=== PATIENT | female | born 1965 | race Caucasian/White ===

== ENCOUNTER → 2016-07-19 | Outpatient (CLI) | payer BC ==
[2016-07-19 10:42] LABS: Albumin 4.1 g/dL (3.4-5.0); BUN/Creatinine Ratio 13.4; Bilirubin, Total 0.5 mg/dL (0.2-1.0); Calcium 9.5 mg/dL (8.5-10.1); Total Protein 8.2 g/dL (6.4-8.2)
== END | disposition home or self-care (01) ==
LOC: LAB 09:27
PROVIDERS: ATTEND Physician Assistant
DX: E03.9 Hypothyroidism, unspecified (principal); R94.5 Abnormal results of liver function studies; E78.5 Hyperlipidemia, unspecified
CPT/HCPCS: 36415; 80053; 80061; 83036; 84439; 84443; 84481

== ENCOUNTER → 2017-05-10 | Outpatient (CLI) | payer BC ==
[2017-05-10 10:18] LABS: Basophils # (auto) 0 uL; Basophils % (auto) 0.8 % (0.0-2.0); Eosinophils # (auto) 0.1 uL; Eosinophils % (auto) 2.9 % (0.0-7.0); Hematocrit 46.5 % (36.0-46.0); Lymphocytes # (auto) 1.8 uL; Lymphocytes % (auto) 40.1 % (10.0-50.0); Mean Corpuscular Hemoglobin 31.7 pg (28.0-32.0); Mean Corpuscular Hgb Conc. 34.5 g/dL (32.0-36.0); Mean Corpuscular Volume 91.9 fL (80.0-100.0); Mean Platelet Volume 9.5 fL (6.9-10.8); Monocytes # (auto) 0.3 uL; Monocytes % (auto) 7.1 % (0.0-12.0); Neutrophils # (auto) 2.2 uL; Neutrophils % (auto) 49.1 % (37.0-80.0); Nucleated Red Blood Cells % 0.2 %; Platelet Count (auto) 170 10^3/uL (140-450); Red Cell Distribution Width 12.7 % (11.8-14.3); White Blood Cell 4.5 10^3/uL (4.4-10.8)
[2017-05-10 10:56] LABS: Albumin 4.3 g/dL (3.4-5.0); BUN/Creatinine Ratio 17.5; Bilirubin, Total 0.6 mg/dL (0.2-1.0); Calcium 9.7 mg/dL (8.5-10.1); Potassium 3.8 mmol/L (3.5-5.1); Total Protein 8.5 g/dL (6.4-8.2)
== END | disposition home or self-care (01) ==
LOC: LAB 09:25
PROVIDERS: ATTEND Physician Assistant
DX: Z00.01 Encounter for general adult medical examination with abnormal findings (principal); E78.5 Hyperlipidemia, unspecified; E03.9 Hypothyroidism, unspecified; E55.9 Vitamin D deficiency, unspecified; K52.9 Noninfective gastroenteritis and colitis, unspecified
CPT/HCPCS: 36415; 80053; 80061; 82306; 82607; 83036; 84439; 84443; 84481; 85025

== ENCOUNTER → 2018-01-17 | Outpatient (CLI) | payer BC ==
[2018-01-17 10:33] LABS: Urine Bacteria NONE SEEN /hpf (None Seen); Urine Blood TRACE /uL (Negative); Urine Mucus FEW (None Seen); Urine Specific Gravity 1.018 (1.001-1.035); Urine WBC 1 /hpf (0 - 5)
[2018-01-17 11:08] LABS: Albumin 3.9 g/dL (3.4-5.0); BUN/Creatinine Ratio 14.3; Calcium 9.4 mg/dL (8.5-10.1); Potassium 3.8 mmol/L (3.5-5.1)
[2018-01-17 11:11] LABS: Bilirubin, Total 0.8 mg/dL (0.2-1.0); Total Protein 8.2 g/dL (6.4-8.2)
[2018-01-17 11:18] LABS: Folate (Folic Acid) 23.35 ng/mL (5.38-24)
[2018-01-17 13:56] LABS: CRP High Sensitivity 0.41 mg/dL (< 0.3)
== END | disposition home or self-care (01) ==
LOC: LAB 10:11
PROVIDERS: ATTEND Nurse Practitioner
DX: E78.5 Hyperlipidemia, unspecified (principal); E03.5 Myxedema coma
CPT/HCPCS: 36415; 80053; 80061; 81001; 82306; 82607; 82746; 83036; 84443; 85652; 86141; 86431

== ENCOUNTER → 2018-05-09 | Outpatient (CLI) | payer BC | END | disposition home or self-care (01) | LOC: LAB 13:02 | PROVIDERS: ATTEND Physician Assistant | DX: N39.0 Urinary tract infection, site not specified (principal) | CPT/HCPCS: 87086; 87088; 87186 ==

== ENCOUNTER → 2018-06-11 | Outpatient (CLI) | payer BC ==
[2018-06-11 09:20] LABS: Urine WBC None Seen /hpf (0 - 5)
[2018-06-11 09:22] LABS: Basophils # (auto) 0.1 uL; Basophils % (auto) 1.1 % (0.0-2.0); Eosinophils # (auto) 0.1 uL; Eosinophils % (auto) 2.1 % (0.0-7.0); Hematocrit 48.4 % (36.0-46.0); Hemoglobin 16.6 g/dL (12.2-16.2); Lymphocytes # (auto) 1.7 uL; Lymphocytes % (auto) 38.7 % (10.0-50.0); Mean Corpuscular Hemoglobin 31.6 pg (28.0-32.0); Mean Corpuscular Hgb Conc. 34.3 g/dL (32.0-36.0); Mean Corpuscular Volume 92.2 fL (80.0-100.0); Monocytes # (auto) 0.4 uL; Monocytes % (auto) 8.2 % (0.0-12.0); Neutrophils # (auto) 2.2 uL; Neutrophils % (auto) 49.9 % (37.0-80.0); Platelet Count (auto) 172 10^3/uL (140-450); Red Blood Cells 5.24 10^6/uL (4.0-5.20); Red Cell Distribution Width 13.8 % (11.8-14.3); White Blood Cell 4.5 10^3/uL (4.4-10.8)
[2018-06-11 09:27] LABS: Urine Bacteria FEW /hpf (None Seen); Urine Blood Negative /uL (Negative); Urine Specific Gravity 1.003 (1.001-1.035)
[2018-06-11 09:42] LABS: Albumin 4.4 g/dL (3.4-5.0); Anion Gap 6 (5-15); Blood Urea Nitrogen 12 mg/dL (7-18); Calcium 9.9 mg/dL (8.5-10.1); Carbon Dioxide 27 mmol/L (21-32); Chloride 103 mmol/L (98-107); Glucose 97 mg/dL (74-106); Sodium 136 mmol/L (136-145)
[2018-06-11 09:47] LABS: Alanine Aminotransferase 72 U/L (13-56); Alkaline Phosphatase 152 U/L (45-117); Aspartate Aminotransferase 58 U/L (15-37); Bilirubin, Total 0.8 mg/dL (0.2-1.0); Cholesterol 204 mg/dL (< 200); GFR African American > 60 mL/min; GFR Non-African American > 60 mL/min; HDL Cholesterol 74 mg/dL (40-59); LDL Cholesterol 123 mg/dL (< 100); Total Protein 8.5 g/dL (6.4-8.2); Triglycerides 87 mg/dL (< 150)
== END | disposition home or self-care (01) ==
LOC: LAB 09:01
PROVIDERS: ATTEND Nurse Practitioner
DX: E78.5 Hyperlipidemia, unspecified (principal)
CPT/HCPCS: 36415; 80053; 80061; 81001; 82306; 83036; 84443; 85025

== ENCOUNTER 2018-10-02 08:05 | Inpatient (IN) | payer BC ==
[2018-09-30 15:00] LABS: Urine WBC None Seen /hpf (0 - 5)
[2018-09-30 15:41] LABS: Calcium 9.7 mg/dL (8.5-10.1)
[2018-09-30 15:44] LABS: Bilirubin, Total 0.3 mg/dL (0.2-1.0); Total Protein 7.8 g/dL (6.4-8.2)
[2018-09-30 15:57] LABS: Urine Bacteria NONE SEEN /hpf (None Seen); Urine Blood Negative /uL (Negative); Urine Specific Gravity 1.016 (1.001-1.035)
[2018-09-30 15:59] LABS: Basophils # (auto) 0 uL; Basophils % (auto) 0.8 % (0.0-2.0); Eosinophils # (auto) 0.1 uL; Eosinophils % (auto) 2.4 % (0.0-7.0); Hematocrit 40.6 % (36.0-46.0); Hemoglobin 14.3 g/dL (12.2-16.2); Lymphocytes # (auto) 1.5 uL; Lymphocytes % (auto) 35.3 % (10.0-50.0); Mean Corpuscular Hemoglobin 32.1 pg (28.0-32.0); Mean Corpuscular Hgb Conc. 35.1 g/dL (32.0-36.0); Mean Corpuscular Volume 91.4 fL (80.0-100.0); Monocytes # (auto) 0.3 uL; Monocytes % (auto) 7.5 % (0.0-12.0); Neutrophils # (auto) 2.3 uL; Nucleated Red Blood Cells % 0.2 %; Platelet Count (auto) 97 10^3/uL (140-450); Red Blood Cells 4.44 10^6/uL (4.0-5.20); White Blood Cell 4.2 10^3/uL (4.4-10.8)
[2018-09-30 16:22] LABS: INR 1.03 (0.9-1.15); Partial Thromboplastin Time 27.5 sec (23.78-33.04)
[~2018-10-02] VITALS: Ht 170.2 cm; Wt 70.9 kg
[~2018-10-02 08:05] MED LIST: LEVO112T35 PO
[2018-10-02] MEDS ORDERED: ceFAZolin 1GM/50ML 50 ML IV ONE (11:34)
[2018-10-02] MEDS ORDERED: LIDOCAINE 1% (LOCAL ANESTH.) PF 5ml SDV ONE (11:35)
[2018-10-02] MEDS ORDERED: SUCCINYLCHOLINE CHLORIDE 20 MG/ML 10ML VIAL IV ONE (11:35)
[2018-10-02] MEDS ORDERED: METOCLOPRAMIDE HCL 5MG/ml INJ 2ml VIAL ONE (11:37)
[2018-10-02] MEDS ORDERED: MIDAZOLAM HCL 1MG/1ML-2 ML VIAL ONE (11:37)
[2018-10-02] MEDS ORDERED: ROCURONIUM 10MG/ML 10ML VIAL IV ONE (11:38)
[2018-10-02] MEDS ORDERED: PROPOFOL 10 MG/ML 20 ML IV ONE (11:38)
[2018-10-02] MEDS ORDERED: fentaNYL CITRATE 100 MCG/2 ML VL ONE (11:46)
[2018-10-02] MEDS ORDERED: ONDANSETRON HCL 4 MG/2 ML VIAL IV ONE (12:00)
[2018-10-02] MEDS ORDERED: NALOXONE HCL 0.4 MG/ML VIAL IV PRN (12:00)
[2018-10-02] MEDS ORDERED: HYDROmorphone HCL 2 MG/ML VL IV PRN ×2 (12:00→13:00)
[2018-10-02] MEDS ORDERED: KETOROLAC TROMETH 30 MG/ML 1ML VIAL ONE (12:08)
[2018-10-02] MEDS ORDERED: GLYCOPYRROLATE 0.2 MG/ML 1ML VIAL ONE (12:13)
[2018-10-02] MEDS ORDERED: NEOSTIGMINE 1 MG/ML INJ (10mg/10ML VIAL) ONE (12:13)
[2018-10-02] MEDS: HYDROmorphone HCL 2 MG/ML VL IV PRN ×2 (12:50→13:57)
[2018-10-02] MEDS ORDERED: ONDANSETRON HCL 4 MG/2 ML VIAL IV PRN (13:00)
--- NOTE | 2018-10-02 14:48 | NUR ---
Med/Surg admit from [facility] [place] admitted to Med/Surg unit after SBAR received. Patient oriented to [place] primary RN, unit, room, bed, and unit policies regarding patient care and visiting hours discussed with patient and family. Patient on room air, no signs of SOB/distress notes. ABD dressing clean, dry and intact. KATHERINE drain intact, patent and draining serosanguineous fluid. Safety precautions in place including bed set to lowest position/locked, bedside rail up x2, call light within reach. Instructed patient to call for assistance. Patient verbalized understanding. Will continue to monitor Q 1hr and PRN.
[2018-10-02] MEDS: HYDROcodone-ACET 5/325MG TAB PO PRN (16:46)
[2018-10-02 17:00] VITALS: BP 106/69
[2018-10-02] MEDS: D5W/SOD CHL 0.45%/KCL 20MEQ 1,000 ML IV SCH ×2 (17:03→23:27)
[2018-10-02] MEDS: ceFAZolin 1GM/50ML 50 ML IV SCH ×2 (17:59→22:16)
--- NOTE | 2018-10-02 18:30 | NUR ---
PATIENT WAS AMBULATING AROUND NURSES STATION WITH FAMILY.
--- NOTE | 2018-10-02 19:27 | NUR ---
ENDORSED CARE TO IOANA GARCIA.
--- NOTE | 2018-10-02 19:42 | NUR ---
OPENING NOTE REPORT RECEIVED FROM DAY SHIFT RN PATIENT IS AMBULATING AROUND NURSES STATION WITH DAUGHTER STANDBY PT DENIES ANY DISTRESS AT THIS TIME WILL CONTINUE TO MONITOR
--- NOTE | 2018-10-02 20:18 | NUR ---
paged regarding: KATHERINE site actively bleeding sanguineous drainage
--- NOTE | 2018-10-02 20:20 | NUR ---
spoke with new order to change dressing to site, apply pressure bandage and apply binder
--- NOTE | 2018-10-02 20:30 | NUR ---
DRESSING CHANGE TO SITE PER APPLIED STERILE 4 X 4 GAUZE TO SITE WITH PRESSURE FOAM TAPE AND NEW ABDOMINAL BINDER.PATIENT TOLERATED WELL. DRAIN EMPTIED: 100ML OUT
[2018-10-02 22:00] VITALS: BP 129/66
[2018-10-03 05:00] VITALS: BP_SYST 106; BP_SYST 156; BP_DIAS 55; BP_DIAS 84
[2018-10-03] MEDS: ceFAZolin 1GM/50ML 50 ML IV SCH ×3 (06:09→22:17)
[2018-10-03] MEDS: LEVOTHYROXINE SODIUM 112 MCG TAB PO SCH (06:09)
--- NOTE | 2018-10-03 07:01 | NUR ---
TOTAL OUTPUT FROM KATHERINE: 340ML
--- NOTE | 2018-10-03 07:29 | NUR ---
CLOSING NOTE REPORT ENDORSED TO DAY SHIFT RN MORGAN DRESSING TO KATHERINE DRAIN SITE CHANGED 4 TIMES DURING SHIFT. DRESSING CURRENTLY WITH MINIMAL DRAINAGE. KATHERINE DRAIN DRAINING SANGUINEOUS FLUID. NO S/S OF DISTRESS. ABD BINDER IN PLACE, SCD'S ON BILATERALLY. CALL LIGHT WITHIN REACH
[2018-10-03] MEDS: HYDROcodone-ACET 5/325MG TAB PO PRN ×2 (07:58→18:01)
[2018-10-03 08:30] VITALS: BP 127/70
[2018-10-03] MEDS ORDERED: PANTOPRAZOLE 40 MG TAB PO SCH (10:00)
[2018-10-03] MEDS: HYDROmorphone HCL 2 MG/ML VL IV PRN ×3 (10:36→20:59)
[2018-10-03 13:00] VITALS: BP 117/66
[2018-10-03] MEDS: D5W/SOD CHL 0.45%/KCL 20MEQ 1,000 ML IV SCH ×2 (13:50→19:49)
--- NOTE | 2018-10-03 14:43 | NUR ---
PT COMPLAINING OF NAUSEA AND VOMITING, WILL GIVE NAUSEA MEDICATION ORDERED.
[2018-10-03 15:22] LABS: Basophils # (auto) 0.1 uL; Basophils % (auto) 0.7 % (0.0-2.0); Eosinophils # (auto) 0 uL; Eosinophils % (auto) 0.5 % (0.0-7.0); Hematocrit 46.1 % (36.0-46.0); Hemoglobin 15.6 g/dL (12.2-16.2); Lymphocytes # (auto) 2.9 uL; Lymphocytes % (auto) 26.7 % (10.0-50.0); Mean Corpuscular Hgb Conc. 33.7 g/dL (32.0-36.0); Monocytes # (auto) 0.9 uL; Monocytes % (auto) 7.8 % (0.0-12.0); Neutrophils % (auto) 64.3 % (37.0-80.0); Nucleated Red Blood Cells % 0.1 %; Platelet Count (auto) 178 10^3/uL (140-450); Red Blood Cells 5.02 10^6/uL (4.0-5.20); Red Cell Distribution Width 13.1 % (11.8-14.3); White Blood Cell 10.9 10^3/uL (4.4-10.8)
[2018-10-03 17:18] VITALS: BP 112/67
--- NOTE | 2018-10-03 18:30 | NUR ---
KATHERINE DRAIN OUTPUT 380MLS
--- NOTE | 2018-10-03 19:30 | NUR ---
OPENING NOTE REPORT RECEIVED FROM DAY SHIFT RN PATIENT IS A/OX4 RESTING IN BED, FAMILY AT BEDSIDE. SCD'S ON BILATERALLY. INCENTIVE SPIROMETER AT BEDSIDE AND PATIENT ABLE TO DEMONSTRATE USE. ABD BINDER IN PLACE. INCISIONS X 3 TO ABDOMEN, C/D/I AT THIS TIME. KATHERINE TO BULB SUCTION DRAINING SANGUINEOUS FLUID. PHYSICAL ASSESSMENT DONE- SEE INTERVENTIONS. POC DISCUSSED, ALL QUESTIONS ANSWERED. WILL MONITOR Q1H PRN THROUGHOUT SHIFT. CALL LIGHT WITHIN REACH.
[2018-10-03 22:00] VITALS: BP 144/81
[2018-10-04 04:50] VITALS: BP 107/62
[2018-10-04] MEDS: D5W/SOD CHL 0.45%/KCL 20MEQ 1,000 ML IV SCH (05:52)
[2018-10-04] MEDS: ceFAZolin 1GM/50ML 50 ML IV SCH ×2 (06:12→14:00)
[2018-10-04] MEDS: LEVOTHYROXINE SODIUM 112 MCG TAB PO SCH (06:13)
[2018-10-04 06:41] LABS: Basophils # (auto) 0.1 uL; Eosinophils # (auto) 0.1 uL; Eosinophils % (auto) 1.3 % (0.0-7.0); Hemoglobin 14.6 g/dL (12.2-16.2); Lymphocytes # (auto) 1.5 uL; Lymphocytes % (auto) 21.9 % (10.0-50.0); Mean Corpuscular Hemoglobin 31.1 pg (28.0-32.0); Mean Corpuscular Volume 91.6 fL (80.0-100.0); Monocytes # (auto) 0.5 uL; Monocytes % (auto) 7.6 % (0.0-12.0); Neutrophils # (auto) 4.8 uL; Neutrophils % (auto) 68.2 % (37.0-80.0); Nucleated Red Blood Cells % 0.1 %; Platelet Count (auto) 122 10^3/uL (140-450); Red Blood Cells 4.69 10^6/uL (4.0-5.20); Red Cell Distribution Width 12.8 % (11.8-14.3)
--- NOTE | 2018-10-04 06:48 | NUR ---
TOTAL OUTPUT FROM KATHERINE DRAIN: 200ML
--- NOTE | 2018-10-04 06:58 | NUR ---
CLOSING NOTE PATIENT UP TO RESTROOM WITHOUT DISTRESS AT THIS TIME
[2018-10-04 07:00] LABS: Albumin 3.4 g/dL (3.4-5.0); Calcium 9.2 mg/dL (8.5-10.1); Potassium 3.8 mmol/L (3.5-5.1)
[2018-10-04 07:03] LABS: BUN/Creatinine Ratio 9.8; Bilirubin, Total 0.6 mg/dL (0.2-1.0); Total Protein 6.7 g/dL (6.4-8.2)
--- NOTE | 2018-10-04 07:18 | NUR ---
patient back in bed scd's on bilaterally dressings c/d/i danielle draining to bulb suction
[2018-10-04 08:09] VITALS: BP 122/68
[2018-10-04] MEDS: HYDROcodone-ACET 5/325MG TAB PO PRN (08:41)
[2018-10-04] MEDS ORDERED: FAMOTIDINE (10MG/ML) 2ML VL IV SCH (10:00)
[2018-10-04 13:00] VITALS: BP 125/69
--- NOTE | 2018-10-04 13:20 | NUR ---
DR. MEADOWS MADE AWARE PT'S IV IS LEAKING AND PT IS REQUESTING IF SHE CAN GET PILL FOR HER ANTIBIOTIC, PT IS REFUSING TO INSERT A NEW IV, PER DR. MEADOWS HE WILL TAKE CARE OF IT.
--- NOTE | 2018-10-04 13:52 | NUR ---
PT SEEN BY DR. MEADOWS HE SAID TO GIVE PT SANDWICH AND IF PT TOLERATES IT IN 1 HOUR WITH NO NAUSEA AND VOMITING, PT CAN GO HOME.
--- NOTE | 2018-10-04 14:00 | NUR ---
ANCEF IV NOT GIVEN PT REFUSED IV INSERTION, DR. MEADOWS GAVE PRESCRIPTION FOR ORAL ANTIBIOTIC.
--- NOTE | 2018-10-04 14:45 | NUR ---
PT TOLERATED HALF OF THE SANDWICH, NO NAUSEA AND VOMITING NOTED.
[2018-10-04 16:21] VITALS: BP 106/57
--- NOTE | 2018-10-04 17:10 | NUR ---
Discharge instructions given as ordered. Encourage to follow up with DR. KATZ ON OCTOBER 09 AT 9:45AM, FOLLOW UP WITH DR. POLK ON OCTOBER 08 AT 10:45AM, TEL# AND ADDRESS PROVIDED TO THE PT. PT EDUCATED ON HOW TO DRAIN THE KATHERINE DRAIN, DRESSING CHANGED. All questions and concerns addressed. Patient verbalized understanding. Medication reconciliation form completed and copy given to patient. IV removed with catheter intact, pressure dressing applied. Patient taken to vehicle via wheelchair with all personal belongings, accompanied by staff and family member. No distress noted at time of departure.
== END 2018-10-04 17:10 | disposition home or self-care (01) | DRG 419 ==
LOC: SUR 08:05 → WEST WING 15:08
PROVIDERS: ADMIT Surgery; ATTEND Internal Medicine
PROC: 0FT44ZZ Resection of Gallbladder, Percutaneous Endoscopic Approach (ICD-10-PCS; principal; 2018-10-02 11:34)
DX: K80.10 Calculus of gallbladder with chronic cholecystitis without obstruction (principal); E66.9 Obesity, unspecified; E03.9 Hypothyroidism, unspecified; Z90.710 Acquired absence of both cervix and uterus; Z68.24 Body mass index [BMI] 24.0-24.9, adult
CPT/HCPCS: 36415; 80053; 81001; 82247; 84443; 85025; 85610; 85730; 86850; 86900; 86901; A6257; G0378; J0330; J0690; J1885; J2250; J2405; J2704; J3490

== ENCOUNTER → 2018-10-25 | Outpatient (CLI) | payer BC ==
[2018-10-25 11:21] LABS: Basophils # (auto) 0.1 uL; Basophils % (auto) 1.9 % (0.0-2.0); Eosinophils # (auto) 0.1 uL; Eosinophils % (auto) 2.8 % (0.0-7.0); Hematocrit 43.9 % (36.0-46.0); Hemoglobin 15.1 g/dL (12.2-16.2); Lymphocytes # (auto) 1.3 uL; Lymphocytes % (auto) 32.6 % (10.0-50.0); Mean Corpuscular Hemoglobin 31.5 pg (28.0-32.0); Mean Corpuscular Hgb Conc. 34.4 g/dL (32.0-36.0); Mean Corpuscular Volume 91.5 fL (80.0-100.0); Monocytes # (auto) 0.3 uL; Monocytes % (auto) 7.6 % (0.0-12.0); Neutrophils # (auto) 2.2 uL; Neutrophils % (auto) 55.1 % (37.0-80.0); Nucleated Red Blood Cells % 0.2 %; Platelet Count (auto) 113 10^3/uL (140-450); Red Cell Distribution Width 12.7 % (11.8-14.3); White Blood Cell 3.9 10^3/uL (4.4-10.8)
[2018-10-25 11:44] LABS: Calcium 9.7 mg/dL (8.5-10.1); Potassium 4.1 mmol/L (3.5-5.1)
[2018-10-25 11:49] LABS: BUN/Creatinine Ratio 18.2; Bilirubin, Total 0.7 mg/dL (0.2-1.0)
== END | disposition home or self-care (01) ==
LOC: LAB 10:31
PROVIDERS: ATTEND Nurse Practitioner
DX: E78.5 Hyperlipidemia, unspecified (principal)
CPT/HCPCS: 36415; 80053; 85025

== ENCOUNTER → 2018-11-29 | Outpatient (CLI) | payer BC ==
[2018-11-29 09:36] LABS: Basophils # (auto) 0 uL; Eosinophils # (auto) 0.1 uL; Hematocrit 43.5 % (36.0-46.0); Hemoglobin 14.7 g/dL (12.2-16.2); Lymphocytes # (auto) 1.3 uL; Lymphocytes % (auto) 39.2 % (10.0-50.0); Mean Corpuscular Hemoglobin 30.8 pg (28.0-32.0); Mean Corpuscular Hgb Conc. 33.9 g/dL (32.0-36.0); Mean Corpuscular Volume 90.8 fL (80.0-100.0); Monocytes # (auto) 0.3 uL; Monocytes % (auto) 9.3 % (0.0-12.0); Neutrophils # (auto) 1.5 uL; Neutrophils % (auto) 46.5 % (37.0-80.0); Nucleated Red Blood Cells % 0.1 %; Platelet Count (auto) 112 10^3/uL (140-450); Red Blood Cells 4.79 10^6/uL (4.0-5.20); Red Cell Distribution Width 13.2 % (11.8-14.3); White Blood Cell 3.3 10^3/uL (4.4-10.8)
[2018-11-29 09:56] LABS: Cholesterol 200 mg/dL (< 200); Triglycerides 99 mg/dL (< 150)
[2018-11-29 09:58] LABS: HDL Cholesterol 78 mg/dL (40-59); LDL Cholesterol 120 mg/dL (< 100)
== END | disposition home or self-care (01) ==
LOC: LAB 08:50
PROVIDERS: ATTEND Nurse Practitioner
DX: E78.5 Hyperlipidemia, unspecified (principal)
CPT/HCPCS: 36415; 80061; 84443; 85025

== ENCOUNTER → 2019-01-03 | Outpatient (CLI) | payer BC ==
[2019-01-03 12:26] LABS: Urine Bacteria NONE SEEN /hpf (None Seen); Urine Blood TRACE /uL (Negative); Urine Mucus FEW (None Seen); Urine Specific Gravity 1.023 (1.001-1.035); Urine WBC <1 /hpf (0 - 5)
== END | disposition home or self-care (01) ==
LOC: LAB 11:58
PROVIDERS: ATTEND Urology
DX: N30.01 Acute cystitis with hematuria (principal)
CPT/HCPCS: 81001; 87086

== ENCOUNTER → 2019-03-25 | Outpatient (CLI) | payer BC | END | disposition home or self-care (01) | LOC: LAB 09:25 | PROVIDERS: ATTEND Nurse Practitioner | DX: E03.9 Hypothyroidism, unspecified (principal) | CPT/HCPCS: 36415; 84443 ==

== ENCOUNTER → 2019-05-12 | Day surgery (SDC) | payer BC ==
[2019-05-08 14:41] LABS: Urine Bacteria NONE SEEN /hpf (None Seen); Urine Blood Negative /uL (Negative); Urine WBC <1 /hpf (0 - 5)
[2019-05-08 14:42] LABS: Basophils # (auto) 0.1 uL; Basophils % (auto) 1.2 % (0.0-2.0); Eosinophils # (auto) 0.1 uL; Eosinophils % (auto) 2.2 % (0.0-7.0); Hemoglobin 14.4 g/dL (12.2-16.2); Lymphocytes # (auto) 1.8 uL; Lymphocytes % (auto) 40.2 % (10.0-50.0); Mean Corpuscular Hemoglobin 31.1 pg (28.0-32.0); Mean Corpuscular Hgb Conc. 34.2 g/dL (32.0-36.0); Mean Corpuscular Volume 90.9 fL (80.0-100.0); Monocytes # (auto) 0.3 uL; Monocytes % (auto) 7.6 % (0.0-12.0); Neutrophils # (auto) 2.1 uL; Neutrophils % (auto) 48.8 % (37.0-80.0); Nucleated Red Blood Cells % 0.1 %; Platelet Count (auto) 127 10^3/uL (140-450); Red Blood Cells 4.62 10^6/uL (4.0-5.20); Red Cell Distribution Width 13.2 % (11.8-14.3); White Blood Cell 4.4 10^3/uL (4.4-10.8)
[2019-05-08 14:59] LABS: INR 1.12 (0.9-1.15); Partial Thromboplastin Time 26.3 sec (23.64-32.05)
[2019-05-08 15:06] LABS: Albumin 3.9 g/dL (3.4-5.0); Calcium 9.4 mg/dL (8.5-10.1); Potassium 3.8 mmol/L (3.5-5.1)
[2019-05-08 15:09] LABS: BUN/Creatinine Ratio 23.3; Bilirubin, Total 0.4 mg/dL (0.2-1.0); Total Protein 7.7 g/dL (6.4-8.2)
[~2019-05-12] VITALS: Ht 170.2 cm; Wt 78.0 kg
[~2019-05-12] MED LIST changes: +CIPROFLOXACIN 400MG/200ML 200 ML IV ONE; +CONJ ESTROGENS 0.625MG/GM VAG CRM 30GM PV ONE; -LEVO112T35 PO; +LEVO150T10 PO; +LIDOCAINE W/ EPINEPHRINE 1% 20ML VIAL ONE; +MIDAZOLAM HCL 1MG/1ML-2 ML VIAL ONE; +ONDANSETRON HCL 4 MG/2 ML VIAL IV PRN; +PROPOFOL 10 MG/ML 20 ML IV ONE; +SUCCINYLCHOLINE CHLORIDE 20 MG/ML 10ML VIAL IV ONE; +ceFAZolin 1GM VL ONE; +ePHEDrine SULFATE 50 MG/ML AMP IV PRN; +fentaNYL CITRATE 100 MCG/2 ML VL IV ONE; +fentaNYL CITRATE 100 MCG/2 ML VL IV PRN; +fentaNYL CITRATE 100 MCG/2 ML VL ONE; +hydrALAZINE HCL 20 MG/ML VL IV PRN
[2019-05-12 13:45] VITALS: BP 112/69
== END | disposition home or self-care (01) ==
LOC: SUR 08:19
PROVIDERS: ATTEND Urology
DX: N39.3 Stress incontinence (female) (male) (principal); D64.9 Anemia, unspecified; F41.9 Anxiety disorder, unspecified; F32.9 Major depressive disorder, single episode, unspecified; Z90.710 Acquired absence of both cervix and uterus; Z90.49 Acquired absence of other specified parts of digestive tract; Z79.899 Other long term (current) drug therapy
CPT/HCPCS: 36415; 57288; 80053; 81001; 85025; 85610; 85730; 93005; C1763; J0330; J0690; J0744; J2250; J2704; J3010

== ENCOUNTER → 2019-10-15 | Outpatient (CLI) | payer BC ==
[~2019-10-15] MED LIST changes: -CIPROFLOXACIN 400MG/200ML 200 ML IV ONE; -CONJ ESTROGENS 0.625MG/GM VAG CRM 30GM PV ONE; -LIDOCAINE W/ EPINEPHRINE 1% 20ML VIAL ONE; -MIDAZOLAM HCL 1MG/1ML-2 ML VIAL ONE; -ONDANSETRON HCL 4 MG/2 ML VIAL IV PRN; -PROPOFOL 10 MG/ML 20 ML IV ONE; -SUCCINYLCHOLINE CHLORIDE 20 MG/ML 10ML VIAL IV ONE; -ceFAZolin 1GM VL ONE; -ePHEDrine SULFATE 50 MG/ML AMP IV PRN; -fentaNYL CITRATE 100 MCG/2 ML VL IV ONE; -fentaNYL CITRATE 100 MCG/2 ML VL IV PRN; -fentaNYL CITRATE 100 MCG/2 ML VL ONE; -hydrALAZINE HCL 20 MG/ML VL IV PRN
[2019-10-15 10:52] LABS: Basophils # (auto) 0 10 ^3/uL (0-0.2); Basophils % (auto) 0.9 % (0.0-2.0); Eosinophils # (auto) 0.1 10 ^3/uL (0-0.8); Eosinophils % (auto) 2.6 % (0.0-7.0); Hematocrit 44.1 % (36.0-46.0); Hemoglobin 15.1 g/dL (12.2-16.2); Lymphocytes # (auto) 1.3 10 ^3/uL (0.4-5.4); Lymphocytes % (auto) 34.7 % (10.0-50.0); Mean Corpuscular Hemoglobin 31.1 pg (28.0-32.0); Mean Corpuscular Hgb Conc. 34.3 g/dL (32.0-36.0); Mean Corpuscular Volume 90.6 fL (80.0-100.0); Monocytes # (auto) 0.3 10 ^3/uL (0-1.3); Monocytes % (auto) 7.7 % (0.0-12.0); Neutrophils % (auto) 54.1 % (37.0-80.0); Nucleated Red Blood Cells % 0.1 %; Platelet Count (auto) 154 10^3/uL (140-450); Red Blood Cells 4.87 10^6/uL (4.0-5.20); Red Cell Distribution Width 13.7 % (11.8-14.3); White Blood Cell 3.7 10^3/uL (4.4-10.8)
[2019-10-15 10:59] LABS: Urine Bacteria NONE SEEN /hpf (None Seen); Urine Blood TRACE /uL (Negative); Urine Mucus FEW (None Seen); Urine Specific Gravity 1.023 (1.001-1.035); Urine WBC 2 /hpf (0 - 5)
[2019-10-15 11:25] LABS: Calcium 10.2 mg/dL (8.5-10.1); Potassium 4.3 mmol/L (3.5-5.1)
[2019-10-15 11:30] LABS: BUN/Creatinine Ratio 17.2; Bilirubin, Total 0.8 mg/dL (0.2-1.0)
== END | disposition home or self-care (01) ==
LOC: LAB 10:25
PROVIDERS: ATTEND Nurse Practitioner
DX: Z00.00 Encounter for general adult medical examination without abnormal findings (principal); E78.5 Hyperlipidemia, unspecified
CPT/HCPCS: 36415; 80053; 80061; 81001; 84443; 85025

== ENCOUNTER → 2020-05-03 | Outpatient (CLI) | payer BC ==
[2020-05-03 10:11] LABS: Basophils # (auto) 0 10 ^3/uL (0-0.2); Basophils % (auto) 1.3 % (0.0-2.0); Eosinophils # (auto) 0.1 10 ^3/uL (0-0.8); Eosinophils % (auto) 3.1 % (0.0-7.0); Hemoglobin 14.6 g/dL (12.2-16.2); Lymphocytes # (auto) 1.2 10 ^3/uL (0.4-5.4); Lymphocytes % (auto) 39.4 % (10.0-50.0); Mean Corpuscular Hemoglobin 30.7 pg (28.0-32.0); Mean Corpuscular Hgb Conc. 33.2 g/dL (32.0-36.0); Mean Corpuscular Volume 92.5 fL (80.0-100.0); Monocytes # (auto) 0.3 10 ^3/uL (0-1.3); Neutrophils # (auto) 1.5 10 ^3/uL (1.6-8.6); Neutrophils % (auto) 48.2 % (37.0-80.0); Platelet Count (auto) 134 10^3/uL (140-450); Red Blood Cells 4.76 10^6/uL (4.0-5.20); Red Cell Distribution Width 13.3 % (11.8-14.3); White Blood Cell 3.2 10^3/uL (4.4-10.8)
[2020-05-03 10:26] LABS: Albumin 3.9 g/dL (3.4-5.0); Calcium 9.8 mg/dL (8.5-10.1)
[2020-05-03 10:32] LABS: BUN/Creatinine Ratio 10.5; Bilirubin, Total 0.7 mg/dL (0.2-1.0); Total Protein 7.6 g/dL (6.4-8.2)
== END | disposition home or self-care (01) ==
LOC: LAB 09:53
PROVIDERS: ATTEND Nurse Practitioner
DX: I10 Essential (primary) hypertension (principal); E03.9 Hypothyroidism, unspecified; E78.5 Hyperlipidemia, unspecified
CPT/HCPCS: 36415; 80053; 80061; 84443; 85025

== ENCOUNTER → 2020-12-02 | Outpatient (CLI) | payer BC | END | disposition home or self-care (01) | LOC: LAB 08:46 | PROVIDERS: ATTEND Nurse Practitioner | DX: E03.9 Hypothyroidism, unspecified (principal) | CPT/HCPCS: 36415; 84443 ==

== ENCOUNTER → 2021-11-03 | Outpatient (CLI) | payer BC ==
[2021-11-03 08:56] LABS: Basophils # (auto) 0.1 10 ^3/uL (0-0.2); Basophils % (auto) 2.2 % (0.0-2.0); Eosinophils # (auto) 0.1 10 ^3/uL (0-0.8); Eosinophils % (auto) 4.4 % (0.0-7.0); Hemoglobin 14.3 g/dL (12.2-16.2); Lymphocytes # (auto) 1.1 10 ^3/uL (0.4-5.4); Lymphocytes % (auto) 37.5 % (10.0-50.0); Mean Corpuscular Hemoglobin 32.6 pg (28.0-32.0); Mean Corpuscular Hgb Conc. 34.8 g/dL (32.0-36.0); Mean Corpuscular Volume 93.5 fL (80.0-100.0); Monocytes # (auto) 0.3 10 ^3/uL (0-1.3); Monocytes % (auto) 8.6 % (0.0-12.0); Neutrophils # (auto) 1.4 10 ^3/uL (1.6-8.6); Neutrophils % (auto) 47.3 % (37.0-80.0); Nucleated Red Blood Cells % 0.1 %; Red Blood Cells 4.39 10^6/uL (4.0-5.20); Red Cell Distribution Width 13.3 % (11.8-14.3)
[2021-11-03 09:06] LABS: Urine Bacteria NONE SEEN /hpf (None Seen); Urine Blood Negative /uL (Negative); Urine Mucus FEW (None Seen); Urine Specific Gravity 1.015 (1.001-1.035); Urine WBC 1 /hpf (0 - 5)
[2021-11-03 09:54] LABS: Albumin 3.5 g/dL (3.4-5.0); Calcium 9.2 mg/dL (8.5-10.1); Potassium 3.9 mmol/L (3.5-5.1)
[2021-11-03 09:59] LABS: BUN/Creatinine Ratio 14.5; Bilirubin, Total 1.2 mg/dL (0.2-1.0); Total Protein 7.3 g/dL (6.4-8.2)
== END | disposition home or self-care (01) ==
LOC: LAB 08:34
PROVIDERS: ATTEND Nurse Practitioner
DX: R53.83 Other fatigue (principal); E78.5 Hyperlipidemia, unspecified; I10 Essential (primary) hypertension
CPT/HCPCS: 36415; 80053; 80061; 81001; 82306; 84443; 85025

== ENCOUNTER → 2022-04-28 | Outpatient (CLI) | payer BC ==
[2022-04-28 09:14] LABS: Basophils # (auto) 0 10 ^3/uL (0-0.2); Basophils % (auto) 1.1 % (0.0-2.0); Eosinophils # (auto) 0.1 10 ^3/uL (0-0.8); Eosinophils % (auto) 2.6 % (0.0-7.0); Hematocrit 42.5 % (36.0-46.0); Hemoglobin 14.5 g/dL (12.2-16.2); Lymphocytes % (auto) 37.8 % (10.0-50.0); Mean Corpuscular Hemoglobin 31.9 pg (28.0-32.0); Mean Corpuscular Hgb Conc. 34.1 g/dL (32.0-36.0); Mean Corpuscular Volume 93.7 fL (80.0-100.0); Monocytes # (auto) 0.2 10 ^3/uL (0-1.3); Monocytes % (auto) 6.6 % (0.0-12.0); Neutrophils # (auto) 1.4 10 ^3/uL (1.6-8.6); Neutrophils % (auto) 51.9 % (37.0-80.0); Nucleated Red Blood Cells % 0.1 %; Red Blood Cells 4.54 10^6/uL (4.0-5.20); Red Cell Distribution Width 13.8 % (11.8-14.3); White Blood Cell 2.7 10^3/uL (4.4-10.8)
[2022-04-28 09:52] LABS: Calcium 9.3 mg/dL (8.5-10.1); Potassium 3.9 mmol/L (3.5-5.1)
[2022-04-28 09:59] LABS: Albumin 3.6 g/dL (3.4-5.0); BUN/Creatinine Ratio 11.7; Bilirubin, Total 1.4 mg/dL (0.2-1.0); Total Protein 7.3 g/dL (6.4-8.2)
[2022-04-28 10:02] LABS: Urine Blood Negative /uL (Negative); Urine Specific Gravity 1.019 (1.001-1.035)
[2022-04-28 15:01] LABS: Urine Bacteria FEW /hpf (None Seen); Urine Mucus FEW (None Seen); Urine WBC 5 /hpf (0 - 5)
== END | disposition home or self-care (01) ==
LOC: LAB 09:00
PROVIDERS: ATTEND Nurse Practitioner
DX: I10 Essential (primary) hypertension (principal); E03.9 Hypothyroidism, unspecified; E78.5 Hyperlipidemia, unspecified
CPT/HCPCS: 36415; 80053; 80061; 81001; 84443; 85025

== ENCOUNTER → 2022-07-06 | Outpatient (CLI) | payer BC ==
[2022-07-06 10:40] LABS: Basophils # (auto) 0 10 ^3/uL (0-0.2); Basophils % (auto) 1.1 % (0.0-2.0); Eosinophils # (auto) 0.1 10 ^3/uL (0-0.8); Eosinophils % (auto) 3.5 % (0.0-7.0); Hematocrit 42.2 % (36.0-46.0); Hemoglobin 14.6 g/dL (12.2-16.2); Lymphocytes # (auto) 1.3 10 ^3/uL (0.4-5.4); Lymphocytes % (auto) 41.1 % (10.0-50.0); Mean Corpuscular Hemoglobin 32.8 pg (28.0-32.0); Mean Corpuscular Hgb Conc. 34.5 g/dL (32.0-36.0); Mean Corpuscular Volume 95.1 fL (80.0-100.0); Monocytes # (auto) 0.3 10 ^3/uL (0-1.3); Monocytes % (auto) 8.2 % (0.0-12.0); Neutrophils # (auto) 1.4 10 ^3/uL (1.6-8.6); Neutrophils % (auto) 46.1 % (37.0-80.0); Nucleated Red Blood Cells % 0.1 %; Red Blood Cells 4.44 10^6/uL (4.0-5.20); White Blood Cell 3.1 10^3/uL (4.4-10.8)
[2022-07-06 10:56] LABS: Urine Bacteria FEW /hpf (None Seen); Urine Blood Negative /uL (Negative); Urine Mucus FEW (None Seen); Urine Specific Gravity 1.017 (1.001-1.035); Urine WBC 2 /hpf (0 - 5)
[2022-07-06 11:48] LABS: Potassium 3.9 mmol/L (3.5-5.1)
[2022-07-06 11:58] LABS: Albumin 3.6 g/dL (3.4-5.0); Bilirubin, Total 1.5 mg/dL (0.2-1.0); Calcium 9.2 mg/dL (8.5-10.1); Total Protein 7.1 g/dL (6.4-8.2)
== END | disposition home or self-care (01) ==
LOC: LAB 10:26
PROVIDERS: ATTEND Nurse Practitioner
DX: I10 Essential (primary) hypertension (principal); E78.5 Hyperlipidemia, unspecified; E03.9 Hypothyroidism, unspecified
CPT/HCPCS: 36415; 80053; 80061; 81001; 84443; 85025

== ENCOUNTER → 2022-10-10 | Outpatient (CLI) | payer BC ==
[2022-10-10 08:44] LABS: Albumin 3.5 g/dL (3.4-5.0)
[2022-10-10 08:51] LABS: BUN/Creatinine Ratio 9.7 (10.0-20.0); Bilirubin, Total 1.5 mg/dL (0.2-1.0)
== END | disposition home or self-care (01) ==
LOC: LAB 08:07
PROVIDERS: ATTEND Nurse Practitioner
DX: E03.9 Hypothyroidism, unspecified (principal); E78.5 Hyperlipidemia, unspecified
CPT/HCPCS: 36415; 80053; 80061; 84443

== ENCOUNTER → 2022-12-27 | Outpatient (CLI) | payer BC ==
[2022-12-27 10:26] LABS: Albumin 3.2 g/dL (3.4-5.0); BUN/Creatinine Ratio 11.9 (10.0-20.0); Bilirubin, Total 1.6 mg/dL (0.2-1.0); Calcium 9.1 mg/dL (8.5-10.1); Total Protein 7.2 g/dL (6.4-8.2)
== END | disposition home or self-care (01) ==
LOC: LAB 09:39
PROVIDERS: ATTEND Nurse Practitioner
DX: I10 Essential (primary) hypertension (principal); E03.9 Hypothyroidism, unspecified
CPT/HCPCS: 36415; 80053; 84443

== ENCOUNTER → 2023-03-28 | Outpatient (CLI) | payer BC ==
[2023-03-28 10:54] LABS: Alanine Aminotransferase 39 U/L (7-40); Albumin 3.7 g/dL (3.2-4.8); Alkaline Phosphatase 180 U/L (46-116); Anion Gap 6 (5-15); Aspartate Aminotransferase 65 U/L (13-40); BUN/Creatinine Ratio 11.5 (10.0-20.0); Blood Urea Nitrogen 7 mg/dL (9-23); Calcium 9.3 mg/dL (8.5-10.1); Carbon Dioxide 25 mmol/L (20-30); Chloride 107 mmol/L (98-107); Glucose 95 mg/dL (74-106); LDL Cholesterol 85 mg/dL (< 100); Potassium 4.2 mmol/L (3.5-5.1); Sodium 138 mmol/L (136-145); Triglycerides 85 mg/dL (< 150)
[2023-03-28 10:55] LABS: Bilirubin, Total 2.5 mg/dL (0.2-1.0); Cholesterol 187 mg/dL (< 200); HDL Cholesterol 73 mg/dL (40-59)
== END | disposition home or self-care (01) ==
LOC: LAB 09:38
PROVIDERS: ATTEND Nurse Practitioner
DX: E78.5 Hyperlipidemia, unspecified (principal)
CPT/HCPCS: 36415; 80053; 80061; 84443

== ENCOUNTER → 2023-06-26 | Outpatient (CLI) | payer BC ==
[2023-06-26 10:00] LABS: Urine Bacteria FEW /hpf (None Seen); Urine Blood Negative /uL (Negative); Urine Clarity Clear (Clear); Urine Color Yellow (Yellow); Urine Mucus FEW (None Seen); Urine Protein, UAD Negative (Negative); Urine Specific Gravity 1.015 (1.001-1.035); Urine Urobilinogen Normal (Negative); Urine WBC 10 /hpf (0 - 5); Urine pH 5.5 (5.0-8.0)
[2023-06-26 10:06] LABS: Basophils # (auto) 0 10 ^3/uL (0-0.2); Eosinophils # (auto) 0.1 10 ^3/uL (0-0.8); Lymphocytes # (auto) 0.9 10 ^3/uL (0.4-5.4); Monocytes # (auto) 0.2 10 ^3/uL (0-1.3); Red Cell Distribution Width 14.4 % (11.8-14.3)
[2023-06-26 10:09] LABS: Hematocrit 40.3 % (36.0-46.0); Hemoglobin 13.9 g/dL (12.2-16.2); Lymphocytes % (auto) 43.4 % (10.0-50.0); Mean Corpuscular Hemoglobin 33.1 pg (28.0-32.0); Mean Corpuscular Hgb Conc. 34.5 g/dL (32.0-36.0); Mean Corpuscular Volume 95.9 fL (80.0-100.0); Monocytes % (auto) 8.2 % (0.0-12.0); Neutrophils # (auto) 0.9 10 ^3/uL (1.6-8.6); Neutrophils % (auto) 43.4 % (37.0-80.0); Nucleated Red Blood Cells % 0.2 %; White Blood Cell 2.2 10^3/uL (4.4-10.8)
[2023-06-26 10:31] LABS: Alanine Aminotransferase 70 U/L (7-40); Alkaline Phosphatase 170 U/L (46-116); Anion Gap 6 (5-15); BUN/Creatinine Ratio 10.7 (10.0-20.0); Blood Urea Nitrogen 6 mg/dL (9-23); Calcium 9.8 mg/dL (8.5-10.1); Carbon Dioxide 24 mmol/L (20-30); Chloride 109 mmol/L (98-107); Glucose 92 mg/dL (74-106); LDL Cholesterol 84 mg/dL (< 100); Potassium 3.9 mmol/L (3.5-5.1); Sodium 139 mmol/L (136-145); Triglycerides 65 mg/dL (< 150)
[2023-06-26 10:32] LABS: Albumin 3.7 g/dL (3.2-4.8); Aspartate Aminotransferase 95 U/L (13-40); Bilirubin, Total 2.3 mg/dL (0.2-1.0); Cholesterol 183 mg/dL (< 200); HDL Cholesterol 72 mg/dL (40-59); Total Protein 6.9 g/dL (5.7-8.2)
[2023-06-26 13:39] LABS: Platelet Estimate Decreased
== END | disposition home or self-care (01) ==
LOC: LAB 09:23
PROVIDERS: ATTEND Nurse Practitioner
DX: I10 Essential (primary) hypertension (principal); E03.9 Hypothyroidism, unspecified; E78.5 Hyperlipidemia, unspecified
CPT/HCPCS: 36415; 80053; 80061; 81001; 83036; 84443; 85025

== ENCOUNTER 2024-06-21 17:21 | Emergency (ER) | payer BC ==
[~2024-06-21] VITALS: Ht 170.2 cm; Wt 88.6 kg
--- NOTE | 2024-06-21 17:37 | ECG ---
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
--- NOTE | 2024-06-21 17:44 | ED.PDOC ---
GI ASSESSMENT HPI Comments 58-year-old female presents with a chief complaint of abdominal distention x 10 days. Patient states that she recently went to [place] and came back and has since developed bloating to her abdomen. Patient reports that she has been having a lot of flatulence and feels full compared to her baseline. Patients skin is jaundiced in color and had 4+ pitting edema bilaterally to her bilateral legs. Patient denies any history of CHF or PVD. No other symptoms or modifying factors present at this time. Chief Complaint: Abdominal Pain Time Seen by MD: 17:34 Primary Care Provider: KIM Gordon Notes: Nurses Notes, Medications, Allergies Allergies: Coded Allergies: NO KNOWN ALLERGIES (Unverified , 05/08/19) Home Meds Reported Medications Levothyroxine Sodium (Levothyroxine Sodium) 150 Mcg Tab, 150 MCG PO QAM for 30 Days 05/08/19 Information Source: Patient Mode of Arrival: Ambulatory Timing: Days Duration: Since onset Prehospital treatment: None Quality: Other (BLOATING) Vomitus: None Stool: Normal Severity: Moderate Recent: Travel (WENT TO [place]) Recent Hx of: None Pain Location: Diffuse Associated sign and symptoms: Other (Burping and flatulence) Past Medical History PAST MEDICAL HISTORY: Thyroid Surgical History: Denies all surgeries LEISURE TRAVEL AGENT History: Denies all LEISURE TRAVEL AGENT Hx Family History Family History: Reviewed,noncontributory to illness Social History Smoker: Non-Smoker Alcohol: Denies ETOH Use Drugs: Denies Drug Use Lives In: Home Constitutional: denies: chills, diaphoresis, fatigue, fever, malaise, sweats, weakness, others EENTM: denies: blurred vision, double vision, ear bleeding, ear discharge, ear drainage, ear pain, ear ringing, eye pain, eye redness, hearing loss, mouth pain, mouth swelling, nasal discharge, nose bleeding, nose congestion, nose pain, photophobia, tearing, throat pain, throat swelling, voice changes, others Respiratory: denies: cough, hemoptysis, orthopnea, SOB at rest, shortness of breath, SOB with excertion, stridor, wheezing, others Cardiovascular: denies: chest pain, dizzy spells, diaphoresis, Dyspnea on exertion, edema, irregular heart beat, left arm pain, lightheadedness, palpitations, PND, syncope, others Gastrointestinal: reports: abdomen distended; denies: abdominal pain, blood str eaked bowels, constipated, diarrhea, dysphagia, difficulty swallowing, hematemesis, melena, nausea, poor appetite, poor fluid intake, rectal bleeding, rectal pain, vomiting, others Genitourinary: denies: abnormal vagina bleeding, burning, dyspareunia, dysuria, flank pain, frequency, hematuria, incontinence, pain, , vagina discharge, urgency, others Neurological: denies: dizziness, fainting, headache, left sided numbness, left sided weakness, numbness, paresthesia, pre-existing deficit, right sided numbness, right sided weakness, seizure, speech problems, tingling, tremors, weakness, others Musculoskeletal: denies: back pain, gout, joint pain, joint swelling, muscle pain, muscle stiffness, neck pain, others Integumetry: denies: bruises, change in color, change in hair/nails, dryness, laceration, lesions, lumps, rash, wounds, others Allergic/Immunocompromised: denies: Difficulty Healing, Frequent Infections, Hives, Itching, others Hematologic/Lymphatic: denies: anemia, blood clots, easy bleeding, easy bruising, swollen glands, others Endocrine: denies: excessive hunger, excessive sweating, excessive thirst, excessive urination, flushing, intolerance to cold, intolerance to heat, unexplained weight gain, unexplained weight loss, others Psychiatric: denies: anxiety, bipolar disorder, depression, hopeless, panic disorder, schizophrenia, sleepless, suicidal, others All Other Systems: Reviewed and Negative Physical Exam General Appearance: Mild Distress (Mild distress due to abdominal bloating.), Normal HEENT: Normal ENT Inspection, Pharynx Normal, TMs Normal Neck: Full Range of Motion, Non-Tender, Normal, Normal Inspection Respiratory: Chest Non-Tender, Lungs Clear, No Accessory Muscle Use, No Respiratory Distress, Normal Breath Sounds Cardiovascular: No Edema, No JVD, No Murmur, No Gallop, Normal Peripheral Pulses, Regular Rate/Rhythm Breast Exam: Deferred Gastrointestinal: No Pulsatile Mass, Normal Bowel Sounds, Other (Patient displays some mild abdominal bloating. No tenderness to palpation. No pulsatile masses.) Genitalia: Deferred Pelvic: Deferred Rectal: Deferred Extremities: No calf tenderness, Normal capillary refill, Normal inspection, Normal range of motion, Non-tender, No pedal edema Musculoskeletal : Apperance: Normal Neurologic: Alert, No Motor Deficits, Normal Affect, Normal Mood, No Sensory Deficits Cerebellar Function: Normal Reflexes: Normal Skin: Dry, Normal Color, Warm Lymphatic: No Adenopathy Was a procedure done? Was a procedure done?: No GI differential Dx Differential Diagnosis: Bowel Obstruction, Cholecystitis, Constipation, Gastritis/PUD, Gastroenteritis, Inflammatory BD, Pancreatitis, Other (Parasitic infection, helmet infection, UTI) X-Ray, Labs, Meds, VS Vital Signs Date Time Temp Pulse Resp B/P (MAP) Pulse Ox O2 Delivery O2 Flow Rate FiO2 06/21/24 19:36 Room Air* 0 21 06/21/24 19:36 97.8 91 16 142/82 (102) 97 97.8 06/21/24 17:32 102 06/21/24 17:31 98.3 104 18 148/54 (85) 97 Lab Test 06/21/24 17:58 06/21/24 17:29 Range/Units White Blood Count 3.2 L 4.4-10.8 10^3/uL Red Blood Count 4.29 4.0-5.20 10^6/uL Hemoglobin 14.1 12.2-16.2 g/dL Hematocrit 42.1 36.0-46.0 % Mean Corpuscular Volume 98.0 80.0-100.0 fL Mean Corpuscular Hemoglobin 33.0 H 28.0-32.0 pg Mean Corpuscular Hemoglobin Concent 33.6 32.0-36.0 g/dL Red Cell Distribution Width 15.2 H 11.8-14.3 % Platelet Count 108 L 140-450 10^3/uL Mean Platelet Volume 7.1 6.9-10.8 fL Neutrophils (%) (Auto) 51.9 37.0-80.0 % Lymphocytes (%) (Auto) 25.4 10.0-50.0 % Monocytes (%) (Auto) 8.2 0.0-12.0 % Eosinophils (%) (Auto) 13.3 H 0.0-7.0 % Basophils (%) (Auto) 1.2 0.0-2.0 % Neutrophils # (Auto) 1.7 1.6-8.6 10 ^3/uL Lymphocytes # (Auto) 0.8 0.4-5.4 10 ^3/uL Monocytes # (Auto) 0.3 0-1.3 10 ^3/uL Eosinophils # (Auto) 0.4 0-0.8 10 ^3/uL Basophils # (Auto) 0 0-0.2 10 ^3/uL Nucleated Red Blood Cells 0.1 % Sodium Level 137 136-145 mmol/L Potassium Level 3.6 3.5-5.1 mmol/L Chloride Level 106 98-107 mmol/L Carbon Dioxide Level 24 20-31 mmol/L Anion Gap 7 5-15 Blood Urea Nitrogen 6 L 9-23 mg/dL Creatinine 0.68 0.550-1.02 mg/dL Glomerular Filtration Rate Calc 101 >90 mL/min BUN/Creatinine Ratio 8.8 L 10.0-20.0 Serum Glucose 127 H 74-106 mg/dL Calcium Level 9.3 8.7-10.4 mg/dL Urine Color Yellow Yellow Urine Clarity Turbid H Clear Urine pH 5.5 5.0-9.0 Urine Specific Commerce 1.020 1.001-1.035 Urine Protein Trace H Negative Urine Ketones Negative Negative Urine Blood Negative Negative /uL Urine Nitrite Negative Negative Urine Bilirubin Negative Negative Urine Urobilinogen Normal Negative mg/dL Urine Leukocyte Esterase 2+ Negative /uL Urine RBC <1 0 - 4 /hpf Urine Microscopic WBC 29 H 0-5 /HPF Urine Squamous Epithelial Cells Few <5 /hpf Urine Bacteria None seen None Seen /hpf Urine Mucus Few None Seen Urine Yeast (Budding) Occasional None Seen /hpf Urine Glucose Normal Normal mg/dL Current Medications Medications (Trade) Dose Ordered Sig/Ana Route Start Time Stop Time Status Last Admin Dimethicone (Mylicon Tab) 80 mg ONCE ONCE PO 06/21/24 18:00 06/21/24 18:01 DC 06/21/24 19:36 X-Ray, Labs, Meds, VS Comment All studies performed the ED were evaluated by me personally. Imaging studies were remarkable for some gas trapping and moderate stool burden. Serum laboratories were unremarkable for any systemic process, but urinalysis confirmed a UTI. Stool and P and stool WBC evaluation were send out some woke return for a few days. Patient will be notified of those results. Patient will be sent home with the antibiotics to address her urinary tract infection. Time of 1ST Reevaluation: 19:51 Reevaluation 1ST: Improved Consultation: PCP Patient Education/Counseling: Diagnosis, Treatment, Prognosis Family Education/Counseling: Diagnosis, Treatment, Prognosis Departure 1 Departure Time of Disposition: 19:51 Impression: Primary Impression: Urinary tract infection Disposition: HOME / SELF CARE / HOMELESS Condition: Stable Additional Instructions: Advised patient utilize antibiotics as directed until completion as well as additional medication as needed. Advised patient that the stool cultures will not return for a few days. Patient will be notified from this facility if there are any questionable findings. Patient can contact this facility at the end of next week if she has not been informed of the results. e-Prescriptions Simethicone (Simethicone) 80 Mg Chw 1 TAB PO Q8HR, #20 TAB Prov: DIMAS QUIÑONEZ PAC 06/21/24 Nitrofurantoin Monohydrate Mac (Macrobid) 100 Mg Cap 100 MG PO BID for 7 Days, #14 CAP Prov: DIMAS QUIÑONEZ PAC 06/21/24 Discharged With: Self, Friend Critical Care Note Critical Care Time?: No Stability Stability form required: No Heart Score Heart Score: Heart Score Response (Comments) Value History N/A 0 EKG N/A 0 Age N/A 0 Risk Factors N/A 0 Troponin N/A 0 Total 0 I personally scribed for DIMAS QUIÑONEZ PAC ([email or web address]) on 06/21/24 at 17:44. Electronically submitted by Leonard Loomis ([email or web address]). DIMAS QUIÑONEZ PAC Jun 21, 2024 17:44
[2024-06-21 18:04] LABS: Urine Bacteria None Seen /hpf (None Seen)
[2024-06-21 18:12] LABS: Basophils # (auto) 0 10 ^3/uL (0-0.2); Basophils % (auto) 1.2 % (0.0-2.0); Eosinophils # (auto) 0.4 10 ^3/uL (0-0.8); Eosinophils % (auto) 13.3 % (0.0-7.0); Hematocrit 42.1 % (36.0-46.0); Hemoglobin 14.1 g/dL (12.2-16.2); Lymphocytes # (auto) 0.8 10 ^3/uL (0.4-5.4); Lymphocytes % (auto) 25.4 % (10.0-50.0); Mean Corpuscular Hgb Conc. 33.6 g/dL (32.0-36.0); Monocytes # (auto) 0.3 10 ^3/uL (0-1.3); Monocytes % (auto) 8.2 % (0.0-12.0); Neutrophils # (auto) 1.7 10 ^3/uL (1.6-8.6); Neutrophils % (auto) 51.9 % (37.0-80.0); Nucleated Red Blood Cells % 0.1 %; Platelet Count (auto) 108 10^3/uL (140-450); Red Blood Cells 4.29 10^6/uL (4.0-5.20); Red Cell Distribution Width 15.2 % (11.8-14.3); White Blood Cell 3.2 10^3/uL (4.4-10.8)
[2024-06-21 18:17] LABS: Chloride 106 mmol/L (98-107); Potassium 3.6 mmol/L (3.5-5.1); Sodium 137 mmol/L (136-145)
[2024-06-21 18:18] LABS: Anion Gap 7 (5-15); Calcium 9.3 mg/dL (8.7-10.4); Carbon Dioxide 24 mmol/L (20-31)
[2024-06-21 18:23] LABS: BUN/Creatinine Ratio 8.8 (10.0-20.0)
[2024-06-21 18:24] LABS: Urine Blood Negative /uL (Negative); Urine Budding Yeast OCCASIONAL /hpf (None Seen); Urine Clarity Turbid (Clear); Urine Color Yellow (Yellow); Urine Mucus FEW (None Seen); Urine Protein, UAD TRACE (Negative); Urine Squamous Epithelial Cell FEW /hpf (<5); Urine Urobilinogen Normal (Negative); Urine WBC 29 /HPF (0-5); Urine pH 5.5 (5.0-9.0)
[2024-06-21 18:27] LABS: Blood Urea Nitrogen 6 mg/dL (9-23); Glucose 127 mg/dL (74-106)
[2024-06-21 19:36] VITALS: BP 142/82; PULSE 91; RESP 16; TEMP 97.8; O2SAT 97
[2024-06-21] MEDS: SIMETHICONE 80 MG CHEWABLE TABLET PO ONE (19:36)
--- NOTE | 2024-06-21 19:37 | DVH ---
Procedure: XY KUB ABDOMEN SINGLE VIEW Study Date and Requested Time: 06/21/2024 05:58 PM History: Abdominal pain Technique: 2 views of the abdomen and pelvis available for evaluation. Comparison: None Findings/ Impression: Nonspecific bowel gas pattern. Paucity of small bowel gas. Fluid-filled bowel loops can not be exclu ded. Moderate amount of fecal material within the right hemiabdomen. Status post cholecystectomy. The lung bases are clear. No evidence of acute bony abnormalities.
[2024-06-21] MEDS ORDERED: NITR-87 PO (19:54)
[2024-06-21] MEDS ORDERED: SIME80CH49 PO (19:54)
[2024-06-21] MEDS: NITROFURANTOIN 100 mg CAP PO ONE (20:35)
== END 2024-06-21 20:38 | disposition home or self-care (01) ==
LOC: ER 17:21
DX: N39.0 Urinary tract infection, site not specified (principal); E03.9 Hypothyroidism, unspecified; Z90.49 Acquired absence of other specified parts of digestive tract; Z79.899 Other long term (current) drug therapy
CPT/HCPCS: 36415; 74018; 80048; 81001; 85025; 87045; 87177; 87427; 93005

== ENCOUNTER 2024-07-15 05:24 | Inpatient (IN) | payer BC ==
[~2024-07-15] VITALS: Ht 170.2 cm; Wt 86.5 kg
[~2024-07-15 05:24] MED LIST changes: +NITR-87 PO; +SIME80CH49 PO
[2024-07-15 06:23] LABS: Anion Gap 10 (5-15); Carbon Dioxide 24 mmol/L (20-31); Chloride 102 mmol/L (98-107); Sodium 136 mmol/L (136-145)
[2024-07-15 06:24] LABS: Calcium 9.3 mg/dL (8.7-10.4)
[2024-07-15 06:37] LABS: BUN/Creatinine Ratio 9.8 (10.0-20.0); Blood Urea Nitrogen < 5 mg/dL (9-23); Glucose 115 mg/dL (74-106); Potassium 3.2 mmol/L (3.5-5.1)
--- NOTE | 2024-07-15 06:47 | ECG ---
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
[2024-07-15 07:01] VITALS: PULSE 104; RESP 18; O2SAT 95
--- NOTE | 2024-07-15 07:03 | ED.PDOC ---
SOB-HPI HPI Comments 58 year old female presents to the ED with chief complaint of SOB. Patient reports that she has been experiencing SOB with associated leg swelling and chest pressure since yesterday. Patient relays that she currently takes a water pill that was prescribed by as she had a previous UTI and was found to be retaining water. 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 Patient denies any chest pain, dizziness, cough, fever, chills, headache, or N/V/D. Chief Complaint: Shortness of Breath Time Seen by MD: 06:59 Primary Care Provider: KIM Reviewed notes: Nurses Notes, Medications, Allergies Information Source: Patient Mode of Arrival: Ambulatory Severity: Moderate Timing: Days Duration: Since onset Context: At Rest PE Risk Factors: None History of: None Prehospital treatment: None Modifying Factors: Nothing Associated Signs and Symptoms: Chest Pain Quality: Pressure Radiation: No Radiation Location: Substernal Past Medical History PAST MEDICAL HISTORY: Thyroid, UTI'S Surgical History: Denies all surgeries ADVERTISING ASSISTANT History: Denies all ADVERTISING ASSISTANT Hx Family History Family History: Reviewed,noncontributory to illness Social History Smoker: Non-Smoker Alcohol: Denies ETOH Use Drugs: Denies Drug Use Lives In: Home Constitutional: denies: chills, diaphoresis, fatigue, fever, malaise, sweats, weakness, others EENTM: denies: blurred vision, double vision, ear bleeding, ear discharge, ear drainage, ear pain, ear ringing, eye pain, eye redness, hearing loss, mouth pain, mouth swelling, nasal discharge, nose bleeding, nose congestion, nose pain, photophobia, tearing, throat pain, throat swelling, voice changes, others Respiratory: reports: shortness of breath; denies: cough, hemoptysis, orthopnea, SOB at rest, SOB with excertion, stridor, wheezing, others Cardiovascular: reports: edema; denies: chest pain, dizzy spells, diaphoresis, Dyspnea on exertion, irregular heart beat, left arm pain, lightheadedness, palpitations, PND, syncope, others Gastrointestinal: denies: abdomen distended, abdominal pain, blood streaked bowels, constipated, diarrhea, dysphagia, difficulty swallowing, hematemesis, melena, nausea, poor appetite, poor fluid intake, rectal bleeding, rectal pain, vomiting, others Genitourinary: denies: abnormal vagina bleeding, burning, dyspareunia, dysuria, flank pain, frequency, hematuria, incontinence, pain, , vagina disc harge, urgency, others Neurological: denies: dizziness, fainting, headache, left sided numbness, left sided weakness, numbness, paresthesia, pre-existing deficit, right sided numbness, right sided weakness, seizure, speech problems, tingling, tremors, weakness, others Musculoskeletal: denies: back pain, gout, joint pain, joint swelling, muscle pain, muscle stiffness, neck pain, others Integumetry: denies: bruises, change in color, change in hair/nails, dryness, laceration, lesions, lumps, rash, wounds, others Allergic/Immunocompromised: denies: Difficulty Healing, Frequent Infections, Hives, Itching, others Hematologic/Lymphatic: denies: anemia, blood clots, easy bleeding, easy bruising, swollen glands, others Endocrine: denies: excessive hunger, excessive sweating, excessive thirst, excessive urination, flushing, intolerance to cold, intolerance to heat, unexplained weight gain, unexplained weight loss, others Psychiatric: denies: anxiety, bipolar disorder, depression, hopeless, panic disorder, schizophrenia, sleepless, suicidal, others All Other Systems: Reviewed and Negative Physical Exam General Appearance: Moderate Distress, Normal HEENT: Normal ENT Inspection, PERRL/EOMI Neck: Full Range of Motion, Non-Tender, Normal, Normal Inspection Respiratory: Chest Non-Tender, No Accessory Muscle Use, Respiratory Distress, Other (Coarse breath sounds) Cardiovascular: No Edema, No JVD, No Murmur, No Gallop, Normal Peripheral Pulses, Regular Rate/Rhythm Breast Exam: Deferred Gastrointestinal: No Organomegaly, Non Tender, No Pulsatile Mass, Normal Bowel Sounds, Soft Genitalia: Deferred Pelvic: Deferred Rectal: Deferred Extremities: No calf tenderness, Normal capillary refill, Normal range of motion, Non-tender, Pedal edema, Swelling (Bilateral lower extremity swelling right greater than the left) Musculoskeletal : Apperance: Normal Neurologic: Alert, superintendent circus II-XII nml as Tested, No Motor Deficits, Normal Affect, Normal Mood, No Sensory Deficits Cerebellar Function: NOT DONE Reflexes: NOT DONE Skin: Dry, Normal Color, Warm Peripheral Pulses: 3+ Radial (R), 3+ Radial (L) Lymphatic: No Adenopathy Was a procedure done? Was a procedure done?: No Differential Dx Differential Diagnosis: Anxiety, Asthma, Bronchitis, CHF, COPD X-Ray, Labs, Meds, VS Vital Signs Date Time Temp Pulse Resp B/P (MAP) Pulse Ox O2 Delivery O2 Flow Rate FiO2 07/15/24 07:14 95 Nasal Cannula* 4 36 07/15/24 07:01 104 18 95 Nasal Cannula* 4 36 07/15/24 07:01 104 18 142/96 (111) 95 07/15/24 05:34 101 07/15/24 05:29 98.1 115 22 129/69 (89) 89 Lab Test 07/15/24 06:45 07/15/24 05:42 Range/Units Troponin I High Sensitivity < 3 L < 3 L </=34 ng/L White Blood Count Pending Red Blood Count Pending Hemoglobin Pending Hematocrit Pending Mean Corpuscular Volume Pending Mean Corpuscular Hemoglobin Pending Mean Corpuscular Hemoglobin Concent Pending Red Cell Distribution Width Pending Platelet Count Pending Mean Platelet Volume Pending Neutrophils (%) (Auto) Pending Lymphocytes (%) (Auto) Pending Monocytes (%) (Auto) Pending Basophils (%) (Auto) Pending Neutrophils # (Auto) Pending Lymphocytes # (Auto) Pending Monocytes # (Auto) Pending Sodium Level 136 136-145 mmol/L Potassium Level 3.2 L 3.5-5.1 mmol/L Chloride Level 102 98-107 mmol/L Carbon Dioxide Level 24 20-31 mmol/L Anion Gap 10 5-15 Blood Urea Nitrogen < 5 L 9-23 mg/dL Creatinine 0.51 L 0.550-1.02 mg/dL Glomerular Filtration Rate Calc 108 >90 mL/min BUN/Creatinine Ratio 9.8 L 10.0-20.0 Serum Glucose 115 H 74-106 mg/dL Calcium Level 9.3 8.7-10.4 mg/dL B-Type Natriuretic Peptide 30.54 0-100 pg/mL Patient alert pain Complaining of shortness a breath. Her saturation was high 80s when she came to ER. Placed on oxygen. Potassium is low. Was given potassium. On examination she does have swelling of the bilateral lower extremity pain Was given Lasix pain BNP within normal limits pain Unknown the reason for her swelling. DVT study. Echocardiogram. Possible diastolic heart failure. Possible pneumonitis. Explained to the patient. Continue cardiac monitoring. Chest XR: FINDINGS: Lines and Tubes: None Lungs: Moderate right and small left pleural effusion. Bibasilar opacities. Pleura: No effusion. No pneumothorax. Cardiomediastinal contours: Cardiomegaly. Bones: No acute osseous abnormality. IMPRESSION: Cardiomegaly.Moderate right and small left pleural effusion. Bibasilar opacities. Images Reviewed?: Images reviewed and evaluated by me Time of 1ST Reevaluation: 07:59 Reevaluation 1ST: Unchanged Patient Education/Counseling: Diagnosis, Treatment Family Education/Counseling: No Family Present Additional Information I reviewed the following notes from patient's past medical encounters: 06/21/24 for UTI The following tests were ordered, and results were reviewed by me: Troponin, BMP, CBC, BNP, EKG, CXR I reviewed and agreed with the following test results read by other providers: CXR Additional Information was gathered from interviewing the following independent historians: None I discussed treatment and results with medical personnel. Departure 1 Departure Time of Disposition: 07:34 Impression: Primary Impression: Diastolic heart failure Qualified Codes: I50.33 - Acute on chronic diastolic (congestive) heart failure Additional Impression: Pneumonitis Disposition: 09 ADMITTED INPATIENT Admit to: Med Surg Condition: Guarded Critical Care Note Critical Care Time?: Yes (90 min-critical care time only) Critical care comment: Placed on oxygen Stability Stability form required: No Heart Score Heart Score: Heart Score Response (Comments) Value History Highly Suspicious 2 EKG Normal 0 Age 45-64 1 Risk Factors 1 or 2 risk factors 1 Troponin Normal limit 0 Total 4 I personally scribed for NATIVIDAD COTTO MD ([email or web address]) on 07/15/24 at 07:03. Electronically submitted by Vinay Albert ([email or web address]). I personally scribed for NATIVIDAD COTTO MD ([email or web address]) on 07/15/24 at 08:25. Electronically submitted by Vinay Albert ([email or web address]). NATIVIDAD COTTO MD Jul 15, 2024 07:03
--- NOTE | 2024-07-15 08:18 | DVH ---
EXAM: XY CHEST PORTABLE Indication: sob Technique: Single frontal view of the chest was obtained Comparison: None FINDINGS: Lines and Tubes: None Lungs: Moderate right and small left pleural effusion. Bibasilar opacities. Pleura: No effusion. No pneumothorax. Cardiomediastinal contours: Cardiomegaly. Bones: No acute osseous abnormality. IMPRESSION: Cardiomegaly.Moderate right and small left pleural effusion. Bibasilar opacities.
[2024-07-15] MEDS: POTASSIUM EFFERVESENT TAB 25 MEQ PO ONE (08:50)
[2024-07-15] MEDS: FUROSEMIDE 40 MG/4 ML VIAL IV ONE (08:50)
[2024-07-15 08:56] LABS: Eosinophils # (auto) 0.1 10 ^3/uL (0-0.8); Neutrophils # (auto) 2.8 10 ^3/uL (1.6-8.6); Nucleated Red Blood Cells % 0.4 %; Platelet Count (auto) 64 10^3/uL (140-450); White Blood Cell 3.8 10^3/uL (4.4-10.8)
[2024-07-15 09:09] LABS: Basophils # (auto) 0 10 ^3/uL (0-0.2); Basophils % (auto) 0.6 % (0.0-2.0); Eosinophils % (auto) 2.5 % (0.0-7.0); Hemoglobin 15.8 g/dL (12.2-16.2); Lymphocytes # (auto) 0.6 10 ^3/uL (0.4-5.4); Lymphocytes % (auto) 16.5 % (10.0-50.0); Mean Corpuscular Hemoglobin 32.5 pg (28.0-32.0); Mean Corpuscular Hgb Conc. 33.7 g/dL (32.0-36.0); Mean Corpuscular Volume 96.6 fL (80.0-100.0); Monocytes # (auto) 0.2 10 ^3/uL (0-1.3); Monocytes % (auto) 6.5 % (0.0-12.0); Neutrophils % (auto) 73.9 % (37.0-80.0); Red Blood Cells 4.86 10^6/uL (4.0-5.20); Red Cell Distribution Width 17.2 % (11.8-14.3)
[2024-07-15] MEDS ORDERED: NITROGLYCERIN 0.4 MG SL TAB SL PRN (10:30)
[2024-07-15] MEDS ORDERED: MORPHINE SULFATE INJ 2 MG/ml SYRG IV PRN (10:30)
[2024-07-15] MEDS ORDERED: ACETAMINOPHEN 325 MG TAB PO PRN (10:30)
[2024-07-15] MEDS ORDERED: ONDANSETRON HCL 4 MG/2 ML VIAL IV PRN (10:30)
[2024-07-15] MEDS ORDERED: DOCUSATE SOD 100 MG CAP PO PRN (10:30)
--- NOTE | 2024-07-15 10:47 | DVHHP2 ---
History of Present Illness Reason for Visit: Shortness of breath History of Present Illness Lulu Acuña is a 58-year-old female with past medical history of hypothyroidism, who came to the ER for complaints of shortness of breath. Patient states she noticed that her legs were swelling about 3 weeks ago. She went to her primary doctor about 2 weeks ago. The swelling was not getting better so she went to urgent care about 1 week ago. They prescribed her a water pill and told her she needs to follow up with her primary and cardiology. She came to the hospital today because she started experiencing shortness of breath yesterday, and it worsened this morning. Endocrine: Hypothyroidism Past Surgical History: Cholecystectomy, Hysterectomy Smoke: No ALCOHOL: none Drugs: None Lives: with Family Domestic Violence: Neg Review of Systems Constitutional: No: Fever, Chills, Sweats, Weakness, Malaise, Other Eyes: No: Pain, Vision change, Conjunctivae inflammation, Eyelid inflammation, Other, Redness ENT: No: Ear pain, Ear discharge, Nose pain, Nose discharge, Nose congestion, Mouth pain, Mouth swelling, Throat pain, Throat swelling, Other Respiratory: Shortness of breath, SOB with excertion, Wheezing; No: Cough, Dry, Hemoptysis, Pleuritic Pain, Sputum, Wheezing, Other Cardiovascular: Edema (bilateral LE); No: Chest Pain, Palpitations, Orthopnea, Paroxysmal Noc. Dyspnea, Lt Headedness, Other Gastrointestinal: No: Nausea, Vomiting, Abdominal Pain, Diarrhea, Constipation, Melena, Hematochezia, Other Genitourinary: No Dysuria, No Frequency, No Incontinence, No Hematuria, No Retention, No Other Musculoskeletal: No: other, neck pain, shoulder pain, arm pain, back pain, hand pain, leg pain, foot pain Skin: No: Rash, Lesions, Jaundice, Bruising, Other Neurological: No: Weakness, Numbness, Incoordination, Change in speech, Confusion, Seizures, Other Allergies: Coded Allergies: NO KNOWN ALLERGIES (Unverified , 05/08/19) Medications Current Medications Medications Dose Ordered Sig/Ana Route Start Time Stop Time Status Last Admin Dose Admin Sodium Chloride 10 ml Q8HR IV 07/15/24 14:00 UNV Acetaminophen/ Hydrocodone Bitart 1 tab Q4HP PRN PO 07/15/24 10:30 UNV Ondansetron HCl 4 mg Q4HP PRN IV 07/15/24 10:30 UNV Docusate Sodium 100 mg BIDPRN PRN PO 07/15/24 10:30 UNV Acetaminophen 650 mg Q6HP PRN PO 07/15/24 10:30 UNV Nitroglycerin 0.4 mg Q5MINP PRN SL 07/15/24 10:30 UNV Morphine Sulfate 2 mg Q30M PRN IV 07/15/24 10:30 UNV Exam Vital Signs Vital Signs Date Time Temp Pulse Resp B/P (MAP) Pulse Ox O2 Delivery O2 Flow Rate FiO2 07/15/24 08:50 134/76 07/15/24 08:47 100 17 95 Nasal Cannula 2.0 07/15/24 08:47 97.9 97.9 07/15/24 07:14 36 General Appearance: Alert, Oriented X3, Cooperative, moderate distress HEENT: Atraumatic, PERRLA Respiratory: Other (Decreased breath sounds bilateral lower lobes) Cardiovascular: Regular rate, Normal S1, Normal S2 Abdominal: Normal bowel sounds, Soft, No tenderness Extremities: No clubbing, No cyanosis, Other (bilateral lower extremities pitting edema) Skin: No rashes, No breakdown, No significant lesion Neuro: Normal gait, Normal speech, Strength at 5/5 X4 ext, Normal tone Psych/Mental Status: Mental status NL, Mood NL Labs/Xrays Labs Test 07/15/24 08:27 07/15/24 05:42 Range/Units White Blood Count 3.8 L 4.4-10.8 10^3/uL Red Blood Count 4.86 4.0-5.20 10^6/uL Hemoglobin 15.8 12.2-16.2 g/dL Hematocrit 47.0 H 36.0-46.0 % Mean Corpuscular Volume 96.6 80.0-100.0 fL Mean Corpuscular Hemoglobin 32.5 H 28.0-32.0 pg Mean Corpuscular Hemoglobin Concent 33.7 32.0-36.0 g/dL Red Cell Distribution Width 17.2 H 11.8-14.3 % Platelet Count 64 L 140-450 10^3/uL Mean Platelet Volume 8.8 6.9-10.8 fL Neutrophils (%) (Auto) 73.9 37.0-80.0 % Lymphocytes (%) (Auto) 16.5 10.0-50.0 % Monocytes (%) (Auto) 6.5 0.0-12.0 % Eosinophils (%) (Auto) 2.5 0.0-7.0 % Basophils (%) (Auto) 0.6 0.0-2.0 % Neutrophils # (Auto) 2.8 1.6-8.6 10 ^3/uL Lymphocytes # (Auto) 0.6 0.4-5.4 10 ^3/uL Monocytes # (Auto) 0.2 0-1.3 10 ^3/uL Eosinophils # (Auto) 0.1 0-0.8 10 ^3/uL Basophils # (Auto) 0 0-0.2 10 ^3/uL Nucleated Red Blood Cells 0.4 % Troponin I High Sensitivity < 3 L </=34 ng/L Sodium Level 136 136-145 mmol/L Potassium Level 3.2 L 3.5-5.1 mmol/L Chloride Level 102 98-107 mmol/L Carbon Dioxide Level 24 20-31 mmol/L Anion Gap 10 5-15 Blood Urea Nitrogen < 5 L 9-23 mg/dL Creatinine 0.51 L 0.550-1.02 mg/dL Glomerular Filtration Rate Calc 108 >90 mL/min BUN/Creatinine Ratio 9.8 L 10.0-20.0 Serum Glucose 115 H 74-106 mg/dL Calcium Level 9.3 8.7-10.4 mg/dL B-Type Natriuretic Peptide 30.54 0-100 pg/mL EXAM: XY CHEST PORTABLE FINDINGS: Lines and Tubes: None Lungs: Moderate right and small left pleural effusion. Bibasilar opacities. Pleura: No effusion. No pneumothorax. Cardiomediastinal contours: Cardiomegaly. Bones: No acute osseous abnormality. IMPRESSION: Cardiomegaly.Moderate right and small left pleural effusion. Bibasilar opacities. Assessment/Plan Assessment/Plan Assessment: Diastolic heart failure, Fluid overload, Pleural effusion, Hypothyroidism, Plan: Admit to Tele, Cardiology consult, ECHO, IV diuretics, Consider IR for thoracentesis if not improved by diuretics, Manage/Monitor electrolytes closely, Home medications reconciled, Plan discussed with: Patient, Other (friend) My Orders Orders - BREANA SEBASTIAN Procedure Category Date Status Time Admit ADMIT 07/15/24 Transmitted 10:26 Code Status CODE 07/15/24 Transmitted 10:26 Sodium Chloride Lock PHA 07/15/24 Transmitted (Saline Lock Ns) 14:00 Hydrocodone-Acet PHA 07/15/24 Transmitted 5/325mg Tab ([place] 10:30 Ondansetron Hcl PHA 07/15/24 Transmitted (Zofran) 10:30 Docusate Sodium PHA 07/15/24 Transmitted Capsule (Colace 10:30 Complete Blood Count LAB 07/16/24 Verified 04:00 Comprehensive LAB 07/16/24 Verified Metabolic Panel 04:00 Cardiac DIET 07/15/24 Transmitted Diet-2gna,Lofat,Lochol Lunch Echo 2d Mode Cardiac US 07/15/24 Logged DOP 10:26 Condition: Serious RAYSHAWN 07/15/24 In Process 10:26 Acetaminophen Tablet PHA 07/15/24 Transmitted (Tylenol Tablet) 10:30 Nitroglycerin PHA 07/15/24 Transmitted Sublingual (Ntrostat 10:30 Morphine Sulfate PHA 07/15/24 Transmitted Injection 10:30 Stat Ekg For Chest RAYSHAWN 07/15/24 In Process Pain 10:26 Notify Md Of Changes RAYSHAWN 07/15/24 In Process From Base 10:26 Liquefaction And Regasification Helper For RAYSHAWN 07/15/24 In Process 24 Hours 10:26 Emergency Dysrhythmia RAYSHAWN 07/15/24 In Process Protocol 10:26 Rhythm Strips Once RAYSHAWN 07/15/24 In Process Every Shift 10:26 Oxygen By Nasal RT 07/15/24 Transmitted Cannula 10:26 * Cardiology Consult CONS 07/15/24 Transmitted 10:26 Potassium LAB 07/15/24 Transmitted 13:00 Magnesium LAB 07/15/24 Transmitted 13:00 Date of Service: Jul 15, 2024 Billing Provider: BREANA SEBASTIAN Common Visit Codes: [id number] INP/OBS CARE (MOD) BREANA SEBASTIAN Jul 15, 2024 10:47
[2024-07-15 11:23] LABS: Large Platelets FEW; Platelet Estimate Decrea
[2024-07-15 11:37] LABS: Magnesium 1.9 mg/dL (1.6-2.6)
--- NOTE | 2024-07-15 12:35 | DVHINCON2 ---
RADHA BECKETT [facility] 07/15/24 1235: Date Seen: Jul 15, 2024 Referring Physician ELDA Jones Reason for Consultation Fluid overload, new heart failure History of Present Illness This is a 58-year-old female patient who presents to the emergency room with chief complaint of worsening shortness of breath, bilateral lower extremity edema, and abdominal distention. The patient reports she noticed all of these s ymptoms approximately three weeks ago. She states that she was seen at urgent care and diagnosed with a UTI at that time despite telling the provider that she was having lower extremity edema. She says she was sent home on antibiotics. She reports that she was told that she needed to follow up with her primary doctor and to ask for a referral to Cardiology. After worsening shortness of breath for one day, she decided to come to the emergency room for further evaluation. Initial twelve lead electrocardiogram reveals sinus tachycardia without any significant ST segment changes. Initial serial troponin levels have been negative. Initial BNP level of 30.54pg/mL. Significant past medical history includes thyroid disease and obesity. Past Medical History Past medical history reviewed. No other significant than mentioned above. Past Surgical History Cholecystectomy Hysterectomy Family History: Cirrhosis of liver G8 FATHER Colitis G8 MOTHER Colon cancer G8 MOTHER Hypertension G8 MOTHER Malignant neoplasm of breast G8 MOTHER Osteoporosis G8 MOTHER Family History Family history reviewed. Social History Denies the use of tobacco, alcohol or illicit drugs. Allergies: Coded Allergies: NO KNOWN ALLERGIES (Unverified , 05/08/19) Home Meds Reported Medications Potassium Chloride (POTASSIUM CHLORIDE CR) 10 Meq Tb, 1 TAB PO DAILY, #30 TAB 5 Refills 07/15/24 Levothyroxine Sodium (Levothyroxine Sodium) 150 Mcg Tab, 150 MCG PO QAM for 30 Days 05/08/19 Home Meds Home medications reviewed. Current Medications Current Medications Medications (Trade) Dose Ordered Sig/Ana Route PRN Reason Start Time Stop Time Status Last Admin Sodium Chloride (Saline Lock Ns) 10 ml Q8HR IV 07/15/24 14:00 Acetaminophen/ Hydrocodone Bitart ([place] 5/325MG Tab) 1 tab Q4HP PRN PO MODERATE PAIN (4-6 PAIN SCALE) 07/15/24 10:30 Ondansetron HCl (Zofran) 4 mg Q4HP PRN IV NAUSEA / VOMITING 07/15/24 10:30 Docusate Sodium (Colace Capsule) 100 mg BIDPRN PRN PO FOR CONSTIPATION 07/15/24 10:30 Acetaminophen (Tylenol Tablet) 650 mg Q6HP PRN PO PAIN SCALE 1-3 OR TEMP>100.4 07/15/24 10:30 Nitroglycerin (Ntrostat Sublingual) 0.4 mg Q5MINP PRN SL FOR CHEST PAIN 07/15/24 10:30 Morphine Sulfate 2 mg Q30M PRN IV FOR CHEST PAIN 07/15/24 10:30 Furosemide (Lasix Injection) 20 mg BIDD IV 07/15/24 18:00 Review of Systems Constitutional: No symptom reported Ears, Nose, & Throat: No symptom reported Eyes: No symptom reported Neurological: No symptoms reported Pulmonary/Respiratory: Shortness of breath Cardiovascular: Bilateral lower extremity edema Gastrointestinal: No symptom reported Genitourinary: No symptom reported Musculoskeletal: No symptom reported Skin: No symptom reported Psychiatric: No symptom reported Endocrine: No symptom reported Hematologic/Lymphatic: No symptom reported Vital Signs Vital Signs Date Time Temp Pulse Resp B/P (MAP) Pulse Ox O2 Delivery O2 Flow Rate FiO2 07/15/24 08:50 134/76 07/15/24 08:47 100 17 95 Nasal Cannula 2.0 07/15/24 08:47 97.9 97.9 07/15/24 07:14 36 Physical Exam General Appearance: Cooperative. Well-developed. Well-nourished. No acute distress. Pulmonary/Respiratory: Clear, bilateral breaths sounds. Cardiovascular/Chest: Regular rate and rhythm. Peripheral Pulses: 2+ Radial (R). 2+ Radial (L). 2+ Pedal (R). 2+ Pedal (L) Abdominal Exam: Normal bowel sounds. Distended Ankle Exam: 3+ pitting edema Lower extremities: 3+ pitting edema Neuro/Mental Status: A/OX4, coherent. Thoughts/Psych: Normal thought pattern. Appropriate mood and affect. Good judgment and insight. Appearance: No acute distress. Skin Exam: Normal inspection. Normal color. Warm and dry. Labs/Diagnostic Data Labs Test 07/15/24 08:27 07/15/24 06:45 07/15/24 05:42 Range/Units White Blood Count 3.8 L 4.4-10.8 10^3/uL Red Blood Count 4.86 4.0-5.20 10^6/uL Hemoglobin 15.8 12.2-16.2 g/dL Hematocrit 47.0 H 36.0-46.0 % Mean Corpuscular Volume 96.6 80.0-100.0 fL Mean Corpuscular Hemoglobin 32.5 H 28.0-32.0 pg Mean Corpuscular Hemoglobin Concent 33.7 32.0-36.0 g/dL Red Cell Distribution Width 17.2 H 11.8-14.3 % Platelet Count 64 L 140-450 10^3/uL Mean Platelet Volume 8.8 6.9-10.8 fL Neutrophils (%) (Auto) 73.9 37.0-80.0 % Lymphocytes (%) (Auto) 16.5 10.0-50.0 % Monocytes (%) (Auto) 6.5 0.0-12.0 % Eosinophils (%) (Auto) 2.5 0.0-7.0 % Basophils (%) (Auto) 0.6 0.0-2.0 % Neutrophils # (Auto) 2.8 1.6-8.6 10 ^3/uL Lymphocytes # (Auto) 0.6 0.4-5.4 10 ^3/uL Monocytes # (Auto) 0.2 0-1.3 10 ^3/uL Eosinophils # (Auto) 0.1 0-0.8 10 ^3/uL Basophils # (Auto) 0 0-0.2 10 ^3/uL Nucleated Red Blood Cells 0.4 % Platelet Estimate Decrea Large Platelets Few Troponin I High Sensitivity < 3 L </=34 ng/L Thyroid Stimulating Hormone (TSH) 79.93 H 0.55-4.78 uIU/mL Magnesium Level 1.9 1.6-2.6 mg/dL Sodium Level 136 136-145 mmol/L Potassium Level 3.2 L 3.5-5.1 mmol/L Chloride Level 102 98-107 mmol/L Carbon Dioxide Level 24 20-31 mmol/L Anion Gap 10 5-15 Blood Urea Nitrogen < 5 L 9-23 mg/dL Creatinine 0.51 L 0.550-1.02 mg/dL Glomerular Filtration Rate Calc 108 >90 mL/min BUN/Creatinine Ratio 9.8 L 10.0-20.0 Serum Glucose 115 H 74-106 mg/dL Hemoglobin A1c 4.7 <5.7 % A1C Calcium Level 9.3 8.7-10.4 mg/dL B-Type Natriuretic Peptide 30.54 0-100 pg/mL Assessment Ruled out structural heart disease Severe hypothyroidism Hypokalemia Transaminitis Obesity Plan/Recommendation We will continue with the following plan/recommendations (Dr. Serrato): Case reviewed and discussed with . Transthoracic echocardiogram reveals EF 70%. TSH level noticeably high. The patient's symptoms likely secondary to uncontrolled hypothyroidism. We will defer to primary care team for thyroid management. There is no further inpatient cardiac workup indicated at this time. Thank you for allowing us to care for this patient. Please call with any questions or concerns. Critical care time spent: 42 minutes This medical document was created using an electronic medical record system with voice recognition software and computerized dictation system. Although this document has been carefully reviewed, there might still be some phonetic and typographical errors. Occasional wrong-word or ``sound-alike substitutions may have occurred due to the inherent limitations of voice recognition software. These areas are purely typographical due to imperfections of the software programs and do not reflect any compromise in the patient's medical care. Please read the chart carefully and recognize, using context, where these substitutions have occurred. Plan discussed with: Patient NYHA Physical activity limitations: NA Date of Service: Jul 15, 2024 Billing Provider: RADHA BECKETT Cardiology Common Codes: [id number] INP/OBS CARE (High) Cardiology Consultation Codes: [id number] CONSULT <45MIN GLORY SERRATO MD 07/16/24 1546: Family History: Cirrhosis of liver G8 FATHER Colitis G8 MOTHER Colon cancer G8 MOTHER Hypertension G8 MOTHER Malignant neoplasm of breast G8 MOTHER Osteoporosis G8 MOTHER Allergies: Coded Allergies: NO KNOWN ALLERGIES (Unverified , 05/08/19) Home Meds Reported Medications Potassium Chloride (POTASSIUM CHLORIDE CR) 10 Meq Tb, 1 TAB PO DAILY, #30 TAB 5 Refills 07/15/24 Levothyroxine Sodium (Levothyroxine Sodium) 150 Mcg Tab, 150 MCG PO QAM for 30 Days 05/08/19 Plan/Recommendation pt seen in ER waiting area she has severe hypothyroid echo is normal treat underlying condition, normal bnp diuresis not indicated signing off Date of Service: Jul 16, 2024 Billing Provider: GLORY SERRATO MD Cardiology Common Codes: NOT BILLABLE RADHA BECKETT [employer] Jul 15, 2024 12:35 GLORY SERRATO MD Jul 16, 2024 15:46
[2024-07-15 12:54] LABS: Free T3 1.59 pg/mL (2.3-4.2); Free T4 (Free Thyroxine) 0.87 ng/dL (0.89-1.76)
[2024-07-15 12:56] LABS: Alanine Aminotransferase 56 U/L (7-40); Aspartate Aminotransferase 89 U/L (13-40)
[2024-07-15] MEDS: SODIUM CHLOR 0.9% PF (SALINE LOCK) 10ML VIAL/SYR IV SCH (14:00)
[2024-07-15 17:03] LABS: Potassium 3.3 mmol/L (3.5-5.1)
[2024-07-15 17:06] LABS: Magnesium 1.8 mg/dL (1.6-2.6)
[2024-07-15 19:43] VITALS: PULSE 104; RESP 18; O2SAT 94
[2024-07-15] MEDS: FUROSEMIDE 20 MG/2 ML VIAL IV SCH (19:49)
[2024-07-15] MEDS ORDERED: POTA-36 PO (22:43)
[2024-07-15 22:44] VITALS: PULSE 91; RESP 18; O2SAT 91
[2024-07-15 23:32] VITALS: BP 127/58; PULSE 91; RESP 18; TEMP 97.8; O2SAT 92
[2024-07-16] VITALS (8 sets, daily range): BP systolic 108–139; BP diastolic 35–71; PULSE 87–99; RESP 16–18; TEMP 97.4–98.6; O2SAT 90–94
[2024-07-16] MEDS: HYDROcodone-ACET 5/325MG TAB PO PRN (04:19)
[2024-07-16 06:37] LABS: Anion Gap 9 (5-15); BUN/Creatinine Ratio 15.2 (10.0-20.0); Calcium 9.1 mg/dL (8.7-10.4); Carbon Dioxide 25 mmol/L (20-31); Chloride 102 mmol/L (98-107); Glucose 102 mg/dL (74-106)
[2024-07-16 06:38] LABS: Total Protein 6.4 g/dL (5.7-8.2)
[2024-07-16 06:40] LABS: Alanine Aminotransferase 47 U/L (7-40); Alkaline Phosphatase 149 U/L (46-116); Aspartate Aminotransferase 71 U/L (13-40); Bilirubin, Total 3.7 mg/dL (0.2-1.0); Blood Urea Nitrogen 7 mg/dL (9-23); Potassium 3.4 mmol/L (3.5-5.1); Sodium 136 mmol/L (136-145)
[2024-07-16 07:13] LABS: Basophils # (auto) 0.1 10 ^3/uL (0-0.2); Basophils % (auto) 1.9 % (0.0-2.0); Eosinophils # (auto) 0.3 10 ^3/uL (0-0.8); Eosinophils % (auto) 8.6 % (0.0-7.0); Hematocrit 43.1 % (36.0-46.0); Hemoglobin 14.4 g/dL (12.2-16.2); Lymphocytes # (auto) 0.8 10 ^3/uL (0.4-5.4); Lymphocytes % (auto) 22.5 % (10.0-50.0); Mean Corpuscular Hemoglobin 32.1 pg (28.0-32.0); Mean Corpuscular Hgb Conc. 33.5 g/dL (32.0-36.0); Mean Corpuscular Volume 95.9 fL (80.0-100.0); Monocytes # (auto) 0.3 10 ^3/uL (0-1.3); Neutrophils # (auto) 2.1 10 ^3/uL (1.6-8.6); Nucleated Red Blood Cells % 0.5 %; Platelet Count (auto) 38 10^3/uL (140-450); Red Cell Distribution Width 17.2 % (11.8-14.3); White Blood Cell 3.6 10^3/uL (4.4-10.8)
--- NOTE | 2024-07-16 11:38 | DVHSR ---
APPROVED REPORT EXAM: Two-dimensional and M-mode echocardiogram with Doppler and color Doppler. Blood Pressure: 135/71 mmHg INDICATION fluid overload, new heart failure RISK FACTORS Obesity: Height: 5'7, Weight: 204 DIMENSIONS LVDd4.6 (3.8-5.7cm)LA (2D)3.6 (1.9-4.0cm)Aortic Root3.1 (2.0-3.7cm) LVDs2.9 (2.5-4.0cm)LA (MM) (1.9-4.0cm)Aortic Cusp Exc1.4 (1.5-2.0cm) EF (%) 68.2 (55-70%)Rt. Atrium2.9 (1.9-4.0cm)Asc. Aorta2.5 cm IVSd0.7 (0.7-1.1cm)RV (D)3.9 (1.8-2.4cm) PWd0.8 (0.7-1.1cm) Mitral Valve MitralMitral Stenosis E wave0.76m/sMV Mean GR.mmHg A wave0.88m/sMV Peak GR.mmHg E/A ratio0.92D MVAcm2 DECEL [id number] 1/2 Timems Aortic Valve Aortic ValveAortic Stenosis V11.34m/Renan Mean GR.5mmHg V21.54m/Renan Peak GR.9mmHg LVOT Diameter2.0 (1.8-2.4cm)Doppler AVA2.73cm2 Pulmonic Valve V21.08m/s Conclusion lvef 70 % by visual estimate normal rv function mild enlargement normal atria no severe valve abnormalities noted small pericardial effusion adjacent to Right atrium, no hemodynamic compromise
--- NOTE | 2024-07-16 11:57 | DVHPN2 ---
Reviewed: Care Plan, H&P, Labs, Medications, Previous Orders, Radiology Changes from previous H/P or p: No Changes Eyes: No Pain, No Vision change, No Conjunctivae inflammation, No Eyelid inflammation, No Other, No Redness ENT: No Ear pain, No Ear discharge, No Nose pain, No Nose discharge, No Nose congestion, No Mouth pain, No Mouth swelling, No Throat pain, No Throat swelling, No Other Cardiovascular: No Chest Pain, No Palpitations, No Orthopnea, No Paroxysmal Noc. Dyspnea; Edema (bilateral LE); No Lt Headedness, No Other Respiratory: No Cough, No Dry; Shortness of breath, SOB with excertion, W heezing; No Hemoptysis, No Pleuritic Pain, No Sputum, No Other Gastrointestinal: No Nausea, No Vomiting, No Abdominal Pain, No Diarrhea, No Constipation, No Melena, No Hematochezia, No Other Genitourinary: No Dysuria, No Frequency, No Incontinence, No Hematuria, No Retention, No Other Musculoskeletal: No other, No neck pain, No shoulder pain, No arm pain, No back pain, No hand pain, No leg pain, No foot pain Skin: No Rash, No Lesions, No Jaundice, No Bruising, No Other Objective Vitals Vital Signs Date Time Temp Pulse Resp B/P (MAP) Pulse Ox O2 Delivery O2 Flow Rate FiO2 07/16/24 08:37 98.2 91 16 108/45 (66) 94 98.2 07/16/24 08:00 Nasal Cannula* 4 36 Intake/Output Intake and Output 07/16/24 07:00 Intake Total 450 ml Balance 450 ml Intake Oral 450 ml # Voids 2 # Bowel Movements 1 Medications Current Medications Medications Dose Ordered Sig/Ana Route Start Time Stop Time Status Last Admin Dose Admin Sodium Chloride 10 ml Q8HR IV 07/15/24 14:00 07/16/24 06:39 10 ML Acetaminophen/ Hydrocodone Bitart 1 tab Q4HP PRN PO 07/15/24 10:30 07/16/24 09:45 1 TAB Ondansetron HCl 4 mg Q4HP PRN IV 07/15/24 10:30 Docusate Sodium 100 mg BIDPRN PRN PO 07/15/24 10:30 Acetaminophen 650 mg Q6HP PRN PO 07/15/24 10:30 Nitroglycerin 0.4 mg Q5MINP PRN SL 07/15/24 10:30 Morphine Sulfate 2 mg Q30M PRN IV 07/15/24 10:30 Furosemide 20 mg BIDD IV 07/15/24 18:00 07/16/24 06:39 20 MG Laboratory Results Laboratory Tests 07/16/24 06:05 Chemistry Test 07/15/24 16:20 07/16/24 06:05 Magnesium Level 1.8 mg/dL (1.6-2.6) Albumin 3.0 g/dL (3.2-4.8) L Calcium Level 9.1 mg/dL (8.7-10.4) Total Protein 6.4 g/dL (5.7-8.2) LFT Test 07/16/24 06:05 Alanine Aminotransferase (ALT) 47 U/L (7-40) H Alkaline Phosphatase 149 U/L (46-116) H Aspartate Amino Transferase (AST) 71 U/L (13-40) H Total Bilirubin 3.7 mg/dL (0.2-1.0) H Labs and/or images reviewed: Labs reviewed by me, Image(s) reviewed by me Assessment/Plan Assessment/Plan Acute on Chronic congestive heart failure exacerbation, cardiology consult by Dr. Vines appreciated Lasix Rule out structural heart disease Thyroid disease, uncontrolled Hypokalemia Transaminitis Obesity Severe hypothyroidism with TSH 75: Synthroid IV and p.o. Plan discussed with: Patient Date of Service: Jul 16, 2024 Billing Provider: MARYBETH ISLAS MD Common Visit Codes: [id number] INP/OBS CARE(HIGH) MARYBETH ISLAS MD Jul 16, 2024 11:57
[2024-07-16] MEDS: LEVOTHYROXINE SODIUM 100 MCG/5 ML INJ IV ONE (14:46)
[2024-07-16] MEDS: LEVOTHYROXINE SODIUM 112 MCG TAB PO ONE (14:46)
[2024-07-16] MEDS: LEVOTHYROXINE SODIUM 25 MCG TAB PO ONE (14:46)
[2024-07-17] VITALS (10 sets, daily range): BP systolic 110–126; BP diastolic 50–66; PULSE 82–92; RESP 16–18; TEMP 97.4–98.6; O2SAT 91–93
[2024-07-17] MEDS: LEVOTHYROXINE SODIUM 25 MCG TAB PO SCH (06:02)
--- NOTE | 2024-07-17 09:50 | DVHPN2 ---
Reviewed: Care Plan, H&P, Labs, Medications, Previous Orders, Radiology Changes from previous H/P or p: No Changes Eyes: No Pain, No Vision change, No Conjunctivae inflammation, No Eyelid inflammation, No Other, No Redness ENT: No Ear pain, No Ear discharge, No Nose pain, No Nose discharge, No Nose congestion, No Mouth pain, No Mouth swelling, No Throat pain, No Throat swelling, No Other Cardiovascular: No Chest Pain, No Palpitations, No Orthopnea, No Paroxysmal Noc. Dyspnea; Edema (bilateral LE); No Lt Headedness, No Other Respiratory: No Cough, No Dry; Shortness of breath, SOB with excertion, W heezing; No Hemoptysis, No Pleuritic Pain, No Sputum, No Other Gastrointestinal: No Nausea, No Vomiting, No Abdominal Pain, No Diarrhea, No Constipation, No Melena, No Hematochezia, No Other Genitourinary: No Dysuria, No Frequency, No Incontinence, No Hematuria, No Retention, No Other Musculoskeletal: No other, No neck pain, No shoulder pain, No arm pain, No back pain, No hand pain, No leg pain, No foot pain Skin: No Rash, No Lesions, No Jaundice, No Bruising, No Other Objective Vitals Vital Signs Date Time Temp Pulse Resp B/P (MAP) Pulse Ox O2 Delivery O2 Flow Rate FiO2 07/17/24 08:05 16 Nasal Cannula* 3 32 07/17/24 05:43 123/65 07/17/24 05:00 97.8 92 93 97.8 Intake/Output Intake and Output 07/17/24 07:00 Intake Total 1200 ml Balance 1200 ml Intake Oral 1200 ml # Voids 4 # Bowel Movements 2 Medications Current Medications Medications Dose Ordered Sig/Ana Route Start Time Stop Time Status Last Admin Dose Admin Sodium Chloride 10 ml Q8HR IV 07/15/24 14:00 07/17/24 05:43 10 ML Acetaminophen/ Hydrocodone Bitart 1 tab Q4HP PRN PO 07/15/24 10:30 07/17/24 00:00 1 TAB Ondansetron HCl 4 mg Q4HP PRN IV 07/15/24 10:30 Docusate Sodium 100 mg BIDPRN PRN PO 07/15/24 10:30 Acetaminophen 650 mg Q6HP PRN PO 07/15/24 10:30 Nitroglycerin 0.4 mg Q5MINP PRN SL 07/15/24 10:30 Morphine Sulfate 2 mg Q30M PRN IV 07/15/24 10:30 Furosemide 20 mg BIDD IV 07/15/24 18:00 07/17/24 05:43 20 MG Levothyroxine Sodium 100 mcg DAILY IV 07/18/24 10:00 Laboratory Results Laboratory Tests 07/16/24 06:05 Labs and/or images reviewed: Labs reviewed by me, Image(s) reviewed by me Assessment/Plan Assessment/Plan Acute on Chronic congestive heart failure exacerbation, cardiology consult by Dr. Vines appreciated Lasix Rule out structural heart disease Thyroid disease, uncontrolled Hypokalemia Transaminitis Obesity Severe hypothyroidism with TSH 75: Synthroid IV and p.o. Plan discussed with: Patient My Orders Orders - MARYBETH ISLAS MD Procedure Category Date Status Time Levothyroxine PHA 07/18/24 In Process Injection (Synthroid 10:00 Date of Service: Jul 17, 2024 Billing Provider: MARYBETH ISLAS MD Common Visit Codes: [id number] INP/OBS CARE(HIGH) MARYBETH ISLAS MD Jul 17, 2024 09:50
[2024-07-17] MEDS ORDERED: LEVOTHYROXINE SODIUM 25 MCG TAB PO ONE (10:00)
[2024-07-17] MEDS: LEVOTHYROXINE SODIUM 100 MCG/5 ML INJ IV SCH (10:49)
[2024-07-18] VITALS (8 sets, daily range): BP systolic 108–129; BP diastolic 55–65; PULSE 85–103; RESP 16–18; TEMP 97.4–99.4; O2SAT 91–93
[2024-07-18] MEDS ORDERED: LEVOTHYROXINE SODIUM 25 MCG TAB PO SCH (06:00)
[2024-07-18] MEDS: LEVOTHYROXINE SODIUM 25 MCG TAB PO SCH (06:01)
[2024-07-18] MEDS: LEVOTHYROXINE SODIUM 112 MCG TAB PO SCH (06:01)
--- NOTE | 2024-07-18 11:12 | DVHPN2 ---
Reviewed: Care Plan, H&P, Labs, Medications, Previous Orders, Radiology Changes from previous H/P or p: No Changes Eyes: No Pain, No Vision change, No Conjunctivae inflammation, No Eyelid inflammation, No Other, No Redness ENT: No Ear pain, No Ear discharge, No Nose pain, No Nose discharge, No Nose congestion, No Mouth pain, No Mouth swelling, No Throat pain, No Throat swelling, No Other Cardiovascular: No Chest Pain, No Palpitations, No Orthopnea, No Paroxysmal Noc. Dyspnea; Edema (bilateral LE); No Lt Headedness, No Other Respiratory: No Cough, No Dry; Shortness of breath, SOB with excertion, W heezing; No Hemoptysis, No Pleuritic Pain, No Sputum, No Other Gastrointestinal: No Nausea, No Vomiting, No Abdominal Pain, No Diarrhea, No Constipation, No Melena, No Hematochezia, No Other Genitourinary: No Dysuria, No Frequency, No Incontinence, No Hematuria, No Retention, No Other Musculoskeletal: No other, No neck pain, No shoulder pain, No arm pain, No back pain, No hand pain, No leg pain, No foot pain Skin: No Rash, No Lesions, No Jaundice, No Bruising, No Other Objective Vitals Vital Signs Date Time Temp Pulse Resp B/P (MAP) Pulse Ox O2 Delivery O2 Flow Rate FiO2 07/18/24 09:00 97.4 85 17 129/65 (86) 92 97.4 07/17/24 20:05 Nasal Cannula* 3 32 Intake/Output Intake and Output 07/18/24 07:00 Intake Total 2520 ml Balance 2520 ml Intake Oral 2520 ml # Voids 8 Medications Current Medications Medications Dose Ordered Sig/Ana Route Start Time Stop Time Status Last Admin Dose Admin Sodium Chloride 10 ml Q8HR IV 07/15/24 14:00 07/18/24 06:00 10 ML Acetaminophen/ Hydrocodone Bitart 1 tab Q4HP PRN PO 07/15/24 10:30 07/17/24 23:12 1 TAB Ondansetron HCl 4 mg Q4HP PRN IV 07/15/24 10:30 Docusate Sodium 100 mg BIDPRN PRN PO 07/15/24 10:30 Acetaminophen 650 mg Q6HP PRN PO 07/15/24 10:30 Nitroglycerin 0.4 mg Q5MINP PRN SL 07/15/24 10:30 Morphine Sulfate 2 mg Q30M PRN IV 07/15/24 10:30 Furosemide 20 mg BIDD IV 07/15/24 18:00 07/18/24 06:00 20 MG Levothyroxine Sodium 100 mcg DAILY IV 07/17/24 10:00 07/18/24 10:16 100 MCG Levothyroxine Sodium 25 mcg DAILY@0600 PO 07/18/24 06:00 07/18/24 06:01 25 MCG Levothyroxine Sodium 112 mcg DAILY@0600 PO 07/18/24 06:00 07/18/24 06:01 112 MCG Laboratory Results Laboratory Tests 07/16/24 06:05 HgA1c, TSH Test 07/18/24 05:40 Thyroid Stimulating Hormone (TSH) 44.76 uIU/mL (0.55-4.78) H Assessment/Plan Assessment/Plan Acute on Chronic congestive heart failure exacerbation, cardiology consult by Dr. Mohinder avalos Lasix Echo 70 percent ejection fraction BNP normal, no further cardiac workup Rule out structural heart disease Hypokalemia Transaminitis with hyperbilirubinemia: Consult for GI Dr. Thompson Obesity Severe hypothyroidism with TSH 75: Synthroid IV and p.o. 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
--- NOTE | 2024-07-18 13:14 | DVH ---
Exam: CT CT AB PEL WO CON-NO ORAL OR IV History: Distention abdomen Comparison Study: None available at time of dictation. TECHNIQUE: Multidetector CT of the abdomen was performed from lung bases to pubic symphysis. Imaging was performed without IV contrast. Axial, coronal and sagittal multiplanar reformats were obtained fr om the axial data set by the technologist. Radiation Dose Information: CT Dose: CTDI volume is 16.4 mGy. Dose-length product is 929.5 mGy*cm FINDINGS: Evaluation of solid organs is limited due to lack of intravenous contrast use. Findings: Lung Bases: Large right pleural effusion. Small left pleural effusion. Liver: Hepatic cirrhosis. Hepatic steatosis. Gallbladder and Biliary Tree: Unremarkable Spleen: Spleen measures 15 cm. Pancreas: The pancreas is grossly normal in appearance. Adrenal Glands: Unremarkable Kidneys: Kidneys are grossly normal without calculi or hydronephrosis. Left parapelvic cysts are pres ent. Bladder: Grossly unremarkable for degree of distention. Bowel: The stomach is grossly normal in appearance. Small bowel and colon are normal in caliber and d istribution. The appendix is not visualized; however, no secondary findings of acute appendicitis id entified. Ascites: Absent Lymphadenopathy: No mesenteric, retroperitoneal or periportal lymphadenopathy. Abdominal Wall and Mesentery: Moderate volume ascites. Vasculature: The visualized abdominal aorta is normal in size and caliber. Evaluation of abdominal a nd pelvic vessels is limited due to lack of intravenous contrast. Pelvic Organs: Unremarkable Musculoskeletal: No aggressive focal bony lesions, acute fractures or dislocation. Soft tissues: Unremarkable IMPRESSION: Large right pleural effusion.Small left pleural effusion Hepatic cirrhosis with evidence of portal hypertension. Moderate abdominopelvic ascites. Splenomegaly, spleen measures 15 cm. Radiation optimization: All CT scans at this facility use at least one of these dose optimization angel hniques: automated exposure control mA and/or kV adjustment per patient size (includes targeted exam s where dose is matched to clinical indication) or iterative reconstruction.
[2024-07-19] VITALS (8 sets, daily range): BP systolic 112–121; BP diastolic 51–67; PULSE 87–98; RESP 16–19; TEMP 97.5–98; O2SAT 90–94
--- NOTE | 2024-07-19 08:05 | DVHINCON2 ---
Date of service: Jul 19, 2024 Referring Physician Cameron Carrasco Reason for Consultation Hyperbilirubinemia History of Present Illness Patient is a 58-year-old female with hypothyroidism admitted with fluid overload, thought to be in heart failure, noted to have elevation of bilirubin and liver enzymes. Patient states that she has had elevation of bilirubin and liver enzymes for 30 years. She denies any diagnosis other than transaminitis. Patient denies any abdominal pain. She denies history of alcohol abuse with history of hepatitis, but has a history of cirrhosis in her father. GI consultation was obtained for evaluation. Echocardiogram was normal, however imaging studies show ascites, abdominal varices splenomegaly and findings consistent with cirrhosis. Patient is noted to have thrombocytopenia. Past Medical History As above Past Surgical History Cholecystectomy Hysterectomy Family History: Cirrhosis of liver G8 FATHER Colitis G8 MOTHER Colon cancer G8 MOTHER Hypertension G8 MOTHER Malignant neoplasm of breast G8 MOTHER Osteoporosis G8 MOTHER Allergies: Coded Allergies: NO KNOWN ALLERGIES (Unverified , 05/08/19) Home Meds Reported Medications Potassium Chloride (POTASSIUM CHLORIDE CR) 10 Meq Tb, 1 TAB PO DAILY, #30 TAB 5 Refills 07/15/24 Levothyroxine Sodium (Levothyroxine Sodium) 150 Mcg Tab, 150 MCG PO QAM for 30 Days 05/08/19 Review of Systems Review of systems negative other than HPI Vital Signs Vital Signs Date Time Temp Pulse Resp B/P (MAP) Pulse Ox O2 Delivery O2 Flow Rate FiO2 07/19/24 06:09 112/61 07/19/24 05:00 97.7 96 19 94 97.7 07/18/24 20:00 Nasal Cannula* 3 32 Physical Exam General: Alert and oriented x4 no distress HEENT: NC/AT EOMI PERRLA-0 P clear : Regular rate and rhythm Abdomen: Soft nontender nondistended Extremity: No clubbing or cyanosis, edema is present lower extremity Labs/Diagnostic Data Labs Test 07/19/24 05:53 07/16/24 06:05 07/15/24 16:20 07/15/24 08:27 Range/Units Thyroid Stimulating Hormone (TSH) 31.86 H 0.55-4.78 uIU/mL White Blood Count 3.6 L 4.4-10.8 10^3/uL Red Blood Count 4.50 4.0-5.20 10^6/uL Hemoglobin 14.4 12.2-16.2 g/dL Hematocrit 43.1 36.0-46.0 % Mean Corpuscular Volume 95.9 80.0-100.0 fL Mean Corpuscular Hemoglobin 32.1 H 28.0-32.0 pg Mean Corpuscular Hemoglobin Concent 33.5 32.0-36.0 g/dL Red Cell Distribution Width 17.2 H 11.8-14.3 % Platelet Count 38 L 140-450 10^3/uL Mean Platelet Volume 9.3 6.9-10.8 fL Neutrophils (%) (Auto) 58.0 37.0-80.0 % Lymphocytes (%) (Auto) 22.5 10.0-50.0 % Monocytes (%) (Auto) 9.0 0.0-12.0 % Eosinophils (%) (Auto) 8.6 H 0.0-7.0 % Basophils (%) (Auto) 1.9 0.0-2.0 % Neutrophils # (Auto) 2.1 1.6-8.6 10 ^3/uL Lymphocytes # (Auto) 0.8 0.4-5.4 10 ^3/uL Monocytes # (Auto) 0.3 0-1.3 10 ^3/uL Eosinophils # (Auto) 0.3 0-0.8 10 ^3/uL Basophils # (Auto) 0.1 0-0.2 10 ^3/uL Nucleated Red Blood Cells 0.5 % Sodium Level 136 136-145 mmol/L Potassium Level 3.4 L 3.5-5.1 mmol/L Chloride Level 102 98-107 mmol/L Carbon Dioxide Level 25 20-31 mmol/L Anion Gap 9 5-15 Blood Urea Nitrogen 7 L 9-23 mg/dL Creatinine 0.46 L 0.550-1.02 mg/dL Glomerular Filtration Rate Calc 111 >90 mL/min BUN/Creatinine Ratio 15.2 10.0-20.0 Serum Glucose 102 74-106 mg/dL Calcium Level 9.1 8.7-10.4 mg/dL Total Bilirubin 3.7 H 0.2-1.0 mg/dL Aspartate Amino Transferase (AST) 71 H 13-40 U/L Alanine Aminotransferase (ALT) 47 H 7-40 U/L Alkaline Phosphatase 149 H 46-116 U/L Total Protein 6.4 5.7-8.2 g/dL Albumin 3.0 L 3.2-4.8 g/dL Magnesium Level 1.8 1.6-2.6 mg/dL Platelet Estimate Decrea Large Platelets Few Troponin I High Sensitivity < 3 L </=34 ng/L Test 07/15/24 06:45 07/15/24 05:42 Range/Units Triglycerides Level 103 < 150 mg/dL Cholesterol Level 211 H < 200 mg/dL LDL Cholesterol 114 H < 100 mg/dL HDL Cholesterol 55 40-59 mg/dL Hemoglobin A1c 4.7 <5.7 % A1C B-Type Natriuretic Peptide 30.54 0-100 pg/mL Free Thyroxine (T4) Calculated 0.87 L 0.89-1.76 ng/dL Free Triiodothyronine (T3) pg/mL 1.59 L 2.3-4.2 pg/mL CT scan IMPRESSION: Large right pleural effusion.Small left pleural effusion Hepatic cirrhosis with evidence of portal hypertension. Moderate abdominopelvic ascites. Splenomegaly, spleen measures 15 cm. Assessment 1. Cirrhosis 2. Transaminitis 3. Hypothyroidism 4. Thrombocytopenia 5. Abnormal imaging of the GI tract 6. Ascites Problems(with codes): (1) Cirrhosis Plan/Recommendation 1. Patient will need full workup for cirrhosis including acute hepatitis panel, autoimmune studies, alpha one antitrypsin, ceruloplasmin, mitochondrial antibody, 2. Diuresis with Lasix and Aldactone 3. Low-salt diet 4. Avoid hepatotoxic medications 5. Patient will eventually need endoscopy for esophageal varices screening 6. Patient will need outpatient follow up with GI/liver Plan discussed with: Patient YOGI GARCIA MD Jul 19, 2024 08:05
--- NOTE | 2024-07-19 11:33 | DVHPN2 ---
Reviewed: Care Plan, H&P, Labs, Medications, Previous Orders, Radiology Changes from previous H/P or p: No Changes Eyes: No Pain, No Vision change, No Conjunctivae inflammation, No Eyelid inflammation, No Other, No Redness ENT: No Ear pain, No Ear discharge, No Nose pain, No Nose discharge, No Nose congestion, No Mouth pain, No Mouth swelling, No Throat pain, No Throat swelling, No Other Cardiovascular: No Chest Pain, No Palpitations, No Orthopnea, No Paroxysmal Noc. Dyspnea; Edema (bilateral LE); No Lt Headedness, No Other Respiratory: No Cough, No Dry; Shortness of breath, SOB with excertion, W heezing; No Hemoptysis, No Pleuritic Pain, No Sputum, No Other Gastrointestinal: No Nausea, No Vomiting, No Abdominal Pain, No Diarrhea, No Constipation, No Melena, No Hematochezia, No Other Genitourinary: No Dysuria, No Frequency, No Incontinence, No Hematuria, No Retention, No Other Musculoskeletal: No other, No neck pain, No shoulder pain, No arm pain, No back pain, No hand pain, No leg pain, No foot pain Skin: No Rash, No Lesions, No Jaundice, No Bruising, No Other Objective Vitals Vital Signs Date Time Temp Pulse Resp B/P (MAP) Pulse Ox O2 Delivery O2 Flow Rate FiO2 07/19/24 09:00 97.5 94 16 113/55 (74) 92 97.5 07/18/24 20:00 Nasal Cannula* 3 32 Intake/Output Intake and Output 07/19/24 07:00 Intake Total 820 ml Balance 820 ml Intake Oral 820 ml # Voids 8 # Bowel Movements 1 Medications Current Medications Medications Dose Ordered Sig/Ana Route Start Time Stop Time Status Last Admin Dose Admin Sodium Chloride 10 ml Q8HR IV 07/15/24 14:00 07/19/24 06:10 10 ML Acetaminophen/ Hydrocodone Bitart 1 tab Q4HP PRN PO 07/15/24 10:30 07/18/24 23:58 1 TAB Ondansetron HCl 4 mg Q4HP PRN IV 07/15/24 10:30 Docusate Sodium 100 mg BIDPRN PRN PO 07/15/24 10:30 Acetaminophen 650 mg Q6HP PRN PO 07/15/24 10:30 Nitroglycerin 0.4 mg Q5MINP PRN SL 07/15/24 10:30 Morphine Sulfate 2 mg Q30M PRN IV 07/15/24 10:30 Furosemide 20 mg BIDD IV 07/15/24 18:00 07/19/24 06:09 20 MG Levothyroxine Sodium 100 mcg DAILY IV 07/17/24 10:00 07/19/24 10:18 100 MCG Levothyroxine Sodium 25 mcg DAILY@0600 PO 07/18/24 06:00 07/19/24 06:10 25 MCG Levothyroxine Sodium 112 mcg DAILY@0600 PO 07/18/24 06:00 07/19/24 06:10 112 MCG Laboratory Results Laboratory Tests 07/16/24 06:05 HgA1c, TSH Test 07/19/24 05:53 Thyroid Stimulating Hormone (TSH) 31.86 uIU/mL (0.55-4.78) H Labs and/or images reviewed: Labs reviewed by me, Image(s) reviewed by me Assessment/Plan Assessment/Plan Acute on Chronic congestive heart failure exacerbation, cardiology consult by Dr. Vines appreciated Lasix Echo 70 percent ejection fraction BNP normal, no further cardiac workup Rule out structural heart disease Hypokalemia Transaminitis with hyperbilirubinemia for 30 years: Consult for GI Dr. Thompson appreciated Cirrhosis of liver with portal hypertension and splenomegaly: Continue Lasix add Aldactone; new diagnosis for the patient Moderate ascites: Radiology consult for paracentesis Right pleural effusion: Radiology consult for thoracentesis Obesity Severe hypothyroidism with TSH 75: Synthroid IV and p.o. TSH down to 44 Plan discussed with: Patient My Orders Orders - MARYBETH ISLAS MD Procedure Category Date Status Time Thyroid Stimulating LAB 07/20/24 Verified Hormone 05:00 Thyroid Stimulating LAB 07/21/24 Verified Hormone 05:00 Spironolactone PHA 07/19/24 Logged (Aldactone) 18:00 PTPTT LAB 07/19/24 Transmitted 11:28 * Radiologist Consult CONS 07/19/24 Transmitted 11:28 Date of Service: Jul 19, 2024 Billing Provider: MARYBETH ISLAS MD Common Visit Codes: [id number] INP/OBS CARE(HIGH) MARYBETH ISLAS MD Jul 19, 2024 11:33
[2024-07-19 12:18] LABS: INR 1.57 (0.9-1.15); Partial Thromboplastin Time 36.5 SEC (24.5-34.5); Prothrombin Time 15.9 sec (9.3-11.8)
[2024-07-19] MEDS: SPIRONOLACTONE 25 MG TAB PO SCH (17:43)
[2024-07-20] VITALS (8 sets, daily range): BP systolic 110–135; BP diastolic 51–67; PULSE 89–105; RESP 12–18; TEMP 97.9–98.5; O2SAT 92–95
[2024-07-20] MEDS ORDERED: LEVO-849 PO (10:12)
[2024-07-20] MEDS ORDERED: SPIR25TA PO (10:12)
[2024-07-20] MEDS ORDERED: HYDR-4902 PO (10:12)
[2024-07-20] MEDS ORDERED: LEVO-848 PO (10:12)
[2024-07-20] MEDS ORDERED: FURO1TAB31 PO (10:12)
--- NOTE | 2024-07-20 10:14 | DVHPN2 ---
Reviewed: Care Plan, H&P, Labs, Medications, Previous Orders, Radiology Changes from previous H/P or p: No Changes Eyes: No Pain, No Vision change, No Conjunctivae inflammation, No Eyelid inflammation, No Other, No Redness ENT: No Ear pain, No Ear discharge, No Nose pain, No Nose discharge, No Nose congestion, No Mouth pain, No Mouth swelling, No Throat pain, No Throat swelling, No Other Cardiovascular: No Chest Pain, No Palpitations, No Orthopnea, No Paroxysmal Noc. Dyspnea; Edema (bilateral LE); No Lt Headedness, No Other Respiratory: No Cough, No Dry; Shortness of breath, SOB with excertion, W heezing; No Hemoptysis, No Pleuritic Pain, No Sputum, No Other Gastrointestinal: No Nausea, No Vomiting, No Abdominal Pain, No Diarrhea, No Constipation, No Melena, No Hematochezia, No Other Genitourinary: No Dysuria, No Frequency, No Incontinence, No Hematuria, No Retention, No Other Musculoskeletal: No other, No neck pain, No shoulder pain, No arm pain, No back pain, No hand pain, No leg pain, No foot pain Skin: No Rash, No Lesions, No Jaundice, No Bruising, No Other Objective Vitals Vital Signs Date Time Temp Pulse Resp B/P (MAP) Pulse Ox O2 Delivery O2 Flow Rate FiO2 07/20/24 09:10 97.9 98 18 135/67 (89) 92 97.9 07/19/24 20:00 Nasal Cannula* 3 32 Intake/Output Intake and Output 07/20/24 07:00 Intake Total 840 ml Balance 840 ml Intake Oral 840 ml # Voids 11 # Bowel Movements 2 Medications Current Medications Medications Dose Ordered Sig/Ana Route Start Time Stop Time Status Last Admin Dose Admin Sodium Chloride 10 ml Q8HR IV 07/15/24 14:00 07/20/24 06:01 10 ML Acetaminophen/ Hydrocodone Bitart 1 tab Q4HP PRN PO 07/15/24 10:30 07/18/24 23:58 1 TAB Ondansetron HCl 4 mg Q4HP PRN IV 07/15/24 10:30 Docusate Sodium 100 mg BIDPRN PRN PO 07/15/24 10:30 Acetaminophen 650 mg Q6HP PRN PO 07/15/24 10:30 Nitroglycerin 0.4 mg Q5MINP PRN SL 07/15/24 10:30 Morphine Sulfate 2 mg Q30M PRN IV 07/15/24 10:30 Furosemide 20 mg BIDD IV 07/15/24 18:00 07/20/24 06:00 20 MG Levothyroxine Sodium 100 mcg DAILY IV 07/17/24 10:00 07/20/24 09:51 100 MCG Levothyroxine Sodium 25 mcg DAILY@0600 PO 07/18/24 06:00 07/20/24 06:00 25 MCG Levothyroxine Sodium 112 mcg DAILY@0600 PO 07/18/24 06:00 07/20/24 06:00 112 MCG Spironolactone 25 mg BIDD PO 07/19/24 18:00 07/20/24 06:00 25 MG Laboratory Results Laboratory Tests 07/16/24 06:05 Coagulation Test 07/19/24 11:28 Prothrombin Time 15.9 sec (9.3-11.8) H Prothrombin Time INR 1.57 (0.9-1.15) H Activated Partial Thromboplast Time 36.5 SEC (24.5-34.5) H HgA1c, TSH Test 07/20/24 05:27 Thyroid Stimulating Hormone (TSH) 20.11 uIU/mL (0.55-4.78) H Labs and/or images reviewed: Labs reviewed by me, Image(s) reviewed by me Assessment/Plan Assessment/Plan Acute on Chronic congestive heart failure exacerbation, cardiology consult by Dr. Vines appreciated Lasix Echo 70 % ejection fraction BNP normal, no further cardiac workup Rule out structural heart disease Hypokalemia Transaminitis with hyperbilirubinemia for 30 years: Consult for GI Dr. Thompson appreciated ,ordered labs for the etiology of the cirrhosis, result pending Cirrhosis of liver with portal hypertension and splenomegaly: Continue Lasix add Aldactone; new diagnosis for the patient Moderate ascites: Radiology consult for paracentesis Right pleural effusion: Radiology consult for thoracentesis Obesity Severe hypothyroidism with TSH 75: Synthroid IV and p.o. TSH down to 22 Plan discussed with: Patient My Orders Orders - MARYBETH ISLAS MD Procedure Category Date Status Time Spironolactone PHA 07/19/24 In Process (Aldactone) 18:00 * Radiologist Consult CONS 07/19/24 Transmitted 11:28 * Radiologist Consult CONS 07/19/24 Transmitted 11:31 Acute Hepatitis Panel LAB 07/19/24 In Process 11:34 Ceruloplasmin LAB 07/19/24 In Process 11:34 Mitochondrial (M2) LAB 07/19/24 In Process Antibody 11:34 Date of Service: Jul 20, 2024 Billing Provider: MARYBETH ISLAS MD Common Visit Codes: [id number] INP/OBS CARE(HIGH) MARYBETH ISLAS MD Jul 20, 2024 10:14
--- NOTE | 2024-07-20 10:23 | DVHDS2 ---
Discharge Summary Date of Admission Jul 15, 2024 at 10:26 Date of Discharge: Jul 20, 2024 Admitting Diagnosis Swelling of the feet and shortness of breath Wounds: None Labs/Diagnostic Data: Laboratory Results Test 07/20/24 05:27 07/19/24 13:01 07/19/24 11:28 07/16/24 06:05 Thyroid Stimulating Hormone (TSH) 20.11 uIU/mL (0.55-4.78) Prothrombin Time 15.9 sec (9.3-11.8) Prothrombin Time INR 1.57 (0.9-1.15) Activated Partial Thromboplast Time 36.5 SEC (24.5-34.5) White Blood Count 3.6 10^3/uL (4.4-10.8) Red Blood Count 4.50 10^6/uL (4.0-5.20) Hemoglobin 14.4 g/dL (12.2-16.2) Hematocrit 43.1 % (36.0-46.0) Mean Corpuscular Volume 95.9 fL (80.0-100.0) Mean Corpuscular Hemoglobin 32.1 pg (28.0-32.0) Mean Corpuscular Hemoglobin Concent 33.5 g/dL (32.0-36.0) Red Cell Distribution Width 17.2 % (11.8-14.3) Platelet Count 38 10^3/uL (140-450) Mean Platelet Volume 9.3 fL (6.9-10.8) Neutrophils (%) (Auto) 58.0 % (37.0-80.0) Lymphocytes (%) (Auto) 22.5 % (10.0-50.0) Monocytes (%) (Auto) 9.0 % (0.0-12.0) Eosinophils (%) (Auto) 8.6 % (0.0-7.0) Basophils (%) (Auto) 1.9 % (0.0-2.0) Neutrophils # (Auto) 2.1 10 ^3/uL (1.6-8.6) Lymphocytes # (Auto) 0.8 10 ^3/uL (0.4-5.4) Monocytes # (Auto) 0.3 10 ^3/uL (0-1.3) Eosinophils # (Auto) 0.3 10 ^3/uL (0-0.8) Basophils # (Auto) 0.1 10 ^3/uL (0-0.2) Nucleated Red Blood Cells 0.5 % Sodium Level 136 mmol/L (136-145) Potassium Level 3.4 mmol/L (3.5-5.1) Chloride Level 102 mmol/L (98-107) Carbon Dioxide Level 25 mmol/L (20-31) Anion Gap 9 (5-15) Blood Urea Nitrogen 7 mg/dL (9-23) Creatinine 0.46 mg/dL (0.550-1.02) Glomerular Filtration Rate Calc 111 mL/min (>90) BUN/Creatinine Ratio 15.2 (10.0-20.0) Serum Glucose 102 mg/dL (74-106) Calcium Level 9.1 mg/dL (8.7-10.4) Total Bilirubin 3.7 mg/dL (0.2-1.0) Aspartate Amino Transferase (AST) 71 U/L (13-40) Alanine Aminotransferase (ALT) 47 U/L (7-40) Alkaline Phosphatase 149 U/L (46-116) Total Protein 6.4 g/dL (5.7-8.2) Albumin 3.0 g/dL (3.2-4.8) Test 07/15/24 16:20 07/15/24 08:27 07/15/24 06:45 07/15/24 05:42 Magnesium Level 1.8 mg/dL (1.6-2.6) Platelet Estimate Decrea Large Platelets Few Troponin I High Sensitivity < 3 ng/L (</=34) Triglycerides Level 103 mg/dL (< 150) Cholesterol Level 211 mg/dL (< 200) LDL Cholesterol 114 mg/dL (< 100) HDL Cholesterol 55 mg/dL (40-59) Hemoglobin A1c 4.7 % A1C (<5.7) B-Type Natriuretic Peptide 30.54 pg/mL (0-100) Free Thyroxine (T4) Calculated 0.87 ng/dL (0.89-1.76) Free Triiodothyronine (T3) pg/mL 1.59 pg/mL (2.3-4.2) Other Laboratory Tests 07/16/24 06:05 Brief Hx & Hospital Course: DVT red female with congestive heart failure came in for shortness of breaths and swelling of the feet found to have acute exacerbation of CHF treated with Lasix Echo 70 percent ejection fraction BNP normal no further cardiac workup seen by Cardiology Dr. Vines patient had severe hypothyroidism TSH 75 treated with the IV Synthroid and p.o. Synthroid TSH down to 22 at the time of discharge. Patient also had ascites and planning for paracentesis by radiologist on Sunday. Seen by GI Dr. Thompson for transaminitis found to have ascites and cirrhosis of liver. Treated with Aldactone. Labs ordered for etiology of cirrhosis result pending. Patient will be discharged on 07/21/2024 after paracentesis. Medications transmitted to the [facility] . She will follow up with your primary Dr Dr. Nowak for pending liver test results Consults/Reason for consult Cardiology Dr. Vines Radiologist for paracentesis Operations or Procedures Paracentesis Condition at Discharge: Fair Final Diagnosis/Problems List Acute on Chronic congestive heart failure exacerbation, cardiology consult by Dr. Vines appreciated Lasix Echo 70 % ejection fraction BNP normal, no further cardiac workup Rule out structural heart disease Hypokalemia Transaminitis with hyperbilirubinemia for 30 years: Consult for GI Dr. Thompson appreciated ,ordered labs for the etiology of the cirrhosis, result pending Cirrhosis of liver with portal hypertension and splenomegaly: Continue Lasix add Aldactone; new diagnosis for the patient Moderate ascites: Radiology consult for paracentesis Right pleural effusion: Radiology consult for thoracentesis Obesity Severe hypothyroidism with TSH 75: Synthroid IV and p.o. TSH down to 22 Discharge Disposition: Home Discharge Instruct/Medications Diet: Cardiac 2g Na,low cholest Activity: Light activity Follow Up/Referral: Use medications as prescribed Follow up with your primary Dr Lockwood for the pending liver function test results You need TSH in two weeks to adjust the Synthroid dosage Medications: Lasix Spironolactone Synthroid [place] Transmitted to [facility] 35 (Time taken for discharge summary 35 minutes) Discharge Statement: "Patient was advised to return to the ER or call 911 if any headaches, dizziness, shortness of breath, chest pain, abdominal pain, bleeding, fevers, or worsening of medical condition. Patient was counseled about treatment plan, medications, possible side effects, patientverbalized understanding. All questions were answered to the best of my ability. This discharge took greater then 30 minutes in planning, reviewing documentation, counseling the patient, and discussing with other team members." ASSESSMENT ASSESSMENT Hospital Course Improved Assessment Acute on Chronic congestive heart failure exacerbation, cardiology consult by Dr. Vines appreciated Lasix Echo 70 % ejection fraction BNP normal, no further cardiac workup Rule out structural heart disease Hypokalemia Transaminitis with hyperbilirubinemia for 30 years: Consult for GI Dr. Thompson appreciated ,ordered labs for the etiology of the cirrhosis, result pending Cirrhosis of liver with portal hypertension and splenomegaly: Continue Lasix add Aldactone; new diagnosis for the patient Moderate ascites: Radiology consult for paracentesis Right pleural effusion: Radiology consult for thoracentesis Obesity Severe hypothyroidism with TSH 75: Synthroid IV and p.o. TSH down to 22 Date of Service: Jul 20, 2024 Billing Provider: MARYBETH ISLAS MD Common Visit Codes: [id number] INP/OBS CARE(HIGH) MARYBETH ISLAS MD Jul 20, 2024 10:23
[2024-07-20] MEDS: PHYTONADIONE (VIT K)10 MG/ML 1ML VIAL SUBCUT ONE (12:26)
[2024-07-21] VITALS (10 sets, daily range): BP systolic 99–125; BP diastolic 50–67; PULSE 92–101; RESP 12–18; TEMP 97.2–98.6; O2SAT 91–95
[2024-07-21 07:07] LABS: Anion Gap 9 (5-15); Carbon Dioxide 29 mmol/L (20-31); Chloride 100 mmol/L (98-107); Sodium 138 mmol/L (136-145)
[2024-07-21 07:09] LABS: Calcium 9.4 mg/dL (8.7-10.4)
[2024-07-21 07:13] LABS: BUN/Creatinine Ratio 15.2 (10.0-20.0); Glucose 92 mg/dL (74-106)
[2024-07-21 07:15] LABS: Blood Urea Nitrogen 7 mg/dL (9-23)
[2024-07-21 07:16] LABS: INR 1.57 (0.9-1.15); Partial Thromboplastin Time 33.5 SEC (24.5-34.5); Prothrombin Time 15.9 sec (9.3-11.8)
--- NOTE | 2024-07-21 09:16 | DVH ---
XY CHEST PORTABLE, HISTORY: POST THORACENTESIS COMPARISON: XY CHEST PORTABLE on DOS: 07/15/24 XY CHEST PORTABLE on DOS: 07/15/24 TECHNICAL DATA: 1 view of the chest was obtained. FINDINGS: Lines and tubes: None Cardiomediastinal silhouette: normal Pulmonary vasculature: normal Lung expansion: normal Lung airspace: normal Lung interstitium: normal Pleura: normal Pneumothorax: no Bones: Unremarkable Other: no IMPRESSION: Interval decrease in the right pleural effusion. No pneumothorax seen.
--- NOTE | 2024-07-21 09:48 | DVH ---
US THORACENTESIS, HISTORY: PLEURAL EFFUSION PROCEDURE: Informed consent was obtained. The patient was seated on the bed. A limited localization u ltrasound of the right thorax was obtained, and the optimal approach was marked on the skin. The area was prepped with chlorhexidine which was allowed to dry and draped in the usual sterile fashion. Rory e out was performed. The skin and the soft tissues were infiltrated with 1% lidocaine. A 5.5 Faroese c entesis needle catheter was advanced into right pleural space. Following aspiration of fluid, the cat heter was advanced and the needle removed. About 1500 cc of fluid was drained. Specimen/s was/were se nt for appropriate cultures/cytology/cultures and cytology. No immediate complication was identified. FINDINGS: Moderate right pleural effusion. Aspirated fluid is clear and serous. IMPRESSION: Successful right thoracentesis with 1.5L removed.
--- NOTE | 2024-07-21 09:50 | DVH ---
US PARACENTESIS, HISTORY: ASCITES PROCEDURE: Informed consent was obtained. The patient was placed in supine position. A limited locali zation ultrasound of the abdomen was obtained. FINDINGS: Limited ultrasound imaging demonstrates mild ascites. IMPRESSION: Not enough fluid for paracentesis and no safe window . Paracentesis was deffered.
[2024-07-21 10:35] LABS: Body Fluid Red Blood Cells 11559 CUMM (0-2000); Body Fluid White Blood Cells 750 CUMM (0-200)
[2024-07-21 11:00] LABS: Body Fluid Polymorphonuclear 4 % (0-25)
[2024-07-21 11:17] LABS: Hepatitis A Ab IgM Negative; Hepatitis B Core IgM Negative (Negative); Hepatitis B Surface Antigen Negative (Negative); Hepatitis C Antibody Negative (Negative)
--- NOTE | 2024-07-21 11:28 | DVHPN2 ---
Reviewed: Care Plan, H&P, Labs, Medications, Previous Orders, Radiology Changes from previous H/P or p: No Changes Eyes: No Pain, No Vision change, No Conjunctivae inflammation, No Eyelid inflammation, No Other, No Redness ENT: No Ear pain, No Ear discharge, No Nose pain, No Nose discharge, No Nose congestion, No Mouth pain, No Mouth swelling, No Throat pain, No Throat swelling, No Other Cardiovascular: No Chest Pain, No Palpitations, No Orthopnea, No Paroxysmal Noc. Dyspnea; Edema (bilateral LE); No Lt Headedness, No Other Respiratory: No Cough, No Dry; Shortness of breath, SOB with excertion, W heezing; No Hemoptysis, No Pleuritic Pain, No Sputum, No Other Gastrointestinal: No Nausea, No Vomiting, No Abdominal Pain, No Diarrhea, No Constipation, No Melena, No Hematochezia, No Other Genitourinary: No Dysuria, No Frequency, No Incontinence, No Hematuria, No Retention, No Other Musculoskeletal: No other, No neck pain, No shoulder pain, No arm pain, No back pain, No hand pain, No leg pain, No foot pain Skin: No Rash, No Lesions, No Jaundice, No Bruising, No Other Objective Vitals Vital Signs Date Time Temp Pulse Resp B/P (MAP) Pulse Ox O2 Delivery O2 Flow Rate FiO2 07/21/24 09:00 98.1 99 18 125/67 (86) 95 98.1 07/20/24 20:00 Nasal Cannula* 2 28 Intake/Output Intake and Output 07/21/24 07:00 Intake Total 200 ml Output Total 5 ml Balance 195 ml Intake Oral 200 ml Output Urine Total 5 ml # Bowel Movements 2 Medications Current Medications Medications Dose Ordered Sig/Ana Route Start Time Stop Time Status Last Admin Dose Admin Sodium Chloride 10 ml Q8HR IV 07/15/24 14:00 07/21/24 06:00 10 ML Acetaminophen/ Hydrocodone Bitart 1 tab Q4HP PRN PO 07/15/24 10:30 07/18/24 23:58 1 TAB Ondansetron HCl 4 mg Q4HP PRN IV 07/15/24 10:30 Docusate Sodium 100 mg BIDPRN PRN PO 07/15/24 10:30 Acetaminophen 650 mg Q6HP PRN PO 07/15/24 10:30 Nitroglycerin 0.4 mg Q5MINP PRN SL 07/15/24 10:30 Morphine Sulfate 2 mg Q30M PRN IV 07/15/24 10:30 Furosemide 20 mg BIDD IV 07/15/24 18:00 07/21/24 06:00 20 MG Levothyroxine Sodium 100 mcg DAILY IV 07/17/24 10:00 07/21/24 10:15 100 MCG Levothyroxine Sodium 25 mcg DAILY@0600 PO 07/18/24 06:00 07/21/24 05:00 25 MCG Levothyroxine Sodium 112 mcg DAILY@0600 PO 07/18/24 06:00 07/21/24 05:00 112 MCG Spironolactone 25 mg BIDD PO 07/19/24 18:00 07/21/24 05:55 25 MG Laboratory Results Laboratory Tests 07/16/24 06:05 07/21/24 06:21 Chemistry Test 07/21/24 06:21 Calcium Level 9.4 mg/dL (8.7-10.4) Coagulation Test 07/21/24 06:21 Prothrombin Time 15.9 sec (9.3-11.8) H Prothrombin Time INR 1.57 (0.9-1.15) H Activated Partial Thromboplast Time 33.5 SEC (24.5-34.5) HgA1c, TSH Test 07/21/24 06:21 Thyroid Stimulating Hormone (TSH) 12.17 uIU/mL (0.55-4.78) H Microbiology Microbiology Date/Time Source Procedure Growth Status 07/21/24 09:15 Pleural Fluid Received Labs and/or images reviewed: Labs reviewed by me, Image(s) reviewed by me Assessment/Plan Assessment/Plan Acute on Chronic congestive heart failure exacerbation, cardiology consult by Dr. Vines appreciated Lasix Echo 70 % ejection fraction BNP normal, no further cardiac workup Rule out structural heart disease Hypokalemia Transaminitis with hyperbilirubinemia for 30 years: Consult for GI Dr. 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 TSH down to 12, DC IV Synthroid, continue oral Synthroid Plan discussed with: Patient My Orders Orders - MARYBETH ISLAS MD Procedure Category Date Status Time Paracentesis US 07/21/24 Resulted Thoracentesis US 07/21/24 Resulted Date of Service: Jul 21, 2024 Billing Provider: MARYBETH ISLAS MD Common Visit Codes: [id number] INP/OBS CARE(HIGH) MARYBETH ISLAS MD Jul 21, 2024 11:28
[2024-07-21] MEDS: MELATONIN 5 MG TAB PO ONE (23:31)
[2024-07-22 00:36] VITALS: BP 110/48; PULSE 109; RESP 17; TEMP 99.2; O2SAT 92
[2024-07-22 05:00] VITALS: BP 120/67; PULSE 117; RESP 19; TEMP 99.4; O2SAT 91
[2024-07-22 07:11] LABS: Anion Gap 8 (5-15); Carbon Dioxide 28 mmol/L (20-31); Chloride 100 mmol/L (98-107)
[2024-07-22 07:17] LABS: BUN/Creatinine Ratio 19.6 (10.0-20.0); Glucose 103 mg/dL (74-106)
[2024-07-22 07:18] LABS: Blood Urea Nitrogen 9 mg/dL (9-23); Calcium 8.6 mg/dL (8.7-10.4); Potassium 2.7 mmol/L (3.5-5.1); Sodium 136 mmol/L (136-145)
[2024-07-22 08:00] VITALS: PULSE 109
[2024-07-22] MEDS: POTASSIUM CHL 20 Meq TABLET PO ONE (08:20)
[2024-07-22 09:00] VITALS: BP 117/43; PULSE 114; RESP 17; TEMP 98.5; O2SAT 92
--- NOTE | 2024-07-22 09:14 | DVH ---
PROCEDURE: ULTRASOUND GUIDED THORACENTESIS USING TEMPORARY CATHETER HISTORY: 58 Female with requiring thoracentesis. DOCUMENTATION: Informed consent was obtained and a procedural time out was performed. TECHNIQUE: Ultrasound was used to locate the left pleural fluid collection with an image archived in the PACS. The skin over the left posterior hemithorax was sterilely prepped, draped, and infiltrated with 1% lidocaine. Under real time ultrasound guidance, the left pleural space was accessed with a 19 -gauge Yueh needle and connected to Vacutainers. The Yueh catheter was advanced, the needle was remov ed and the temporary catheter was advanced and connected to the Vacutainer. Approximately 0.8 liters of serous fluid was removed. The temporary catheter was removed and sterile dressings were applied. FINDINGS: Ultrasound demonstrates a left pleural effusion. Imaging confirms the needle tip within the fluid. IMPRESSION: SUCCESSFUL ULTRASOUND GUIDED THORACENTESIS.
--- NOTE | 2024-07-22 10:08 | DVH ---
EXAM: XY CHEST PORTABLE Indication: POST THORACENTESIS PROCEDURE Technique: Single frontal view of the chest was obtained Comparison: XY CHEST PORTABLE on DOS: 07/21/24, XY CHEST PORTABLE on DOS: 07/15/24 FINDINGS: Lines and Tubes: None Lungs: Moderate right pleural effusion. Right basilar opacity. No pneumothorax. Cardiomediastinal contours: Cardiomegaly. Bones: No acute osseous abnormality. IMPRESSION: Cardiomegaly with moderate right pleural effusion and right basilar opacity.
[2024-07-22] MEDS ORDERED: POTA-180 PO (10:54)
--- NOTE | 2024-07-22 10:56 | DVHPN2 ---
Reviewed: Care Plan, H&P, Labs, Medications, Previous Orders, Radiology Changes from previous H/P or p: No Changes Eyes: No Pain, No Vision change, No Conjunctivae inflammation, No Eyelid inflammation, No Other, No Redness ENT: No Ear pain, No Ear discharge, No Nose pain, No Nose discharge, No Nose congestion, No Mouth pain, No Mouth swelling, No Throat pain, No Throat swelling, No Other Cardiovascular: No Chest Pain, No Palpitations, No Orthopnea, No Paroxysmal Noc. Dyspnea; Edema (bilateral LE); No Lt Headedness, No Other Respiratory: No Cough, No Dry; Shortness of breath, SOB with excertion, W heezing; No Hemoptysis, No Pleuritic Pain, No Sputum, No Other Gastrointestinal: No Nausea, No Vomiting, No Abdominal Pain, No Diarrhea, No Constipation, No Melena, No Hematochezia, No Other Genitourinary: No Dysuria, No Frequency, No Incontinence, No Hematuria, No Retention, No Other Musculoskeletal: No other, No neck pain, No shoulder pain, No arm pain, No back pain, No hand pain, No leg pain, No foot pain Skin: No Rash, No Lesions, No Jaundice, No Bruising, No Other Objective Vitals Vital Signs Date Time Temp Pulse Resp B/P (MAP) Pulse Ox O2 Delivery O2 Flow Rate FiO2 07/22/24 09:00 98.5 114 17 117/43 (67) 92 98.5 07/22/24 08:08 Nasal Cannula* 2 28 Intake/Output Intake and Output 07/22/24 07:00 Intake Total 900 ml Balance 900 ml Intake Oral 900 ml # Voids 9 # Bowel Movements 4 Medications Current Medications Medications Dose Ordered Sig/Ana Route Start Time Stop Time Status Last Admin Dose Admin Sodium Chloride 10 ml Q8HR IV 07/15/24 14:00 07/22/24 05:57 10 ML Acetaminophen/ Hydrocodone Bitart 1 tab Q4HP PRN PO 07/15/24 10:30 07/22/24 08:39 1 TAB Ondansetron HCl 4 mg Q4HP PRN IV 07/15/24 10:30 Docusate Sodium 100 mg BIDPRN PRN PO 07/15/24 10:30 Acetaminophen 650 mg Q6HP PRN PO 07/15/24 10:30 Nitroglycerin 0.4 mg Q5MINP PRN SL 07/15/24 10:30 Morphine Sulfate 2 mg Q30M PRN IV 07/15/24 10:30 Furosemide 20 mg BIDD IV 07/15/24 18:00 07/22/24 05:56 20 MG Levothyroxine Sodium 25 mcg DAILY@0600 PO 07/18/24 06:00 07/22/24 05:08 25 MCG Levothyroxine Sodium 112 mcg DAILY@0600 PO 07/18/24 06:00 07/22/24 05:08 112 MCG Spironolactone 25 mg BIDD PO 07/19/24 18:00 07/22/24 05:56 25 MG Laboratory Results Laboratory Tests 07/16/24 06:05 07/22/24 05:58 Chemistry Test 07/22/24 05:58 Calcium Level 8.6 mg/dL (8.7-10.4) L Microbiology Microbiology Date/Time Source Procedure Growth Status 07/22/24 08:35 Pleural Fluid Received Labs and/or images reviewed: Labs reviewed by me, Image(s) reviewed by me Assessment/Plan Assessment/Plan Acute on Chronic congestive heart failure exacerbation, cardiology consult by Dr. Vines appreciated Lasix Echo 70 % ejection fraction BNP normal, no further cardiac workup Rule out structural heart disease Hypokalemia Transaminitis with hyperbilirubinemia for 30 years: Consult for GI Dr. 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 TSH down to 12, DC IV Synthroid, continue oral Synthroid Check ABG on room air to see if she qualifies for home oxygen Patient being discharged home Plan discussed with: Patient My Orders Orders - MARYBETH ISLAS MD Procedure Category Date Status Time * Radiologist Consult CONS 07/22/24 Transmitted 07:00 Thoracentesis US 07/22/24 Resulted 07:49 Date of Service: Jul 22, 2024 Billing Provider: MARYBETH ISLAS MD Common Visit Codes: [id number] INP/OBS CARE(HIGH) MARYBETH ISLAS MD Jul 22, 2024 10:56
[2024-07-22 12:19] LABS: Base Excess 4.3 mmol/L (-2.0-3.0)
[2024-07-22 12:29] LABS: Body Fluid Polymorphonuclear 69 % (0-25); Body Fluid Red Blood Cells 25462 CUMM (0-2000); Body Fluid White Blood Cells 1671 CUMM (0-200)
[2024-07-22 13:07] LABS: Protein, Body Fluid 1.8 g/dL (.)
[2024-07-22 13:08] VITALS: BP 92/42; PULSE 102; RESP 18; TEMP 98.3; O2SAT 92
[2024-07-22 14:06] LABS: Mitochondrial (M2) Antibody <20.0 Units (0.0-20.0)
== END 2024-07-22 13:51 | disposition home or self-care (01) | DRG 432 ==
LOC: ER 05:24 → OVERFLOW 10:26 → TELE-EAST 23:41
PROVIDERS: ADMIT Family Medicine; ATTEND Family Medicine
PROC: 0W993ZZ Drainage of Right Pleural Cavity, Percutaneous Approach (ICD-10-PCS; principal; 2024-07-21)
PROC: 0W9B3ZZ Drainage of Left Pleural Cavity, Percutaneous Approach (ICD-10-PCS; 2024-07-22)
DX: K74.60 Unspecified cirrhosis of liver (principal); I50.33 Acute on chronic diastolic (congestive) heart failure; K76.6 Portal hypertension; R18.8 Other ascites; I11.0 Hypertensive heart disease with heart failure; E03.9 Hypothyroidism, unspecified; E66.9 Obesity, unspecified; E87.6 Hypokalemia; J98.4 Other disorders of lung; D69.6 Thrombocytopenia, unspecified; R74.01 Elevation of levels of liver transaminase levels; Z87.440 Personal history of urinary (tract) infections; Z90.710 Acquired absence of both cervix and uterus; Z80.0 Family history of malignant neoplasm of digestive organs; Z82.49 Family history of ischemic heart disease and other diseases of the circulatory system; Z80.3 Family history of malignant neoplasm of breast; Z82.62 Family history of osteoporosis; Z68.29 Body mass index [BMI] 29.0-29.9, adult
CPT/HCPCS: 32555; 36415; 36600; 71045; 74176; 76942; 80048; 80053; 80061; 80074; 82390; 82805; 83036; 83735; 83880; 83986; 84132; 84439; 84443; 84450; 84460; 84481; 84484; 85025; 85610; 85730; 87205; 89051; 93005; 93306; 96374; 99291; 99292; G0378; J2405; J3430; J3490

== ENCOUNTER 2024-08-15 15:03 | Inpatient (IN) | payer BC ==
[~2024-08-15] VITALS: Ht 167.6 cm; Wt 81.0 kg
[~2024-08-15 15:03] MED LIST changes: +FURO1TAB31 PO; +HYDR-4902 PO; +LEVO-848 PO; +LEVO-849 PO; -NITR-87 PO; +POTA-180 PO; +POTA-36 PO; -SIME80CH49 PO; +SPIR25TA PO
--- NOTE | 2024-08-15 15:42 | ED.PDOC ---
History of Present Illness HPI Comments 58Y F with PMHx CHF and pleural effusion presents to ED for chief complaint general weakness x2days with flu-like symptoms of cough and congestion. Pt denies chest pain and SOB. Patient reports subjective fevers over the past few days. Patient denies any nausea or vomiting. Chief Complaint: Shortness of Breath Time Seen by MD: 15:10 Primary Care Provider: KIM Gordon Notes: Nurses Notes, Medications, Allergies Allergies: Coded Allergies: NO KNOWN ALLERGIES (Unverified , 05/08/19) Home Meds Active Scripts Potassium Chloride (Potassium Chloride ER) 20 Meq Tab, 20 MEQ PO BID, #40 TAB Prov:MARYBETH ISLAS MD 07/22/24 Hydrocodone-Acetaminophen (Hydrocodone Bitartrate/AC 5-325 mg) 1 Tab Tab, 1 TAB PO QID PRN, #30 TAB Prov:MARYBETH ISLAS MD 07/20/24 Furosemide (Lasix) 40 Mg Tab, 40 MG PO DAILY, #90 TAB Prov:MARYBETH ISLAS MD 07/20/24 Levothyroxine Sodium (SYNTHROID TABLET) 100 Mcg Tb, 1 TAB PO DAILY, #90 TAB 1 Refill Prov:MARYBETH ISLAS MD 07/20/24 Levothyroxine Sodium (SYNTHROID TABLET) 50 Mcg Tb, 1 TAB PO DAILY, #90 TAB 1 Refill Prov:MARYBETH ISLAS MD 07/20/24 Spironolactone (Aldactone) 25 Mg Tab, 1 TAB PO BID, #60 TAB 1 Refill Prov:MARYBETH ISLAS MD 07/20/24 Reported Medications Potassium Chloride (POTASSIUM CHLORIDE CR) 10 Meq Tb, 1 TAB PO DAILY, #30 TAB 5 Refills 07/15/24 Levothyroxine Sodium (Levothyroxine Sodium) 150 Mcg Tab, 150 MCG PO QAM for 30 Days 05/08/19 Information Source: Patient Mode of Arrival: Ambulatory Severity: Mild Timing: Days Duration: Since onset Prehospital treatment: None Past Medical History PAST MEDICAL HISTORY: Anxiety, CHF, Depression, Thyroid, UTI'S Past Medical History (Other): Pleural effusion Surgical History: Denies all surgeries [employer]LE[employer] History: Denies all [employer]LE[employer] Hx Family History Family History: Reviewed,noncontributory to illness Social History Smoker: Non-Smoker Alcohol: Denies ETOH Use Drugs: Denies Drug Use Lives In: Home Constitutional: reports: weakness; denies: chills, diaphoresis, fatigue, fever, malaise, sweats, others EENTM: reports: nose congestion; denies: blurred vision, double vision, ear bleeding, ear discharge, ear drainage, ear pain, ear ringing, eye pain, eye redness, hearing loss, mouth pain, mouth swelling, nasal discharge, nose bleeding, nose pain, photophobia, tearing, throat pain, throat swelling, voice changes, others Respiratory: reports: cough, SOB at rest; denies: hemoptysis, orthopnea, shortness of breath, SOB with excertion, stridor, wheezing, others Cardiovascular: denies: chest pain, dizzy spells, diaphoresis, Dyspnea on exertion, edema, irregular heart beat, left arm pain, lightheadedness, palpitations, PND, syncope, others Gastrointestinal: denies: abdomen distended, abdominal pain, blood streaked bowels, constipated, diarrhea, dysphagia, difficulty swallowing, hematemesis, me abad, nausea, poor appetite, poor fluid intake, rectal bleeding, rectal pain, vomiting, others Genitourinary: denies: abnormal vagina bleeding, burning, dyspareunia, dysuria, flank pain, frequency, hematuria, incontinence, pain, , vagina discharge, urgency, others Neurological: denies: dizziness, fainting, headache, left sided numbness, left sided weakness, numbness, paresthesia, pre-existing deficit, right sided numbness, right sided weakness, seizure, speech problems, tingling, tremors, others Musculoskeletal: denies: back pain, gout, joint pain, joint swelling, muscle pain, muscle stiffness, neck pain, others Integumetry: denies: bruises, change in color, change in hair/nails, dryness, laceration, lesions, lumps, rash, wounds, others Allergic/Immunocompromised: denies: Difficulty Healing, Frequent Infections, Hives, Itching, others Hematologic/Lymphatic: denies: anemia, blood clots, easy bleeding, easy bruising, swollen glands, others Endocrine: denies: excessive hunger, excessive sweating, excessive thirst, excessive urination, flushing, intolerance to cold, intolerance to heat, unexplained weight gain, unexplained weight loss, others Psychiatric: denies: anxiety, bipolar disorder, depression, hopeless, panic disorder, schizophrenia, sleepless, suicidal, others All Other Systems: Reviewed and Negative Physical Exam General Appearance: Moderate Distress (patient was in moderate distress at time of evaluation.), Normal HEENT: Normal ENT Inspection, Pharynx Normal, TMs Normal Neck: Full Range of Motion, Non-Tender, Normal, Normal Inspection Respiratory: Other ( Diffuse rhonchi and reduced breath sounds noted in right middle lobe throughout. Mild rhonchi in left upper lobe.) Cardiovascular: No Edema, No JVD, No Murmur, No Gallop, Normal Peripheral Pulses, Regular Rate/Rhythm Breast Exam: Deferred Gastrointestinal: No Organomegaly, Non Tender, No Pulsatile Mass, Normal Bowel Sounds, Soft Genitalia: Deferred Pelvic: Deferred Rectal: Deferred Extremities: No calf tenderness, Normal capillary refill, Normal inspection, Normal range of motion, Non-tender, No pedal edema Musculoskeletal : Apperance: Normal Neurologic: Alert, No Motor Deficits, Normal Affect, Normal Mood, No Sensory Deficits Cerebellar Function: Normal Reflexes: Normal Skin: Dry, Normal Color, Warm Lymphatic: No Adenopathy Was a procedure done? Was a procedure done?: No Differential Dx Considerations may include: Pneumonia, viral upper respiratory, pleural effusion, CHF, sepsis, electrolyte abnormality, UTI X-Ray, Labs, Meds, VS Vital Signs Date Time Temp Pulse Resp B/P (MAP) Pulse Ox O2 Delivery O2 Flow Rate FiO2 08/15/24 23:00 101 18 109/98 (102) 96 08/15/24 21:22 111 17 92 Room Air 08/15/24 21:22 98.7 111 17 140/68 (92) 92 98.7 08/15/24 20:00 98.4 108 18 128/78 (95) 89 98.4 08/15/24 15:47 111 08/15/24 15:34 18 93 Room Air 08/15/24 15:34 100.1 112 18 128/67 (87) 93 100.1 Lab Test 08/15/24 22:28 08/15/24 21:05 08/15/24 19:44 08/15/24 15:44 Range/Units Urine Color Yellow Yellow Urine Clarity Turbid H Clear Urine pH 6.0 5.0-9.0 Urine Specific Gould 1.029 1.001-1.035 Urine Protein 1+ H Negative Urine Ketones Trace Negative Urine Blood 3+ H Negative /uL Urine Nitrite 2+ H Negative Urine Bilirubin Negative Negative Urine Urobilinogen Normal Negative mg/dL Urine Leukocyte Esterase 3+ Negative /uL Urine RBC 28 0 - 4 /hpf Urine Microscopic WBC 171 H 0-5 /HPF Urine Squamous Epithelial Cells Few <5 /hpf Urine Calcium Oxalate Crystals Mod None Seen Urine Bacteria Many H None Seen /hpf Urine Mucus Few None Seen Urine Glucose Normal Normal mg/dL Urine Test Negative Negative Influenza Type A Antigen Negative Negative Influenza Type B Antigen Negative Negative SARS-CoV-2 Antigen (Rapid) Negative NEGATIVE Troponin I High Sensitivity < 3 L < 3 L </=34 ng/L White Blood Count 3.7 L 4.4-10.8 10^3/uL Red Blood Count 4.13 4.0-5.20 10^6/uL Hemoglobin 14.1 12.2-16.2 g/dL Hematocrit 41.3 36.0-46.0 % Mean Corpuscular Volume 99.9 80.0-100.0 fL Mean Corpuscular Hemoglobin 34.2 H 28.0-32.0 pg Mean Corpuscular Hemoglobin Concent 34.2 32.0-36.0 g/dL Red Cell Distribution Width 17.0 H 11.8-14.3 % Platelet Count 58 L 140-450 10^3/uL Mean Platelet Volume 8.9 6.9-10.8 fL Neutrophils (%) (Auto) 58.6 37.0-80.0 % Lymphocytes (%) (Auto) 19.3 10.0-50.0 % Monocytes (%) (Auto) 14.4 H 0.0-12.0 % Eosinophils (%) (Auto) 6.4 0.0-7.0 % Basophils (%) (Auto) 1.3 0.0-2.0 % Neutrophils # (Auto) 2.2 1.6-8.6 10 ^3/uL Lymphocytes # (Auto) 0.7 0.4-5.4 10 ^3/uL Monocytes # (Auto) 0.5 0-1.3 10 ^3/uL Eosinophils # (Auto) 0.2 0-0.8 10 ^3/uL Basophils # (Auto) 0 0-0.2 10 ^3/uL Nucleated Red Blood Cells 0.4 % D-Dimer, Quantitative 4.57 H 0.0-0.49 mg/L FEU Sodium Level 135 L 136-145 mmol/L Potassium Level 3.7 3.5-5.1 mmol/L Chloride Level 106 98-107 mmol/L Carbon Dioxide Level 22 20-31 mmol/L Anion Gap 7 5-15 Blood Urea Nitrogen 9 9-23 mg/dL Creatinine 0.47 L 0.550-1.02 mg/dL Glomerular Filtration Rate Calc 110 >90 mL/min BUN/Creatinine Ratio 19.1 10.0-20.0 Serum Glucose 118 H 74-106 mg/dL Calcium Level 9.1 8.7-10.4 mg/dL Total Bilirubin 3.6 H 0.2-1.0 mg/dL Aspartate Amino Transferase (AST) 73 H 13-40 U/L Alanine Aminotransferase (ALT) 44 H 7-40 U/L Alkaline Phosphatase 198 H 46-116 U/L B-Type Natriuretic Peptide 30.69 0-100 pg/mL Total Protein 6.8 5.7-8.2 g/dL Albumin 2.9 L 3.2-4.8 g/dL [place] [id number] Ph: [phone] DIAGNOSTIC IMAGING Diagnostic Imaging Report : [id number] Signed PATIENT: LELAND DEMPSEY IACCT: [id number] UNIT: [id number] : 1965 LOC: ER ROOM / BED: / AGE / SEX: 58 / F ADM STATUS: REG ER SERVICE [id number] ORDERING PHYSICIAN: DIMAS QUIÑONEZ PAC PROCEDURE(s): CXRP - CHEST PORTABLE REASON: Shortness of breath ORDER NUMBER(s): [id number], ACCESSION NUMBER(s): [id number] CHEST RADIOGRAPH Indication: Shortness of breath Technique: Single frontal view of the chest was obtained Comparison: XY CHEST PORTABLE on DOS: 07/22/24, XY CHEST PORTABLE on DOS: 07/21/24, XY CHEST PORTABLE on DOS: 07/15/24 FINDINGS: Lines and Tubes: None Lungs: Opacification of right mid and lower lung zone with obscuration of the right hemidiaphragm. No pneumothorax. Cardiomediastinal contours: Unremarkable Bones: No acute osseous abnormality. IMPRESSION: Opacification of right mid and lower lung zone with obscuration of the right hemidiaphragm which may be from pleural effusion with associated atelectasis/ pneumonia. ATED BY: RAYA BENITEZ DO DICTATED DATE/TIME: 08/15/241620 SIGNED BY: RAYA BENITEZ DO SIGNED DATE/TIME: 08/15/241620 CC: X-Ray, Labs, Meds, VS Comment All studies performed the ED were evaluated by me personally. EKG revealed a sinus tachycardia with a borderline T-wave abnormalities. Rate of 111, IN interval 140 and QT interval of 323. Patient's laboratories revealed a slightly reduced white blood cell count and a elevated D-dimer. Urinalysis confirmed a very large urinary tract infection. Chest x-ray was remarkable for opacification of the right middle and lower lung zone with a pops duration of the right hemidiaphragm which may be from pleural effusion. CT with contrast of the chest due to the elevated D-dimer showed no pulmonary emboli but it did confirm a large right pleural effusion and a small amount of perihepatic ascites was seen. Cirrhotic liver noted. Patient will be admitted for radio guided thoracentesis tomorrow as well as management of her urinary tract infection concerns and evaluation of possible pneumonia. Time of 1ST Reevaluation: 23:45 Reevaluation 1ST: Improved Consultation: PCP Patient Education/Counseling: Diagnosis, Treatment Family Education/Counseling: Diagnosis, Treatment, No Family Present Departure 1 Departure Time of Disposition: 23:45 Impression: Primary Impression: Pleural effusion Additional Impressions: UTI (urinary tract infection) Liver cirrhosis Pneumonia Disposition: 09 ADMITTED INPATIENT Condition: Stable Discharged With: Self, Relative Critical Care Note Critical Care Time?: No Stability Stability form required: No Heart Score Heart Score: Heart Score Response (Comments) Value History N/A 0 EKG N/A 0 Age N/A 0 Risk Factors N/A 0 Troponin N/A 0 Total 0 I personally scribed for DIMAS QUIÑONEZ PAC ([email or web address]) on 08/15/24 at 15:42. Electronically submitted by Loida Dangelo ([email or web address]). I personally scribed for DIMAS QUIÑONEZ PAC ([email or web address]) on 08/15/24 at 16:26. Electronically submitted by Loida Dangelo ([email or web address]). DIMAS QUIÑONEZ [facility] Aug 15, 2024 15:42
--- NOTE | 2024-08-15 15:53 | ECG ---
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
--- NOTE | 2024-08-15 16:23 | DVH ---
CHEST RADIOGRAPH Indication: Shortness of breath Technique: Single frontal view of the chest was obtained Comparison: XY CHEST PORTABLE on DOS: 07/22/24, XY CHEST PORTABLE on DOS: 07/21/24, XY CHEST PORTABLE o n DOS: 07/15/24 FINDINGS: Lines and Tubes: None Lungs: Opacification of right mid and lower lung zone with obscuration of the right hemidiaphragm. No pneumothorax. Cardiomediastinal contours: Unremarkable Bones: No acute osseous abnormality. IMPRESSION: Opacification of right mid and lower lung zone with obscuration of the right hemidiaphragm which may be from pleural effusion with associated atelectasis/ pneumonia.
[2024-08-15 16:30] LABS: Basophils # (auto) 0 10 ^3/uL (0-0.2); Basophils % (auto) 1.3 % (0.0-2.0); Eosinophils # (auto) 0.2 10 ^3/uL (0-0.8); Eosinophils % (auto) 6.4 % (0.0-7.0); Hematocrit 41.3 % (36.0-46.0); Hemoglobin 14.1 g/dL (12.2-16.2); Lymphocytes # (auto) 0.7 10 ^3/uL (0.4-5.4); Lymphocytes % (auto) 19.3 % (10.0-50.0); Mean Corpuscular Hemoglobin 34.2 pg (28.0-32.0); Mean Corpuscular Hgb Conc. 34.2 g/dL (32.0-36.0); Mean Corpuscular Volume 99.9 fL (80.0-100.0); Monocytes # (auto) 0.5 10 ^3/uL (0-1.3); Monocytes % (auto) 14.4 % (0.0-12.0); Neutrophils # (auto) 2.2 10 ^3/uL (1.6-8.6); Neutrophils % (auto) 58.6 % (37.0-80.0); Nucleated Red Blood Cells % 0.4 %; Platelet Count (auto) 58 10^3/uL (140-450); Red Blood Cells 4.13 10^6/uL (4.0-5.20); White Blood Cell 3.7 10^3/uL (4.4-10.8)
[2024-08-15 16:49] LABS: Anion Gap 7 (5-15); BUN/Creatinine Ratio 19.1 (10.0-20.0); Calcium 9.1 mg/dL (8.7-10.4); Carbon Dioxide 22 mmol/L (20-31); Chloride 106 mmol/L (98-107); Potassium 3.7 mmol/L (3.5-5.1); Total Protein 6.8 g/dL (5.7-8.2)
[2024-08-15 16:50] LABS: Alanine Aminotransferase 44 U/L (7-40); Albumin 2.9 g/dL (3.2-4.8); Alkaline Phosphatase 198 U/L (46-116); Aspartate Aminotransferase 73 U/L (13-40); Bilirubin, Total 3.6 mg/dL (0.2-1.0); Blood Urea Nitrogen 9 mg/dL (9-23); Glucose 118 mg/dL (74-106); Sodium 135 mmol/L (136-145)
[2024-08-15 22:13] LABS: Rapid Influenza A Negative (Negative); Rapid Influenza B Negative (Negative)
[2024-08-15 22:14] LABS: COVID19 ANTIGEN SOFIA FIA NEGATIVE (NEGATIVE)
[2024-08-15] MEDS: IOHEXOL 350 MG/ML 100ML IJ ONE (22:47)
--- NOTE | 2024-08-15 23:23 | DVH ---
CTA Chest with intravenous contrast INDICATION: Elevated D-dimer COMPARISON: None TECHNIQUE: Multidetector spiral CTA of the chest was performed of the chest with intravenous contrast . PULMONARY ANGIOGRAPHY PROTOCOL was utilized using a bolus-tracking technique centered on the main p ulmonary artery. Axial, coronal and sagittal multiplanar and MIP reformats were performed. Radiation Dose : 1. Chest: CTDI volume is mGy. Dose-length product is mGy*cm The dose indicators for CT are the volume Computed Tomography (CT) Dose Index (CTDIvol) and the Dose Length Product (DLP), and are measured in units of mGy and mGy-cm, respectively. These indicators are not patient dose, but values generated from the CT scanner acquisition factors. The report includes radiation exposure data for exposures received during this examination. Findings: Pulmonary artery: No pulmonary embolism Lower neck: Normal thyroid. Lungs: Compressive atelectasis seen throughout the right lung Heart/Vascular Structures: Normal heart size. No pericardial effusion. Lymph Nodes: No adenopathy Pleura: Large right pleural effusion. Musculoskeletal: No acute osseous abnormality. Soft tissues: Normal. Upper abdomen: Small amount of perihepatic ascites is seen. Cirrhotic liver IMPRESSION: 1. No pulmonary embolism. 2. Large right pleural effusion. 3. Small amount of perihepatic ascites is seen. Cirrhotic liver
[2024-08-15 23:28] LABS: Urine Bacteria MANY /hpf (None Seen); Urine Blood 3+ /uL (Negative); Urine Clarity Turbid (Clear); Urine Color Yellow (Yellow); Urine Mucus FEW (None Seen); Urine Protein, UAD 1+ (Negative); Urine Specific Gravity 1.029 (1.001-1.035); Urine Squamous Epithelial Cell FEW /hpf (<5); Urine Urobilinogen Normal (Negative); Urine WBC 171 /HPF (0-5)
[2024-08-16] VITALS (8 sets, daily range): BP systolic 105–130; BP diastolic 48–76; PULSE 58–104; RESP 17–20; TEMP 97.4–98.2; O2SAT 91–97
[2024-08-16] MEDS: SULFAMETHOX W/TRIMETH(800/160MG) DS TAB PO ONE (00:36)
[2024-08-16] MEDS ORDERED: ONDANSETRON HCL 4 MG/2 ML VIAL IV PRN (03:00)
[2024-08-16] MEDS ORDERED: VANCOMYCIN PER PHARMACY 0 MG IV SCH (03:00)
--- NOTE | 2024-08-16 03:07 | DVHHPRES ---
History of Present Illness Resident Creating Document: JONAH JESSICA RESIDENT Reason for Visit: pneumonia History of Present Illness Patient is an 58-year-old female with a past medical history of cirrhosis, hypothyroidism, pleural effusion and HFpEF presented to the ED with a chief complaint of shortness of breaths and generalized weakness for past 2 days. Patient was recently seen here about a month ago and was managed for acute on chronic diastolic heart failure. Patient has been in her stable state of health until the past few days when she started feeling unwell. She has subjective fevers, running nose with intermittent cough and shortness of breath. Within the last couple of days, the SOB progressively became worse with every movement thus prompting this ED visit. Patient denied coming in contact with any sick individual or being exposed to COVID. She denied any history of COPD, chest pain, nausea, vomiting or any changes in bowel habit. initial lab work revealed leukopenia, lactic acidosis and chest x-ray showed Opacification of right mid and lower lung zone, large pleural effusion with associated atelectasis/ pneumonia. Past medical history: Liver cirrhosis, HFpEF Anxiety, Depression, Thyroid, UTI'S, Pleural effusion Past surgical history: None. Social history: Retired. Lives at home Family history: Noncontributing Medications: Furosemide, levothyroxine, potassium and spironolactone Review of Systems Review of Systems Constitutional: Subjective fever no chill; feeling of malaise HEENT: Denies headache, ear pain, ear discharges, conjunctivitis, nasal discharge throat pain Cardiovascular: Denies chest pain; palpitation, orthopnea, PND, or pedal edema Respiratory: shortness of breath and on oxygen, cough, sputum production, hemoptysis, GI: Denies abdominal pain, nausea, vomiting, diarrhea, hematemesis, hematochezia, : Denies frequency, urgency, hematuria, Endocrine: Denies unintentional weight gain or weight loss, feeling of hot flashes, Akil: petechia on the lower extremities, easy bruising; NObleeding disorders, epistaxis Musculoskeletal: Denies joint pains, muscle aches Psych: No evidence of depression, sam, suicidal ideation Allergies: Coded Allergies: NO KNOWN ALLERGIES (Unverified , 05/08/19) Exam Vital Signs Vital Signs Date Time Temp Pulse Resp B/P (MAP) Pulse Ox O2 Delivery O2 Flow Rate FiO2 08/16/24 01:07 104 17 94 Room Air* 0 21 08/16/24 01:06 98.3 114/58 (76) 98.3 Exam General Appearance: Alert, Oriented X3, Cooperative, Mild acute distress HEENT: Atraumatic, PERRLA, EOMI, Mucous membrane moist/pink Respiratory: silent on the right, and crackles on auscultation, Cardiovascular: Regular rate, Normal S1, Normal S2, No murmurs, no chest wall tenderness Abdominal: NO distention, no tenderness, bowel sounds present, no scars noted Extremities: Mild pitting edema. No clubbing, No cyanosis edema, Normal pulses, No tenderness/swelling Skin: No rashes, No breakdown, No significant lesion Neuro: Normal gait, Normal speech, Strength at 5/5 X4 ext, Normal tone, Sensation intact, Cranial nerves 3-12 NL, Reflexes 2+ Psych/Mental Status: Mental status NL, Mood NL Labs/Xrays Labs Test 08/15/24 22:28 08/15/24 21:05 08/15/24 19:44 08/15/24 15:44 Range/Units Urine Color Yellow Yellow Urine Clarity Turbid H Clear Urine pH 6.0 5.0-9.0 Urine Specific [place] 1.029 1.001-1.035 Urine Protein 1+ H Negative Urine Ketones Trace Negative Urine Blood 3+ H Negative /uL Urine Nitrite 2+ H Negative Urine Bilirubin Negative Negative Urine Urobilinogen Normal Negative mg/dL Urine Leukocyte Esterase 3+ Negative /uL Urine RBC 28 0 - 4 /hpf Urine Microscopic WBC 171 H 0-5 /HPF Urine Squamous Epithelial Cells Few <5 /hpf Urine Calcium Oxalate Crystals Mod None Seen Urine Bacteria Many H None Seen /hpf Urine Mucus Few None Seen Urine Glucose Normal Normal mg/dL Urine Test Negative Negative Influenza Type A Antigen Negative Negative Influenza Type B Antigen Negative Negative SARS-CoV-2 Antigen (Rapid) Negative NEGATIVE Troponin I High Sensitivity < 3 L </=34 ng/L White Blood Count 3.7 L 4.4-10.8 10^3/uL Red Blood Count 4.13 4.0-5.20 10^6/uL Hemoglobin 14.1 12.2-16.2 g/dL Hematocrit 41.3 36.0-46.0 % Mean Corpuscular Volume 99.9 80.0-100.0 fL Mean Corpuscular Hemoglobin 34.2 H 28.0-32.0 pg Mean Corpuscular Hemoglobin Concent 34.2 32.0-36.0 g/dL Red Cell Distribution Width 17.0 H 11.8-14.3 % Platelet Count 58 L 140-450 10^3/uL Mean Platelet Volume 8.9 6.9-10.8 fL Neutrophils (%) (Auto) 58.6 37.0-80.0 % Lymphocytes (%) (Auto) 19.3 10.0-50.0 % Monocytes (%) (Auto) 14.4 H 0.0-12.0 % Eosinophils (%) (Auto) 6.4 0.0-7.0 % Basophils (%) (Auto) 1.3 0.0-2.0 % Neutrophils # (Auto) 2.2 1.6-8.6 10 ^3/uL Lymphocytes # (Auto) 0.7 0.4-5.4 10 ^3/uL Monocytes # (Auto) 0.5 0-1.3 10 ^3/uL Eosinophils # (Auto) 0.2 0-0.8 10 ^3/uL Basophils # (Auto) 0 0-0.2 10 ^3/uL Nucleated Red Blood Cells 0.4 % D-Dimer, Quantitative 4.57 H 0.0-0.49 mg/L FEU Sodium Level 135 L 136-145 mmol/L Potassium Level 3.7 3.5-5.1 mmol/L Chloride Level 106 98-107 mmol/L Carbon Dioxide Level 22 20-31 mmol/L Anion Gap 7 5-15 Blood Urea Nitrogen 9 9-23 mg/dL Creatinine 0.47 L 0.550-1.02 mg/dL Glomerular Filtration Rate Calc 110 >90 mL/min BUN/Creatinine Ratio 19.1 10.0-20.0 Serum Glucose 118 H 74-106 mg/dL Calcium Level 9.1 8.7-10.4 mg/dL Total Bilirubin 3.6 H 0.2-1.0 mg/dL Aspartate Amino Transferase (AST) 73 H 13-40 U/L Alanine Aminotransferase (ALT) 44 H 7-40 U/L Alkaline Phosphatase 198 H 46-116 U/L B-Type Natriuretic Peptide 30.69 0-100 pg/mL Total Protein 6.8 5.7-8.2 g/dL Albumin 2.9 L 3.2-4.8 g/dL Assessment/Plan Assessment/Plan Assessment Severe Sepsis present on admission Probable pneumonia Gram- vs Gram + Large Pleural effusion Acute hypoxic respiratory failure Leukopenia Thrombocytopenia Coagulopathy UTI Petechiae Hypothyroidism Chronic HFpEF Liver cirrhosis Depression, Hypothyroidism Plan patient admitted Status post thoracentesis with 2.5 L of serosanguineous fluid drained. post- thoracentesis x-ray: Complete interval resolution of large right pleural e ffusion status post interval thoracocentesis without evidence of postprocedural complication. Pending fluid analysis for Light criteria assessment, AND cytology report Continue antibiotics Antibiotics in (cefepime and vancomycin) Continue oxygen as patient can tolerate Pain medication given [place] 5--->7.5 mg prn Continue home medications Repeat lab in the morning and monitor WBC closely Diet: NPO right now DVT prophylaxis: SCD Goal of care discussed for more than 30 minutes: Full code Case and plan discussed with Dr. Sotelo Plan discussed with: Patient, Daughter My Orders Orders - JONAH JESSICA RESIDENT Procedure Category Date Status Time Admit ADMIT 08/16/24 Verified 02:53 Code Status CODE 08/16/24 Verified 02:53 Vital Signs [facility] 08/16/24 Verified 02:53 Review Orders With [facility] 08/16/24 Verified Adm. 02:53 Npo (Nothing By DIET 08/16/24 Verified Mouth) Diet Breakfast Notify Of Changes [facility] 08/16/24 Verified From Base 02:53 Advance Directive [facility] 08/16/24 Verified 02:53 Patient Condition ORDERS 08/16/24 Verified 02:53 Allergies [facility] 08/16/24 Verified 02:53 Ondansetron Hcl PHA 08/16/24 Verified (Zofran) 03:00 Stat Ekg For Chest [facility] 08/16/24 Verified Pain 02:53 Notify Of Changes [facility] 08/16/24 Verified From Base 02:53 Senior Systems Architect For [facility] 08/16/24 Verified 24 Hours 02:53 Oxygen By Nasal RT 08/16/24 Verified Cannula 02:53 Albumin; Body Fluid LAB 08/16/24 Verified 02:53 Amylase,Body Fluid LAB 08/16/24 Verified 02:53 Body Fluid Culture W/ ADI 08/16/24 Verified GS 02:53 Body Fluid Ph LAB 08/16/24 Verified 02:53 Body Fluids, Diff. LAB 08/16/24 Verified Cell Count 02:53 Protein, Body Fluid LAB 08/16/24 Verified 02:53 Lactate LAB 08/16/24 Verified Dehydrogenase, Fluid 02:53 Lactate Dehydrogenase LAB 08/16/24 Verified 02:53 Cytology ADI 08/16/24 Verified 02:53 Complete Blood Count LAB 08/16/24 Verified 02:53 PTPTT LAB 08/16/24 Verified 02:53 Magnesium LAB 08/16/24 Verified 02:53 Phosphorus LAB 08/16/24 Verified 02:53 Comprehensive LAB 08/16/24 Verified Metabolic Panel 02:53 Lactic Acid W/ Reflex LAB 08/16/24 Verified Order 02:53 Thyroid Stimulating LAB 08/16/24 Verified Hormone 02:53 Hemoglobin A1c LAB 08/16/24 Verified 02:53 Lipid Panel LAB 08/16/24 Verified 02:53 Vitamin B12 LAB 08/16/24 Verified 02:53 Vitamin D, 25-Hydroxy LAB 08/16/24 Verified 02:53 Blood Culture ADI 08/16/24 Verified 02:53 Urine Bacterial ADI 08/16/24 Verified Culture 02:53 Respiratory Culture ADI 08/16/24 Verified W/ Gs 02:53 Vancomycin Per PHA 08/16/24 Verified Pharmacy 03:00 Cefepime 1 Gm PHA 08/16/24 Verified 06:00 Cefepime 1 Gm PHA 08/16/24 Verified 03:00 Date of Service: Aug 16, 2024 Billing Provider: STU SOTELO MD Common Visit Codes: [id number] INP/OBS CARE (HIGH) JONAH JESSICA RESIDENT Aug 16, 2024 03:07 STU SOTELO MD Aug 18, 2024 10:52
[2024-08-16 03:43] LABS: Basophils # (auto) 0.1 10 ^3/uL (0-0.2); Eosinophils # (auto) 0.5 10 ^3/uL (0-0.8); Hemoglobin 14.4 g/dL (12.2-16.2); Lymphocytes # (auto) 0.9 10 ^3/uL (0.4-5.4); Monocytes # (auto) 0.6 10 ^3/uL (0-1.3); Neutrophils # (auto) 2.8 10 ^3/uL (1.6-8.6); White Blood Cell 4.8 10^3/uL (4.4-10.8)
[2024-08-16 03:45] LABS: Basophils % (auto) 1.3 % (0.0-2.0); Eosinophils % (auto) 9.6 % (0.0-7.0); Hematocrit 40.5 % (36.0-46.0); Lymphocytes % (auto) 18.7 % (10.0-50.0); Mean Corpuscular Hemoglobin 35.4 pg (28.0-32.0); Mean Corpuscular Hgb Conc. 35.6 g/dL (32.0-36.0); Mean Corpuscular Volume 99.6 fL (80.0-100.0); Monocytes % (auto) 12.3 % (0.0-12.0); Neutrophils % (auto) 58.1 % (37.0-80.0); Nucleated Red Blood Cells % 0.1 %; Platelet Count (auto) 68 10^3/uL (140-450); Red Blood Cells 4.07 10^6/uL (4.0-5.20); Red Cell Distribution Width 16.6 % (11.8-14.3)
[2024-08-16 03:50] LABS: Triglycerides 83 mg/dL (< 150)
[2024-08-16 03:52] LABS: Cholesterol 167 mg/dL (< 200); LDL Cholesterol 103 mg/dL (< 100)
[2024-08-16 03:53] LABS: Anion Gap 8 (5-15); BUN/Creatinine Ratio 13.5 (10.0-20.0); Calcium 9.1 mg/dL (8.7-10.4); Carbon Dioxide 21 mmol/L (20-31); Chloride 106 mmol/L (98-107); Glucose 99 mg/dL (74-106); Magnesium 1.8 mg/dL (1.6-2.6); Potassium 3.7 mmol/L (3.5-5.1); Total Protein 7.1 g/dL (5.7-8.2)
[2024-08-16 03:55] LABS: INR 1.43 (0.9-1.15); Partial Thromboplastin Time 32.6 SEC (24.5-34.5); Prothrombin Time 14.6 sec (9.3-11.8)
[2024-08-16 03:58] LABS: Alanine Aminotransferase 43 U/L (7-40); Alkaline Phosphatase 199 U/L (46-116); Aspartate Aminotransferase 70 U/L (13-40); Bilirubin, Total 4.1 mg/dL (0.2-1.0); Blood Urea Nitrogen 7 mg/dL (9-23); HDL Cholesterol 39 mg/dL (40-59); Sodium 135 mmol/L (136-145)
[2024-08-16 03:59] LABS: Lactic Acid w/Reflex 2.5 mmol/L (0.4-2.0)
--- NOTE | 2024-08-16 04:10 | DVHNC2 ---
Other Procedure Procedure Right sided thoracentesis Indication Large right pleural effusion Anesthetic Lidocaine Prep Aseptic sterile measures taken Success YES, NO COMPLICATIONS Informed consent obtained: Yes Risks, benefits, and alternati: Yes Notes Procedure performed under the supervision of Dr. Solis No complications noted CXR: No pneumothorax Date of Service: Aug 16, 2024 Billing Provider: STU KATZ MD Common Visit Codes: PROCEDURE ONLY Procedure Codes: [id number] W/PUNCT JONAH JESSICA RESIDENT Aug 16, 2024 04:10 STU KATZ MD Aug 18, 2024 10:49
[2024-08-16] MEDS: VANCOMYCIN 1GM/250ML KIT 250 ML IV SCH (04:16)
[2024-08-16] MEDS: HYDROcodone-ACET 5/325MG TAB PO ONE (04:29)
--- NOTE | 2024-08-16 04:51 | DVH ---
Procedure: XY CHEST XRAY 1 VIEW Exam Date: 08/16/2024 04:23 AM History: Post Thoracocentesis Comparison Study: None Technique: AP of the chest FINDINGS: Complete interval resolution of large right pleural effusion. No evidence of pneumothorax. No focal e vidence of airspace disease. The cardiomediastinal silhouette is within normal limits. No acute oss eous lesions. IMPRESSION: 1. Complete interval resolution of large right pleural effusion status post interval thoracocentesis without evidence of postprocedural complication. No acute cardiopulmonary process.
[2024-08-16] MEDS ORDERED: HYDROcodone-ACET 5/325MG TAB PO PRN (06:15)
[2024-08-16] MEDS: LEVOTHYROXINE SODIUM 50 MCG TAB PO SCH (06:29)
[2024-08-16] MEDS ORDERED: LEVOTHYROXINE SODIUM 50 MCG TAB PO SCH (06:30)
[2024-08-16] MEDS ORDERED: PATIENTS OWN MEDICATION (Levothyroxine Sodium 150 MCG) PO SCH (07:00)
[2024-08-16] MEDS: CEFEPIME 1GM/ 50ML 50 ML IV ONE (08:26)
[2024-08-16 08:52] LABS: Body Fluid pH 7
[2024-08-16 08:53] LABS: Body Fluid Red Blood Cells 15146 CUMM (0-2000); Body Fluid White Blood Cells 2159 CUMM (0-200)
[2024-08-16 09:01] LABS: Body Fluid Polymorphonuclear 78 % (0-25)
[2024-08-16] MEDS: SPIRONOLACTONE 25 MG TAB PO SCH (09:44)
[2024-08-16] MEDS: CEFEPIME 1GM/ 50ML 50 ML IV SCH (14:04)
[2024-08-16] MEDS ORDERED: VANCOMYCIN 750MG KIT 100 ML IV SCH (18:00)
--- NOTE | 2024-08-16 20:23 | DVHPNRES ---
Progress Note Date Seen: Aug 16, 2024 Resident Creating Document: ANDRZEJShashankDELISA EncarnacionROMMEL RESIDENT Medical Necessity Reason Pt with a Central, PICC or Fol: No Subjective Review of Systems HPI Patient is an 58-year-old female with a past medical history of cirrhosis, hypothyroidism, pleural effusion and HFpEF presented to the ED with a chief complaint of shortness of breaths and generalized weakness for past 2 days. Patient was recently seen here about a month ago and was managed for acute on chronic diastolic heart failure. Patient has been in her stable state of health until the past few days when she started feeling unwell. She has subjective fevers, running nose with intermittent cough and shortness of breath. Within the last couple of days, the SOB progressively became worse with every movement thus prompting this ED visit. Patient denied coming in contact with any sick individual or being exposed to COVID. She denied any history of COPD, chest pain, nausea, vomiting or any changes in bowel habit. initial lab work revealed leukopenia, lactic acidosis and chest x-ray showed Opacification of right mid and lower lung zone, large pleural effusion with associated atelectasis/ pneumonia. Past medical history: Liver cirrhosis, HFpEF Anxiety, Depression, Thyroid, UTI'S, Pleural effusion Past surgical history: None. Social history: Retired. Lives at home Family history: Noncontributing Medications: Furosemide, levothyroxine, potassium and spironolactone ROS Patient seen and examined at the bedside After getting thoracentesis patient was able to breathe much better and would be weaned off oxygen Currently denies any chest pain, shortness of breath, abdominal. Reports mild pain in the site of the thoracentesis. Objective vital signs Vital Sign Date Time Temp Pulse Resp B/P (MAP) Pulse Ox O2 Delivery O2 Flow Rate FiO2 08/16/24 17:28 97.7 100 17 105/50 (68) 91 97.7 08/16/24 11:59 Nasal Cannula* 2 28 Total Intake and Output 08/15/24 08/15/24 08/16/24 15:00 23:00 07:00 Intake Total 250 ml Balance 250 ml medications Current Medications Medications Dose Ordered Sig/Ana Route Start Time Stop Time Status Last Admin Dose Admin Ondansetron HCl 4 mg Q4HP PRN IV 08/16/24 03:00 Acetaminophen/ Hydrocodone Bitart 1 tab QID PRN PO 08/16/24 06:15 Spironolactone 25 mg BID PO 08/16/24 10:00 08/16/24 09:44 25 MG Potassium Chloride 20 meq DAILY PO 08/17/24 10:00 Levothyroxine Sodium 150 mcg DAILY@0630 PO 08/16/24 06:30 08/16/24 06:29 150 MCG Ceftriaxone Sodium 50 ml @ 100 mls/hr DAILY@09 IV 08/17/24 09:00 Examination Constitutional: Patient is alert and oriented to time, place and person and does not appear to be in any acute distress Gen - no pallor, no icterus, no cyanosis, no clubbing, no LAD, no edema . Skin - Patients skin is warm and dry. HEENT - normocephalic, atraumatic, moist mucous membranes. Neck - full ROM, no LAD, no JVD Pulmonary - B/L equal breath sounds with minimal basilar crackles, no wheezing, no stridor. cardiovascular - variable S1-S2 heard, parasternal heave felt , no added sounds, no murmurs heard. peripheral pulses normal radial 2+, pedal 2+. GI - soft abdomen without tenderness to palpation. no hepatospleenomegaly. No shifting dullness, bowel sounds normoactive Neurological - Bilateral upper extremity strength 5/5, bilateral lower extremity strength 5/5, no facial droop, normal speech, no tremor, no sensory deficiets. laboratory and microbiology Laboratory Tests 08/16/24 03:09 Test 08/16/24 03:09 Range/Units Serum Glucose 99 74-106 mg/dL Problem List/Assessment/Plan Problem List/Assessment/Plan Assessment Acute hypoxic respiratory failure likely due to pleural effusion Right pleural effusion likely due to liver cirrhosis Sepsis likely d/t UTI UTI likely acute cystitis Suspected right lower pneumonitis likely d/t gram +/- Probable liver cirrhosis with hyperbilirubinemia, transminitis, coagulopathy, thrombocytopenia Hypothyroidism - status post right thoracentesis 2.5 L removed - pleural fluid WBCs elevated with the 78% PMN cells, elevated RBCs - urinalysis showing elevated nitrite, leukocyte esterase WBCs - CT abdomen pelvis in June 2024 shows hepatic cirrhosis - hepatitis panel negative in June 2024 - serum ceruloplasmin and antimitochondrial antibody negative June 2024 Plan - pending pleural fluid LDH, protein - pending urine culture, body fluid cultures, blood culture - IV fluids - IV ceftriaxone - Lasix currently held because of hypotension - spironolactone 50 mg daily - levothyroxine 150 mcg - serum ferritin sent to rule out hemochromatosis - monitor labs and we will check for reaccumulation of pleural effusion. DVT prophylaxis: Sequential compression device PUD prophylaxis: Protonix Low-sodium diet Goals of care discussed with the patient the daughter for 35 mins. Full code Plan discussed with Dr. Ivory Plan discussed with: Patient, Daughter My Orders My Orders Orders - ARMANDO PA RESIDENT Procedure Category Date Status Time Cardiac DIET 08/16/24 Transmitted Diet-2gna,Lofat,Lochol Lunch Comprehensive LAB 08/17/24 Verified Metabolic Panel 04:00 Ferritin LAB 08/17/24 Verified 04:00 Ceftriaxone 1gm/50ml PHA 08/17/24 In Process D5w (Rocephin) 09:00 Date of Service: Aug 16, 2024 Billing Provider: SCOT IVORY MD Common Visit Codes: [id number] INP/OBS CARE(HIGH) ARMANDO PA RESIDENT Aug 16, 2024 20:23 SCOT IVORY MD Aug 18, 2024 10:08
[2024-08-16] MEDS: LACTATED RINGER'S 500 ML IV ONE (21:54)
[2024-08-16 22:34] LABS: Opiate Scree,Urine Neg (NEGATIVE)
[2024-08-16 22:43] LABS: Amphetamine Screen, Urine Neg (NEGATIVE); Barbiturate Scree,Urine Neg (NEGATIVE); Benzodiazephine Screen, Urine Neg (NEGATIVE); Cannabinoid Screen, Urine Neg (NEGATIVE); Cocaine Screen, Urine Neg (NEGATIVE); Phencyclidine Screen, Urine Neg (NEGATIVE)
[2024-08-17] VITALS (9 sets, daily range): BP systolic 104–115; BP diastolic 46–73; PULSE 62–102; RESP 16–18; TEMP 97.9–98.4; O2SAT 93–100
[2024-08-17] MEDS: PANTOPRAZOLE 40 MG TAB PO SCH (05:52)
[2024-08-17 06:34] LABS: Alanine Aminotransferase 36 U/L (7-40); Anion Gap 9 (5-15); BUN/Creatinine Ratio 13.5 (10.0-20.0); Carbon Dioxide 21 mmol/L (20-31); Glucose 84 mg/dL (74-106); Potassium 3.7 mmol/L (3.5-5.1); Sodium 138 mmol/L (136-145)
[2024-08-17 06:37] LABS: Albumin 2.3 g/dL (3.2-4.8); Alkaline Phosphatase 154 U/L (46-116); Aspartate Aminotransferase 68 U/L (13-40); Bilirubin, Total 2.7 mg/dL (0.2-1.0); Blood Urea Nitrogen 7 mg/dL (9-23); Calcium 8.5 mg/dL (8.7-10.4); Chloride 108 mmol/L (98-107); Total Protein 5.6 g/dL (5.7-8.2)
[2024-08-17] MEDS: Ensure Enlive Strawberry 8oz Bottle PO SCH (08:00)
[2024-08-17] MEDS: cefTRIAXone 1GM/50ML D5W 50 ML IV SCH (09:07)
[2024-08-17] MEDS: POTASSIUM CHL 20 Meq TABLET PO SCH (09:19)
[2024-08-17] MEDS: SPIRONOLACTONE 25 MG TAB PO SCH (09:23)
[2024-08-17 09:26] LABS: Basophils # (auto) 0.1 10 ^3/uL (0-0.2); Eosinophils # (auto) 0.4 10 ^3/uL (0-0.8); Eosinophils % (auto) 14.9 % (0.0-7.0); Hemoglobin 13.4 g/dL (12.2-16.2); Lymphocytes # (auto) 0.9 10 ^3/uL (0.4-5.4); Monocytes # (auto) 0.3 10 ^3/uL (0-1.3); Neutrophils # (auto) 1.3 10 ^3/uL (1.6-8.6); Nucleated Red Blood Cells % 0.3 %
[2024-08-17 09:28] LABS: Hematocrit 39.5 % (36.0-46.0); Lymphocytes % (auto) 30.7 % (10.0-50.0); Mean Corpuscular Hemoglobin 34.5 pg (28.0-32.0); Mean Corpuscular Volume 101.5 fL (80.0-100.0); Monocytes % (auto) 10.3 % (0.0-12.0); Neutrophils % (auto) 42.1 % (37.0-80.0); Platelet Count (auto) 65 10^3/uL (140-450); Red Blood Cells 3.89 10^6/uL (4.0-5.20)
--- NOTE | 2024-08-17 16:38 | DVHPNRES ---
Progress Note Date Seen: Aug 17, 2024 Resident Creating Document: BRIAN MULLIGAN RESIDENT Medical Necessity Reason Pt with a Central, PICC or Fol: No Subjective Review of Systems The patient is a 58-year-old female with a significant medical history of cirrhosis, hypothyroidism, pleural effusion, and heart failure with preserved ejection fraction (HFpEF), who presented to the emergency department with progressive shortness of breath and generalized weakness over the past two days. She was recently hospitalized one month ago for acute on chronic diastolic heart failure, and had stabilized. However, over the last few days, she began to feel unwell, experiencing subjective fevers, intermittent dry cough, and increasing dyspnea with minimal exertion, prompting her return to the ED. On presentation, she was found to be in acute hypoxic respiratory failure, and imaging revealed a large right-sided pleural effusion. This was suspected to be related to cirrhosis. Additional findings raised concern for sepsis, likely secondary to a urinary tract infection, possibly from acute cystitis. She was also found to have right lower lobe consolidation, concerning for pneumonia. The patient underwent diagnostic and therapeutic thoracentesis, with 2.5 liters of pleural fluid removed. Pleural fluid analysis showed elevated neutrophils (78%), raising suspicion for infectious or inflammatory etiology, but LDH and protein levels are still pending, as well as body fluid cultures. CT abdomen from June 2024 confirmed hepatic cirrhosis. Extensive workup for underlying liver disease has been negative, including Hepatitis panel, ceruloplasmin, and anti-mitochondrial antibody testing. She is currently clinically improving, stable on room air, tolerating oral intake, and ambulating with minimal assistance. 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 start dc planning REVIEW OF SYSTEMS : General: Positive for fatigue and generalized weakness, subjective fevers Respiratory: Positive for shortness of breath and intermittent cough Cardiovascular: Denies chest pain or palpitations GI: Denies nausea, vomiting; known cirrhosis with elevated liver enzymes : Positive for urinary frequency, UTI confirmed Neuro: Denies dizziness or headache Skin: No rash or skin breakdown Endocrine: History of hypothyroidism, no new symptoms reported Patient reports: No new complaints Changes from previous H/P or p: No Changes Objective vital signs Vital Sign Date Time Temp Pulse Resp B/P (MAP) Pulse Ox O2 Delivery O2 Flow Rate FiO2 08/17/24 13:00 98.2 64 18 111/54 (73) 100 98.2 08/17/24 08:05 Room Air* 0 21 Total Intake and Output 08/16/24 08/16/24 08/17/24 15:00 23:00 07:00 Intake Total 300 ml 120 ml 400 ml Balance 300 ml 120 ml 400 ml medications Current Medications Medications Dose Ordered Sig/Ana Route Start Time Stop Time Status Last Admin Dose Admin Ondansetron HCl 4 mg Q4HP PRN IV 08/16/24 03:00 Acetaminophen/ Hydrocodone Bitart 1 tab QID PRN PO 08/16/24 06:15 Potassium Chloride 20 meq DAILY PO 08/17/24 10:00 08/17/24 09:19 20 MEQ Levothyroxine Sodium 150 mcg DAILY@0630 PO 08/16/24 06:30 08/17/24 06:29 150 MCG Ceftriaxone Sodium 50 ml @ 100 mls/hr DAILY@09 IV 08/17/24 09:00 08/17/24 09:07 100 MLS/HR Spironolactone 50 mg DAILY PO 08/17/24 10:00 Enteral Nutritional Formula 240 ml BIDWM PO 08/17/24 08:00 08/17/24 08:00 240 ML Pantoprazole Sodium 40 mg DAILY@0600 PO 08/17/24 06:00 08/17/24 05:52 40 MG Examination PHYSICAL EXAM: General: Chronically ill-appearing woman, alert and oriented, in mild respiratory distress Vitals: Afebrile, stable BP, HR within normal limits, oxygen saturation > 94% on room air HEENT: No scleral icterus, no oropharyngeal lesions Neck: No JVD or lymphadenopathy Cardiac: Regular rate and rhythm, no murmurs, rubs, or gallops Pulmonary: Decreased breath sounds and dullness to percussion on the right lower lung garcia, mild crackles post-thoracentesis Abdomen: Soft, non-distended, non-tender; no ascites appreciated on exam Extremities: No cyanosis, 1+ pitting edema bilaterally Neuro: Alert and oriented 3, no focal deficits Skin: No jaundice or rashes laboratory and microbiology Laboratory Tests 08/17/24 08:46 08/17/24 05:22 Test 08/17/24 05:22 Range/Units Serum Glucose 84 74-106 mg/dL Microbiology Date/Time Source Procedure Growth Status 08/16/24 04:13 Pleural Fluid Gram Stain Pending Resulted 08/16/24 04:13 Pleural Fluid Body Fluid Culture - Preliminary Resulted 08/16/24 03:20 Blood Blood Culture - Preliminary NO GROWTH AFTER 24 HOURS OF INCUBATION. Resulted 08/15/24 22:28 Voided Urine Urine Culture - Preliminary Resulted Problem List/Assessment/Plan Problem List/Assessment/Plan #Acute hypoxic respiratory failure likely due to pleural effusion #Right pleural effusion likely due to liver cirrhosis #Sepsis likely d/t UTI #UTI likely acute cystitis #Suspected right lower pneumonitis likely d/t gram +/- #Probable liver cirrhosis with hyperbilirubinemia, transminitis, coagulopathy, thrombocytopenia #Hypothyroidism - status post right thoracentesis 2.5 L removed - pleural fluid WBCs elevated with the 78% PMN cells, elevated RBCs - urinalysis showing elevated nitrite, leukocyte esterase WBCs - CT abdomen pelvis in June 2024 shows hepatic cirrhosis - hepatitis panel negative in June 2024 - serum ceruloplasmin and antimitochondrial antibody negative June 2024 Plan - pending pleural fluid LDH, protein - pending urine culture, body fluid cultures, blood culture - IV fluids - IV ceftriaxone - Lasix currently held because of hypotension - spironolactone 25 mg daily - levothyroxine 150 mcg - serum ferritin sent to rule out hemochromatosis - monitor labs and we will check for reaccumulation of pleural effusion. DVT prophylaxis: Sequential compression device PUD prophylaxis: Protonix Low-sodium diet Goals of care discussed with the patient the daughter for 35 mins. Full code Plan discussed with: Patient, Other (Dr Ivory) Date of Service: Aug 17, 2024 Billing Provider: SCOT IVORY MD Common Visit Codes: [id number] INP/OBS CARE(HIGH) BRIAN MULLIGAN RESIDENT Aug 17, 2024 16:38 SCOT IVORY MD Aug 18, 2024 10:26
[2024-08-18] VITALS (7 sets, daily range): BP systolic 115–120; BP diastolic 51–59; PULSE 79–106; RESP 16–18; TEMP 97.6–97.9; O2SAT 90–100
[2024-08-18] MEDS: MELATONIN 5 MG TAB PO ONE (02:23)
[2024-08-18 05:48] LABS: Hematocrit 37.2 % (36.0-46.0); Hemoglobin 13.3 g/dL (12.2-16.2); Mean Corpuscular Hemoglobin 35.6 pg (28.0-32.0); Mean Corpuscular Hgb Conc. 35.8 g/dL (32.0-36.0); Mean Corpuscular Volume 99.4 fL (80.0-100.0); Platelet Count (auto) 92 10^3/uL (140-450); Red Blood Cells 3.74 10^6/uL (4.0-5.20); Red Cell Distribution Width 16.4 % (11.8-14.3); White Blood Cell 3.5 10^3/uL (4.4-10.8)
[2024-08-18 05:54] LABS: Basophils % (manual) 0 (0.0-2.0); Blast Cells 0; Metamyelocytes % 0; Myelocytes % 0; Promyelocytes % 0; Reactive Lymphocytes 0
[2024-08-18 05:56] LABS: Anion Gap 8 (5-15); Carbon Dioxide 22 mmol/L (20-31); Chloride 107 mmol/L (98-107); Potassium 3.9 mmol/L (3.5-5.1); Sodium 137 mmol/L (136-145)
[2024-08-18 06:02] LABS: Glucose 89 mg/dL (74-106)
[2024-08-18 06:03] LABS: BUN/Creatinine Ratio 18.2 (10.0-20.0)
[2024-08-18 06:06] LABS: Blood Urea Nitrogen 8 mg/dL (9-23); Calcium 8.6 mg/dL (8.7-10.4)
[2024-08-18 07:12] LABS: Band Neutrophils % (manual) 1; Eosinophils % (manual) 16 (0-7); Lymphocytes % (manual) 25 (10.0-50.0); Monocytes % (manual) 6 (0-12); Platelet Estimate Decreased
--- NOTE | 2024-08-18 18:41 | DVHDSRES ---
Discharge Summary Date of Admission Resident Creating Document: BRIAN MULLIGAN RESIDENT Aug 16, 2024 at 02:53 Date of Discharge: Aug 18, 2024 Admitting Diagnosis Severe Sepsis present on admission Probable pneumonia Gram- vs Gram + Large Pleural effusion Acute hypoxic respiratory failure Leukopenia Thrombocytopenia Coagulopathy UTI Petechiae Hypothyroidism Chronic HFpEF Liver cirrhosis Depression, Hypothyroidism Wounds: none Labs/Diagnostic Data: Laboratory Results Test 08/18/24 05:20 08/17/24 08:46 08/17/24 05:22 08/16/24 21:55 White Blood Count 3.5 10^3/uL (4.4-10.8) Red Blood Count 3.74 10^6/uL (4.0-5.20) Hemoglobin 13.3 g/dL (12.2-16.2) Hematocrit 37.2 % (36.0-46.0) Mean Corpuscular Volume 99.4 fL (80.0-100.0) Mean Corpuscular Hemoglobin 35.6 pg (28.0-32.0) Mean Corpuscular Hemoglobin Concent 35.8 g/dL (32.0-36.0) Red Cell Distribution Width 16.4 % (11.8-14.3) Platelet Count 92 10^3/uL (140-450) Mean Platelet Volume 7.6 fL (6.9-10.8) Neutrophils (%) (Auto) % (37.0-80.0) Lymphocytes (%) (Auto) % (10.0-50.0) Monocytes (%) (Auto) % (0.0-12.0) Basophils (%) (Auto) % (0.0-2.0) Neutrophils # (Auto) 10 ^3/uL (1.6-8.6) Lymphocytes # (Auto) 10 ^3/uL (0.4-5.4) Monocytes # (Auto) 10 ^3/uL (0-1.3) Differential Total Cells Counted 100.0 (100) Neutrophils % (Manual) 52 (37.0-80.0) Band Neutrophils % (Manual) 1 Lymphocytes % (Manual) 25 (10.0-50.0) Monocytes % (Manual) 6 (0-12) Eosinophils % (Manual) 16 (0-7) Basophils % (Manual) 0 (0.0-2.0) Metamyelocytes % (manual) 0 Myelocytes % (Manual) 0 Promyelocytes % (Manual) 0 Blast Cells % (Manual) 0 Reactive Lymphocytes 0 Platelet Estimate Decreased Sodium Level 137 mmol/L (136-145) Potassium Level 3.9 mmol/L (3.5-5.1) Chloride Level 107 mmol/L (98-107) Carbon Dioxide Level 22 mmol/L (20-31) Anion Gap 8 (5-15) Blood Urea Nitrogen 8 mg/dL (9-23) Creatinine 0.44 mg/dL (0.550-1.02) Glomerular Filtration Rate Calc 112 mL/min (>90) BUN/Creatinine Ratio 18.2 (10.0-20.0) Serum Glucose 89 mg/dL (74-106) Calcium Level 8.6 mg/dL (8.7-10.4) Eosinophils (%) (Auto) 14.9 % (0.0-7.0) Eosinophils # (Auto) 0.4 10 ^3/uL (0-0.8) Basophils # (Auto) 0.1 10 ^3/uL (0-0.2) Nucleated Red Blood Cells 0.3 % Ferritin 245.8 ng/mL (10-291) Total Bilirubin 2.7 mg/dL (0.2-1.0) Aspartate Amino Transferase (AST) 68 U/L (13-40) Alanine Aminotransferase (ALT) 36 U/L (7-40) Alkaline Phosphatase 154 U/L (46-116) Total Protein 5.6 g/dL (5.7-8.2) Albumin 2.3 g/dL (3.2-4.8) Urine Opiates Screen Neg (NEGATIVE) Urine Fentanyl Screen Neg (NEGATIVE) Urine Barbiturates Screen Neg (NEGATIVE) Urine Phencyclidine Screen Neg (NEGATIVE) Urine Amphetamines Screen Neg (NEGATIVE) Urine Benzodiazepines Screen Neg (NEGATIVE) Urine Cocaine Screen Neg (NEGATIVE) Urine Cannabinoids Screen Neg (NEGATIVE) Test 08/16/24 05:07 08/16/24 04:13 08/16/24 03:09 08/15/24 22:28 Lactic Acid Level 1.8 mmol/L (0.4-2.0) Body Fluid Source Pleural fluid Body Fluid pH 7 Body Fluid WBC (Manual) 2159 CUMM (0-200) Body Fluid RBC (Manual) 83527 CUMM (0-2000) Body Fluid Mononuclear Cells 22 % Body Fluid Polymorphonuclear Cells 78 % (0-25) Prothrombin Time 14.6 sec (9.3-11.8) Prothrombin Time INR 1.43 (0.9-1.15) Activated Partial Thromboplast Time 32.6 SEC (24.5-34.5) Hemoglobin A1c 4.3 % A1C (<5.7) Phosphorus Level 2.0 mg/dL (2.4-5.1) Magnesium Level 1.8 mg/dL (1.6-2.6) Lactate Dehydrogenase 293 U/L (120-246) Triglycerides Level 83 mg/dL (< 150) Cholesterol Level 167 mg/dL (< 200) LDL Cholesterol 103 mg/dL (< 100) HDL Cholesterol 39 mg/dL (40-59) Vitamin B12 Level 3031 pg/mL (211-911) Vitamin D 25-Hydroxy 24.3 ng/mL (30.0-100) Thyroid Stimulating Hormone (TSH) 1.00 uIU/mL (0.55-4.78) Urine Color Yellow (Yellow) Urine Clarity Turbid (Clear) Urine pH 6.0 (5.0-9.0) Urine Specific [place] 1.029 (1.001-1.035) Urine Protein 1+ (Negative) Urine Ketones Trace (Negative) Urine Blood 3+ /uL (Negative) Urine Nitrite 2+ (Negative) Urine Bilirubin Negative (Negative) Urine Urobilinogen Normal mg/dL (Negative) Urine Leukocyte Esterase 3+ /uL (Negative) Urine RBC 28 /hpf (0 - 4) Urine Microscopic WBC 171 /HPF (0-5) Urine Squamous Epithelial Cells Few /hpf (<5) Urine Calcium Oxalate Crystals Mod (None Seen) Urine Bacteria Many /hpf (None Seen) Urine Mucus Few (None Seen) Urine Glucose Normal mg/dL (Normal) Urine Test Negative (Negative) Test 08/15/24 21:05 08/15/24 19:44 08/15/24 15:44 Influenza Type A Antigen Negative (Negative) Influenza Type B Antigen Negative (Negative) SARS-CoV-2 Antigen (Rapid) Negative (NEGATIVE) Troponin I High Sensitivity < 3 ng/L (</=34) D-Dimer, Quantitative 4.57 mg/L FEU (0.0-0.49) B-Type Natriuretic Peptide 30.69 pg/mL (0-100) Other Laboratory Tests 08/18/24 05:20 Brief Hx & Hospital Course: HPI Patient is an 58-year-old female with a past medical history of cirrhosis, hypothyroidism, pleural effusion and HFpEF presented to the ED with a chief complaint of shortness of breaths and generalized weakness for past 2 days. Patient was recently seen here about a month ago and was managed for acute on chronic diastolic heart failure. Patient has been in her stable state of health until the past few days when she started feeling unwell. She has subjective fevers, running nose with intermittent cough and shortness of breath. Within the last couple of days, the SOB progressively became worse with every movement thus prompting this ED visit. Patient denied coming in contact with any sick individual or being exposed to COVID. She denied any history of COPD, chest pain, nausea, vomiting or any changes in bowel habit. initial lab work revealed leukopenia, lactic acidosis and chest x-ray showed Opacification of right mid and lower lung zone, large pleural effusion with associated atelectasis/ pneumonia. Past medical history: Liver cirrhosis, HFpEF Anxiety, Depression, Thyroid, UTI'S, Pleural effusion Past surgical history: None. Social history: Retired. Lives at home Family history: Noncontributing Medications: Furosemide, levothyroxine, potassium and spironolactone Brief hospital course Patient came in the hospital with a chief complaint of worsening shortness of breath and on imaging with chest x-ray showed large right-sided pleural effusion which was confirmed on a CT angio done to rule out pulmonary embolism which showed large right pleural effusion .While in the ER paracentesis was done 2.5 L of fluid was removed which was sent for cytology, LDH, protein, cultures, cytology showed elevated WBCs with the 78% PMN cells, cultures showed no growth. Patient also had a urinary tract infection for which she was put on IV ceftriaxone. Initially patient was put on oxygen support via nasal cannula but was eventually weaned off. Blood cultures after 48 hours showed no growth and urine culture showed more than [id number] colony-forming units of mixed genie. Labs showed thrombocytopenia, elevated PT INR, elevated bilirubin and low albumin which pointed towards liver cirrhosis. Patient was admitted in the hospital about a month ago in June [address] was done which showed hepatic cirrhosis. Patient was worked up ceruloplasmin WNL, antimitochondrial antibody negative, ferritin WNL, GAGANDEEP screen negative, hepatitis panel negative and patient denies any heavy alcohol use in the past. Patient was discharged in stable condition to home. Discharge plan Follow up with the PCP in 1 week and referral to IR to be sent from the PCP office. IR have already been informed about the recurrent pleural effusion patient has had and they agree to performed thoracentesis as an outpatient after referral from the PCP. Meds: Continue home meds, Augmentin 875 mg b.i.d. X 5 days Consults/Reason for consult none Operations or Procedures Other Procedure Procedure Right sided thoracentesis Indication Large right pleural effusion Anesthetic Lidocaine Prep Aseptic sterile measures taken Success YES, NO COMPLICATIONS Informed consent obtained: Yes Risks, benefits, and alternati: Yes Notes Procedure performed under the supervision of Dr. Solis No complications noted CXR: No pneumothorax Date of Service: Aug 16, 2024 Billing Provider: STU KATZ MD Common Visit Codes: PROCEDURE ONLY Procedure Codes: [id number] W/PUNCT JONAH JESSICA Aug 16, 2024 04:10 STU KATZ MD Aug 18, 2024 10:49 Condition at Discharge: Good Final Diagnosis/Problems List #Acute hypoxic respiratory failure likely due to pleural effusion #Right pleural effusion likely due to liver cirrhosis #Sepsis likely d/t UTI #UTI likely acute cystitis #Suspected right lower pneumonitis likely d/t gram +/- #Probable liver cirrhosis with hyperbilirubinemia, transminitis, coagulopathy, thrombocytopenia #Hypothyroidism Discharge Disposition: Home Discharge Instruct/Medications Diet: Cardiac 2g Na,low cholest Activity: No Restrictions, As Tolerated Follow Up/Referral: Follow up with the PCP in discharge clinic on sunday and referral to interventional radiology for thoracentesis if required - Follow up in the outpatient GI clinic with for further workup of liver cirrhosis Medications: as per EMR Discharge Statement: "Patient was advised to return to the ER or call 911 if any headaches, dizziness, shortness of breath, chest pain, abdominal pain, bleeding, fevers, or worsening of medical condition. Patient was counseled about treatment plan, medications, possible side effects, patientverbalized understanding. All questions were answered to the best of my ability. This discharge took greater then 30 minutes in planning, reviewing documentation, counseling the patient, and discussing with other team members." ASSESSMENT ASSESSMENT Assessment #Acute hypoxic respiratory failure likely due to pleural effusion #Right pleural effusion likely due to liver cirrhosis #Sepsis likely d/t UTI #UTI likely acute cystitis #Suspected right lower pneumonitis likely d/t gram +/- #Probable liver cirrhosis with hyperbilirubinemia, transminitis, coagulopathy, thrombocytopenia #Hypothyroidism Date of Service: Aug 18, 2024 Billing Provider: SCOT IVORY MD Common Visit Codes: 38556-[id number] DISCH DAY >30min ARMANDO PA RESIDENT Aug 18, 2024 18:41 SCOT IVORY MD Aug 19, 2024 14:44
[2024-08-18] MEDS ORDERED: AUG875T PO (18:44)
[2024-08-19 13:07] LABS: Protein, Body Fluid 2.1 g/dL (.)
== END 2024-08-18 19:13 | disposition home or self-care (01) | DRG 871 ==
LOC: ER 15:03 → OVERFLOW 08-16 02:53 → TELE-CENTR 08-16 11:52
PROVIDERS: ADMIT Student in an Organized Health Care Education/Training Program; ATTEND Student in an Organized Health Care Education/Training Program
PROC: 0W993ZZ Drainage of Right Pleural Cavity, Percutaneous Approach (ICD-10-PCS; principal; 2024-08-16)
DX: A41.9 Sepsis, unspecified organism (principal); J15.69 Pneumonia due to other Gram-negative bacteria; J96.01 Acute respiratory failure with hypoxia; J15.9 Unspecified bacterial pneumonia; N30.00 Acute cystitis without hematuria; D68.9 Coagulation defect, unspecified; I50.32 Chronic diastolic (congestive) heart failure; J90 Pleural effusion, not elsewhere classified; Z20.822 Contact with and (suspected) exposure to COVID-19; K74.60 Unspecified cirrhosis of liver; F41.9 Anxiety disorder, unspecified; F32.A Depression, unspecified; R65.20 Severe sepsis without septic shock; D69.6 Thrombocytopenia, unspecified; E03.9 Hypothyroidism, unspecified; J98.4 Other disorders of lung; Z79.899 Other long term (current) drug therapy
CPT/HCPCS: 36415; 71045; 71275; 80048; 80053; 80061; 80307; 81001; 81025; 82150; 82306; 82607; 82728; 83036; 83605; 83615; 83735; 83880; 83986; 84100; 84443; 84484; 85007; 85025; 85027; 85379; 85610; 85730; 87040; 87086; 87205; 87426; 87804; 89051; 93005; 96365; 96366; G0378

== ENCOUNTER → 2024-09-02 | Outpatient (CLI) | payer BC ==
[~2024-09-02] MED LIST changes: +AUG875T PO; -LEVO-848 PO; -LEVO-849 PO; -POTA-180 PO
--- NOTE | 2024-09-02 14:09 | DVH ---
US THORACENTESIS, HISTORY: PLEURAL EFFUSION PROCEDURE: Informed consent was obtained. The patient was seated on the bed. A limited localization u ltrasound of the right thorax was obtained, and the optimal approach was marked on the skin. The area was prepped with chlorhexidine which was allowed to dry and draped in the usual sterile fashion. Rory e out was performed. The skin and the soft tissues were infiltrated with 1% lidocaine. A 5.5 Serbian c entesis needle catheter was advanced into right pleural space. Following aspiration of fluid, the cat heter was advanced and the needle removed. About 2000 cc of fluid was drained. No immediate complica tion was identified. FINDINGS: moderate to large right pleural effusion. Aspirated fluid is clear and serous. IMPRESSION: Successful right thoracentesis with 2L removed.
--- NOTE | 2024-09-02 14:45 | DVH ---
EXAM: XY CHEST XRAY 1 VIEW Indication: POST THORACENTESIS Technique: Single frontal view of the chest was obtained Comparison: XY CHEST XRAY 1 VIEW on DOS: 08/26/24, XY CHEST XRAY 1 VIEW on DOS: 08/16/24, XY CHEST TAD BLE on DOS: 08/15/24, XY CHEST PORTABLE on DOS: 07/22/24, XY CHEST PORTABLE on DOS: 07/21/24 FINDINGS: Lines and Tubes: None Lungs: Right basilar opacity. Pleura: Interval decrease in right pleural effusion compared to prior exam. No pneumothorax. Cardiomediastinal contours: Unremarkable Bones: No acute osseous abnormality. IMPRESSION: Interval decrease in right pleural effusion compared to prior exam. Right basilar opacity.
== END | disposition home or self-care (01) ==
LOC: US 12:51
PROVIDERS: ATTEND Internal Medicine
DX: J90 Pleural effusion, not elsewhere classified (principal); K74.60 Unspecified cirrhosis of liver; I50.9 Heart failure, unspecified; F41.8 Other specified anxiety disorders; Z79.899 Other long term (current) drug therapy; Z87.891 Personal history of nicotine dependence; Z80.0 Family history of malignant neoplasm of digestive organs; Z82.49 Family history of ischemic heart disease and other diseases of the circulatory system; Z80.3 Family history of malignant neoplasm of breast; Z82.62 Family history of osteoporosis; Z83.79 Family history of other diseases of the digestive system
CPT/HCPCS: 32555; 71045; C1729; 76604; 76942

== ENCOUNTER → 2024-09-16 | Outpatient (CLI) | payer BC ==
--- NOTE | 2024-09-16 10:24 | DVH ---
EXAM: XY CHEST PORTABLE DATE OF SERVICE: 09/16/2024 08:28 AM ORDERING PHYSICIAN: STU KATZ REASON FOR EXAM: POST THORACENTESIS TECHNIQUE: Single frontal view of the chest was obtained COMPARISON: XY CHEST PORTABLE on DOS: 08/15/24, XY CHEST PORTABLE on DOS: 07/22/24, XY CHEST PORTABLE o n DOS: 07/21/24, XY CHEST PORTABLE on DOS: 07/15/24, XY CHEST XRAY 1 VIEW on DOS: 09/02/24 FINDINGS: Lines and Tubes: None Lungs: Right basilar opacity. Pleura: Interval decrease in right pleural effusion compared to prior exam. No pneumothorax. Cardiomediastinal contours: Unremarkable Bones: No acute osseous abnormality. IMPRESSION: Interval decrease in right pleural effusion compared to prior exam. Right basilar opacity.
--- NOTE | 2024-09-16 12:51 | DVH ---
US THORACENTESIS, HISTORY: UNSPECIFIED CIRRHOSIS OF LIVER PROCEDURE: Informed consent was obtained. The patient was seated on the bed. A limited localization u ltrasound of the right thorax was obtained, and the optimal approach was marked on the skin. The area was prepped with chlorhexidine which was allowed to dry and draped in the usual sterile fashion. Rory e out was performed. The skin and the soft tissues were infiltrated with 1% lidocaine. A 5.5 Vietnamese c entesis needle catheter was advanced into right pleural space. Following aspiration of fluid, the cat heter was advanced and the needle removed. About 1300 cc of fluid was drained. No immediate complica tion was identified. FINDINGS: Moderate right pleural effusion. Aspirated fluid is clear and serous. IMPRESSION: Successful right thoracentesis with 1.3L removed.
[2024-09-16 19:07] LABS: Body Fluid Red Blood Cells 798 CUMM (0-2000); Body Fluid White Blood Cells 477 CUMM (0-200)
[2024-09-18 14:06] LABS: Protein, Body Fluid 2.3 g/dL (.)
== END | disposition home or self-care (01) ==
LOC: XYW 07:56
PROVIDERS: ATTEND Internal Medicine
DX: K74.60 Unspecified cirrhosis of liver (principal); I50.9 Heart failure, unspecified; F41.8 Other specified anxiety disorders; Z79.890 Hormone replacement therapy; Z79.899 Other long term (current) drug therapy; Z82.61 Family history of arthritis; Z82.49 Family history of ischemic heart disease and other diseases of the circulatory system; Z80.3 Family history of malignant neoplasm of breast; Z80.0 Family history of malignant neoplasm of digestive organs; Z83.79 Family history of other diseases of the digestive system
CPT/HCPCS: 32555; 71045; 83986; 87070; 87205; 88104; 88305; 88342; 89051; C1729; 76604; 76942

== ENCOUNTER → 2024-09-19 | Outpatient (CLI) | payer BC ==
[2024-09-19 10:41] LABS: Free T4 (Free Thyroxine) 1.93 ng/dL (0.89-1.76)
[2024-09-20 08:06] LABS: Immunoglobulin A 962 mg/dL (87-352); Thyroid Peroxidase (TPO) Ab 328 IU/mL (0-34)
[2024-09-20 10:07] LABS: Thyroglobulin Antibody 20.4 IU/mL (0.0-0.9)
== END | disposition home or self-care (01) ==
LOC: LAB 09:28
PROVIDERS: ATTEND Internal Medicine Endocrinology, Diabetes & Metabolism
DX: E03.9 Hypothyroidism, unspecified (principal); R53.83 Other fatigue
CPT/HCPCS: 36415; 82607; 82784; 83516; 84439; 84443; 86255; 86376; 86800

== ENCOUNTER → 2024-10-01 | Outpatient (CLI) | payer BC ==
--- NOTE | 2024-10-01 11:46 | DVH ---
US THORACENTESIS, HISTORY: CHIRRHOSIS OF LIVER PROCEDURE: Informed consent was obtained. The patient was seated on the bed. A limited localization u ltrasound of the right thorax was obtained, and the optimal approach was marked on the skin. The area was prepped with chlorhexidine which was allowed to dry and draped in the usual sterile fashion. Rory e out was performed. The skin and the soft tissues were infiltrated with 1% lidocaine. A 5.5 Liberian c entesis needle catheter was advanced into right pleural space. Following aspiration of fluid, the cat heter was advanced and the needle removed. About 1500 cc of fluid was drained. No immediate complica tion was identified. FINDINGS: Moderate right pleural effusion. Aspirated fluid is clear and serous. IMPRESSION: Successful right thoracentesis with 1.5L removed.
--- NOTE | 2024-10-01 12:50 | DVH ---
EXAM: XY CHEST PORTABLE Indication: POST THORA IN US Technique: Single frontal view of the chest was obtained Comparison: XY CHEST PORTABLE on DOS: 09/16/24, XY CHEST XRAY 1 VIEW on DOS: 09/02/24, XY CHEST XRAY 1 V IEW on DOS: 08/26/24, XY CHEST XRAY 1 VIEW on DOS: 08/16/24, XY CHEST PORTABLE on DOS: 08/15/24 FINDINGS: Lines and Tubes: None Lungs: No focal consolidation. Pleura: Trace right pleural effusion. No pneumothorax. Cardiomediastinal contours: Unremarkable Bones: No acute osseous abnormality. IMPRESSION: Trace right pleural effusion. No pneumothorax.
[2024-10-01 15:34] LABS: Body Fluid White Blood Cells 77 CUMM (0-200)
[2024-10-01 15:35] LABS: Body Fluid Red Blood Cells 4748 CUMM (0-2000)
[2024-10-03 12:07] LABS: Protein, Body Fluid 1.6 g/dL (.)
== END | disposition home or self-care (01) ==
LOC: US 10:56
PROVIDERS: ATTEND Internal Medicine
DX: K74.69 Other cirrhosis of liver (principal); J90 Pleural effusion, not elsewhere classified; F32.A Depression, unspecified; F41.9 Anxiety disorder, unspecified; Z79.890 Hormone replacement therapy; Z87.891 Personal history of nicotine dependence; Z80.0 Family history of malignant neoplasm of digestive organs; Z82.49 Family history of ischemic heart disease and other diseases of the circulatory system; Z80.3 Family history of malignant neoplasm of breast
CPT/HCPCS: 32555; 71045; 83986; 87070; 87205; 89051; C1729; 76942

== ENCOUNTER → 2024-10-10 | Outpatient (CLI) | payer BC ==
[~2024-10-10] VITALS: Ht 170.2 cm; Wt 70.3 kg
[2024-10-10] MEDS: REGADENOSON 0.4 MG/5 ML SYRG IV ONE ×2 (09:53→09:54)
--- NOTE | 2024-10-13 09:28 | DVHSR ---
APPROVED REPORT Exam: Nuclear Stress Test Indication: SOB BMI: 0 Medical History Medical History: CHF, HTN Stress Test Details Stress Test: Pharmacologic stress testing performed using 0.4 mg of regadenoson per 5 mL given IV ov er 10 seconds. HR Resting HR: 83 bpmMax Heart Rate (APMHR): 162.167409 bpm Max HR Achieved: 101 bpmTarget HR (85% APMHR): 137.561063 bpm % of APMHR: 62.35 Recovery HR: 93 bpm BP Resting BP: 114/69 mmHg Recovery BP: 112/54 mmHg ECG Resting ECG: Sinus Rhythm Clinical Reason for Termination: Completed protocol Nurse Comments Recieved pt. from [facility]. A/Ox4 on RA. Connected to groundwater monitoring technician, VS stable. PIV flushes well. Reviewed POC. Pt. verbalized understanding of procedure including risks and side ef fects, agrees for stress testing. Lexiscan stress test performed per protocol. [facility] tech administered Cardiolite. Pt. tolerated well . Pt. stable, no change on exam. VS returned to baseline. Transferred to [facility] via wheelchair w/ te ch. Stress ECG Conclusion anterior wall reversible defect noted normall lvef lvef 75% anterior wall ischemia NM EXAM: Myocardial Perfusion REST/STRESS Imaging Protocol: Rest Tc-99m/Stress Tc-99m 1 day Resting Data Rest SPECT myocardial perfusion imaging was performed in supine position 45 minutes following the int ravenous injection of 12 mCi of Tc-99m Sestamibi. Time of rest injection: 08:45 Date: 10/10/2024 Time of rest imagin:30 Date: 10/10/2024 Administration Route: IV Administration Site: Right Wrist Pharmacologic Stress Pharmacologic stress test was performed by injecting Regadenoson 0.4 mg IV push followed by the intra venous injection of 30.0 mCi of Tc-99m Sestamibi. Time of stress injection: 09:56 Date: 10/10/2024 Time of stress imagin:56 Date: 10/10/2024 Administration Route: IV Administration Site: Right Wrist Gated Stress SPECT was performed 60 minutes after stress injection. The images were gated to evaluate regional wall motion and calculate left ventricular ejection fracti on. Stress only was performed in the Supine position. Nuclear Conclusion Nuclear Findings: positive for ischemia anterior wall reversible defect noted normall lvef lvef 75% anterior wall ischemia
== END | disposition home or self-care (01) ==
LOC: XYW 08:18
PROVIDERS: ATTEND Internal Medicine
DX: I25.9 Chronic ischemic heart disease, unspecified (principal); R06.02 Shortness of breath; I11.0 Hypertensive heart disease with heart failure; I50.32 Chronic diastolic (congestive) heart failure; K74.60 Unspecified cirrhosis of liver; E03.9 Hypothyroidism, unspecified
CPT/HCPCS: 78452; 93017; A9500; J2785

== ENCOUNTER → 2024-10-13 | Outpatient (CLI) | payer BC ==
[2024-10-13 07:00] LABS: Urine Bacteria MANY /hpf (None Seen); Urine Blood 3+ /uL (Negative); Urine Clarity Turbid (Clear); Urine Color Yellow (Yellow); Urine Mucus FEW (None Seen); Urine Protein, UAD Negative (Negative); Urine Specific Gravity 1.009 (1.001-1.035); Urine Squamous Epithelial Cell None Seen /hpf (<5); Urine Urobilinogen Normal (Negative); Urine WBC 7 /HPF (0-5)
== END | disposition home or self-care (01) ==
LOC: LAB 06:15
PROVIDERS: ATTEND Nurse Practitioner Family
DX: R82.90 Unspecified abnormal findings in urine (principal)
CPT/HCPCS: 81001; 87086; 87088; 87186

== ENCOUNTER → 2024-10-15 | Outpatient (CLI) | payer BC ==
--- NOTE | 2024-10-15 08:59 | DVH ---
XY CHEST XRAY 1 VIEW, HISTORY: HYDROTHORAX COMPARISON: XY CHEST PORTABLE on DOS: 10/01/24, XY CHEST PORTABLE on DOS: 09/16/24, XY CHEST XRAY 1 VIEW on DOS: 09/02/24 XY CHEST PORTABLE on DOS: 10/01/24, XY CHEST PORTABLE on DOS: 09/16/24, XY CHEST XRAY 1 VIEW on DOS: 09/02 TECHNICAL DATA: 1 view of the chest was obtained. FINDINGS: Lines and tubes: None Cardiomediastinal silhouette: normal Pulmonary vasculature: normal Lung expansion: normal Lung airspace: normal Lung interstitium: normal Pleura: normal Pneumothorax: no Bones: Unremarkable Other: no IMPRESSION: No pneumothorax is seen.
--- NOTE | 2024-10-15 08:59 | DVH ---
US THORACENTESIS, HISTORY: HYDROTHORAX PROCEDURE: Informed consent was obtained. The patient was seated on the bed. A limited localization u ltrasound of the right thorax was obtained, and the optimal approach was marked on the skin. The area was prepped with chlorhexidine which was allowed to dry and draped in the usual sterile fashion. Rory e out was performed. The skin and the soft tissues were infiltrated with 1% lidocaine. A 5.5 Albanian c entesis needle catheter was advanced into right pleural space. Following aspiration of fluid, the cat heter was advanced and the needle removed. About 1500 cc of fluid was drained. Specimen/s was/were se nt for appropriate cultures/cytology/cultures and cytology. No immediate complication was identified. FINDINGS: Moderate right pleural effusion. Aspirated fluid is serosanguinous. IMPRESSION: Right thoracentesis with 1.5L removed.
[2024-10-15 13:23] LABS: Body Fluid Red Blood Cells 193689 CUMM (0-2000); Body Fluid White Blood Cells 241 CUMM (0-200)
== END | disposition home or self-care (01) ==
LOC: US 08:01
PROVIDERS: ATTEND Internal Medicine Gastroenterology
DX: J94.8 Other specified pleural conditions (principal); F41.8 Other specified anxiety disorders; Z82.61 Family history of arthritis; Z80.3 Family history of malignant neoplasm of breast; Z83.79 Family history of other diseases of the digestive system; Z80.0 Family history of malignant neoplasm of digestive organs
CPT/HCPCS: 32555; 71045; 83986; 87205; 89051; C1729; 76604; 76942

== ENCOUNTER 2024-10-23 12:41 | Outpatient (CLI) | payer BC | END 2024-10-23 17:00 | disposition home or self-care (01) | LOC: LAB 12:41 | PROVIDERS: ATTEND Internal Medicine Endocrinology, Diabetes & Metabolism | DX: E03.9 Hypothyroidism, unspecified (principal) | CPT/HCPCS: 36415; 84439; 84443 ==

== ENCOUNTER 2024-11-09 22:17 | Inpatient (IN) | payer BC ==
[~2024-11-09] VITALS: Ht 170.2 cm; Wt 79.1 kg
[2024-11-09] MEDS: SODIUM CHLORIDE 0.9% 1,000 ML IV ONE (22:45)
--- NOTE | 2024-11-09 23:03 | ED.PDOC ---
History of Present Illness HPI Comments 58 y/o F is BIBA for c/o generalized weakness. Per EMS report, patient felt sudden onset of weakness after getting up to use the bathroom, this evening. Patient has a history of CHF, liver cirrhosis, hypothyroidism, recurrent pleural effusions with thoracentesis, leukopenia, sepsis, and thrombocytopenia in a ddition to current UTI, that she stills on antibiotics for. Patient reports further on recent increase in her Lasix dosage, lately, to assist with her recurrent pleural effusions. She denies having any chest pain, shortness of breath, fever, chills, or further associated symptoms. Patient was found with hypotensive, initially, on scene, with a systolic pressure in the 80's. Chief Complaint: Low Blood Pressure Time Seen by MD: 22:30 Primary Care Provider: KIM Gordon Notes: Nurses Notes, Medications, Allergies Allergies: Coded Allergies: NO KNOWN ALLERGIES (Unverified , 05/08/19) Home Meds Active Scripts Amoxicillin & Pot Clavulanate (AUGMENTIN TABLET) 875 Mg Tb, 875 MG PO BID for 5 Days, #10 TAB 0 Refills Prov:ARMANDO PA RESIDENT 08/18/24 Hydrocodone-Acetaminophen (Hydrocodone Bitartrate/AC 5-325 mg) 1 Tab Tab, 1 TAB PO QID PRN, #30 TAB Prov:MARYBETH ISLAS MD 07/20/24 Furosemide (Lasix) 40 Mg Tab, 40 MG PO DAILY, #90 TAB Prov:MARYBETH ISLAS MD 07/20/24 Spironolactone (Aldactone) 25 Mg Tab, 1 TAB PO BID, #60 TAB 1 Refill Prov:MARYBETH ISLAS MD 07/20/24 Reported Medications Potassium Chloride (POTASSIUM CHLORIDE CR) 10 Meq Tb, 1 TAB PO DAILY, #30 TAB 5 Refills 07/15/24 Levothyroxine Sodium (Levothyroxine Sodium) 150 Mcg Tab, 150 MCG PO QAM for 30 Days 05/08/19 Information Source: Patient, Emergency Med Personnel Mode of Arrival: EMS Severity: Moderate Timing: Hours Prehospital treatment: 12 Lead EKG, Accucheck, Printing Specialist, IVF Past Medical History PAST MEDICAL HISTORY: Anxiety, CHF, Depression, Liver (cirrhosis ), Thyroid (hypothyroidism), UTI'S Past Medical History (Other): sepsis pleural effusion acute hypoxic respiratory failure leukopenia thrombocytopenia petechiae Surgical History (Other): thoracentesis 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 History: Denies all 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 ASSOCIATE Hx Family History Family History: Reviewed,noncontributory to illness Social History Smoker: Non-Smoker Alcohol: Denies ETOH Use Drugs: Denies Drug Use Lives In: Home All Other Systems: Reviewed and Negative (as per HPI) Physical Exam General Appearance: Mild Distress, Normal HEENT: Normal ENT Inspection, Pharynx Normal, TMs Normal Neck: Full Range of Motion, Non-Tender, Normal, Normal Inspection Respiratory: Chest Non-Tender, Lungs Clear, No Accessory Muscle Use, No Respiratory Distress, Normal Breath Sounds Cardiovascular: No Edema, No JVD, No Murmur, No Gallop, Normal Peripheral Pulses, Regular Rate/Rhythm Breast Exam: Deferred Gastrointestinal: LLQ (tenderness), LUQ (tenderness), No Organomegaly, No Pulsatile Mass, Normal Bowel Sounds, RLQ (tenderness), RUQ (tenderness), Soft, Suprapubic (tenderness), Tenderness (suprapubic) Genitalia: Deferred Pelvic: Deferred Rectal: Deferred Extremities: No calf tenderness, Normal capillary refill, Normal inspection, Normal range of motion, Non-tender, No pedal edema Musculoskeletal : Apperance: Normal Neurologic: Alert, comic book designer II-XII nml as Tested, No Motor Deficits, Normal Affect, Normal Mood, No Sensory Deficits Cerebellar Function: Normal Reflexes: Normal Skin: Dry, Normal Color, Warm Lymphatic: No Adenopathy Was a procedure done? Was a procedure done?: No Differential Dx Considerations may include: UTI, viral syndrome, electrolyte imbalance, dehydration, hypotension, inappropriate medication dosage, among others X-Ray, Labs, Meds, VS Vital Signs Date Time Temp Pulse Resp B/P (MAP) Pulse Ox O2 Delivery O2 Flow Rate FiO2 11/09/24 23:08 92 18 96 Room Air* 0 21 11/09/24 23:08 98.1 92 18 92/41 (58) 96 98.1 11/09/24 22:19 92 11/09/24 22:17 97.9 94 20 87/47 (60) 95 97.9 Lab Test 11/09/24 23:07 11/09/24 23:00 Range/Units White Blood Count 5.0 4.4-10.8 10^3/uL Red Blood Count 3.28 L 4.0-5.20 10^6/uL Hemoglobin 11.4 L 12.2-16.2 g/dL Hematocrit 32.4 L 36.0-46.0 % Mean Corpuscular Volume 98.6 80.0-100.0 fL Mean Corpuscular Hemoglobin 34.7 H 28.0-32.0 pg Mean Corpuscular Hemoglobin Concent 35.2 32.0-36.0 g/dL Red Cell Distribution Width 14.8 H 11.8-14.3 % Platelet Count 94 L 140-450 10^3/uL Mean Platelet Volume 8.1 6.9-10.8 fL Neutrophils (%) (Auto) 70.3 37.0-80.0 % Lymphocytes (%) (Auto) 15.8 10.0-50.0 % Monocytes (%) (Auto) 8.9 0.0-12.0 % Eosinophils (%) (Auto) 4.3 0.0-7.0 % Basophils (%) (Auto) 0.7 0.0-2.0 % Neutrophils # (Auto) 3.5 1.6-8.6 10 ^3/uL Lymphocytes # (Auto) 0.8 0.4-5.4 10 ^3/uL Monocytes # (Auto) 0.4 0-1.3 10 ^3/uL Eosinophils # (Auto) 0.2 0-0.8 10 ^3/uL Basophils # (Auto) 0 0-0.2 10 ^3/uL Nucleated Red Blood Cells 0.0 % Sodium Level 135 L 136-145 mmol/L Potassium Level 3.7 3.5-5.1 mmol/L Chloride Level 104 98-107 mmol/L Carbon Dioxide Level 22 20-31 mmol/L Anion Gap 9 5-15 Blood Urea Nitrogen 10 9-23 mg/dL Creatinine 0.57 0.550-1.02 mg/dL Glomerular Filtration Rate Calc 105 >90 mL/min BUN/Creatinine Ratio 17.5 10.0-20.0 Serum Glucose 153 H 74-106 mg/dL Lactic Acid Level 2.6 *H 0.4-2.0 mmol/L Calcium Level 8.1 L 8.7-10.4 mg/dL Total Bilirubin 1.7 H 0.2-1.0 mg/dL Aspartate Amino Transferase (AST) 70 H <34 U/L Alanine Aminotransferase (ALT) 41 H 7-40 U/L Alkaline Phosphatase 190 H 46-116 U/L B-Type Natriuretic Peptide 50.78 0-100 pg/mL Total Protein 5.2 L 5.7-8.2 g/dL Albumin 2.3 L 3.2-4.8 g/dL Urine Color Yellow Yellow Urine Clarity Turbid H Clear Urine pH 5.0 5.0-9.0 Urine Specific [place] 1.017 1.001-1.035 Urine Protein Trace H Negative Urine Ketones Negative Negative Urine Blood 2+ H Negative /uL Urine Nitrite Negative Negative Urine Bilirubin Negative Negative Urine Urobilinogen Normal Negative mg/dL Urine Leukocyte Esterase 2+ Negative /uL Urine RBC 8 0 - 4 /hpf Urine Microscopic WBC 34 H 0-5 /HPF Urine Squamous Epithelial Cells Few <5 /hpf Urine Bacteria Few H None Seen /hpf Urine Hyaline Casts Few 0 - 2 /lpf Urine Mucus Few None Seen Urine Glucose Normal Normal mg/dL Current Medications Medications (Trade) Dose Ordered Sig/Ana Route Start Time Stop Time Status Last Admin Sodium Chloride 1,000 ml @ 1,000 mls/hr Q1H ONCE IV 11/09/24 22:45 11/09/24 23:44 DC 11/09/24 22:45 Piperacillin Sod/ Tazobactam Sod 100 ml @ 100 mls/hr ONCE ONCE IV 11/09/24 23:30 11/10/24 00:29 DC 11/09/24 23:35 Acetaminophen/ Hydrocodone Bitart ([place] 5/325MG Tab) 1 tab ONCE ONCE PO 11/10/24 00:15 11/10/24 00:16 DC 11/10/24 00:16 Ondansetron HCl (Zofran) 4 mg ONCE ONCE IV 11/10/24 00:15 11/10/24 00:16 DC 11/10/24 00:16 Time of 1ST Reevaluation: 23:00 Reevaluation 1ST: Unchanged Patient Education/Counseling: Diagnosis, Treatment, Need For Follow Up Family Education/Counseling: Diagnosis, Treatment, Need For Follow Up Sepsis Sepsis Reasesment Focused Exam Orders: Laboratory Tests 11/09/24 23:07: Lactic Acid Level 2.6 Departure 1 Departure Time of Disposition: 01:05 Impression: Primary Impression: Liver cirrhosis Additional Impressions: Urinary tract infection Pleural effusion Pneumonitis Disposition: 09 ADMITTED INPATIENT Admit to: Med Surg Condition: Guarded Comments 58-year-old Female with Generalized Weakness, UTI, and Pleural Effusion Chief Complaint: Generalized weakness History of Present Illness: Patient is a 58-year-old female with a history of liver cirrhosis and recurrent pleural effusion who was brought to the ED via ambulance with complaints of generalized weakness. She presented with hypotension, with initial blood pressure of 87/47 mmHg. Patient has known ascites. She was found to have a urinary tract infection on workup and a large right pleural effusion on imaging. Review of Systems: Constitutional: Positive for generalized weakness. Gastrointestinal: Positive for ascites, mild suprapubic tenderness. Respiratory: Positive for right pleural effusion. Genitourinary: Positive for urinary tract infection. All other systems: Unable to assess from provided information. Past Medical History: Liver cirrhosis Recurrent pleural effusion Vital Signs: BP: Initially 87/47 mmHg, improved to 92/41 mmHg after fluid resuscitation Physical Exam: General: 58-year-old female presenting with generalized weakness. Abdomen: Ascites present. Mild tenderness in suprapubic area. 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 Lab Results: CBC: - WBC: 5.0 (normal) - Hemoglobin: 11 g/dL - Hematocrit: 32% - Platelets: 94 K/uL (low) Chemistry: - Glucose: 153 mg/dL - Otherwise unremarkable Liver Function Tests: - Total bilirubin: 1.7 mg/dL (elevated) - AST: 70 U/L (elevated) - ALT: 41 U/L (elevated) - Alkaline phosphatase: 190 U/L (elevated) Lactic acid: 2.6 mmol/L (elevated) Urinalysis: - 2+ leukocytes, consistent with urinary tract infection Imaging and Other Relevant Results: Chest X-ray: Large right pleural effusion Medical Decision Making: Summary Statement: 58-year-old female with history of liver cirrhosis and recurrent pleural effusion presenting with generalized weakness, found to have urinary tract infection, large right pleural effusion, and initial hypotension requiring fluid resuscitation. Problem List: 1. Urinary tract infection 2. Right pleural effusion 3. Liver cirrhosis with elevated LFTs 4. Hypotension 5. Thrombocytopenia 6. Mild anemia Differential Diagnosis: 1. Sepsis secondary to UTI 2. Spontaneous bacterial peritonitis 3. Hepatic encephalopathy 4. Decompensated liver cirrhosis 5. Hypovolemia ED Course: Patient received IV fluid resuscitation with improvement in blood pressure from 87/47 to 92/41 mmHg. IV Zosyn was administered for treatment of UTI. Patient requires admission for management of UTI, right pleural effusion, and liver cirrhosis. Assessment and Plan: 1. Urinary tract infection - Presenting with leukocytes in urine and suprapubic tenderness - Treated with IV Zosyn in the ED - Continue IV antibiotics during admission - Monitor urine output and symptoms 2. Right pleural effusion (large) - Recurrent issue in this patient - Consider thoracentesis for diagnostic and therapeutic purposes - Evaluate for underlying causes including infection, malignancy, or hepatic hydrothorax 3. Liver cirrhosis with elevated LFTs - Chronic condition with evidence of ongoing hepatic dysfunction - Monitor LFTs during admission - Assess for signs of hepatic encephalopathy - Consider hepatology consultation 4. Hypotension - Initially 87/47 mmHg, improved to 92/41 mmHg after fluid resuscitation - Continue IV fluids as needed - Monitor for signs of sepsis - Consider vasopressors if hypotension persists despite adequate fluid resuscitation 5. Thrombocytopenia (platelets 94 K/uL) - Likely secondary to liver cirrhosis - Monitor platelet count - No active bleeding at present 6. Mild anemia (Hgb 11, Hct 32) - Monitor hemoglobin and hematocrit - Evaluate for sources of blood loss if anemia worsens Disposition: Admit to medicine service for management of the above issues. Additional Notes: Note created based on ED printed circuit board designer for 58-year-old female with liver cirrhosis, UTI, and pleural effusion requiring admission. Billing Information: ICD-10: N39.0 - Urinary tract infection, site not specified ICD-10: J91.0 - Pleural effusion in conditions classified elsewhere ICD-10: K74.60 - Unspecified cirrhosis of liver ICD-10: I95.9 - Hypotension, unspecified ICD-10: D69.6 - Thrombocytopenia, unspecified ICD-10: D64.9 - Anemia, unspecified Critical Care Note Critical Care Time?: Yes (35 min-critical care time only) Critical care comment: Total critical care time: Approximately 36 minutes Due to a high probability of clinically significant, life threatening deterioration, the patient required my highest level of preparedness to intervene emergently and I personally spent this critical care time directly and personally managing the patient. This critical care time included obtaining a history; examining the patient; pulse oximetry; ordering and review of studies; arranging urgent treatment with development of a management plan; evaluation of patient's response to treatment; frequent reassessment; and, discussions with other providers. This critical care time was performed to assess and manage the high probability of imminent, life-threatening deterioration that could result in multi-organ failure. It was exclusive of separately billable procedures and treating other patients. Stability Stability form required: No Heart Score Heart Score: Heart Score Response (Comments) Value History N/A 0 EKG N/A 0 Age N/A 0 Risk Factors N/A 0 Troponin N/A 0 Total 0 I personally scribed for ELIN CHIN MD ([email or web address]) on 11/09/24 at 23:03. Electronically submitted by Ernst Fernando ([email or web address]). I personally scribed for ELIN CHIN MD ([email or web address]) on 11/09/24 at 23:12. Electronically submitted by Ernst Fernando [email or web address]). ELIN CHIN MD Nov 09, 2024 23:03
[2024-11-09 23:08] VITALS: PULSE 92; RESP 18; O2SAT 96
[2024-11-09 23:33] LABS: Urine Bacteria FEW /hpf (None Seen); Urine Blood 2+ /uL (Negative); Urine Clarity Turbid (Clear); Urine Color Yellow (Yellow); Urine Hyaline Cast FEW /lpf (0 - 2); Urine Mucus FEW (None Seen); Urine Protein, UAD TRACE (Negative); Urine Specific Gravity 1.017 (1.001-1.035); Urine Squamous Epithelial Cell FEW /hpf (<5); Urine Urobilinogen Normal (Negative); Urine WBC 34 /HPF (0-5)
[2024-11-09] MEDS: PIPERACILLIN-TAZOB 3.375GM 100 ML IV ONE (23:35)
[2024-11-09 23:37] LABS: Basophils # (auto) 0 10 ^3/uL (0-0.2); Eosinophils # (auto) 0.2 10 ^3/uL (0-0.8); Lymphocytes # (auto) 0.8 10 ^3/uL (0.4-5.4); Neutrophils # (auto) 3.5 10 ^3/uL (1.6-8.6)
[2024-11-09 23:39] LABS: Basophils % (auto) 0.7 % (0.0-2.0); Eosinophils % (auto) 4.3 % (0.0-7.0); Hematocrit 32.4 % (36.0-46.0); Hemoglobin 11.4 g/dL (12.2-16.2); Lymphocytes % (auto) 15.8 % (10.0-50.0); Mean Corpuscular Hemoglobin 34.7 pg (28.0-32.0); Mean Corpuscular Hgb Conc. 35.2 g/dL (32.0-36.0); Mean Corpuscular Volume 98.6 fL (80.0-100.0); Monocytes # (auto) 0.4 10 ^3/uL (0-1.3); Monocytes % (auto) 8.9 % (0.0-12.0); Neutrophils % (auto) 70.3 % (37.0-80.0); Platelet Count (auto) 94 10^3/uL (140-450); Red Blood Cells 3.28 10^6/uL (4.0-5.20); Red Cell Distribution Width 14.8 % (11.8-14.3)
[2024-11-09 23:55] LABS: Anion Gap 9 (5-15); BUN/Creatinine Ratio 17.5 (10.0-20.0); Blood Urea Nitrogen 10 mg/dL (9-23); Carbon Dioxide 22 mmol/L (20-31); Chloride 104 mmol/L (98-107); Potassium 3.7 mmol/L (3.5-5.1)
[2024-11-09 23:56] LABS: Alanine Aminotransferase 41 U/L (7-40); Albumin 2.3 g/dL (3.2-4.8); Alkaline Phosphatase 190 U/L (46-116); Aspartate Aminotransferase 70 U/L (<34); Bilirubin, Total 1.7 mg/dL (0.2-1.0); Calcium 8.1 mg/dL (8.7-10.4); Glucose 153 mg/dL (74-106); Sodium 135 mmol/L (136-145); Total Protein 5.2 g/dL (5.7-8.2)
[2024-11-09 23:59] LABS: Lactic Acid w/Reflex 2.6 mmol/L (0.4-2.0)
[2024-11-10] MEDS: HYDROcodone-ACET 5/325MG TAB PO ONE (00:16)
[2024-11-10] MEDS: ONDANSETRON HCL 4 MG/2 ML VIAL IV ONE (00:16)
--- NOTE | 2024-11-10 00:40 | DVH ---
EXAM: XY CHEST PORTABLE CLINICAL HISTORY: SOB TECHNIQUE: Single AP view of the chest WID: COMPARISON: XY CHEST PORTABLE on DOS: 10/29/24 FINDINGS: Lines and tubes: None Chest: The heart size and pulmonary vasculature is within normal limits. Large right pleural effusion and right mid and lower lung opacification. No pneumothorax. The osseous structures are grossly intact. IMPRESSION: Large right pleural effusion.
[2024-11-10] MEDS: cefTRIAXone 1GM/50ML D5W 50 ML IV ONE (01:25)
[2024-11-10] MEDS: SIMETHICONE 80 MG CHEWABLE TABLET PO ONE (01:47)
[2024-11-10] MEDS ORDERED: IBUPROFEN 400 MG TAB PO PRN (03:45)
[2024-11-10] MEDS: SODIUM CHLORIDE 0.9% 500 ML IV ONE ×2 (03:52→06:08)
--- NOTE | 2024-11-10 05:32 | ECG ---
[facility] Test Date: 2024-11-09 Test Time: 22:19:42 Pat Name: LELAND DEMPSEY Department: ED Room: 0201T Gender: F Certified Prosthetist: GERMÁN : 1965 Requested By: ELIN CHIN Order Number: [id number] Reading MD: Magdiel Brooks Measurements Intervals [place] Rate: 92 P: 78 MT: 126 QRS: 22 QRSD: 78 T: 1 QT: 390 QTc: 483 Interpretive Statements Sinus rhythm Low voltage, precordial leads Borderline T abnormalities, anterior leads Electronically Signed On 11-11-2024 17:32:24 PDT by Magdiel Brooks Please click the below link to view image of tracing.
[2024-11-10] MEDS: LEVOTHYROXINE SODIUM 25 MCG TAB PO SCH (05:41)
[2024-11-10] MEDS: PANTOPRAZOLE 40 MG TAB PO SCH (05:41)
[2024-11-10] MEDS: LEVOTHYROXINE SODIUM 100 MCG TAB PO SCH (05:41)
[2024-11-10] MEDS: HYDROcodone-ACET 5/325MG TAB PO PRN (05:46)
--- NOTE | 2024-11-10 05:52 | DVHHPRES ---
History of Present Illness Resident Creating Document: JHDELISA KAYEROMMEL RESIDENT History of Present Illness Patient is a 58-year-old female with a past medical history of liver cirrhosis, hypothyroidism, recurrent right-sided pleural effusion, congestive heart failure (HFpEF) presented to the ED with a chief complaint of weakness and low blood pressure. Patient reports that around 4 weeks ago she had symptoms of burning pain on urination following which she went to the urgent care and was referred to her PCP and cultures of urine showed growth of bacteria and were she was apparently sent to [place] where she saw in infectious disease doctor and was started on nitrofurantoin. On checking the records patient grew ESBL E coli and ESBL Klebsiella . Patient reports that she still has burning pain on urination. Patient reports of having diffuse abdominal pain since the last few days. Denies diarrhea, nausea, vomiting. Patient denied chest pain, shortness of breath. Reports that she is getting thoracentesis of the right lung every 2 weeks in the last time it was done was on 29 of October. Patient reported that she recently saw a liver specialist in [place] who increased the dose of Lasix to 40 mg daily and spironolactone 200 mg daily on last . She reports noticing low blood pressure since she started on a higher dose. Patient denies any other acute complaint Past medical history: Liver cirrhosis, HFpEF Anxiety, Depression, Thyroid, UTI'S, Pleural effusion Past surgical history: None. Social history: Retired. Lives at home Family history: Noncontributing Medications: Furosemide 40 mg, levothyroxine 125 mcg and spironolactone 100 mg Review of Systems Review of Systems Patient seen and examined at the bedside Reports of feeling weak, [id number] abdominal pain diffuse, mild burning pain on urination Denies fever, chills, nausea, vomiting, change in stools Allergies: Coded Allergies: NO KNOWN ALLERGIES (Unverified , 05/08/19) Medications Current Medications Medications Dose Ordered Sig/Ana Route Start Time Stop Time Status Last Admin Dose Admin Spironolactone 50 mg DAILY PO 11/10/24 10:00 Ceftriaxone Sodium/Dextrose 50 ml @ 50 mls/hr DAILY IV 11/11/24 01:00 Pantoprazole Sodium 40 mg DAILY@0600 PO 11/10/24 06:00 Acetaminophen/ Hydrocodone Bitart 1 tab Q6HPRN PRN PO 11/10/24 03:45 Ibuprofen 400 mg Q8HP PRN PO 11/10/24 03:45 Levothyroxine Sodium 125 mcg QAM@0600 PO 11/10/24 06:00 UNV Levothyroxine Sodium 100 mcg QAM@0600 PO 11/10/24 06:00 Levothyroxine Sodium 25 mcg QAM@0600 PO 11/10/24 06:00 Exam Vital Signs Vital Signs Date Time Temp Pulse Resp B/P (MAP) Pulse Ox O2 Delivery O2 Flow Rate FiO2 11/10/24 04:47 98.1 100 18 107/44 (65) 96 98.1 11/09/24 23:08 Room Air* 0 21 Exam Gen - no pallor, mild icterus, no cyanosis, no clubbing, no LAD, 1+ edema in the bilateral lower extremity . Skin - Patients skin is warm and dry. HEENT - normocephalic, atraumatic, dry mucous membranes. Neck - full ROM, no LAD, no JVD Pulmonary - left-sided normal breath sounds, decreased breath sounds on the right side in the lower 2/3 of lung, no crackles, no wheezing, no stridor. cardiovascular - regular S1,S2 heard, no added sounds, no murmurs heard. peripheral pulses normal radial 2+, pedal 2+. capillary refill normal <2 secs. GI - soft abdomen with diffuse tenderness to palpation and guarding. no hepatospleenomegaly. Positive shifting dullness. Bowel sounds normoactive Neurological - Patient is A/O X 3. Bilateral upper extremity strength 4/5, bilateral lower extremity strength 4/5, no facial droop, normal speech, no tremor, no sensory deficiets. Labs/Xrays Labs Test 11/10/24 01:25 11/09/24 23:07 11/09/24 23:00 Range/Units Lactic Acid Level 2.6 *H 0.4-2.0 mmol/L White Blood Count 5.0 4.4-10.8 10^3/uL Red Blood Count 3.28 L 4.0-5.20 10^6/uL Hemoglobin 11.4 L 12.2-16.2 g/dL Hematocrit 32.4 L 36.0-46.0 % Mean Corpuscular Volume 98.6 80.0-100.0 fL Mean Corpuscular Hemoglobin 34.7 H 28.0-32.0 pg Mean Corpuscular Hemoglobin Concent 35.2 32.0-36.0 g/dL Red Cell Distribution Width 14.8 H 11.8-14.3 % Platelet Count 94 L 140-450 10^3/uL Mean Platelet Volume 8.1 6.9-10.8 fL Neutrophils (%) (Auto) 70.3 37.0-80.0 % Lymphocytes (%) (Auto) 15.8 10.0-50.0 % Monocytes (%) (Auto) 8.9 0.0-12.0 % Eosinophils (%) (Auto) 4.3 0.0-7.0 % Basophils (%) (Auto) 0.7 0.0-2.0 % Neutrophils # (Auto) 3.5 1.6-8.6 10 ^3/uL Lymphocytes # (Auto) 0.8 0.4-5.4 10 ^3/uL Monocytes # (Auto) 0.4 0-1.3 10 ^3/uL Eosinophils # (Auto) 0.2 0-0.8 10 ^3/uL Basophils # (Auto) 0 0-0.2 10 ^3/uL Nucleated Red Blood Cells 0.0 % Sodium Level 135 L 136-145 mmol/L Potassium Level 3.7 3.5-5.1 mmol/L Chloride Level 104 98-107 mmol/L Carbon Dioxide Level 22 20-31 mmol/L Anion Gap 9 5-15 Blood Urea Nitrogen 10 9-23 mg/dL Creatinine 0.57 0.550-1.02 mg/dL Glomerular Filtration Rate Calc 105 >90 mL/min BUN/Creatinine Ratio 17.5 10.0-20.0 Serum Glucose 153 H 74-106 mg/dL Calcium Level 8.1 L 8.7-10.4 mg/dL Total Bilirubin 1.7 H 0.2-1.0 mg/dL Aspartate Amino Transferase (AST) 70 H <34 U/L Alanine Aminotransferase (ALT) 41 H 7-40 U/L Alkaline Phosphatase 190 H 46-116 U/L B-Type Natriuretic Peptide 50.78 0-100 pg/mL Total Protein 5.2 L 5.7-8.2 g/dL Albumin 2.3 L 3.2-4.8 g/dL Urine Color Yellow Yellow Urine Clarity Turbid H Clear Urine pH 5.0 5.0-9.0 Urine Specific [place] 1.017 1.001-1.035 Urine Protein Trace H Negative Urine Ketones Negative Negative Urine Blood 2+ H Negative /uL Urine Nitrite Negative Negative Urine Bilirubin Negative Negative Urine Urobilinogen Normal Negative mg/dL Urine Leukocyte Esterase 2+ Negative /uL Urine RBC 8 0 - 4 /hpf Urine Microscopic WBC 34 H 0-5 /HPF Urine Squamous Epithelial Cells Few <5 /hpf Urine Bacteria Few H None Seen /hpf Urine Hyaline Casts Few 0 - 2 /lpf Urine Mucus Few None Seen Urine Glucose Normal Normal mg/dL Assessment/Plan Assessment/Plan Hypotension Sepsis likely due to UTI, possible SBP - urine cultures from September 2024 showed growth of ESBL E coli and ESBL Klebsiella -started on ertapenem - 1.5 L IV fluid given H/o liver cirrhosis Probable SBP Thrombocytopenia Hypoalbuminemia Hyperbilirubinemia Transaminitis - abdominal ultrasound pending to confirm ascites (shifting dullness present) - started on ertapenem - held Lasix, continued on spironolactone 50 mg daily - monitor CMP -PT PTT pending, meld Na score to be calculated Right pleural effusion, recurrent H/0 HFpEF - last drained on October 29, reports getting pleural effusion drained every 2 weeks with the IR - currently no shortness a breath on room air - BNP normal Hypothyroidism - thyroid ultrasound from August 2024 shows heterogeneous echogenicity of thyroid - positive thyroglobulin antibody and thorax peroxidase antibody - continued on levothyroxine 125 mcg PUD prophylaxis: Protonix Goals of care discussed with the patient for over 25 minutes. Full code Time spent: 41 minutes Plan discussed with Dr. Katz Plan discussed with: Patient My Orders Orders - ARMANDO PA RESIDENT Procedure Category Date Status Time Admit ADMIT 11/10/24 Transmitted 03:31 Oxygen By Nasal RT 11/10/24 Transmitted Cannula 03:31 Stat Ekg For Chest RAYSHAWN 11/10/24 In Process Pain 03:31 Notify Of Changes RAYSHAWN 11/10/24 In Process From Base 03:31 Novelty Worker For RAYSHAWN 11/10/24 In Process 24 Hours 03:31 Emergency Dysrhythmia RAYSHAWN 11/10/24 In Process Protocol 03:31 Abdomen Limited US 11/10/24 Logged 03:31 Spironolactone PHA 11/10/24 In Process (Aldactone) 10:00 Urine Bacterial ADI 11/10/24 In Process Culture 03:31 Comprehensive LAB 11/10/24 Logged Metabolic Panel 06:00 Complete Blood Count LAB 11/10/24 Logged 06:00 Lactic Acid W/ Reflex LAB 11/10/24 Logged Order 06:00 Pantoprazole Tablet PHA 11/10/24 In Process (Protonix Tablet) 06:00 Stool Occult Blood LAB 11/10/24 Logged 03:31 PTPTT LAB 11/10/24 Logged 06:00 Hydrocodone-Acet PHA 11/10/24 In Process 5/325mg Tab ([place] 03:45 Ibuprofen Tablet PHA 11/10/24 In Process (Motrin Tablet) 03:45 Ceftriaxone 2gm/50ml PHA 11/11/24 In Process D5w (Rocephin 2gm/5 01:00 Levothyroxine Tablet PHA 11/10/24 In Process (Synthroid Tablet) 06:00 Levothyroxine Tablet PHA 11/10/24 In Process (Synthroid Tablet) 06:00 Date of Service: Nov 10, 2024 Billing Provider: STU KATZ MD Common Visit Codes: [id number] INP/OBS CARE (HIGH) Secondary Visit Codes: [id number] CARE PLAN 30 MINUTES ARMANDO PA RESIDENT Nov 10, 2024 05:52
[2024-11-10] MEDS ORDERED: LEVOTHYROXINE SODIUM 50 MCG TAB PO SCH (06:00)
[2024-11-10 06:33] LABS: Eosinophils # (auto) 0 10 ^3/uL (0-0.8); Hemoglobin 11.2 g/dL (12.2-16.2); Lymphocytes # (auto) 0.6 10 ^3/uL (0.4-5.4); Monocytes # (auto) 0.4 10 ^3/uL (0-1.3)
[2024-11-10 06:36] LABS: Basophils # (auto) 0.1 10 ^3/uL (0-0.2); Basophils % (auto) 0.8 % (0.0-2.0); Eosinophils % (auto) 0.1 % (0.0-7.0); Hematocrit 32.9 % (36.0-46.0); Lymphocytes % (auto) 8.8 % (10.0-50.0); Mean Corpuscular Hemoglobin 34.4 pg (28.0-32.0); Mean Corpuscular Hgb Conc. 34.1 g/dL (32.0-36.0); Monocytes % (auto) 6.1 % (0.0-12.0); Neutrophils # (auto) 5.8 10 ^3/uL (1.6-8.6); Neutrophils % (auto) 84.2 % (37.0-80.0); Platelet Count (auto) 118 10^3/uL (140-450); Red Blood Cells 3.26 10^6/uL (4.0-5.20); Red Cell Distribution Width 15.6 % (11.8-14.3); White Blood Cell 6.9 10^3/uL (4.4-10.8)
[2024-11-10 06:48] LABS: Anion Gap 10 (5-15); BUN/Creatinine Ratio 18.5 (10.0-20.0); Blood Urea Nitrogen 10 mg/dL (9-23); Calcium 8.9 mg/dL (8.7-10.4); Potassium 4.1 mmol/L (3.5-5.1); Sodium 136 mmol/L (136-145)
[2024-11-10 06:51] LABS: INR 1.43 (0.9-1.15); Partial Thromboplastin Time 27.1 SEC (24.5-34.5); Prothrombin Time 14.6 sec (9.3-11.8)
[2024-11-10 06:53] LABS: Alanine Aminotransferase 42 U/L (7-40); Albumin 2.4 g/dL (3.2-4.8); Alkaline Phosphatase 182 U/L (46-116); Aspartate Aminotransferase 67 U/L (<34); Bilirubin, Total 1.7 mg/dL (0.2-1.0); Carbon Dioxide 18 mmol/L (20-31); Chloride 108 mmol/L (98-107); Glucose 137 mg/dL (74-106); Total Protein 5.4 g/dL (5.7-8.2)
[2024-11-10 06:55] LABS: Lactic Acid w/Reflex 3.1 mmol/L (0.4-2.0)
--- NOTE | 2024-11-10 07:44 | DVH ---
CLINICAL INFORMATION: 58 years old, Female; check for ascites. TECHNIQUE: Grayscale sonographic imaging of all 4 quadrants the abdomen was performed to evaluate fo r ascites. COMPARISON: None FINDINGS: Ascites is visualized, with the largest pocket in the right lower quadrant. Large right p leural effusion incidentally noted. IMPRESSION: 1. Ascites visualized, with the largest pocket in the right lower quadrant. 2. Large right pleural effusion incidentally noted.
--- NOTE | 2024-11-10 09:19 | DVH ---
CHEST RADIOGRAPH Indication: POST THORACENTESIS Technique: Single frontal view of the chest was obtained COMPARISON: XY CHEST PORTABLE on DOS: 11/10/24, XY CHEST PORTABLE on DOS: 10/29/24, XY CHEST XRAY 1 VIEW on DOS: 10/15/24, XY CHEST PORTABLE on DOS: 10/01/24, XY CHEST PORTABLE on DOS: 09/16/24 FINDINGS: Lines and Tubes: None Lungs: Clear Pleura: No effusion. No pneumothorax. Cardiomediastinal contours: Unremarkable Bones: Unremarkable IMPRESSION: No acute disease. No appreciable pneumothorax.
--- NOTE | 2024-11-10 09:22 | DVH ---
US THORACENTESIS HISTORY: THORACENTESIS PROCEDURE: Informed consent was obtained. An ultrasound guided thoracentesis was performed by Dr. Ming linda. FINDINGS: Pleural effusion on the right. IMPRESSION: An ultrasound guided thoracentesis was performed by Dr. Solis with 1.5L removed.
[2024-11-10] MEDS: SPIRONOLACTONE 25 MG TAB PO SCH (11:29)
[2024-11-10 12:20] LABS: Body Fluid White Blood Cells 654 CUMM (0-200)
--- NOTE | 2024-11-10 14:16 | DVHPNRES ---
Progress Note Date Seen: Nov 10, 2024 Resident Creating Document: GARFIELD OROZCO EUSEBIO Has the PT tested + for MRSA If YES, has PT been informed?: No Medical Necessity Reason Pt with a Central, PICC or Fol: No Subjective Review of Systems Patient is a 58-year-old female with a past medical history of liver cirrhosis, hypothyroidism, recurrent right-sided pleural effusion, congestive heart failure (HFpEF) presented to the ED with a chief complaint of weakness and low blood pressure. Patient reports that around 4 weeks ago she had symptoms of burning pain on urination following which she went to the urgent care and was referred to her PCP and cultures of urine showed growth of bacteria and were she was apparently sent to [place] where she saw in infectious disease doctor and was started on nitrofurantoin. On checking the records patient grew ESBL E coli and ESBL Klebsiella . Patient reports that she still has burning pain on urination. Patient reports of having diffuse abdominal pain since the last few days. Denies diarrhea, nausea, vomiting. Patient denied chest pain, shortness of breath. Reports that she is getting thoracentesis of the right lung every 2 weeks in the last time it was done was on 29 of October. Patient reported that she recently saw a liver specialist in [place] who increased the dose of Lasix to 40 mg daily and spironolactone 200 mg daily on last . She reports noticing low blood pressure since she started on a higher dose. Patient denies any other acute complaint Past medical history: Liver cirrhosis, HFpEF Anxiety, Depression, Thyroid, UTI'S, Pleural effusion Patient seen and examined at the bedside. Patient is still complained of abdominal pain, dysuria frequency and urgency. Patient reports: No new complaints, Feels better Changes from previous H/P or p: Changes Objective vital signs Vital Sign Date Time Temp Pulse Resp B/P (MAP) Pulse Ox O2 Delivery O2 Flow Rate FiO2 11/10/24 12:00 101 11/10/24 09:31 16 113/72 (86) 97 11/10/24 08:00 Room Air* 0 21 11/10/24 08:00 97.8 97.8 Total Intake and Output 11/09/24 11/09/24 11/10/24 15:00 23:00 07:00 Intake Total 1000 ml Balance 1000 ml medications Current Medications Medications Dose Ordered Sig/Ana Route Start Time Stop Time Status Last Admin Dose Admin Spironolactone 50 mg DAILY PO 11/10/24 10:00 11/10/24 11:29 50 MG Pantoprazole Sodium 40 mg DAILY@0600 PO 11/10/24 06:00 11/10/24 05:41 40 MG Acetaminophen/ Hydrocodone Bitart 1 tab Q6HPRN PRN PO 11/10/24 03:45 11/10/24 05:46 1 TAB Levothyroxine Sodium 125 mcg QAM@0600 PO 11/10/24 06:00 UNV Levothyroxine Sodium 100 mcg QAM@0600 PO 11/10/24 06:00 11/10/24 05:41 100 MCG Levothyroxine Sodium 25 mcg QAM@0600 PO 11/10/24 06:00 11/10/24 05:41 25 MCG Ertapenem 1 gm/ Sodium Chloride 50 ml @ 100 mls/hr DAILY IV 11/10/24 10:00 Examination General Appearance: Alert, Oriented X3, Cooperative, No acute distress HEENT: Atraumatic, PERRLA, EOMI, Mucous membrane moist/pink Respiratory: Clear to auscultation, Normal air movement Cardiovascular: Regular rate, Normal S1, Normal S2, No murmurs, no chest wall tenderness Abdominal: Suprapubic tenderness Extremities: No clubbing, No cyanosis, No edema, Normal pulses, No tenderness/swelling Skin: No rashes, No breakdown, No significant lesion Neuro: Normal gait, Normal speech, Strength at 5/5 X4 ext, Normal tone, Sensation intact, Cranial nerves 3-12 NL, Reflexes 2+ Psych/Mental Status: Mental status NL, Mood NL laboratory and microbiology Laboratory Tests 11/10/24 06:03 Test 11/10/24 06:03 Range/Units Serum Glucose 137 H 74-106 mg/dL Microbiology Date/Time Source Procedure Growth Status 11/10/24 08:15 Pleural Fluid Received Labs and/or images reviewed: Labs reviewed by me, Image(s) reviewed by me Problem List/Assessment/Plan Problem List/Assessment/Plan Recurrent UTI History of UTI, ESBL Sepsis, likely due to UTI Complicated UTI Hypotension, due to sepsis Acute on chronic hepatic failure leading to his ascites Liver cirrhosis, unknown cause Ascites, due to liver cirrhosis Pleural effusion, likely due to ascites Hyperbilirubinemia Severe malnutrition Thrombocytopenia, likely due to liver cirrhosis ? Spontaneous bacterial peritonitis History of HFpEF Hypothyroidism * Ultrasound shows, ascites visualized, with the largest pocket in the right lower quadrant. with Large right pleural effusion incidentally noted * Chest x-ray shows right lower to meds zone opacity * UA shows UTI picture Plan/recommendation: Thoracentesis performed, 1.5 L fluid has been drained Empiric antibiotic ertapenem IV fluid Urine culture/blood culture Continue home meds Spironolactone 50 mg daily DIET: Renal diet DVT PROPHYLAXIS: SCD CODE STATUS: Goal of care discussed for more than 18 minutes, full code DISPOSITION: Med/surge Patient's status and plan discussed with the patient. Case discussed with Dr. Ivory. Plan discussed with: Patient, Other (RN) My Orders My Orders Orders - GARFIELD OROZCO Procedure Category Date Status Time Renal DIET 11/10/24 Transmitted Standard(2gna,3gk,Lopho) Lunch Date of Service: Nov 10, 2024 Billing Provider: SCOT IVORY MD Common Visit Codes: [id number] INP/OBS CARE(HIGH) GARFIELD OROZCO RESDIENT Nov 10, 2024 14:16 SCOT IVORY MD Nov 11, 2024 21:28
[2024-11-10] MEDS: ERTAPENEM SOD INJ 1 GM in SODIUM CHL 0.9% 50 ML IV SCH (14:59)
[2024-11-10 19:21] VITALS: BP 120/50; PULSE 106; RESP 18; TEMP 97.5; O2SAT 97
[2024-11-10 20:00] VITALS: PULSE 101
[2024-11-10] MEDS ORDERED: FURO40TA4 PO (20:54)
[2024-11-10] MEDS ORDERED: FURO20TA4 PO (20:54)
[2024-11-10] MEDS ORDERED: LEVO125T7 PO (20:54)
[2024-11-10] MEDS ORDERED: SPIR100T4 PO (20:54)
[2024-11-10 20:55] VITALS: BP 120/50; PULSE 106; RESP 18; TEMP 97.5; O2SAT 97
[2024-11-10 21:00] VITALS: BP 123/66; PULSE 101; RESP 18; TEMP 99.9; O2SAT 97
[2024-11-10 22:02] VITALS: TEMP 98.3
[2024-11-11] VITALS (8 sets, daily range): BP systolic 106–123; BP diastolic 45–58; PULSE 88–97; RESP 16–20; TEMP 97.6–99.7; O2SAT 94–96
[2024-11-11] MEDS ORDERED: cefTRIAXone 2GM/50ML D5W 50 ML IV SCH (01:00)
[2024-11-11 07:27] LABS: Basophils # (auto) 0.1 10 ^3/uL (0-0.2); Eosinophils # (auto) 0.2 10 ^3/uL (0-0.8); Hemoglobin 9.4 g/dL (12.2-16.2); Lymphocytes # (auto) 1.4 10 ^3/uL (0.4-5.4); Monocytes # (auto) 0.7 10 ^3/uL (0-1.3); Neutrophils % (auto) 55.8 % (37.0-80.0); Nucleated Red Blood Cells % 0.1 %
[2024-11-11 07:30] LABS: Basophils % (auto) 1.3 % (0.0-2.0); Eosinophils % (auto) 3.5 % (0.0-7.0); Hematocrit 26.6 % (36.0-46.0); Lymphocytes % (auto) 25.5 % (10.0-50.0); Mean Corpuscular Hemoglobin 34.9 pg (28.0-32.0); Mean Corpuscular Hgb Conc. 35.3 g/dL (32.0-36.0); Monocytes % (auto) 13.9 % (0.0-12.0); Platelet Count (auto) 94 10^3/uL (140-450); Red Blood Cells 2.69 10^6/uL (4.0-5.20); Red Cell Distribution Width 15.4 % (11.8-14.3); White Blood Cell 5.3 10^3/uL (4.4-10.8)
[2024-11-11 07:44] LABS: Alanine Aminotransferase 40 U/L (7-40); Albumin 2.3 g/dL (3.2-4.8); Alkaline Phosphatase 157 U/L (46-116); Anion Gap 7 (5-15); Aspartate Aminotransferase 54 U/L (<34); BUN/Creatinine Ratio 22.4 (10.0-20.0); Bilirubin, Total 2.3 mg/dL (0.2-1.0); Blood Urea Nitrogen 13 mg/dL (9-23); Calcium 8.6 mg/dL (8.7-10.4); Carbon Dioxide 22 mmol/L (20-31); Chloride 107 mmol/L (98-107); Glucose 98 mg/dL (74-106); Potassium 4.5 mmol/L (3.5-5.1); Sodium 136 mmol/L (136-145); Total Protein 4.9 g/dL (5.7-8.2)
[2024-11-11 12:07] LABS: Protein, Body Fluid 2.1 g/dL (.)
--- NOTE | 2024-11-11 13:08 | DVHPNRES ---
Progress Note Date Seen: Nov 11, 2024 Resident Creating Document: GARFIELD OROZCO EUSEBIO Has the PT tested + for MRSA If YES, has PT been informed?: No Medical Necessity Reason Pt with a Central, PICC or Fol: No Subjective Review of Systems Patient seen and examined at the bedside. Patient is feeling better since admission. Patient reports: No new complaints, Feels better Changes from previous H/P or p: Changes Objective vital signs Vital Sign Date Time Temp Pulse Resp B/P (MAP) Pulse Ox O2 Delivery O2 Flow Rate FiO2 11/11/24 08:58 97.9 94 18 113/52 (72) 95 97.9 11/11/24 08:00 Room Air* 0 21 Total Intake and Output 11/10/24 11/10/24 11/11/24 15:00 23:00 07:00 Intake Total 50 ml 600 ml Balance 50 ml 600 ml medications Current Medications Medications Dose Ordered Sig/Ana Route Start Time Stop Time Status Last Admin Dose Admin Spironolactone 50 mg DAILY PO 11/10/24 10:00 11/11/24 10:01 50 MG Pantoprazole Sodium 40 mg DAILY@0600 PO 11/10/24 06:00 11/11/24 05:34 40 MG Acetaminophen/ Hydrocodone Bitart 1 tab Q6HPRN PRN PO 11/10/24 03:45 11/10/24 20:41 1 TAB Levothyroxine Sodium 125 mcg QAM@0600 PO 11/10/24 06:00 UNV Levothyroxine Sodium 100 mcg QAM@0600 PO 11/10/24 06:00 11/11/24 05:34 100 MCG Levothyroxine Sodium 25 mcg QAM@0600 PO 11/10/24 06:00 11/11/24 05:34 25 MCG Ertapenem 1 gm/ Sodium Chloride 50 ml @ 100 mls/hr DAILY IV 11/10/24 10:00 11/11/24 10:01 100 MLS/HR Examination General Appearance: Alert, Oriented X3, Cooperative, No acute distress HEENT: Atraumatic, PERRLA, EOMI, Mucous membrane moist/pink Respiratory: Clear to auscultation, Normal air movement Cardiovascular: Regular rate, Normal S1, Normal S2, No murmurs, no chest wall tenderness Abdominal: Suprapubic tenderness, abdomen is distended with positive shifting dullness Extremities: No clubbing, No cyanosis, No edema, Normal pulses, No tenderness/swelling Skin: No rashes, No breakdown, No significant lesion Neuro: Normal gait, Normal speech, Strength at 5/5 X4 ext, Normal tone, Sensation intact, Cranial nerves 3-12 NL, Reflexes 2+ Psych/Mental Status: Mental status NL, Mood NL laboratory and microbiology Laboratory Tests 11/11/24 05:19 Test 11/11/24 05:19 Range/Units Serum Glucose 98 74-106 mg/dL Microbiology Date/Time Source Procedure Growth Status 11/10/24 08:15 Pleural Fluid Gram Stain Pending Resulted 11/10/24 08:15 Pleural Fluid Body Fluid Culture - Preliminary Resulted 11/09/24 23:07 Voided Urine Urine Culture - Preliminary Resulted 11/09/24 23:07 Blood Blood Culture - Preliminary NO GROWTH AFTER 24 HOURS OF INCUBATION. Resulted Labs and/or images reviewed: Labs reviewed by me, Image(s) reviewed by me Problem List/Assessment/Plan Problem List/Assessment/Plan Recurrent UTI History of UTI, ESBL Sepsis, likely due to UTI Complicated UTI Hypotension, due to sepsis Acute on chronic hepatic failure leading to his ascites Liver cirrhosis, unknown cause Ascites, due to liver cirrhosis Pleural effusion, likely due to ascites Hyperbilirubinemia Severe malnutrition Thrombocytopenia, likely due to liver cirrhosis ? Spontaneous bacterial peritonitis History of HFpEF Hypothyroidism * Ultrasound shows, ascites visualized, with the largest pocket in the right lower quadrant. with Large right pleural effusion incidentally noted * Chest x-ray shows right lower to meds zone opacity * UA shows UTI picture * Pleural fluid analysis shows transudative effusion Plan/recommendation: Thoracentesis performed, 1.5 L fluid has been drained Empiric antibiotic ertapenem IV fluid Urine culture/blood culture Continue home meds Spironolactone 50 mg daily DIET: Renal diet DVT PROPHYLAXIS: SCD CODE STATUS: Goal of care discussed for more than 18 minutes, full code DISPOSITION: Med/surge Patient's status and plan discussed with the patient. Case discussed with Dr. Ivory. Plan discussed with: Patient, Other (RN) Date of Service: Nov 11, 2024 Billing Provider: SCOT IVORY MD Common Visit Codes: [id number] INP/OBS CARE(HIGH) VINWONGFRANVINWOODY RESDIENT Nov 11, 2024 13:08 SCOT IVORY MD Nov 14, 2024 15:03
[2024-11-11] MEDS: DOCUSATE SOD 100 MG CAP PO PRN (16:41)
[2024-11-11] MEDS: POLYETHYLENE GLYCOL 17 GM PWDR PO ONE (21:15)
[2024-11-12] VITALS (18 sets, daily range): BP systolic 91–118; BP diastolic 38–55; PULSE 89–115; RESP 15–20; TEMP 97.5–99.2; O2SAT 91–99
[2024-11-12] MEDS: LACTATED RINGER'S 1,000 ML IV SCH (01:15)
[2024-11-12] MEDS: LACTATED RINGER'S 500 ML IV ONE (01:25)
[2024-11-12] MEDS: SODIUM CHLORIDE 0.9% 1,000 ML IV ONE (01:26)
[2024-11-12] MEDS: ONDANSETRON HCL 4 MG/2 ML VIAL ONE (02:00)
[2024-11-12] MEDS ORDERED: ONDANSETRON HCL 4 MG/2 ML VIAL IV PRN (02:00)
[2024-11-12] MEDS: ALBUMIN 25% 100 ML IV ONE (02:05)
[2024-11-12 05:16] LABS: Eosinophils # (auto) 0.1 10 ^3/uL (0-0.8); Monocytes # (auto) 0.6 10 ^3/uL (0-1.3)
[2024-11-12 05:19] LABS: Basophils # (auto) 0.1 10 ^3/uL (0-0.2); Basophils % (auto) 0.9 % (0.0-2.0); Eosinophils % (auto) 1.6 % (0.0-7.0); Hematocrit 19.3 % (36.0-46.0); Lymphocytes % (auto) 17.5 % (10.0-50.0); Mean Corpuscular Hemoglobin 34.9 pg (28.0-32.0); Mean Corpuscular Hgb Conc. 35.2 g/dL (32.0-36.0); Mean Corpuscular Volume 98.9 fL (80.0-100.0); Monocytes % (auto) 11.6 % (0.0-12.0); Neutrophils # (auto) 3.8 10 ^3/uL (1.6-8.6); Neutrophils % (auto) 68.4 % (37.0-80.0); Platelet Count (auto) 85 10^3/uL (140-450); Red Blood Cells 1.96 10^6/uL (4.0-5.20); Red Cell Distribution Width 15.5 % (11.8-14.3); White Blood Cell 5.5 10^3/uL (4.4-10.8)
[2024-11-12 05:26] LABS: Chloride 100 mmol/L (98-107); Potassium 4.4 mmol/L (3.5-5.1)
[2024-11-12 05:27] LABS: Anion Gap 8 (5-15); Carbon Dioxide 22 mmol/L (20-31)
[2024-11-12 05:29] LABS: Hemoglobin 6.8 g/dL (12.2-16.2)
[2024-11-12 05:33] LABS: Blood Urea Nitrogen 11 mg/dL (9-23)
[2024-11-12 05:34] LABS: Calcium 7.8 mg/dL (8.7-10.4); Glucose 111 mg/dL (74-106); Sodium 130 mmol/L (136-145)
--- NOTE | 2024-11-12 06:50 | RESUS ---
CODE ASSIST ASSESSSMENT Initial Information Code Assist Date: Nov 12, 2024 Code Assist Time: 00:42 Location of Arrest: [facility] Room # 201 Provider Name BENITA Time Notified: 00:42 Time PMD returned call: 00:43 Crash Cart Opened and Supplies: No Situation Staff concerned/worried, speci: SBP <90 or 10 from baseli Situation comment: patient was being assisted by ASSISTANT FINANCE DIRECTOR back to bed after using the restroom where she felt light headed and was assisted to lay down. Vitals taken laying in bed 76/37 , sitting down 63/37. Background Background: 58 y/o F is BIBA for c/o generalized weakness. Per EMS report, patient felt sudden onset of weakness after getting up to use the bathroom, this evening. Patient has a history of CHF, liver cirrhosis, hypothyroidism, recurrent pleural effusions with thoracentesis, leukopenia, sepsis, and thrombocytopenia in addition to current UTI, that she stills on antibiotics for. Patient reports further on recent increase in her Lasix dosage, lately, to assist with her recurrent pleural effusions. She denies having any chest pain, shortness of breath, fever, chills, or further associated symptoms. Patient was found with hypotensive, initially, on scene, with a systolic pressure in the 80's. Assessment Temperature (Fahrenheit): 97.5 Blood Pressure Systolic: 113 Blood Pressure Diastolic: 43 Respiratory Rate: 17 O2 Sat by Pulse Oximetry: 99 Bedside Blood Glucose: 105 Assessment comment: PT AAOX4 FEELING WEAK BP IMPROVED 113/51 HR85 SAO2 98 Recommendations/Interventions Procedures: Accu check Outcome Outcome: Problem Resolved Team Members Team Members BENITA CUT OUT PRESS OPERATOR, DAMIÁN RN HS, STEVE MANAGER PHARMACEUTICAL CHARGE, WIL GRINDING WHEEL DRESSER, YONNY RN, ROSITA RT, DAMIÁN BARTHOLOMEW Nov 12, 2024 06:50
[2024-11-12] MEDS ORDERED: SPIRONOLACTONE 25 MG TAB PO SCH (10:00)
--- NOTE | 2024-11-12 13:12 | DVHCONRES ---
Date Seen: Nov 12, 2024 Resident Creating Document: DILEEP MURHPY RESIDENT Referring Physician Sharonda Salmeron MD History of Present Illness Patient is 58 years old female with a past medical history of cirrhosis of liver, hypothyroidism, recurrent right-sided pleural effusion, HFpEF came to the hospital with a complaint of weakness and hypotension. Patient also endorsed diffuse abdominal pain on arrival. Patient was recently diagnosed with the UTI and on was on Macrobid. As per patient she gets right-sided thoracentesis every 2 weeks. On arrival to the ER patient was hypotensive. As per patient her doctor recently increased her Lasix to 40 and spironolactone to 200. Initial lab workup revealed hemoglobin 11.4, platelet 94, lactic acid 2.6, AST 70, ALT 41, alkaline phosphatase 190. Urinalysis revealed leukocyte esterase 2+, WBC 24, bacteria few. Post admission patient also had a thoracentesis which revealed RBC [id number]. CXR revealed -Large right pleural effusion.. Single organ Ultrasound of the abdomen revealed -Ascites visualized, with the largest pocket in the right lower quadrant. Large right pleural effusion incidentally noted. Patient was seen today at bedside. Patient had rapid response team called due to lightheadedness when patient went to the restroom. Patient was found to have hypotension with blood pressure 76/37, on sitting 63/37. Patient was also found to have dropped hemoglobin below 7. Patient was given bolus of lingual reactive solution 500 mL and also albumin. Following that blood pressure was 100/42. Hemoglobin today 6.8, hematocrit 19.3, platelet 85. ammonia< 10, Urine culture likely contaminated sample Blood culture no growth so far Pleural fluid no growth so far Family History: Cirrhosis of liver G8 FATHER Colitis G8 MOTHER Colon cancer G8 MOTHER Hypertension G8 MOTHER Malignant neoplasm of breast G8 MOTHER Osteoporosis G8 MOTHER Allergies: Coded Allergies: NO KNOWN ALLERGIES (Unverified , 05/08/19) Home Meds Active Scripts Hydrocodone-Acetaminophen (Hydrocodone Bitartrate/AC 5-325 mg) 1 Tab Tab, 1 TAB PO QID PRN, #30 TAB Prov:MARYBETH ISLAS MD 07/20/24 Reported Medications Spironolactone (Spironolactone) 100 Mg Tab, 1 TAB PO DAILY 11/10/24 Furosemide (Furosemide) 20 Mg Tab, 1 TAB PO QPM 11/10/24 Furosemide (Furosemide) 40 Mg Tab, 1 TAB PO QAM 11/10/24 Levothyroxine Sodium (Levothyroxine Sodium) 125 Mcg Tab, 1 TAB PO DAILY 11/10/24 Current Medications Current Medications Medications (Trade) Dose Ordered Sig/Ana Route PRN Reason Start Time Stop Time Status Last Admin Docusate Sodium (Colace Capsule) 100 mg DAILYPRN PRN PO FOR CONSTIPATION 11/11/24 16:00 11/11/24 16:41 Spironolactone (Aldactone) 12.5 mg DAILY PO 11/12/24 10:00 11/12/24 07:06 DC Lactated Ringer's 1,000 ml @ 100 mls/hr Q10H IV 11/12/24 01:15 11/12/24 01:15 Ondansetron HCl (Zofran) 4 mg Q6HPRN PRN IV NAUSEA / VOMITING 11/12/24 02:00 Pantoprazole Sodium (Protonix) 40 mg DAILY IV 11/13/24 10:00 Levothyroxine Sodium (Synthroid Tablet) 125 mcg QAM@0600 PO 11/13/24 06:00 Vital Signs Vital Signs Date Time Temp Pulse Resp B/P (MAP) Pulse Ox O2 Delivery O2 Flow Rate FiO2 11/12/24 11:15 98.2 107 16 100/43 98.2 11/12/24 09:00 97 11/12/24 08:00 Room Air* 0 21 Labs/Diagnostic Data Labs Test 11/12/24 08:31 11/12/24 04:24 11/12/24 03:31 11/12/24 00:49 Range/Units Lactic Acid Level 2.0 0.4-2.0 mmol/L White Blood Count 5.5 4.4-10.8 10^3/uL Red Blood Count 1.96 L 4.0-5.20 10^6/uL Hemoglobin 6.8 #*L 12.2-16.2 g/dL Hematocrit 19.3 #L 36.0-46.0 % Mean Corpuscular Volume 98.9 80.0-100.0 fL Mean Corpuscular Hemoglobin 34.9 H 28.0-32.0 pg Mean Corpuscular Hemoglobin Concent 35.2 32.0-36.0 g/dL Red Cell Distribution Width 15.5 H 11.8-14.3 % Platelet Count 85 L 140-450 10^3/uL Mean Platelet Volume 8.2 6.9-10.8 fL Neutrophils (%) (Auto) 68.4 37.0-80.0 % Lymphocytes (%) (Auto) 17.5 10.0-50.0 % Monocytes (%) (Auto) 11.6 0.0-12.0 % Eosinophils (%) (Auto) 1.6 0.0-7.0 % Basophils (%) (Auto) 0.9 0.0-2.0 % Neutrophils # (Auto) 3.8 1.6-8.6 10 ^3/uL Lymphocytes # (Auto) 1.0 0.4-5.4 10 ^3/uL Monocytes # (Auto) 0.6 0-1.3 10 ^3/uL Eosinophils # (Auto) 0.1 0-0.8 10 ^3/uL Basophils # (Auto) 0.1 0-0.2 10 ^3/uL Nucleated Red Blood Cells 0.0 % Sodium Level 130 #L 136-145 mmol/L Potassium Level 4.4 3.5-5.1 mmol/L Chloride Level 100 98-107 mmol/L Carbon Dioxide Level 22 20-31 mmol/L Anion Gap 8 5-15 Blood Urea Nitrogen 11 9-23 mg/dL Creatinine 0.55 0.550-1.02 mg/dL Glomerular Filtration Rate Calc 106 >90 mL/min BUN/Creatinine Ratio 20.0 10.0-20.0 Serum Glucose 111 H 74-106 mg/dL Calcium Level 7.8 L 8.7-10.4 mg/dL Ammonia < 10 L 11-32 umol/L Thyroid Stimulating Hormone (TSH) 3.96 0.55-4.78 uIU/mL Stool Occult Blood Negative Negative Stool Occult Blood Sample #3 Negative POC Glucose 105 70-106 mg/dl Test 11/11/24 05:19 11/10/24 08:15 11/10/24 06:03 11/09/24 23:07 Range/Units Total Bilirubin 2.3 H 0.2-1.0 mg/dL Aspartate Amino Transferase (AST) 54 H <34 U/L Alanine Aminotransferase (ALT) 40 7-40 U/L Alkaline Phosphatase 157 H 46-116 U/L Total Protein 4.9 L 5.7-8.2 g/dL Albumin 2.3 L 3.2-4.8 g/dL Body Fluid Source Pleural fluid Body Fluid pH 8.0 Body Fluid WBC (Manual) 654 H 0-200 CUMM Body Fluid RBC (Manual) 320923 H 0-2000 CUMM Body Fluid Mononuclear Cells 84 % Body Fluid Polymorphonuclear Cells 16 0-25 % Body Fluid Glucose 125 . mg/dL Body Fluid Total Protein 2.1 . g/dL Body Fluid Lactate Dehydrogenase 112 . IU/L Prothrombin Time 14.6 H 9.3-11.8 sec Prothrombin Time INR 1.43 H 0.9-1.15 Activated Partial Thromboplast Time 27.1 24.5-34.5 SEC B-Type Natriuretic Peptide 50.78 0-100 pg/mL Test 11/09/24 23:00 Range/Units Urine Color Yellow Yellow Urine Clarity Turbid H Clear Urine pH 5.0 5.0-9.0 Urine Specific [place] 1.017 1.001-1.035 Urine Protein Trace H Negative Urine Ketones Negative Negative Urine Blood 2+ H Negative /uL Urine Nitrite Negative Negative Urine Bilirubin Negative Negative Urine Urobilinogen Normal Negative mg/dL Urine Leukocyte Esterase 2+ Negative /uL Urine RBC 8 0 - 4 /hpf Urine Microscopic WBC 34 H 0-5 /HPF Urine Squamous Epithelial Cells Few <5 /hpf Urine Bacteria Few H None Seen /hpf Urine Hyaline Casts Few 0 - 2 /lpf Urine Mucus Few None Seen Urine Glucose Normal Normal mg/dL Microbiology Date/Time Source Procedure Growth Status 11/10/24 08:15 Pleural Fluid Gram Stain - Final Resulted 11/10/24 08:15 Pleural Fluid Body Fluid Culture - Preliminary Resulted 11/09/24 23:07 Voided Urine Urine Culture - Final Complete 11/09/24 23:07 Blood Blood Culture - Preliminary NO GROWTH AFTER 48 HOURS OF INCUBATION. Resulted Assessment Assessment and plan Sepsis likely due to UTI Cirrhosis of liver Suspected spontaneous bacterial peritonitis Severe anemia and thrombocytopenia Right-sided recurrent pleural effusion, status post thoracentesis Ascites Events Patient had a hypotensive episode and rapid response was called Patient's hemoglobin dropped below 7 Patient had bolus of 500 mL lactated ringer and albumin IV Patient had thoracentesis on 11/10/2024 with revealed [id number] Serum ammonia less than 10, lactic acid with a normal limit Blood culture no growth so far Urine culture lactic contaminated sample Plan Recommended 1 units of packed red blood cell, 1 units of FFP Clear liquid diet Continue pantoprazole IV Continue current IV antibiotic we will continue monitoring H&H, Possible upper endoscopy when appropriate Ordered stool occult blood test Monitor PTPTT Plan discussed with Dr. Roselyn Irwin , nursing staff, Total time spent on patient evaluation, chart review, assessment and plan, discussion discussion >35 minutes Plan discussed with: Patient, Other (RN) DILEEP MURPHY RESIDENT Nov 12, 2024 13:12
[2024-11-12 15:21] LABS: Basophils # (auto) 0 10 ^3/uL (0-0.2); Basophils % (auto) 0.8 % (0.0-2.0); Eosinophils # (auto) 0.2 10 ^3/uL (0-0.8); Eosinophils % (auto) 3.2 % (0.0-7.0); Hematocrit 24.1 % (36.0-46.0); Hemoglobin 8.5 g/dL (12.2-16.2); Lymphocytes # (auto) 1.4 10 ^3/uL (0.4-5.4); Lymphocytes % (auto) 23.7 % (10.0-50.0); Mean Corpuscular Hemoglobin 33.9 pg (28.0-32.0); Mean Corpuscular Hgb Conc. 35.1 g/dL (32.0-36.0); Mean Corpuscular Volume 96.6 fL (80.0-100.0); Monocytes # (auto) 0.9 10 ^3/uL (0-1.3); Monocytes % (auto) 14.5 % (0.0-12.0); Neutrophils # (auto) 3.5 10 ^3/uL (1.6-8.6); Neutrophils % (auto) 57.8 % (37.0-80.0); Platelet Count (auto) 93 10^3/uL (140-450); Red Blood Cells 2.49 10^6/uL (4.0-5.20); Red Cell Distribution Width 15.6 % (11.8-14.3); White Blood Cell 6.1 10^3/uL (4.4-10.8)
--- NOTE | 2024-11-12 15:22 | DVH ---
XY CHEST XRAY 1 VIEW, HISTORY: Pleural effusion COMPARISON: XY CHEST PORTABLE on DOS: 11/10/24, XY CHEST PORTABLE on DOS: 11/10/24, XY CHEST PORTABLE o n DOS: 10/29/24 XY CHEST PORTABLE on DOS: 11/10/24, XY CHEST PORTABLE on DOS: 11/10/24, XY CHEST PORTABLE on DOS: 5 TECHNICAL DATA: 1 view of the chest was obtained. FINDINGS: Lines and tubes: None Cardiomediastinal silhouette: Prominent Pulmonary vasculature: normal Lung expansion: normal Lung airspace: Right basilar consolidation. Lung interstitium: normal Pleura: normal Pneumothorax: no Bones: Unremarkable Other: no IMPRESSION: Large right pleural effusion.
[2024-11-12] MEDS: PANTOPRAZOLE 40 MG/10 ML VIAL INJ IV SCH (21:42)
--- NOTE | 2024-11-12 21:51 | DVHPNRES ---
Progress Note Date Seen: Nov 13, 2024 Resident Creating Document: GARFIELD OROZCO EUSEBIO Has the PT tested + for MRSA If YES, has PT been informed?: No Medical Necessity Reason Pt with a Central, PICC or Fol: No Subjective Review of Systems Patient seen and examined at bedside. Patient is complaining of shortness of breathe and generalized weakness. Objective vital signs Vital Sign Date Time Temp Pulse Resp B/P (MAP) Pulse Ox O2 Delivery O2 Flow Rate FiO2 11/12/24 21:00 98.5 102 18 105/43 (63) 91 98.5 11/12/24 20:00 Room Air* 0 21 Total Intake and Output 11/11/24 11/11/24 11/12/24 15:00 23:00 07:00 Intake Total 50 ml 1000 ml 750 ml Balance 50 ml 1000 ml 750 ml medications Current Medications Medications Dose Ordered Sig/Ana Route Start Time Stop Time Status Last Admin Dose Admin Acetaminophen/ Hydrocodone Bitart 1 tab Q6HPRN PRN PO 11/10/24 03:45 11/10/24 20:41 1 TAB Levothyroxine Sodium 125 mcg QAM@0600 PO 11/10/24 06:00 UNV Ertapenem 1 gm/ Sodium Chloride 50 ml @ 100 mls/hr DAILY IV 11/10/24 10:00 11/12/24 09:23 100 MLS/HR Docusate Sodium 100 mg DAILYPRN PRN PO 11/11/24 16:00 11/11/24 16:41 100 MG Lactated Ringer's 1,000 ml @ 100 mls/hr Q10H IV 11/12/24 01:15 11/12/24 21:42 100 MLS/HR Ondansetron HCl 4 mg Q6HPRN PRN IV 11/12/24 02:00 Levothyroxine Sodium 125 mcg QAM@0600 PO 11/13/24 06:00 Pantoprazole Sodium 40 mg BID IV 11/12/24 22:00 11/12/24 21:42 40 MG Examination General Appearance: Alert, Oriented X3, Cooperative, No acute distress HEENT: Atraumatic, PERRLA, EOMI, Mucous membrane moist/pink Respiratory: Decreased breath sound on the right side Cardiovascular: Regular rate, Normal S1, Normal S2, No murmurs, no chest wall tenderness Abdominal: Normal bowel sounds, Soft, No tenderness, No hepatospenomegaly, No masses Extremities: No clubbing, No cyanosis, No edema, Normal pulses, No tenderness/swelling Skin: No rashes, No breakdown, No significant lesion Neuro: Normal gait, Normal speech, Strength at 5/5 X4 ext, Normal tone, Sensation intact, Cranial nerves 3-12 NL, Reflexes 2+ Psych/Mental Status: Mental status NL, Mood NL laboratory and microbiology Laboratory Tests 11/12/24 15:08 11/12/24 04:24 Test 11/12/24 04:24 Range/Units Serum Glucose 111 H 74-106 mg/dL Microbiology Date/Time Source Procedure Growth Status 11/10/24 08:15 Pleural Fluid Gram Stain - Final Resulted 11/10/24 08:15 Pleural Fluid Body Fluid Culture - Preliminary Resulted 11/09/24 23:07 Voided Urine Urine Culture - Final Complete 11/09/24 23:07 Blood Blood Culture - Preliminary NO GROWTH AFTER 48 HOURS OF INCUBATION. Resulted Labs and/or images reviewed: Labs reviewed by me, Image(s) reviewed by me Problem List/Assessment/Plan Problem List/Assessment/Plan Recurrent UTI History of UTI, ESBL Sepsis, likely due to UTI Complicated UTI Recurrent pleural effusion, likely hemorrhagic Acute hypoxic respiratory failure, likely due to pleural effusion Precipitous hemoglobin dropped Severe anemia, status post transfusion UA, 1 units Hypotension, due to sepsis Acute on chronic hepatic failure leading to his ascites Liver cirrhosis, unknown cause Ascites, due to liver cirrhosis Pleural effusion, likely due to ascites Hyperbilirubinemia Severe malnutrition Thrombocytopenia, likely due to liver cirrhosis ? Spontaneous bacterial peritonitis History of HFpEF Hypothyroidism * Ultrasound shows, ascites visualized, with the largest pocket in the right lower quadrant. with Large right pleural effusion incidentally noted * Chest x-ray shows right lower to meds zone opacity * UA shows UTI picture * Pleural fluid analysis shows hemorrhagic/ transudative effusion * Repeat chest x-ray shows of fluid buildup on the right side Plan/recommendation: * Thoracentesis performed, 1.5 L fluid has been drained * Empiric antibiotic ertapenem * IV fluid * Urine culture/blood culture * Continue home meds * Lasix 100 mg daily * Oxygen through nasal cannula * Chest CT scan with IV contrast * Consulted the pulmonology for recurrent hemorrhagic pleural effusion DIET: Renal diet DVT PROPHYLAXIS: SCD CODE STATUS: Goal of care discussed for more than 18 minutes, full code DISPOSITION: Telemetry Patient's status and plan discussed with the patient. Case discussed with Dr. Ivory. Plan discussed with: Patient, Other (RN) My Orders My Orders Orders - GARFIELD OROZCO RESDINASREEN Procedure Category Date Status Time Discontinue Tele RAYSHAWN 11/12/24 In Process 06:29 Communication Order ORDERS 11/12/24 Transmitted 06:29 Communication Order ORDERS 11/12/24 Transmitted 07:02 Levothyroxine Tablet PHA 11/13/24 In Process (Synthroid Tablet) 06:00 * [facility] [place] Chief CONS 11/12/24 Transmitted 09:43 Ok To Leave On Tele ORDERS 11/12/24 Transmitted 11:49 Chest Xray 1 View XY 11/12/24 Resulted 12:01 Communication Order ORDERS 11/12/24 Transmitted 13:45 Basic Metabolic Panel LAB 11/13/24 Verified 04:00 Complete Blood Count LAB 11/13/24 Verified 04:00 Date of Service: Nov 13, 2024 Billing Provider: SCOT IVORY MD Common Visit Codes: [id number] INP/OBS CARE(HIGH) GARFIELD OROZCO RESDIENT Nov 12, 2024 21:51 SCOT IVORY MD Nov 14, 2024 15:32
[2024-11-13] VITALS (10 sets, daily range): BP systolic 103–125; BP diastolic 39–51; PULSE 91–104; RESP 16–20; TEMP 97.9–100; O2SAT 90–95
[2024-11-13 05:37] LABS: Basophils # (auto) 0 10 ^3/uL (0-0.2); Eosinophils # (auto) 0.4 10 ^3/uL (0-0.8); Eosinophils % (auto) 12.2 % (0.0-7.0); Hematocrit 22.8 % (36.0-46.0); Hemoglobin 8.1 g/dL (12.2-16.2); Lymphocytes % (auto) 29.8 % (10.0-50.0); Mean Corpuscular Hemoglobin 34.5 pg (28.0-32.0); Mean Corpuscular Hgb Conc. 35.6 g/dL (32.0-36.0); Mean Corpuscular Volume 96.8 fL (80.0-100.0); Monocytes # (auto) 0.5 10 ^3/uL (0-1.3); Monocytes % (auto) 14.8 % (0.0-12.0); Neutrophils # (auto) 1.5 10 ^3/uL (1.6-8.6); Neutrophils % (auto) 42.2 % (37.0-80.0); Nucleated Red Blood Cells % 0.1 %; Platelet Count (auto) 66 10^3/uL (140-450); Red Blood Cells 2.35 10^6/uL (4.0-5.20); Red Cell Distribution Width 15.6 % (11.8-14.3); White Blood Cell 3.5 10^3/uL (4.4-10.8)
[2024-11-13] MEDS: LEVOTHYROXINE SODIUM 50 MCG TAB PO SCH (05:47)
[2024-11-13 05:57] LABS: Chloride 100 mmol/L (98-107); Potassium 3.8 mmol/L (3.5-5.1)
[2024-11-13 05:58] LABS: Anion Gap 8 (5-15); Carbon Dioxide 22 mmol/L (20-31); INR 1.49 (0.9-1.15); Partial Thromboplastin Time 31.6 SEC (24.5-34.5); Prothrombin Time 15.2 sec (9.3-11.8)
[2024-11-13 06:00] LABS: Calcium 8.2 mg/dL (8.7-10.4); Sodium 130 mmol/L (136-145)
[2024-11-13 06:03] LABS: BUN/Creatinine Ratio 23.4 (10.0-20.0); Blood Urea Nitrogen 11 mg/dL (9-23); Glucose 82 mg/dL (74-106)
[2024-11-13] MEDS ORDERED: PANTOPRAZOLE 40 MG/10 ML VIAL INJ IV SCH (10:00)
--- NOTE | 2024-11-13 10:20 | DVH ---
Bilateral Chest Sonogram Date: 11/13/2024 09:44 AM Clinical history: pleural effusion Findings and Technique: Limited sonographic evaluation of the right and left chest was performed. There is a large right pleu ral effusion. No left pleural effusion. IMPRESSION: 1. Large right pleural fusion. 2. No left pleural fusion.
--- NOTE | 2024-11-13 10:52 | DVHPN2 ---
Progress Note Date Seen: Nov 13, 2024 Resident Creating Document: DILEEP MURPHY RESIDENT Has the PT tested + for MRSA If YES, has PT been informed?: No Medical Necessity Reason Pt with a Central, PICC or Fol: No Subjective Review of Systems Patient was seen today at bedside Patient reported feeling better than yesterday Patient had blood transfusion and FFP transfusion yesterday H&H 8.1/ 22.2 Thrombocytopenia with platelet 66, platelet trending down Stool occult blood test negative CXR on 11/12/24 revealed- Large right pleural fusion. On 11/13/2024 Ultrasound of the chest revealed right-sided pleural effusion, Objective vital signs Vital Sign Date Time Temp Pulse Resp B/P (MAP) Pulse Ox O2 Delivery O2 Flow Rate FiO2 11/13/24 09:00 98.7 96 18 120/47 (71) 95 98.7 11/12/24 20:00 Room Air* 0 21 Total Intake and Output 11/12/24 11/12/24 11/13/24 15:00 23:00 07:00 Intake Total 950 ml 1671 ml 2028 ml Balance 950 ml 1671 ml 2028 ml medications Current Medications Medications Dose Ordered Sig/Ana Route Start Time Stop Time Status Last Admin Dose Admin Acetaminophen/ Hydrocodone Bitart 1 tab Q6HPRN PRN PO 11/10/24 03:45 11/10/24 20:41 1 TAB Levothyroxine Sodium 125 mcg QAM@0600 PO 11/10/24 06:00 UNV Ertapenem 1 gm/ Sodium Chloride 50 ml @ 100 mls/hr DAILY IV 11/10/24 10:00 11/12/24 09:23 100 MLS/HR Docusate Sodium 100 mg DAILYPRN PRN PO 11/11/24 16:00 11/11/24 16:41 100 MG Lactated Ringer's 1,000 ml @ 100 mls/hr Q10H IV 11/12/24 01:15 11/12/24 21:42 100 MLS/HR Ondansetron HCl 4 mg Q6HPRN PRN IV 11/12/24 02:00 Levothyroxine Sodium 125 mcg QAM@0600 PO 11/13/24 06:00 11/13/24 05:47 125 MCG Pantoprazole Sodium 40 mg BID IV 11/12/24 22:00 11/12/24 21:42 40 MG Furosemide 40 mg DAILY PO 11/13/24 10:00 Spironolactone 100 mg DAILY PO 11/13/24 10:00 laboratory and microbiology Laboratory Tests 11/13/24 04:55 Test 11/13/24 04:55 Range/Units Serum Glucose 82 74-106 mg/dL Microbiology Date/Time Source Procedure Growth Status 11/10/24 08:15 Pleural Fluid Gram Stain - Final Resulted 11/10/24 08:15 Pleural Fluid Body Fluid Culture - Preliminary Resulted 11/09/24 23:07 Voided Urine Urine Culture - Final Complete 11/09/24 23:07 Blood Blood Culture - Preliminary NO GROWTH AFTER 72 HOURS OF INCUBATION. Resulted Problem List/Assessment/Plan Problem List/Assessment/Plan Assessment and plan Sepsis likely due to UTI Cirrhosis of liver Suspected spontaneous bacterial peritonitis Severe anemia and thrombocytopenia Right-sided recurrent pleural effusion, status post thoracentesis Ascites Events Patient reported feeling better than yesterday Patient had blood transfusion and FFP transfusion yesterday H&H 8.1.2 Thrombocytopenia with platelet 66, platelet trending down Stool occult blood test negative CXR on 11/12/24 revealed- Large right pleural fusion. On 11/13/2024 Ultrasound of the chest revealed right-sided pleural effusion, Plan Packed red Blood transfusion if hemoglobin less than 7 Patient might need thgoracentesis of right hemithorax Clear liquid diet Continue pantoprazole IV Continue current IV antibiotic we will continue monitoring H&H, Monitor PTPTT Plan discussed with Dr. Roselyn Irwin , nursing staff, Total time spent on patient evaluation, chart review, assessment and plan, discussion discussion >35 minutes Plan discussed with: Patient, Other (RN) Plan discussed with: Patient (RN), Other My Orders My Orders Orders - DILEEP MURPHY Procedure Category Date Status Time Pantoprazole PHA 11/12/24 In Process (Protonix) 22:00 Stool Occult Blood LAB 11/12/24 Logged 14:18 Clear Liq Diet DIET 11/12/24 Transmitted Dinner DILEEP MURPHY Nov 13, 2024 10:52
[2024-11-13] MEDS: SPIRONOLACTONE 25 MG TAB PO SCH (11:25)
[2024-11-13] MEDS: FUROSEMIDE 20 MG TAB PO SCH (11:27)
[2024-11-13] MEDS: IOHEXOL 300 MG/ML 100ML BOTTLE IJ ONE (11:42)
--- NOTE | 2024-11-13 12:47 | DVHPNRES ---
Progress Note Date Seen: Nov 13, 2024 Resident Creating Document: GARFIELD OROZCO EUSEBIO Has the PT tested + for MRSA If YES, has PT been informed?: No Medical Necessity Reason Pt with a Central, PICC or Fol: No Subjective Review of Systems Patient seen and examined at bedside. Patient is complaining of generalized weakness, shortness of breaths. Patient reports: No new complaints, Feels better Changes from previous H/P or p: Changes Objective vital signs Vital Sign Date Time Temp Pulse Resp B/P (MAP) Pulse Ox O2 Delivery O2 Flow Rate FiO2 11/13/24 11:27 139/56 11/13/24 09:00 98.7 96 18 95 98.7 11/12/24 20:00 Room Air* 0 21 Total Intake and Output 11/12/24 11/12/24 11/13/24 15:00 23:00 07:00 Intake Total 950 ml 1671 ml 2028 ml Balance 950 ml 1671 ml 2028 ml medications Current Medications Medications Dose Ordered Sig/Ana Route Start Time Stop Time Status Last Admin Dose Admin Acetaminophen/ Hydrocodone Bitart 1 tab Q6HPRN PRN PO 11/10/24 03:45 11/10/24 20:41 1 TAB Levothyroxine Sodium 125 mcg QAM@0600 PO 11/10/24 06:00 UNV Ertapenem 1 gm/ Sodium Chloride 50 ml @ 100 mls/hr DAILY IV 11/10/24 10:00 11/13/24 12:05 100 MLS/HR Docusate Sodium 100 mg DAILYPRN PRN PO 11/11/24 16:00 11/11/24 16:41 100 MG Lactated Ringer's 1,000 ml @ 100 mls/hr Q10H IV 11/12/24 01:15 11/12/24 21:42 100 MLS/HR Ondansetron HCl 4 mg Q6HPRN PRN IV 11/12/24 02:00 Levothyroxine Sodium 125 mcg QAM@0600 PO 11/13/24 06:00 11/13/24 05:47 125 MCG Pantoprazole Sodium 40 mg BID IV 11/12/24 22:00 11/13/24 11:24 40 MG Furosemide 40 mg DAILY PO 11/13/24 10:00 11/13/24 11:27 40 MG Spironolactone 100 mg DAILY PO 11/13/24 10:00 11/13/24 11:25 100 MG Examination General Appearance: Alert, Oriented X3, Cooperative, No acute distress HEENT: Atraumatic, PERRLA, EOMI, Mucous membrane moist/pink Respiratory: Decreased breath sound on right side Cardiovascular: Regular rate, Normal S1, Normal S2, No murmurs, no chest wall tenderness Abdominal: Normal bowel sounds, Soft, No tenderness, No hepatospenomegaly, No masses Extremities: No clubbing, No cyanosis, No edema, Normal pulses, No tenderness/swelling Skin: No rashes, No breakdown, No significant lesion Neuro: Normal gait, Normal speech, Strength at 5/5 X4 ext, Normal tone, Sensation intact, Cranial nerves 3-12 NL, Reflexes 2+ Psych/Mental Status: Mental status NL, Mood NL laboratory and microbiology Laboratory Tests 11/13/24 04:55 Test 11/13/24 04:55 Range/Units Serum Glucose 82 74-106 mg/dL Microbiology Date/Time Source Procedure Growth Status 11/10/24 08:15 Pleural Fluid Gram Stain - Final Resulted 11/10/24 08:15 Pleural Fluid Body Fluid Culture - Preliminary Resulted 11/09/24 23:07 Voided Urine Urine Culture - Final Complete 11/09/24 23:07 Blood Blood Culture - Preliminary NO GROWTH AFTER 72 HOURS OF INCUBATION. Resulted Labs and/or images reviewed: Labs reviewed by me, Image(s) reviewed by me Problem List/Assessment/Plan Problem List/Assessment/Plan Recurrent UTI History of UTI, ESBL Sepsis, likely due to UTI Complicated UTI Recurrent pleural effusion, likely hemorrhagic Acute hypoxic respiratory failure, likely due to pleural effusion Precipitous hemoglobin dropped Severe anemia, status post transfusion UA, 1 units Hypotension, due to sepsis Acute on chronic hepatic failure leading to his ascites Liver cirrhosis, unknown cause Ascites, due to liver cirrhosis Pleural effusion, likely due to ascites Hyperbilirubinemia Severe malnutrition Thrombocytopenia, likely due to liver cirrhosis ? Spontaneous bacterial peritonitis History of HFpEF Hypothyroidism * Ultrasound shows, ascites visualized, with the largest pocket in the right lower quadrant. with Large right pleural effusion incidentally noted * Chest x-ray shows right lower to meds zone opacity * UA shows UTI picture * Pleural fluid analysis shows hemorrhagic/ transudative effusion * Repeat chest x-ray shows of fluid buildup on the right side Plan/recommendation: * Thoracentesis performed, 1.5 L fluid has been drained * Empiric antibiotic ertapenem * IV fluid * Urine culture/blood culture * Continue home meds * Lasix 100 mg daily * Oxygen through nasal cannula * Chest CT scan with IV contrast * Consulted the pulmonology for recurrent hemorrhagic pleural effusion DIET: Renal diet DVT PROPHYLAXIS: SCD CODE STATUS: Goal of care discussed for more than 18 minutes, full code DISPOSITION: Med/surge Patient's status and plan discussed with the patient. Case discussed with Dr. Ivory. Plan discussed with: Patient, Other (RN) My Orders My Orders Orders - GARFIELD OROZCO RESJACQUI Procedure Category Date Status Time Communication Order ORDERS 11/12/24 Transmitted 13:45 Chest Ultrasound US 11/13/24 Resulted 09:36 Furosemide Tablet PHA 11/13/24 In Process (Lasix Tablet) 10:00 Spironolactone PHA 11/13/24 In Process (Aldactone) 10:00 *Consult CONS 11/13/24 Transmitted / 10:45 Ct Chest With And Wo CT 11/13/24 Taken 11:17 Cardiac DIET 11/13/24 Transmitted Diet-2gna,Lofat,Lochol Lunch Date of Service: Nov 13, 2024 Billing Provider: SCOT IVORY MD Common Visit Codes: [id number] INP/OBS CARE(HIGH) GARFIELD OROZCO RESDIENT Nov 13, 2024 12:47 SCOT IVORY MD Nov 14, 2024 15:32
--- NOTE | 2024-11-13 12:50 | DVH ---
CT CT CHEST WITH AND WO INDICATION: pleural effusion, malignant EXAM DATE: 11/13/2024 11:38 AM COMPARISON: None RADIATION DOSE: CTDIvol: 15.1 mGy, DLP: 1124.19 mGy*cm PROCEDURE: Helical CT images were obtained of the chest with intravenous contrast. Sagittal and aminah nal reconstructions are provided. ADDITIONAL IMAGES / REFORMATS: None All CT scans at this medical facility are performed using dose modulation techniques as appropriate t o a performed exam including the following: Automated exposure control was utilized; adjustment of th e MA and/or KV according to patient size; and use of iterative reconstruction technique. FINDINGS: Bones: Scattered degenerative changes are noted. Visualized Abdomen: Cirrhosis with portal systemic collaterals and ascites. Possible mild left hydron ephrosis. Chest Wall: Normal. Soft tissues: Normal. Mediastinum: Normal. Heart: Coronary artery calcifications are noted. Vessels: Normal. Lymph Nodes: Normal. Pleura: Large right pleural effusion. Airways: Normal. Lung: Right basilar consolidation likely compressive atelectasis. Pathcy left apical subpleural groun d glass opacities, nonspecific. Other: None IMPRESSION: Right basilar consolidation likely compressive atelectasis. Pathcy left apical subpleural ground glas s opacities, nonspecific. Large right pleural effusion. If malignant pleural effusion is suspected, r eview chart for the previous pleural effusion cytology. Cirrhosis with portal systemic collaterals and ascites. Possible mild left hydronephrosis.
--- NOTE | 2024-11-13 14:57 | DVHINCON2 ---
Date of service: Nov 13, 2024 Referring Physician GARFIELD OROZCO Reason for Consultation Acute respiratory failure History of Present Illness History Source: Patient Exam Limitations: No limitations HPI Patient is a 58-year old lady with a history of cryptogenic cirrhosis and pleural effusions requiring previous thoracentesis who presented with shortness of breath. Was seen in the emergency room where he was found to have evidence of fluid overload and the patient was started on IV diuretics. Chest x-ray demonstrated recurrence of right pleural effusions and pulmonology was consulted to assist in management. Home Meds Active Scripts Hydrocodone-Acetaminophen (Hydrocodone Bitartrate/AC 5-325 mg) 1 Tab Tab, 1 TAB PO QID PRN, #30 TAB Prov:MARYBETH ISLAS MD 07/20/24 Reported Medications Spironolactone (Spironolactone) 100 Mg Tab, 1 TAB PO DAILY 11/10/24 Furosemide (Furosemide) 20 Mg Tab, 1 TAB PO QPM 11/10/24 Furosemide (Furosemide) 40 Mg Tab, 1 TAB PO QAM 11/10/24 Levothyroxine Sodium (Levothyroxine Sodium) 125 Mcg Tab, 1 TAB PO DAILY 11/10/24 Past Medical History Cardiac: No pertinent Hx Pulmonary: No pertinent Hx Central Nervous System: No pertinent Hx GI: No pertinent Hx Hemotology/Oncology: No pertinent Hx Hepatobiliary: Cirrhosis Psychiatric: No pertinent Hx Musculoskeletal: No pertinent Hx Rheumotologic: No pertinent Hx Infectious Disease: No peritnent Hx ENT: No pertinent Hx Renal/: No pertinent Hx Endocrine: No pertinent Hx Dermatology: No pertinent Hx Family History: Cancer, Hypertension Patient Family History: Cirrhosis of liver G8 FATHER Colitis G8 MOTHER Colon cancer G8 MOTHER Hypertension G8 MOTHER Malignant neoplasm of breast G8 MOTHER Osteoporosis G8 MOTHER Smoker: No Hx (Negative) Alocohol: None Drugs: None Lives with: With family Domestic Violence: Neg Review of Systems Constitutional: No symptom reported Ears, Nose, & Throat: No symptom reported Eyes: No symptom reported Pulmonary/Respiratory: Dyspnea Cardiovascular: No symptom reported Gastrointestinal: No symptom reported Genitourinary: No symptom reported Musculoskeletal: No symptom reported Skin: No symptom reported Psychiatric: No symptom reported Endocrine: No symptom reported Hemotologic/Lymphatic: No symptom reported H&P Exam Vital Signs Vital Signs Date Time Temp Pulse Resp B/P (MAP) Pulse Ox O2 Delivery O2 Flow Rate FiO2 11/13/24 13:00 98.0 101 16 111/45 (67) 93 98.0 11/12/24 20:00 Room Air* 0 21 General Appeara: Well developed, Well nourished, Normal Appearance Head Exam: Normal inspection Neck Exam: Normal inspection, Non-tender, Normal alignment Eye Exam: bilateral eye Normal inspection, bilateral eye PERRL, bilateral eye EOMI Ear Exam: bilateral ear Auricle normal, bilateral ear Canal normal, bilateral ear TM normal Nasal Exam: Normal inspection Mouth: Normal Inspection Pulmonary/Respiratory: Decreased breath sounds Cardiovascular/Chest: Normal inspection Peripheral Pulses: 4+ Radial (R), 4+ Radial (L), 4+ Brachial (R), 4+ Brachial (L) Abdominal Exam: Normal bowel sounds Labs/Xrays Labs Test 11/13/24 04:55 11/12/24 04:24 11/12/24 03:31 11/12/24 00:49 Range/Units White Blood Count 3.5 #L 4.4-10.8 10^3/uL Red Blood Count 2.35 L 4.0-5.20 10^6/uL Hemoglobin 8.1 L 12.2-16.2 g/dL Hematocrit 22.8 L 36.0-46.0 % Mean Corpuscular Volume 96.8 80.0-100.0 fL Mean Corpuscular Hemoglobin 34.5 H 28.0-32.0 pg Mean Corpuscular Hemoglobin Concent 35.6 32.0-36.0 g/dL Red Cell Distribution Width 15.6 H 11.8-14.3 % Platelet Count 66 L 140-450 10^3/uL Mean Platelet Volume 8.1 6.9-10.8 fL Neutrophils (%) (Auto) 42.2 37.0-80.0 % Lymphocytes (%) (Auto) 29.8 10.0-50.0 % Monocytes (%) (Auto) 14.8 H 0.0-12.0 % Eosinophils (%) (Auto) 12.2 H 0.0-7.0 % Basophils (%) (Auto) 1.0 0.0-2.0 % Neutrophils # (Auto) 1.5 L 1.6-8.6 10 ^3/uL Lymphocytes # (Auto) 1.0 0.4-5.4 10 ^3/uL Monocytes # (Auto) 0.5 0-1.3 10 ^3/uL Eosinophils # (Auto) 0.4 0-0.8 10 ^3/uL Basophils # (Auto) 0 0-0.2 10 ^3/uL Nucleated Red Blood Cells 0.1 % Prothrombin Time 15.2 H 9.3-11.8 sec Prothrombin Time INR 1.49 H 0.9-1.15 Activated Partial Thromboplast Time 31.6 24.5-34.5 SEC Sodium Level 130 L 136-145 mmol/L Potassium Level 3.8 3.5-5.1 mmol/L Chloride Level 100 98-107 mmol/L Carbon Dioxide Level 22 20-31 mmol/L Anion Gap 8 5-15 Blood Urea Nitrogen 11 9-23 mg/dL Creatinine 0.47 L 0.550-1.02 mg/dL Glomerular Filtration Rate Calc 110 >90 mL/min BUN/Creatinine Ratio 23.4 H 10.0-20.0 Serum Glucose 82 74-106 mg/dL Lactic Acid Level 1.7 0.4-2.0 mmol/L Calcium Level 8.2 L 8.7-10.4 mg/dL Ammonia < 10 L 11-32 umol/L Thyroid Stimulating Hormone (TSH) 3.96 0.55-4.78 uIU/mL Stool Occult Blood Negative Negative Stool Occult Blood Sample #3 Negative POC Glucose 105 70-106 mg/dl Test 11/11/24 05:19 11/10/24 08:15 11/09/24 23:07 11/09/24 23:00 Range/Units Total Bilirubin 2.3 H 0.2-1.0 mg/dL Aspartate Amino Transferase (AST) 54 H <34 U/L Alanine Aminotransferase (ALT) 40 7-40 U/L Alkaline Phosphatase 157 H 46-116 U/L Total Protein 4.9 L 5.7-8.2 g/dL Albumin 2.3 L 3.2-4.8 g/dL Body Fluid Source Pleural fluid Body Fluid pH 8.0 Body Fluid WBC (Manual) 654 H 0-200 CUMM Body Fluid RBC (Manual) 646767 H 0-2000 CUMM Body Fluid Mononuclear Cells 84 % Body Fluid Polymorphonuclear Cells 16 0-25 % Body Fluid Glucose 125 . mg/dL Body Fluid Total Protein 2.1 . g/dL Body Fluid Lactate Dehydrogenase 112 . IU/L B-Type Natriuretic Peptide 50.78 0-100 pg/mL Urine Color Yellow Yellow Urine Clarity Turbid H Clear Urine pH 5.0 5.0-9.0 Urine Specific [place] 1.017 1.001-1.035 Urine Protein Trace H Negative Urine Ketones Negative Negative Urine Blood 2+ H Negative /uL Urine Nitrite Negative Negative Urine Bilirubin Negative Negative Urine Urobilinogen Normal Negative mg/dL Urine Leukocyte Esterase 2+ Negative /uL Urine RBC 8 0 - 4 /hpf Urine Microscopic WBC 34 H 0-5 /HPF Urine Squamous Epithelial Cells Few <5 /hpf Urine Bacteria Few H None Seen /hpf Urine Hyaline Casts Few 0 - 2 /lpf Urine Mucus Few None Seen Urine Glucose Normal Normal mg/dL Microbiology Date/Time Source Procedure Growth Status 11/10/24 08:15 Pleural Fluid Gram Stain - Final Resulted 11/10/24 08:15 Pleural Fluid Body Fluid Culture - Preliminary Resulted 11/09/24 23:07 Voided Urine Urine Culture - Final Complete 11/09/24 23:07 Blood Blood Culture - Preliminary NO GROWTH AFTER 72 HOURS OF INCUBATION. Resulted Assessment/Plan Plan Impression Acute hypoxemic respiratory failure Hepatic hydrothorax Fluid overload Atelectasis Patient seen and examined Events Low oxygen requirements On 2 liters nasal cannula Vital signs stable Labs and imaging reviewed Management Supplemental oxygen Titrate to maintain sats 90% or above Incentive spirometry Bronchodilators Recommend diuresis with Spironolactone Monitor renal function Monitor electrolytes Supplement as needed Continue salt restriction and thoracentesis DVT prophylaxis Plan discussed with: Patient LISA KIDD MD Nov 13, 2024 14:57
--- NOTE | 2024-11-13 15:42 | DVH ---
US BiLat Lower DVT HISTORY: swelling COMPARISON: None TECHNIQUE: Duplex doppler evaluation of the deep venous system of the lower extremity from the common femoral veins, superficial femoral vein, great saphenous vein, deep femoral vein, popliteal vein, an d calf veins, including color doppler and spectral/pulsed waveform analysis, was performed. FINDINGS: Right: - Common femoral vein: Compressible - Deep femoral vein: Compressible - Femoral vein: Compressible - Popliteal vein: Compressible - Posterior tibial vein: Waveforms present - Other: Nothing Left: - Common femoral vein: Compressible - Deep femoral vein: Compressible - Femoral vein: Compressible - Popliteal vein: Compressible - Posterior tibial vein: Waveforms present - Other: Nothing IMPRESSION: No right or left lower extremity deep venous thrombosis.
[2024-11-14] VITALS (8 sets, daily range): BP systolic 103–122; BP diastolic 41–57; PULSE 90–96; RESP 16–17; TEMP 97.9–98.8; O2SAT 91–96
[2024-11-14 07:16] LABS: Basophils # (auto) 0 10 ^3/uL (0-0.2); Basophils % (auto) 0.4 % (0.0-2.0); Eosinophils # (auto) 0.4 10 ^3/uL (0-0.8); Eosinophils % (auto) 11.4 % (0.0-7.0); Hematocrit 25.1 % (36.0-46.0); Hemoglobin 8.8 g/dL (12.2-16.2); Lymphocytes # (auto) 0.7 10 ^3/uL (0.4-5.4); Lymphocytes % (auto) 22.3 % (10.0-50.0); Mean Corpuscular Hemoglobin 35.1 pg (28.0-32.0); Mean Corpuscular Hgb Conc. 35.2 g/dL (32.0-36.0); Mean Corpuscular Volume 99.7 fL (80.0-100.0); Monocytes # (auto) 0.5 10 ^3/uL (0-1.3); Neutrophils # (auto) 1.7 10 ^3/uL (1.6-8.6); Neutrophils % (auto) 49.9 % (37.0-80.0); Platelet Count (auto) 77 10^3/uL (140-450); Red Blood Cells 2.52 10^6/uL (4.0-5.20); Red Cell Distribution Width 15.8 % (11.8-14.3); White Blood Cell 3.3 10^3/uL (4.4-10.8)
[2024-11-14 07:25] LABS: Anion Gap 9 (5-15); Carbon Dioxide 22 mmol/L (20-31); Chloride 101 mmol/L (98-107)
[2024-11-14 07:31] LABS: Glucose 102 mg/dL (74-106)
[2024-11-14 07:35] LABS: Blood Urea Nitrogen 9 mg/dL (9-23); Calcium 8.1 mg/dL (8.7-10.4); Potassium 3.4 mmol/L (3.5-5.1); Sodium 132 mmol/L (136-145)
[2024-11-14] MEDS: POTASSIUM EFFERVESENT TAB 25 MEQ PO ONE (10:37)
--- NOTE | 2024-11-14 12:12 | DVHPNRES ---
Progress Note Date Seen: Nov 14, 2024 Resident Creating Document: GARFIELD OROZCO EUSEBIO Has the PT tested + for MRSA If YES, has PT been informed?: No Medical Necessity Reason Pt with a Central, PICC or Fol: No Subjective Review of Systems Patient seen and examined at bedside. Patient is feeling better. Patient reports: No new complaints, Feels better Changes from previous H/P or p: Changes Objective vital signs Vital Sign Date Time Temp Pulse Resp B/P (MAP) Pulse Ox O2 Delivery O2 Flow Rate FiO2 11/14/24 09:37 101/44 11/14/24 09:00 98.4 94 16 91 98.4 11/14/24 08:01 Nasal Cannula* 2 28 Total Intake and Output 11/13/24 11/13/24 11/14/24 15:00 23:00 07:00 Intake Total 850 ml 600 ml Balance 850 ml 600 ml medications Current Medications Medications Dose Ordered Sig/Ana Route Start Time Stop Time Status Last Admin Dose Admin Acetaminophen/ Hydrocodone Bitart 1 tab Q6HPRN PRN PO 11/10/24 03:45 11/10/24 20:41 1 TAB Levothyroxine Sodium 125 mcg QAM@0600 PO 11/10/24 06:00 UNV Ertapenem 1 gm/ Sodium Chloride 50 ml @ 100 mls/hr DAILY IV 11/10/24 10:00 11/14/24 10:37 100 MLS/HR Docusate Sodium 100 mg DAILYPRN PRN PO 11/11/24 16:00 11/11/24 16:41 100 MG Ondansetron HCl 4 mg Q6HPRN PRN IV 11/12/24 02:00 Levothyroxine Sodium 125 mcg QAM@0600 PO 11/13/24 06:00 11/14/24 06:01 125 MCG Pantoprazole Sodium 40 mg BID IV 11/12/24 22:00 11/14/24 09:37 40 MG Furosemide 40 mg DAILY PO 11/13/24 10:00 11/14/24 09:37 40 MG Spironolactone 100 mg DAILY PO 11/13/24 10:00 11/14/24 09:36 100 MG Examination General Appearance: Alert, Oriented X3, Cooperative, No acute distress HEENT: Atraumatic, PERRLA, EOMI, Mucous membrane moist/pink Respiratory: Decreased breath sound on right side Cardiovascular: Regular rate, Normal S1, Normal S2, No murmurs, no chest wall tenderness Abdominal: Normal bowel sounds, Soft, No tenderness, No hepatospenomegaly, No masses Extremities: No clubbing, No cyanosis, No edema, Normal pulses, No tenderness/swelling Skin: No rashes, No breakdown, No significant lesion Neuro: Normal gait, Normal speech, Strength at 5/5 X4 ext, Normal tone, Sensation intact, Cranial nerves 3-12 NL, Reflexes 2+ Psych/Mental Status: Mental status NL, Mood NL laboratory and microbiology Laboratory Tests 11/14/24 06:58 Test 11/14/24 06:58 Range/Units Serum Glucose 102 74-106 mg/dL Microbiology Date/Time Source Procedure Growth Status 11/10/24 08:15 Pleural Fluid Gram Stain - Final Resulted 11/10/24 08:15 Pleural Fluid Body Fluid Culture - Preliminary Resulted 11/09/24 23:07 Voided Urine Urine Culture - Final Complete 11/09/24 23:07 Blood Blood Culture - Preliminary NO GROWTH AFTER 72 HOURS OF INCUBATION. Resulted Labs and/or images reviewed: Labs reviewed by me, Image(s) reviewed by me Problem List/Assessment/Plan Problem List/Assessment/Plan Recurrent UTI History of UTI, ESBL Sepsis, likely due to UTI Complicated UTI Recurrent pleural effusion, likely hemorrhagic Acute hypoxic respiratory failure, likely due to pleural effusion Precipitous hemoglobin dropped Severe anemia, status post transfusion UA, 1 units Hypotension, due to sepsis Acute on chronic hepatic failure leading to his ascites Liver cirrhosis, unknown cause Ascites, due to liver cirrhosis Pleural effusion, likely due to ascites Hyperbilirubinemia Severe malnutrition Thrombocytopenia, likely due to liver cirrhosis ? Spontaneous bacterial peritonitis History of HFpEF Hypothyroidism * Ultrasound shows, ascites visualized, with the largest pocket in the right lower quadrant. with Large right pleural effusion incidentally noted * Chest x-ray shows right lower to meds zone opacity * UA shows UTI picture * Pleural fluid analysis shows hemorrhagic/ transudative effusion * Repeat chest x-ray shows of fluid buildup on the right side Plan/recommendation: * Thoracentesis performed, 1.5 L fluid has been drained * Empiric antibiotic ertapenem * IV fluid * Urine culture/blood culture * Continue home meds * Lasix 100 mg daily * Oxygen through nasal cannula * Chest CT scan with IV contrast * Consulted the pulmonology for recurrent hemorrhagic pleural effusion, planned for thoracentesis DIET: Renal diet DVT PROPHYLAXIS: SCD CODE STATUS: Goal of care discussed for more than 18 minutes, full code DISPOSITION: Telemetry Patient's status and plan discussed with the patient. Case discussed with Dr. Nuñez. Plan discussed with: Patient, Other (RN) My Orders My Orders Orders - GARFIELD OROZCO Procedure Category Date Status Time Cardiac DIET 11/13/24 Transmitted Diet-2gna,Lofat,Lochol Lunch Urine Bacterial ADI 11/14/24 Logged Culture 06:59 Dietary Evaluation Review Comments: Follow Cardiac Diet Monitor PO intake to meet her needs Expected Outcomes/Goals: improved nutrition staus. Recover from sepsis and infections GARFIELD OROZCO Nov 14, 2024 12:12
--- NOTE | 2024-11-14 16:05 | DVHPN2 ---
Progress Note Date Seen: Nov 14, 2024 Resident Creating Document: DILEEP MURPHY RESIDENT Has the PT tested + for MRSA If YES, has PT been informed?: No Medical Necessity Reason Pt with a Central, PICC or Fol: No Subjective Review of Systems Patient was seen today at bedside Reported feeling better today No new complaint H&H stable Doppler study of the lower extremity negative for DVT CT chest revealed-Right basilar consolidation likely compressive atelectasis. Pathcy left apical subpleural ground glass opacities, nonspecific. Large right pleural effusion. Objective vital signs Vital Sign Date Time Temp Pulse Resp B/P (MAP) Pulse Ox O2 Delivery O2 Flow Rate FiO2 11/14/24 12:44 98.3 96 16 118/41 (66) 95 98.3 11/14/24 08:01 Nasal Cannula* 2 28 Total Intake and Output 11/13/24 11/13/24 11/14/24 15:00 23:00 07:00 Intake Total 850 ml 600 ml Balance 850 ml 600 ml medications Current Medications Medications Dose Ordered Sig/Ana Route Start Time Stop Time Status Last Admin Dose Admin Acetaminophen/ Hydrocodone Bitart 1 tab Q6HPRN PRN PO 11/10/24 03:45 11/10/24 20:41 1 TAB Levothyroxine Sodium 125 mcg QAM@0600 PO 11/10/24 06:00 UNV Ertapenem 1 gm/ Sodium Chloride 50 ml @ 100 mls/hr DAILY IV 11/10/24 10:00 11/14/24 10:37 100 MLS/HR Docusate Sodium 100 mg DAILYPRN PRN PO 11/11/24 16:00 11/11/24 16:41 100 MG Ondansetron HCl 4 mg Q6HPRN PRN IV 11/12/24 02:00 Levothyroxine Sodium 125 mcg QAM@0600 PO 11/13/24 06:00 11/14/24 06:01 125 MCG Pantoprazole Sodium 40 mg BID IV 11/12/24 22:00 11/14/24 09:37 40 MG Furosemide 40 mg DAILY PO 11/13/24 10:00 11/14/24 09:37 40 MG Spironolactone 100 mg DAILY PO 11/13/24 10:00 11/14/24 09:36 100 MG laboratory and microbiology Laboratory Tests 11/14/24 06:58 Test 11/14/24 06:58 Range/Units Serum Glucose 102 74-106 mg/dL Microbiology Date/Time Source Procedure Growth Status 11/10/24 08:15 Pleural Fluid Gram Stain - Final Resulted 11/10/24 08:15 Pleural Fluid Body Fluid Culture - Preliminary Resulted 11/09/24 23:07 Voided Urine Urine Culture - Final Complete 11/09/24 23:07 Blood Blood Culture - Preliminary NO GROWTH AFTER 72 HOURS OF INCUBATION. Resulted Problem List/Assessment/Plan Problem List/Assessment/Plan Assessment and plan Sepsis likely due to UTI Cirrhosis of liver Suspected spontaneous bacterial peritonitis Severe anemia and thrombocytopenia Right-sided recurrent pleural effusion, status post thoracentesis Ascites Events Reported feeling better today No new complaint H&H stable Doppler study of the lower extremity negative for DVT CT chest revealed-Right basilar consolidation likely compressive atelectasis. Pathcy left apical subpleural ground glass opacities, nonspecific. Large right pleural effusion. Plan Packed red Blood transfusion if hemoglobin less than 7 Patient might need thgoracentesis of right hemithorax Cardiac diet Continue pantoprazole IV Continue current IV antibiotic we will continue monitoring H&H, Monitor PTPTT GI will stand by if patient needs any endoscopic Plan discussed with Dr. Roselyn Irwin , nursing staff, Total time spent on patient evaluation, chart review, assessment and plan, discussion discussion >35 minutes Plan discussed with: Patient, Other (RN) Plan discussed with: Patient, Other (RN) Dietary Evaluation Review Comments: Follow Cardiac Diet Monitor PO intake to meet her needs Expected Outcomes/Goals: improved nutrition staus. Recover from sepsis and infections DILEEP MURPHY RESIDENT Nov 14, 2024 16:05
--- NOTE | 2024-11-14 16:38 | DVHPN2 ---
Progress Note - Dictate Date Seen: Nov 14, 2024 Has the PT tested + for MRSA If YES, has PT been informed?: No Medical Necessity Reason Pt with a Central, PICC or Fol: No vital signs Vital Sign Date Time Temp Pulse Resp B/P (MAP) Pulse Ox O2 Delivery O2 Flow Rate FiO2 11/14/24 12:44 98.3 96 16 118/41 (66) 95 98.3 11/14/24 08:01 Nasal Cannula* 2 28 Total Intake and Output 11/13/24 11/13/24 11/14/24 15:00 23:00 07:00 Intake Total 850 ml 600 ml Balance 850 ml 600 ml medications Current Medications Medications Dose Ordered Sig/Ana Route Start Time Stop Time Status Last Admin Dose Admin Acetaminophen/ Hydrocodone Bitart 1 tab Q6HPRN PRN PO 11/10/24 03:45 11/10/24 20:41 1 TAB Levothyroxine Sodium 125 mcg QAM@0600 PO 11/10/24 06:00 UNV Ertapenem 1 gm/ Sodium Chloride 50 ml @ 100 mls/hr DAILY IV 11/10/24 10:00 11/14/24 10:37 100 MLS/HR Docusate Sodium 100 mg DAILYPRN PRN PO 11/11/24 16:00 11/11/24 16:41 100 MG Ondansetron HCl 4 mg Q6HPRN PRN IV 11/12/24 02:00 Levothyroxine Sodium 125 mcg QAM@0600 PO 11/13/24 06:00 11/14/24 06:01 125 MCG Pantoprazole Sodium 40 mg BID IV 11/12/24 22:00 11/14/24 09:37 40 MG Furosemide 40 mg DAILY PO 11/13/24 10:00 11/14/24 09:37 40 MG Spironolactone 100 mg DAILY PO 11/13/24 10:00 11/14/24 09:36 100 MG laboratory and microbiology Laboratory Tests 11/14/24 06:58 Test 11/14/24 06:58 Range/Units Serum Glucose 102 74-106 mg/dL Assessment/Plan Ascites Hypoxemia pleural effusion Liver cirrhosis No distress We will proceed with thoracentesis prior to discharge Continue supportive care Diuresis/salt restriction Dietary Evaluation Review Comments: Follow Cardiac Diet Monitor PO intake to meet her needs Expected Outcomes/Goals: improved nutrition staus. Recover from sepsis and infections Plan discussed with: Patient LISA KIDD MD Nov 14, 2024 16:37
[2024-11-15] VITALS (9 sets, daily range): BP systolic 92–115; BP diastolic 46–61; PULSE 86–93; RESP 16–19; TEMP 98.2–99.8; O2SAT 94–97
[2024-11-15 05:53] LABS: Basophils # (auto) 0 10 ^3/uL (0-0.2); Eosinophils # (auto) 0.3 10 ^3/uL (0-0.8); Eosinophils % (auto) 10.2 % (0.0-7.0); Hematocrit 26.5 % (36.0-46.0); Hemoglobin 9.4 g/dL (12.2-16.2); Lymphocytes # (auto) 0.6 10 ^3/uL (0.4-5.4); Lymphocytes % (auto) 19.6 % (10.0-50.0); Mean Corpuscular Hemoglobin 35.1 pg (28.0-32.0); Mean Corpuscular Hgb Conc. 35.5 g/dL (32.0-36.0); Mean Corpuscular Volume 98.7 fL (80.0-100.0); Monocytes # (auto) 0.5 10 ^3/uL (0-1.3); Monocytes % (auto) 15.9 % (0.0-12.0); Neutrophils # (auto) 1.7 10 ^3/uL (1.6-8.6); Neutrophils % (auto) 53.3 % (37.0-80.0); Nucleated Red Blood Cells % 0.1 %; Platelet Count (auto) 62 10^3/uL (140-450); Red Blood Cells 2.69 10^6/uL (4.0-5.20); Red Cell Distribution Width 16.1 % (11.8-14.3); White Blood Cell 3.3 10^3/uL (4.4-10.8)
[2024-11-15 05:58] LABS: Anion Gap 8 (5-15); Carbon Dioxide 23 mmol/L (20-31); Chloride 103 mmol/L (98-107); Potassium 3.8 mmol/L (3.5-5.1)
[2024-11-15 05:59] LABS: Calcium 8.7 mg/dL (8.7-10.4); Sodium 134 mmol/L (136-145)
[2024-11-15 06:03] LABS: Glucose 83 mg/dL (74-106)
[2024-11-15 06:04] LABS: BUN/Creatinine Ratio 17.4 (10.0-20.0)
[2024-11-15 06:07] LABS: Blood Urea Nitrogen 8 mg/dL (9-23)
--- NOTE | 2024-11-15 11:48 | DVHPNRES ---
Progress Note Date Seen: Nov 15, 2024 Resident Creating Document: GARFIELD OROZCO EUSEBIO Has the PT tested + for MRSA If YES, has PT been informed?: No Medical Necessity Reason Pt with a Central, PICC or Fol: No Subjective Review of Systems Patient seen and examined at the bedside. Patient is feeling better. Hemoglobin is raised at 9.4 Patient reports: No new complaints, Feels better Changes from previous H/P or p: Changes Objective vital signs Vital Sign Date Time Temp Pulse Resp B/P (MAP) Pulse Ox O2 Delivery O2 Flow Rate FiO2 11/15/24 11:31 109/41 11/15/24 09:00 98.5 92 18 94 98.5 11/14/24 20:00 Nasal Cannula* 2 28 Total Intake and Output 11/14/24 11/14/24 11/15/24 15:00 23:00 07:00 Intake Total 50 ml 1000 ml 1200 ml Balance 50 ml 1000 ml 1200 ml medications Current Medications Medications Dose Ordered Sig/Ana Route Start Time Stop Time Status Last Admin Dose Admin Acetaminophen/ Hydrocodone Bitart 1 tab Q6HPRN PRN PO 11/10/24 03:45 11/10/24 20:41 1 TAB Levothyroxine Sodium 125 mcg QAM@0600 PO 11/10/24 06:00 UNV Ertapenem 1 gm/ Sodium Chloride 50 ml @ 100 mls/hr DAILY IV 11/10/24 10:00 11/14/24 10:37 100 MLS/HR Docusate Sodium 100 mg DAILYPRN PRN PO 11/11/24 16:00 11/11/24 16:41 100 MG Ondansetron HCl 4 mg Q6HPRN PRN IV 11/12/24 02:00 Levothyroxine Sodium 125 mcg QAM@0600 PO 11/13/24 06:00 11/15/24 05:43 125 MCG Pantoprazole Sodium 40 mg BID IV 11/12/24 22:00 11/15/24 11:32 40 MG Furosemide 40 mg DAILY PO 11/13/24 10:00 11/15/24 11:31 40 MG Spironolactone 100 mg DAILY PO 11/13/24 10:00 11/15/24 11:32 100 MG Examination General Appearance: Alert, Oriented X3, Cooperative, No acute distress HEENT: Atraumatic, PERRLA, EOMI, Mucous membrane moist/pink Respiratory: Decreased breath sound on right side Cardiovascular: Regular rate, Normal S1, Normal S2, No murmurs, no chest wall tenderness Abdominal: Normal bowel sounds, Soft, No tenderness, No hepatospenomegaly, No masses Extremities: No clubbing, No cyanosis, No edema, Normal pulses, No tenderness/swelling Skin: No rashes, No breakdown, No significant lesion Neuro: Normal gait, Normal speech, Strength at 5/5 X4 ext, Normal tone, Sensation intact, Cranial nerves 3-12 NL, Reflexes 2+ Psych/Mental Status: Mental status NL, Mood NL laboratory and microbiology Laboratory Tests 11/15/24 04:47 Test 11/15/24 04:47 Range/Units Serum Glucose 83 74-106 mg/dL Microbiology Date/Time Source Procedure Growth Status 11/14/24 12:35 Voided Urine Urine Culture - Preliminary Resulted 11/10/24 08:15 Pleural Fluid Gram Stain - Final Resulted 11/10/24 08:15 Pleural Fluid Body Fluid Culture - Preliminary Resulted 11/09/24 23:07 Blood Blood Culture - Final NO GROWTH AFTER 5 DAYS OF INCUBATION. Complete Labs and/or images reviewed: Labs reviewed by me, Image(s) reviewed by me Problem List/Assessment/Plan Problem List/Assessment/Plan Recurrent UTI History of UTI, ESBL Sepsis, likely due to UTI Complicated UTI Recurrent pleural effusion, likely hemorrhagic Acute hypoxic respiratory failure, likely due to pleural effusion Precipitous hemoglobin dropped Severe anemia, status post transfusion UA, 1 units, Hb is improving, today raised at 9.4 Hypotension, due to sepsis Acute on chronic hepatic failure leading to his ascites Liver cirrhosis, unknown cause Ascites, due to liver cirrhosis Pleural effusion, likely due to ascites Hyperbilirubinemia Severe malnutrition Thrombocytopenia, likely due to liver cirrhosis ? Spontaneous bacterial peritonitis History of HFpEF Hypothyroidism * Ultrasound shows, ascites visualized, with the largest pocket in the right lower quadrant. with Large right pleural effusion incidentally noted * Chest x-ray shows right lower to meds zone opacity * UA shows UTI picture * Pleural fluid analysis shows hemorrhagic/ transudative effusion * Repeat chest x-ray shows of fluid buildup on the right side Plan/recommendation: * Thoracentesis performed, 1.5 L fluid has been drained * Empiric antibiotic ertapenem * IV fluid * Urine culture/blood culture * Continue home meds * Lasix 100 mg daily * Oxygen through nasal cannula * Chest CT scan with IV contrast * Consulted the pulmonology for recurrent hemorrhagic pleural effusion, planned for thoracentesis DIET: Renal diet DVT PROPHYLAXIS: SCD CODE STATUS: Goal of care discussed for more than 18 minutes, full code DISPOSITION: Telemetry Patient's status and plan discussed with the patient. Case discussed with Dr. Nuñez. Plan discussed with: Patient, Other (RN) Dietary Evaluation Review Comments: Follow Cardiac Diet Monitor PO intake to meet her needs Expected Outcomes/Goals: improved nutrition staus. Recover from sepsis and infections GARFIELD OROZCO RESDIENT Nov 15, 2024 11:48
[2024-11-15] MEDS: SODIUM CHLORIDE 0.9% 1,000 ML IV ONE (14:29)
[2024-11-15] MEDS: PHYTONADIONE(VitK) ORAL Susp 10mg/10ml(1mg/ml) PO ONE (14:49)
--- NOTE | 2024-11-15 14:49 | DVHPN2 ---
Progress Note - Dictate Date Seen: Nov 15, 2024 Has the PT tested + for MRSA If YES, has PT been informed?: No Medical Necessity Reason Pt with a Central, PICC or Fol: No vital signs Vital Sign Date Time Temp Pulse Resp B/P (MAP) Pulse Ox O2 Delivery O2 Flow Rate FiO2 11/15/24 13:00 99.6 92 19 108/60 (76) 94 99.6 11/14/24 20:00 Nasal Cannula* 2 28 Total Intake and Output 11/14/24 11/14/24 11/15/24 15:00 23:00 07:00 Intake Total 50 ml 1000 ml 1200 ml Balance 50 ml 1000 ml 1200 ml medications Current Medications Medications Dose Ordered Sig/Ana Route Start Time Stop Time Status Last Admin Dose Admin Acetaminophen/ Hydrocodone Bitart 1 tab Q6HPRN PRN PO 11/10/24 03:45 11/10/24 20:41 1 TAB Levothyroxine Sodium 125 mcg QAM@0600 PO 11/10/24 06:00 UNV Ertapenem 1 gm/ Sodium Chloride 50 ml @ 100 mls/hr DAILY IV 11/10/24 10:00 11/15/24 11:46 100 MLS/HR Docusate Sodium 100 mg DAILYPRN PRN PO 11/11/24 16:00 11/11/24 16:41 100 MG Ondansetron HCl 4 mg Q6HPRN PRN IV 11/12/24 02:00 Levothyroxine Sodium 125 mcg QAM@0600 PO 11/13/24 06:00 11/15/24 05:43 125 MCG Pantoprazole Sodium 40 mg BID IV 11/12/24 22:00 11/15/24 11:32 40 MG Furosemide 40 mg DAILY PO 11/13/24 10:00 11/15/24 11:31 40 MG Spironolactone 100 mg DAILY PO 11/13/24 10:00 11/15/24 11:32 100 MG laboratory and microbiology Laboratory Tests 11/15/24 04:47 Test 11/15/24 04:47 Range/Units Serum Glucose 83 74-106 mg/dL Assessment/Plan Impression Ascites Hypoxemia Pleural effusion Liver cirrhosis Patient seen and examined Events Low oxygen requirements On 2 liters nasal cannula Required transfusion of blood products for anemia Thoracentesis was performed at the bedside Approximately 2.2 liters of heavily blood tinged fluid was drained from the right pleural space Ultrasound after the procedure shows no evidence of fluid See separate note for procedure in detail Labs and imaging reviewed Thrombocytopenic, platelets 62 Management Supplemental oxygen Titrate to maintain sats 90% or above Incentive spirometry Bronchodilators Recommend diuresis with Spironolactone Monitor renal function Monitor electrolytes Supplement as needed Transfuse blood products as needed Continue salt restriction Give Vitamin K 10mg IV once Repeat CBC and INR in AM Avoid anticoagulation Mechanical DVT prophylaxis Dietary Evaluation Review Comments: Follow Cardiac Diet Monitor PO intake to meet her needs Expected Outcomes/Goals: improved nutrition staus. Recover from sepsis and infections Plan discussed with: Patient LISA KIDD MD Nov 15, 2024 14:49
--- NOTE | 2024-11-15 14:51 | DVHNC2 ---
Procedure - Procedure- Right sided Thoracentesis ultrasound guided Indication- Pleural effusions Procedure in detail Consent was obtained and timeout performed per protocol. The patient was placed in the sitting position and ultrasound SonoSite was used to localize pleural fluid. ChloraPrep was used to clean the operative field and Lidocaine for local analgesia. Thoracentesis catheter was advanced over the needle, attached to the suction bottle and approximately 2.2 liters of heavily blood tinged fluid was drained from the right pleural space. At the end of the procedure, the catheter was removed and dressing applied. Samples obtained for diagnostic testing. Ultrasound was subsequently performed and showed no evidence of fluid. No complications LISA KIDD MD Nov 15, 2024 14:51
--- NOTE | 2024-11-15 14:52 | DVH ---
CHEST RADIOGRAPH Indication: protocol Technique: Single frontal view of the chest was obtained COMPARISON: XY CHEST XRAY 1 VIEW on DOS: 11/12/24, XY CHEST PORTABLE on DOS: 11/10/24, XY CHEST PORTABL E on DOS: 11/10/24, XY CHEST PORTABLE on DOS: 10/29/24, XY CHEST XRAY 1 VIEW on DOS: 10/15/24 FINDINGS: Lines and Tubes: None Lungs: Right lower lobe airspace disease Pleura: No effusion. No pneumothorax. Cardiomediastinal contours: Unremarkable Bones: Unremarkable IMPRESSION: Improving right lower lobe airspace disease
[2024-11-15] MEDS: phytonadione 10 MG in SODIUM CHL 0.9% 50 ML IV ONE (15:00)
[2024-11-15 16:34] LABS: Basophils # (auto) 0 10 ^3/uL (0-0.2); Eosinophils # (auto) 0.2 10 ^3/uL (0-0.8); Lymphocytes # (auto) 0.4 10 ^3/uL (0.4-5.4); Monocytes # (auto) 0.6 10 ^3/uL (0-1.3); Neutrophils # (auto) 2.1 10 ^3/uL (1.6-8.6); White Blood Cell 3.3 10^3/uL (4.4-10.8)
[2024-11-15 16:37] LABS: Basophils % (auto) 1.1 % (0.0-2.0); Eosinophils % (auto) 6.4 % (0.0-7.0); Hematocrit 28.9 % (36.0-46.0); Lymphocytes % (auto) 13.4 % (10.0-50.0); Mean Corpuscular Hemoglobin 34.8 pg (28.0-32.0); Mean Corpuscular Hgb Conc. 34.6 g/dL (32.0-36.0); Mean Corpuscular Volume 100.6 fL (80.0-100.0); Monocytes % (auto) 17.6 % (0.0-12.0); Neutrophils % (auto) 61.5 % (37.0-80.0); Platelet Count (auto) 62 10^3/uL (140-450); Red Blood Cells 2.88 10^6/uL (4.0-5.20); Red Cell Distribution Width 16.2 % (11.8-14.3)
[2024-11-15 16:46] LABS: INR 1.54 (0.9-1.15); Prothrombin Time 15.6 sec (9.3-11.8)
[2024-11-16] VITALS (7 sets, daily range): BP systolic 100–105; BP diastolic 42–53; PULSE 70–95; RESP 16–18; TEMP 98.4–99.9; O2SAT 93–98
[2024-11-16 05:14] LABS: Basophils # (auto) 0 10 ^3/uL (0-0.2); Basophils % (auto) 1.1 % (0.0-2.0); Eosinophils # (auto) 0.3 10 ^3/uL (0-0.8); Eosinophils % (auto) 10.6 % (0.0-7.0); Hematocrit 29.4 % (36.0-46.0); Hemoglobin 10.4 g/dL (12.2-16.2); Lymphocytes # (auto) 0.7 10 ^3/uL (0.4-5.4); Lymphocytes % (auto) 24.3 % (10.0-50.0); Mean Corpuscular Hemoglobin 35.4 pg (28.0-32.0); Mean Corpuscular Hgb Conc. 35.6 g/dL (32.0-36.0); Mean Corpuscular Volume 99.4 fL (80.0-100.0); Monocytes # (auto) 0.5 10 ^3/uL (0-1.3); Monocytes % (auto) 17.3 % (0.0-12.0); Neutrophils # (auto) 1.4 10 ^3/uL (1.6-8.6); Neutrophils % (auto) 46.7 % (37.0-80.0); Platelet Count (auto) 76 10^3/uL (140-450); Red Blood Cells 2.95 10^6/uL (4.0-5.20); Red Cell Distribution Width 16.5 % (11.8-14.3); White Blood Cell 2.9 10^3/uL (4.4-10.8)
[2024-11-16 05:18] LABS: Chloride 104 mmol/L (98-107); Potassium 4.4 mmol/L (3.5-5.1)
[2024-11-16 05:19] LABS: Anion Gap 8 (5-15); Calcium 8.8 mg/dL (8.7-10.4); Carbon Dioxide 23 mmol/L (20-31)
[2024-11-16 05:22] LABS: Sodium 135 mmol/L (136-145)
[2024-11-16 05:24] LABS: Glucose 86 mg/dL (74-106)
[2024-11-16 05:29] LABS: Blood Urea Nitrogen 7 mg/dL (9-23)
--- NOTE | 2024-11-16 10:25 | DVH ---
CHEST XRAY: 1 view(s) was obtained HISTORY: sp thoracentesis COMPARISON: XY CHEST PORTABLE on DOS: 11/15/24, XY CHEST XRAY 1 VIEW on DOS: 11/12/24, XY CHEST PORTABL E on DOS: 11/10/24, XY CHEST PORTABLE on DOS: 11/10/24, XY CHEST PORTABLE on DOS: 10/29/24 FINDINGS: Moderate- large right pleural effusion, increased in size when compared to 1 day prior. No pneumothor ax. Heart border is normal in size. No significant cardiomediastinal shift. IMPRESSION: 1. Moderate- large right pleural effusion, increased in size when compared to 1 day prior. No pnemoth orox. Given interval increase in size of the effusion, recommend continued monitoring in the setting of recent thoracentesis with serial follow-up.
[2024-11-16 10:54] LABS: Albumin 2.6 g/dL (3.2-4.8); Bilirubin, Direct 1.5 mg/dL (<0.3); Bilirubin, Total 3.7 mg/dL (0.2-1.0); Total Protein 5.2 g/dL (5.7-8.2)
--- NOTE | 2024-11-16 15:10 | DVHPN2 ---
Progress Note - Dictate Date Seen: Nov 16, 2024 Has the PT tested + for MRSA If YES, has PT been informed?: No Medical Necessity Reason Pt with a Central, PICC or Fol: No Subjective Patient was seen at bedside, resting comfortably; no active GI bleeding reported, stool for occult blood negative, hemoglobin 10.4 She underwent a right-sided thoracentesis and 2.2 L of heavily blood-tinged fluid was aspirated vital signs Vital Sign Date Time Temp Pulse Resp B/P (MAP) Pulse Ox O2 Delivery O2 Flow Rate FiO2 11/16/24 13:00 98.4 86 18 103/51 (68) 98 98.4 11/16/24 08:00 Room Air* 0 21 Total Intake and Output 11/15/24 11/15/24 11/16/24 15:00 23:00 07:00 Intake Total 50 ml 1200 ml 2000 ml Balance 50 ml 1200 ml 2000 ml medications Current Medications Medications Dose Ordered Sig/Ana Route Start Time Stop Time Status Last Admin Dose Admin Acetaminophen/ Hydrocodone Bitart 1 tab Q6HPRN PRN PO 11/10/24 03:45 11/15/24 21:35 1 TAB Levothyroxine Sodium 125 mcg QAM@0600 PO 11/10/24 06:00 UNV Ertapenem 1 gm/ Sodium Chloride 50 ml @ 100 mls/hr DAILY IV 11/10/24 10:00 11/16/24 09:52 100 MLS/HR Docusate Sodium 100 mg DAILYPRN PRN PO 11/11/24 16:00 11/11/24 16:41 100 MG Ondansetron HCl 4 mg Q6HPRN PRN IV 11/12/24 02:00 Levothyroxine Sodium 125 mcg QAM@0600 PO 11/13/24 06:00 11/16/24 06:07 125 MCG Pantoprazole Sodium 40 mg BID IV 11/12/24 22:00 11/16/24 10:00 40 MG Furosemide 40 mg DAILY PO 11/13/24 10:00 11/16/24 10:00 40 MG Spironolactone 100 mg DAILY PO 11/13/24 10:00 11/16/24 09:56 100 MG objective General Appearance: Alert, Oriented X3, Cooperative, No acute distress HEENT: Atraumatic, PERRLA, EOMI, Mucous membrane moist/pink;mild pallor Respiratory: Decreased breath sound on right side Cardiovascular: Regular rate, Normal S1, Normal S2, No murmurs, no chest wall tenderness Abdominal: Normal bowel sounds, Soft, No tenderness, No hepatospenomegaly, No masses Extremities: No clubbing, No cyanosis, No edema, Normal pulses, No tenderness/swelling laboratory and microbiology Laboratory Tests 11/16/24 04:45 Test 11/16/24 04:45 Range/Units Serum Glucose 86 74-106 mg/dL Problems(with codes): (1) Pneumonitis (2) Pleural effusion (3) Liver cirrhosis (4) Urinary tract infection (5) Pneumonia (6) UTI (urinary tract infection) Prognosis PLAN Supplemental oxygen Titrate to maintain sats 90% or above Incentive spirometry; Bronchodilators Cardiac diet Continue pantoprazole IV Continue current IV antibiotic we will continue monitoring H&H, Monitor PTPTT GI will stand by if patient needs any endoscopic Dietary Evaluation Review Comments: Follow Cardiac Diet Monitor PO intake to meet her needs Expected Outcomes/Goals: improved nutrition staus. Recover from sepsis and infections Plan discussed with: Patient JEANINE POWELL MD Nov 16, 2024 15:10
--- NOTE | 2024-11-16 15:15 | DVHPNRES ---
Progress Note Date Seen: Nov 16, 2024 Resident Creating Document: LELAND DANIELLE RESIDENT Has the PT tested + for MRSA If YES, has PT been informed?: No Medical Necessity Reason Pt with a Central, PICC or Fol: No Subjective Review of Systems Patient seen and examined at the bedside. Moderate- large right pleural effusion, increased in size when compared to 1 day prior, BPs still soft Patient reports: Feels better Changes from previous H/P or p: No Changes Objective vital signs Vital Sign Date Time Temp Pulse Resp B/P (MAP) Pulse Ox O2 Delivery O2 Flow Rate FiO2 11/16/24 13:00 98.4 86 18 103/51 (68) 98 98.4 11/16/24 08:00 Room Air* 0 21 Total Intake and Output 11/15/24 11/15/24 11/16/24 15:00 23:00 07:00 Intake Total 50 ml 1200 ml 2000 ml Balance 50 ml 1200 ml 2000 ml medications Current Medications Medications Dose Ordered Sig/Ana Route Start Time Stop Time Status Last Admin Dose Admin Acetaminophen/ Hydrocodone Bitart 1 tab Q6HPRN PRN PO 11/10/24 03:45 11/15/24 21:35 1 TAB Levothyroxine Sodium 125 mcg QAM@0600 PO 11/10/24 06:00 UNV Ertapenem 1 gm/ Sodium Chloride 50 ml @ 100 mls/hr DAILY IV 11/10/24 10:00 11/16/24 09:52 100 MLS/HR Docusate Sodium 100 mg DAILYPRN PRN PO 11/11/24 16:00 11/11/24 16:41 100 MG Ondansetron HCl 4 mg Q6HPRN PRN IV 11/12/24 02:00 Levothyroxine Sodium 125 mcg QAM@0600 PO 11/13/24 06:00 11/16/24 06:07 125 MCG Pantoprazole Sodium 40 mg BID IV 11/12/24 22:00 11/16/24 10:00 40 MG Furosemide 40 mg DAILY PO 11/13/24 10:00 11/16/24 10:00 40 MG Spironolactone 100 mg DAILY PO 11/13/24 10:00 11/16/24 09:56 100 MG Examination General Appearance: Alert, Oriented X3, Cooperative, No acute distress HEENT: Atraumatic, PERRLA, EOMI, Mucous membrane moist/pink Respiratory: Decreased breath sound on right side Cardiovascular: Regular rate, Normal S1, Normal S2, No murmurs, no chest wall tenderness Abdominal: Normal bowel sounds, Soft, No tenderness, No hepatospenomegaly, No masses Extremities: No clubbing, No cyanosis, No edema, Normal pulses, No tenderness/swelling Skin: No rashes, No breakdown, No significant lesion Neuro: Normal gait, Normal speech, Strength at 5/5 X4 ext, Normal tone, Sensation intact, Cranial nerves 3-12 NL, Reflexes 2+ Psych/Mental Status: Mental status NL, Mood NL laboratory and microbiology Laboratory Tests 11/16/24 04:45 Test 11/16/24 04:45 Range/Units Serum Glucose 86 74-106 mg/dL Microbiology Date/Time Source Procedure Growth Status 11/14/24 12:35 Voided Urine Urine Culture - Preliminary Resulted 11/10/24 08:15 Pleural Fluid Gram Stain - Final Complete 11/10/24 08:15 Pleural Fluid Body Fluid Culture - Final Complete 11/09/24 23:07 Blood Blood Culture - Final NO GROWTH AFTER 5 DAYS OF INCUBATION. Complete Problem List/Assessment/Plan Problem List/Assessment/Plan Recurrent UTI History of UTI, ESBL Sepsis, likely due to UTI Complicated UTI Recurrent pleural effusion, likely hemorrhagic Acute hypoxic respiratory failure, likely due to pleural effusion Precipitous hemoglobin dropped Severe anemia, status post transfusion UA, 1 units, Hb is improving, today raised at 9.4 Hypotension, due to sepsis Acute on chronic hepatic failure leading to his ascites Liver cirrhosis, unknown cause Ascites, due to liver cirrhosis Pleural effusion, likely due to ascites Hyperbilirubinemia Severe malnutrition Thrombocytopenia, likely due to liver cirrhosis ? Spontaneous bacterial peritonitis History of HFpEF Hypothyroidism * Ultrasound shows, ascites visualized, with the largest pocket in the right lower quadrant. with Large right pleural effusion incidentally noted * Chest x-ray shows right lower to meds zone opacity * UA shows UTI picture * Pleural fluid analysis shows hemorrhagic/ transudative effusion * Repeat chest x-ray shows of fluid buildup on the right side, again Plan/recommendation: * 2x Thoracentesis performed, 2.2 L fluid was drained yesterday * Empiric antibiotic ertapenem * IV fluid * Urine culture/blood culture * Continue home meds * Lasix 100 mg daily * Oxygen through nasal cannula * Chest CT scan with IV contrast * Consulted the pulmonology for recurrent hemorrhagic pleural effusion, we are waiting of today recommendation due to recurrent pleural effusion after thoracentesis done yesterday DIET: Renal diet DVT PROPHYLAXIS: SCD CODE STATUS: Goal of care discussed for more than 18 minutes, full code DISPOSITION: Telemetry Patient's status and plan discussed with the patient. Case discussed with Dr. Nuñez. Plan discussed with: Patient, Other (rn) My Orders My Orders Orders - LELAND DANIELLE RESIDENT Procedure Category Date Status Time Chest Xray 1 View XY 11/16/24 Resulted 08:03 Dietary Evaluation Review Comments: Follow Cardiac Diet Monitor PO intake to meet her needs Expected Outcomes/Goals: improved nutrition staus. Recover from sepsis and infections LELAND DANIELLE RESIDENT Nov 16, 2024 15:15
--- NOTE | 2024-11-16 16:30 | DVHPN2 ---
Progress Note - Dictate Date Seen: Nov 16, 2024 Has the PT tested + for MRSA If YES, has PT been informed?: No Medical Necessity Reason Pt with a Central, PICC or Fol: No vital signs Vital Sign Date Time Temp Pulse Resp B/P (MAP) Pulse Ox O2 Delivery O2 Flow Rate FiO2 11/16/24 13:00 98.4 86 18 103/51 (68) 98 98.4 11/16/24 08:00 Room Air* 0 21 Total Intake and Output 11/15/24 11/15/24 11/16/24 15:00 23:00 07:00 Intake Total 50 ml 1200 ml 2000 ml Balance 50 ml 1200 ml 2000 ml medications Current Medications Medications Dose Ordered Sig/Ana Route Start Time Stop Time Status Last Admin Dose Admin Acetaminophen/ Hydrocodone Bitart 1 tab Q6HPRN PRN PO 11/10/24 03:45 11/15/24 21:35 1 TAB Levothyroxine Sodium 125 mcg QAM@0600 PO 11/10/24 06:00 UNV Ertapenem 1 gm/ Sodium Chloride 50 ml @ 100 mls/hr DAILY IV 11/10/24 10:00 11/16/24 09:52 100 MLS/HR Docusate Sodium 100 mg DAILYPRN PRN PO 11/11/24 16:00 11/11/24 16:41 100 MG Ondansetron HCl 4 mg Q6HPRN PRN IV 11/12/24 02:00 Levothyroxine Sodium 125 mcg QAM@0600 PO 11/13/24 06:00 11/16/24 06:07 125 MCG Pantoprazole Sodium 40 mg BID IV 11/12/24 22:00 11/16/24 10:00 40 MG Furosemide 40 mg DAILY PO 11/13/24 10:00 11/16/24 10:00 40 MG Spironolactone 100 mg DAILY PO 11/13/24 10:00 11/16/24 09:56 100 MG laboratory and microbiology Laboratory Tests 11/16/24 04:45 Test 11/16/24 04:45 Range/Units Serum Glucose 86 74-106 mg/dL Assessment/Plan Impression Ascites Hypoxemia Pleural effusion Liver cirrhosis Patient seen and examined Events Low oxygen requirements On 2 liters nasal cannula Continues to improve S/p thoracentesis Labs and imaging reviewed Management Supplemental oxygen Titrate to maintain sats 90% or above Incentive spirometry Bronchodilators Recommend diuresis with Spironolactone Monitor renal function Monitor electrolytes Supplement as needed Transfuse blood products as needed Continue salt restriction Okay to discharge from pulmonary standpoint Avoid anticoagulation Mechanical DVT prophylaxis Dietary Evaluation Review Comments: Follow Cardiac Diet Monitor PO intake to meet her needs Expected Outcomes/Goals: improved nutrition staus. Recover from sepsis and infections Plan discussed with: Patient LISA KIDD MD Nov 16, 2024 16:30
[2024-11-16] MEDS: ACETAMINOPHEN 325 MG TAB PO PRN (22:08)
[2024-11-17 01:00] VITALS: BP 116/60; PULSE 87; RESP 18; TEMP 98.6; O2SAT 94
[2024-11-17 05:00] VITALS: BP 108/52; PULSE 88; RESP 18; TEMP 97.7; O2SAT 98
[2024-11-17 06:40] LABS: Basophils # (auto) 0 10 ^3/uL (0-0.2); Basophils % (auto) 1.1 % (0.0-2.0); Eosinophils # (auto) 0.3 10 ^3/uL (0-0.8); Eosinophils % (auto) 11.3 % (0.0-7.0); Hematocrit 28.4 % (36.0-46.0); Hemoglobin 9.9 g/dL (12.2-16.2); Lymphocytes # (auto) 0.6 10 ^3/uL (0.4-5.4); Lymphocytes % (auto) 23.5 % (10.0-50.0); Mean Corpuscular Hemoglobin 34.8 pg (28.0-32.0); Mean Corpuscular Hgb Conc. 34.8 g/dL (32.0-36.0); Mean Corpuscular Volume 99.8 fL (80.0-100.0); Monocytes # (auto) 0.4 10 ^3/uL (0-1.3); Monocytes % (auto) 16.1 % (0.0-12.0); Neutrophils # (auto) 1.3 10 ^3/uL (1.6-8.6); Nucleated Red Blood Cells % 0.2 %; Platelet Count (auto) 63 10^3/uL (140-450); Red Blood Cells 2.85 10^6/uL (4.0-5.20); Red Cell Distribution Width 17.3 % (11.8-14.3); White Blood Cell 2.6 10^3/uL (4.4-10.8)
[2024-11-17 07:01] LABS: Alanine Aminotransferase 26 U/L (7-40); Anion Gap 8 (5-15); BUN/Creatinine Ratio 18.2 (10.0-20.0); Carbon Dioxide 23 mmol/L (20-31); Chloride 104 mmol/L (98-107); Glucose 77 mg/dL (74-106); Potassium 3.8 mmol/L (3.5-5.1)
[2024-11-17 07:05] LABS: Albumin 2.3 g/dL (3.2-4.8); Alkaline Phosphatase 132 U/L (46-116); Aspartate Aminotransferase 52 U/L (<34); Bilirubin, Total 2.7 mg/dL (0.2-1.0); Blood Urea Nitrogen 8 mg/dL (9-23); Calcium 8.6 mg/dL (8.7-10.4); Sodium 135 mmol/L (136-145); Total Protein 4.8 g/dL (5.7-8.2)
[2024-11-17 08:00] VITALS: PULSE 82
[2024-11-17 09:00] VITALS: BP 94/45; PULSE 82; RESP 16; TEMP 98.7; O2SAT 94
--- NOTE | 2024-11-17 09:53 | DVH ---
CHEST RADIOGRAPH Indication: pleural effusion Technique: Single frontal view of the chest was obtained COMPARISON: XY CHEST XRAY 1 VIEW on DOS: 11/16/24, XY CHEST PORTABLE on DOS: 11/15/24, XY CHEST XRAY 1 VIEW on DOS: 11/12/24, XY CHEST PORTABLE on DOS: 11/10/24, XY CHEST PORTABLE on DOS: 11/10/24 FINDINGS: Lines and Tubes: None Lungs: Clear Pleura: Moderate right pleural effusion. No pneumothorax. Cardiomediastinal contours: Unremarkable Bones: Unremarkable IMPRESSION: Moderate right pleural effusion.
[2024-11-17 12:33] VITALS: BP 103/53; PULSE 90; RESP 16; TEMP 98; O2SAT 93
[2024-11-17] MEDS ORDERED: NITR-52 PO (13:17)
--- NOTE | 2024-11-17 13:18 | DVHDSRES ---
Discharge Summary Date of Admission Resident Creating Document: LELAND DANIELLE RESIDENT Nov 10, 2024 at 03:31 Date of Discharge: Nov 17, 2024 Admitting Diagnosis Pleural effusion Labs/Diagnostic Data: Laboratory Results Test 11/17/24 04:47 11/16/24 04:45 11/15/24 15:55 11/13/24 04:55 White Blood Count 2.6 10^3/uL (4.4-10.8) Red Blood Count 2.85 10^6/uL (4.0-5.20) Hemoglobin 9.9 g/dL (12.2-16.2) Hematocrit 28.4 % (36.0-46.0) Mean Corpuscular Volume 99.8 fL (80.0-100.0) Mean Corpuscular Hemoglobin 34.8 pg (28.0-32.0) Mean Corpuscular Hemoglobin Concent 34.8 g/dL (32.0-36.0) Red Cell Distribution Width 17.3 % (11.8-14.3) Platelet Count 63 10^3/uL (140-450) Mean Platelet Volume 8.3 fL (6.9-10.8) Neutrophils (%) (Auto) 48.0 % (37.0-80.0) Lymphocytes (%) (Auto) 23.5 % (10.0-50.0) Monocytes (%) (Auto) 16.1 % (0.0-12.0) Eosinophils (%) (Auto) 11.3 % (0.0-7.0) Basophils (%) (Auto) 1.1 % (0.0-2.0) Neutrophils # (Auto) 1.3 10 ^3/uL (1.6-8.6) Lymphocytes # (Auto) 0.6 10 ^3/uL (0.4-5.4) Monocytes # (Auto) 0.4 10 ^3/uL (0-1.3) Eosinophils # (Auto) 0.3 10 ^3/uL (0-0.8) Basophils # (Auto) 0 10 ^3/uL (0-0.2) Nucleated Red Blood Cells 0.2 % Sodium Level 135 mmol/L (136-145) Potassium Level 3.8 mmol/L (3.5-5.1) Chloride Level 104 mmol/L (98-107) Carbon Dioxide Level 23 mmol/L (20-31) Anion Gap 8 (5-15) Blood Urea Nitrogen 8 mg/dL (9-23) Creatinine 0.44 mg/dL (0.550-1.02) Glomerular Filtration Rate Calc 112 mL/min (>90) BUN/Creatinine Ratio 18.2 (10.0-20.0) Serum Glucose 77 mg/dL (74-106) Calcium Level 8.6 mg/dL (8.7-10.4) Total Bilirubin 2.7 mg/dL (0.2-1.0) Aspartate Amino Transferase (AST) 52 U/L (<34) Alanine Aminotransferase (ALT) 26 U/L (7-40) Alkaline Phosphatase 132 U/L (46-116) Total Protein 4.8 g/dL (5.7-8.2) Albumin 2.3 g/dL (3.2-4.8) Direct Bilirubin 1.5 mg/dL (<0.3) Prothrombin Time 15.6 sec (9.3-11.8) Prothrombin Time INR 1.54 (0.9-1.15) Activated Partial Thromboplast Time 31.6 SEC (24.5-34.5) Lactic Acid Level 1.7 mmol/L (0.4-2.0) Test 11/12/24 04:24 11/12/24 03:31 11/12/24 00:49 11/10/24 08:15 Ammonia < 10 umol/L (11-32) Thyroid Stimulating Hormone (TSH) 3.96 uIU/mL (0.55-4.78) Stool Occult Blood Negative (Negative) Stool Occult Blood Sample #3 (Negative) POC Glucose 105 mg/dl (70-106) Body Fluid Source Pleural fluid Body Fluid pH 8.0 Body Fluid WBC (Manual) 654 CUMM (0-200) Body Fluid RBC (Manual) 930744 CUMM (0-2000) Body Fluid Mononuclear Cells 84 % Body Fluid Polymorphonuclear Cells 16 % (0-25) Body Fluid Glucose 125 mg/dL (.) Body Fluid Total Protein 2.1 g/dL (.) Body Fluid Lactate Dehydrogenase 112 IU/L (.) Test 11/09/24 23:07 11/09/24 23:00 B-Type Natriuretic Peptide 50.78 pg/mL (0-100) Urine Color Yellow (Yellow) Urine Clarity Turbid (Clear) Urine pH 5.0 (5.0-9.0) Urine Specific Ault 1.017 (1.001-1.035) Urine Protein Trace (Negative) Urine Ketones Negative (Negative) Urine Blood 2+ /uL (Negative) Urine Nitrite Negative (Negative) Urine Bilirubin Negative (Negative) Urine Urobilinogen Normal mg/dL (Negative) Urine Leukocyte Esterase 2+ /uL (Negative) Urine RBC 8 /hpf (0 - 4) Urine Microscopic WBC 34 /HPF (0-5) Urine Squamous Epithelial Cells Few /hpf (<5) Urine Bacteria Few /hpf (None Seen) Urine Hyaline Casts Few /lpf (0 - 2) Urine Mucus Few (None Seen) Urine Glucose Normal mg/dL (Normal) Other Laboratory Tests 11/17/24 04:47 Brief Hx & Hospital Course: Patient is a 58-year-old female with a past medical history of liver cirrhosis, hypothyroidism, recurrent right-sided pleural effusion, congestive heart failure (HFpEF) presented to the ED with a chief complaint of weakness and low blood pressure. Patient reports that around 4 weeks ago she had symptoms of burning pain on urination following which she went to the urgent care and was referred to her PCP and cultures of urine showed growth of bacteria and were she was apparently sent to [facility] where she saw in infectious disease doctor and was started on nitrofurantoin. On checking the records patient grew ESBL E coli and ESBL Klebsiella . Patient reports that she still has burning pain on urination. Patient reports of having diffuse abdominal pain since the last few days. Denies diarrhea, nausea, vomiting. Patient denied chest pain, shortness of breath. Reports that she is getting thoracentesis of the right lung every 2 weeks in the last time it was done was on 29 of October. Patient reported that she recently saw a liver specialist in [place] who increased the dose of Lasix to 40 mg daily and spironolactone 200 mg daily on last . She reports noticing low blood pressure since she started on a higher dose. Patient denies any other acute complaint Past medical history: Liver cirrhosis, HFpEF Anxiety, Depression, Thyroid, UTI'S, Pleural effusion Hospital course: Patient was admitted at the line of sepsis due to UTI and recurrent pleural effusion possibility to liver cirrhosis/ascites. Patient was started on the empiric antibiotic of ertapenem, and continued home medicine of Lasix and spironolactone. Ultrasound shows, ascites visualized, with the largest pocket in the right lower quadrant. with Large right pleural effusion incidentally noted, Chest x-ray shows right lower to meds zone opacity Stool occult blood was positive, GI consulted, recommended outpatient follow up for possible EGD. Radiology consulted, performed thoracentesis and took out 1.5 L of fluid analysis showed transudative, hemorrhagic and cytology showed reactive mesothelial cells. Subsequently the patient developed back pleural effusion, the patient respiratory status got worsened and she got a precipitous hemoglobin dropped which required 1 pt of blood transfusion and 2 pt of FFP. Pulmonology consulted, performed thoracentesis and took out 2.[address] scan showed, right basilar consolidation likely compressive atelectasis. Pathcy left apical subpleural ground glass opacities, nonspecific. Large right pleural effusion. Post thoracentesis, the patient's respiratory status improved, and hemoglobin also slowly improved. Urine culture showed more than 3 bacteria, possibly contaminated, on 2nd set of urine culture showed no bacterial growth. On 11/17/2024, the patient was feeling better since admission. Patient had no urinary symptoms. Shortness of breaths had improved, the patient could not maintain saturation at room air. Per pulmonology recommendation the patient needs outpatient follow up and possible thoracentesis. Discharge plan discussed with the patient and the patient discharged home. Discharge plan: Follow up with the PCP within 1 week of the discharge. Follow up with the pulmonology on outpatient basis for possible thoracentesis Follow up with the hepatology on outpatient basis/the patient follows with a fashion adviser at [facility], and the patient is considered for liver transplant Follow up with the discharge Clinic within 1 week of the discharge. Contain 100 mg twice daily for 10 days Continue home meds Operations or Procedures [place] [address] Ph: [phone] DIAGNOSTIC IMAGING Diagnostic Imaging Report : [id number] Signed PATIENT: LELAND DEMPSEY IACCT: [id number] UNIT: [id number] : 1965 LOC: OVERFLOW ROOM / BED: [address] [place] [address] AGE / SEX: 58 / F ADM STATUS: ADM IN SERVICE [id number] ORDERING PHYSICIAN: FAVIOLA GUERIN MD PROCEDURE(s): THORA - THORACENTESIS REASON: THORACENTESIS ORDER NUMBER(s): [id number], ACCESSION NUMBER(s): [id number] US THORACENTESIS HISTORY: THORACENTESIS PROCEDURE: Informed consent was obtained. An ultrasound guided thoracentesis was performed by Dr. Guerin. FINDINGS: Pleural effusion on the right. IMPRESSION: An ultrasound guided thoracentesis was performed by Dr. Guerin with 1.5L removed. ATED BY: СЕРГЕЙ MCMAHON MD DICTATED DATE/TIME: 11/10/24918 SIGNED BY: СЕРГЕЙ MCMAHON MD SIGNED DATE/TIME: 11/10/24918 CC: Condition at Discharge: Fair Final Diagnosis/Problems List Acute hypoxic respiratory failure, likely due to pleural effusion Recurrent right side pleural effusion, likely due to liver cirrhosis/malignancy Decompensated liver failure due to cirrhosis/unknown reason leading to cirrhosis Acute on chronic liver failure, leading to ascites Moderate ascites, due to liver cirrhosis Precipitous hemoglobin dropped, requiring blood transfusion Severe anemia, status post blood transfusion Sepsis, likely due to recurrent UTI Recurrent complicated UTI, possible due to ESBL Thrombocytopenia, likely due to liver cirrhosis Hypothyroidism Acquired coagulopathy, likely due to liver cirrhosis Possible spontaneous bacterial peritonitis Hypotension, likely due to sepsis/pleural effusion History of HFpEF Discharge Disposition: Home Discharge Instruct/Medications Diet: Renal Activity: No Restrictions, As Tolerated Follow Up/Referral: Follow up with the PCP within 1 week of the discharge. Follow up with the fashion adviser in the office. Follow up with discharge Clinic within 1 week of the discharge Medications: Nitrofurantoin 100 mg 2 times a day for 10 days Continue home meds Discharge Statement: "Patient was advised to return to the ER or call 911 if any headaches, dizziness, shortness of breath, chest pain, abdominal pain, bleeding, fevers, or worsening of medical condition. Patient was counseled about treatment plan, medications, possible side effects, patientverbalized understanding. All questions were answered to the best of my ability. This discharge took greater then 30 minutes in planning, reviewing documentation, counseling the patient, and discussing with other team members." ASSESSMENT ASSESSMENT Assessment Record and pleural effusion, likely due to cirrhosis Recurrent UTI GARFIELD OROZCO Nov 17, 2024 13:18
[2024-11-17 14:09] VITALS: BP 94/45; TEMP 36.7
--- NOTE | 2024-11-17 16:14 | DVHPN2 ---
Progress Note Date Seen: Nov 17, 2024 Resident Creating Document: DILEEP MURPHY RESIDENT Has the PT tested + for MRSA If YES, has PT been informed?: No Medical Necessity Reason Pt with a Central, PICC or Fol: No Subjective Review of Systems Patient was seen today at bedside No acute complaint H&H stable Patient was seen by Pulmonary Patient is cleared for discharge Objective vital signs Vital Sign Date Time Temp Pulse Resp B/P (MAP) Pulse Ox O2 Delivery O2 Flow Rate FiO2 11/17/24 14:09 36.7 11/17/24 12:33 90 16 103/53 (70) 93 11/17/24 08:15 Room Air* 0 21 Total Intake and Output 11/16/24 11/16/24 11/17/24 15:00 23:00 07:00 Intake Total 1200 ml 400 ml Balance 1200 ml 400 ml medications Current Medications Medications Dose Ordered Sig/Ana Route Start Time Stop Time Status Last Admin Dose Admin Acetaminophen/ Hydrocodone Bitart 1 tab Q6HPRN PRN PO 11/10/24 03:45 11/15/24 21:35 1 TAB Levothyroxine Sodium 125 mcg QAM@0600 PO 11/10/24 06:00 UNV Ertapenem 1 gm/ Sodium Chloride 50 ml @ 100 mls/hr DAILY IV 11/10/24 10:00 11/17/24 09:48 100 MLS/HR Docusate Sodium 100 mg DAILYPRN PRN PO 11/11/24 16:00 11/11/24 16:41 100 MG Ondansetron HCl 4 mg Q6HPRN PRN IV 11/12/24 02:00 Levothyroxine Sodium 125 mcg QAM@0600 PO 11/13/24 06:00 11/17/24 06:11 125 MCG Pantoprazole Sodium 40 mg BID IV 11/12/24 22:00 11/17/24 09:47 40 MG Furosemide 40 mg DAILY PO 11/13/24 10:00 11/17/24 09:48 40 MG Spironolactone 100 mg DAILY PO 11/13/24 10:00 11/16/24 09:56 100 MG Acetaminophen 650 mg Q8HP PRN PO 11/16/24 22:00 11/16/24 22:08 650 MG laboratory and microbiology Laboratory Tests 11/17/24 04:47 Test 11/17/24 04:47 Range/Units Serum Glucose 77 74-106 mg/dL Microbiology Date/Time Source Procedure Growth Status 11/14/24 12:35 Voided Urine Urine Culture - Preliminary Resulted 11/10/24 08:15 Pleural Fluid Gram Stain - Final Complete 11/10/24 08:15 Pleural Fluid Body Fluid Culture - Final Complete 11/09/24 23:07 Blood Blood Culture - Final NO GROWTH AFTER 5 DAYS OF INCUBATION. Complete Problem List/Assessment/Plan Problem List/Assessment/Plan Assessment and plan Sepsis likely due to UTI Cirrhosis of liver Suspected spontaneous bacterial peritonitis Severe anemia and thrombocytopenia Right-sided recurrent pleural effusion, status post thoracentesis Ascites Events No acute complaint H&H stable Patient was seen by Pulmonary Patient is cleared for discharge Plan Patient is cleared for discharge Please follow up with the flat sorter processor in 2-3 weeks for further evaluation and care of cirrhosis of liver Avoid dehydration and hepatotoxic drugs Please follow up with your force dispatcher for recurrent pleural effusion/thoracentesis Plan discussed with Dr. Roselyn Irwin , nursing staff, Total time spent on patient evaluation, chart review, assessment and plan, discussion discussion >35 minutes Plan discussed with: Patient, Other (RN) Plan discussed with: Patient, Other (RN) Dietary Evaluation Review Comments: Follow Cardiac Diet Monitor PO intake to meet her needs Expected Outcomes/Goals: improved nutrition staus. Recover from sepsis and infections DILEEP MURPHY RESIDENT Nov 17, 2024 16:14
--- NOTE | 2024-11-17 19:03 | DVHPN2 ---
Progress Note - Dictate Date Seen: Nov 17, 2024 Has the PT tested + for MRSA If YES, has PT been informed?: No Medical Necessity Reason Pt with a Central, PICC or Fol: No vital signs Vital Sign Date Time Temp Pulse Resp B/P (MAP) Pulse Ox O2 Delivery O2 Flow Rate FiO2 11/17/24 14:09 36.7 11/17/24 12:33 90 16 103/53 (70) 93 11/17/24 08:15 Room Air* 0 21 Total Intake and Output 11/16/24 11/16/24 11/17/24 15:00 23:00 07:00 Intake Total 1200 ml 400 ml Balance 1200 ml 400 ml medications Current Medications Medications Dose Ordered Sig/Ana Route Start Time Stop Time Status Last Admin Dose Admin Levothyroxine Sodium 125 mcg QAM@0600 PO 11/10/24 06:00 UNV laboratory and microbiology Laboratory Tests 11/17/24 04:47 Test 11/17/24 04:47 Range/Units Serum Glucose 77 74-106 mg/dL Assessment/Plan Impression Ascites Hypoxemia Pleural effusion Liver cirrhosis Patient seen and examined Events Low oxygen requirements On 2 liters nasal cannula No acute events S/p thoracentesis Labs and imaging reviewed Management Supplemental oxygen Titrate to maintain sats 90% or above Incentive spirometry Bronchodilators Monitor renal function Monitor electrolytes Supplement as needed Transfuse blood products as needed Continue salt restriction Okay to discharge from pulmonary standpoint Avoid anticoagulation Mechanical DVT prophylaxis Dietary Evaluation Review Comments: Follow Cardiac Diet Monitor PO intake to meet her needs Expected Outcomes/Goals: improved nutrition staus. Recover from sepsis and infections Plan discussed with: Patient LISA KIDD MD Nov 17, 2024 19:03
== END 2024-11-17 17:27 | disposition home or self-care (01) | DRG 871 ==
LOC: EDBD 22:17 → ER 22:17 → OVERFLOW 11-10 03:31 → TELE-CENTR 11-10 18:31
PROVIDERS: ADMIT Student in an Organized Health Care Education/Training Program; ATTEND Student in an Organized Health Care Education/Training Program
PROC: 0W993ZZ Drainage of Right Pleural Cavity, Percutaneous Approach (ICD-10-PCS; 2024-11-10)
PROC: 30233N1 Transfusion of Nonautologous Red Blood Cells into Peripheral Vein, Percutaneous Approach (ICD-10-PCS; 2024-11-12)
PROC: 30233K1 Transfusion of Nonautologous Frozen Plasma into Peripheral Vein, Percutaneous Approach (ICD-10-PCS; 2024-11-12)
PROC: 0W993ZZ Drainage of Right Pleural Cavity, Percutaneous Approach (ICD-10-PCS; principal; 2024-11-15)
DX: A41.9 Sepsis, unspecified organism (principal); E43 Unspecified severe protein-calorie malnutrition; K72.00 Acute and subacute hepatic failure without coma; J96.01 Acute respiratory failure with hypoxia; N39.0 Urinary tract infection, site not specified; R18.8 Other ascites; J90 Pleural effusion, not elsewhere classified; J98.11 Atelectasis; D68.4 Acquired coagulation factor deficiency; K72.10 Chronic hepatic failure without coma; E80.6 Other disorders of bilirubin metabolism; E03.9 Hypothyroidism, unspecified; D69.6 Thrombocytopenia, unspecified; R74.01 Elevation of levels of liver transaminase levels; E88.09 Other disorders of plasma-protein metabolism, not elsewhere classified; J98.4 Other disorders of lung; D64.9 Anemia, unspecified; F32.A Depression, unspecified; F41.9 Anxiety disorder, unspecified; I50.9 Heart failure, unspecified; K74.69 Other cirrhosis of liver; Z80.0 Family history of malignant neoplasm of digestive organs; Z80.3 Family history of malignant neoplasm of breast; Z82.49 Family history of ischemic heart disease and other diseases of the circulatory system; Z82.62 Family history of osteoporosis
CPT/HCPCS: 32555; 36415; 71045; 71275; 76604; 76705; 76942; 80048; 80053; 80076; 81001; 82140; 82270; 82962; 83605; 83880; 83986; 84443; 85025; 85610; 85730; 86850; 86900; 86901; 86920; 87040; 87086; 87088; 87205; 89051; 93005; 93970; 96361; 96365; 99291; G0378; J1335; J2405; J2470; J2543; J3430; P9047

== ENCOUNTER 2024-12-01 11:35 | Outpatient (CLI) | payer BC ==
[~2024-12-01 11:35] MED LIST changes: -AUG875T PO; -FURO1TAB31 PO; +FURO20TA4 PO; +FURO40TA4 PO; +LEVO125T7 PO; -LEVO150T10 PO; +NITR-52 PO; -POTA-36 PO; +SPIR100T4 PO; -SPIR25TA PO
== END 2024-12-01 17:00 | disposition home or self-care (01) ==
LOC: LAB 11:35
PROVIDERS: ATTEND Internal Medicine Endocrinology, Diabetes & Metabolism
DX: E03.9 Hypothyroidism, unspecified (principal)
CPT/HCPCS: 36415; 84439; 84443

== ENCOUNTER 2024-12-02 12:59 | Outpatient (CLI) | payer BC ==
--- NOTE | 2024-12-02 14:05 | DVH ---
INDICATION: POST THORACENTESIS TECHNIQUE: Frontal view of the chest. COMPARISON: XY CHEST XRAY 1 VIEW on DOS: 11/17/24, XY CHEST XRAY 1 VIEW on DOS: 11/16/24, XY CHEST PORT ABLE on DOS: 11/15/24, XY CHEST XRAY 1 VIEW on DOS: 11/12/24, XY CHEST PORTABLE on DOS: 11/10/24 FINDINGS: No pneumothorax status post thoracentesis.. The heart and mediastinal contours are grossly unremarkab le. There is no evidence of pleural disease. Scarring right lower lobe. The bony structures of th e chest are intact without fracture. IMPRESSION: 1. Significantly decreased right pleural effusion status post thoracentesis. No pneumothorax.
--- NOTE | 2024-12-02 14:19 | DVH ---
US THORACENTESIS HISTORY: HYDROTHORAX PROCEDURE: Informed consent was obtained. The patient was seated on the bed. A limited localization u ltrasound of the right thorax was obtained, and the optimal approach was marked on the skin. The area was prepped with chlorhexidine which was allowed to dry and draped in the usual sterile fashion. Rory e out was performed. The skin and the soft tissues were infiltrated with 1% lidocaine. A 5.5 Frisian c entesis needle catheter was advanced into right pleural space. Following aspiration of fluid, the cat heter was advanced and the needle removed. About 1600 cc of fluid was drained. No immediate complica tion was identified. FINDINGS: Moderate right pleural effusion. Aspirated fluid is beulah. IMPRESSION: Successful right thoracentesis with 1.5L removed.
[2024-12-03 12:07] LABS: Glucose, Body Fluid 134.0 mg/dL (.); LD, Body Fluid 233.0 IU/L (.)
== END 2024-12-02 17:52 | disposition home or self-care (01) ==
LOC: US 12:59
PROVIDERS: ATTEND Internal Medicine Gastroenterology
DX: J94.8 Other specified pleural conditions (principal); J90 Pleural effusion, not elsewhere classified; F32.A Depression, unspecified; I50.9 Heart failure, unspecified; Z98.890 Other specified postprocedural states; Z79.890 Hormone replacement therapy; Z87.891 Personal history of nicotine dependence; Z90.710 Acquired absence of both cervix and uterus; Z82.49 Family history of ischemic heart disease and other diseases of the circulatory system; Z80.0 Family history of malignant neoplasm of digestive organs
CPT/HCPCS: 32555; 71045; 83986; 87070; 87205; 89051; C1729; 76942

== ENCOUNTER 2024-12-17 08:45 | Outpatient (CLI) | payer BC ==
--- NOTE | 2024-12-17 09:57 | DVH ---
US THORACENTESIS, HISTORY: HYDROTHORAX PROCEDURE: Informed consent was obtained. The patient was seated on the bed. A limited localization u ltrasound of the right thorax was obtained, and the optimal approach was marked on the skin. The area was prepped with chlorhexidine which was allowed to dry and draped in the usual sterile fashion. Rory e out was performed. The skin and the soft tissues were infiltrated with 1% lidocaine. A 5.5 Swedish c entesis needle catheter was advanced into right pleural space. Following aspiration of fluid, the cat heter was advanced and the needle removed. About 2000 cc of fluid was drained. Specimen/s was/were se nt for appropriate cultures/cytology/cultures and cytology. No immediate complication was identified. FINDINGS: Moderate to large right pleural effusion. Aspirated fluid is clear and serous. IMPRESSION: Successful right thoracentesis with 2L removed.
--- NOTE | 2024-12-17 10:00 | DVH ---
XY CHEST PORTABLE, HISTORY: POST THORACENTESIS COMPARISON: XY CHEST PORTABLE on DOS: 12/02/24, XY CHEST XRAY 1 VIEW on DOS: 11/17/24, XY CHEST XRAY 1 V IEW on DOS: 11/16/24 XY CHEST PORTABLE on DOS: 12/02/24, XY CHEST XRAY 1 VIEW on DOS: 11/17/24, XY CHEST XRAY 1 VIEW on DOS: 11/16/24 TECHNICAL DATA: 1 view of the chest was obtained. FINDINGS: Lines and tubes: None Cardiomediastinal silhouette: normal Pulmonary vasculature: normal Lung expansion: low Lung airspace: Right perihilar airspace opacity could be atelectasis. Lung interstitium: normal Pleura: normal Pneumothorax: no Bones: Unremarkable Other: no IMPRESSION: Right perihilar airspace opacity could be atelectasis. No pneumothorax is seen.
[2024-12-18 13:07] LABS: Glucose, Body Fluid 112.0 mg/dL (.); LD, Body Fluid 113.0 IU/L (.)
== END 2024-12-17 17:00 | disposition home or self-care (01) ==
LOC: US 08:45
PROVIDERS: ATTEND Nurse Practitioner
DX: J94.8 Other specified pleural conditions (principal); J90 Pleural effusion, not elsewhere classified; I50.9 Heart failure, unspecified; F41.8 Other specified anxiety disorders; F17.210 Nicotine dependence, cigarettes, uncomplicated; Z79.899 Other long term (current) drug therapy; Z87.09 Personal history of other diseases of the respiratory system; Z90.710 Acquired absence of both cervix and uterus; Z82.61 Family history of arthritis; Z80.3 Family history of malignant neoplasm of breast; Z82.49 Family history of ischemic heart disease and other diseases of the circulatory system; Z83.79 Family history of other diseases of the digestive system
CPT/HCPCS: 32555; 71045; 83986; 87070; 87205; 89051; C1729; 76942

== ENCOUNTER 2024-12-31 08:41 | Outpatient (CLI) | payer BC ==
--- NOTE | 2024-12-31 09:46 | DVH ---
XY CHEST PORTABLE, HISTORY: POST THORACENTESIS COMPARISON: XY CHEST PORTABLE on DOS: 12/17/24, XY CHEST PORTABLE on DOS: 12/02/24, XY CHEST XRAY 1 VIEW on DOS: 11/17/24 XY CHEST PORTABLE on DOS: 12/17/24, XY CHEST PORTABLE on DOS: 12/02/24, XY CHEST XRAY 1 VIEW on DOS: 10/27 08/19 TECHNICAL DATA: 1 view of the chest was obtained. FINDINGS: Lines and tubes: None Cardiomediastinal silhouette: normal Pulmonary vasculature: normal Lung expansion: normal Lung airspace: normal Lung interstitium: normal Pleura: normal Pneumothorax: no Bones: Unremarkable Other: no IMPRESSION: No pneumothorax visualized.
--- NOTE | 2024-12-31 10:16 | DVH ---
US THORACENTESIS, HISTORY: HYDROTHORAX PROCEDURE: Informed consent was obtained. The patient was seated on the bed. A limited localization ultrasound o f the right thorax was obtained, and the optimal approach was marked on the skin. The area was preppe d with chlorhexidine which was allowed to dry and draped in the usual sterile fashion. Time out was p erformed. The skin and the soft tissues were infiltrated with 1% lidocaine. A 5.5 Senegalese centesis nee dle catheter was advanced into right pleural space. Following aspiration of fluid, the catheter was a dvanced and the needle removed. About 1500 cc of fluid was drained. Specimen/s was/were sent for appr opriate cultures/cytology/cultures and cytology. No immediate complication was identified. FINDINGS: Moderate right pleural effusion. Aspirated fluid is clear and serous. IMPRESSION: Right thoracentesis with 1.5L removed.
[2025-01-01 12:07] LABS: Glucose, Body Fluid 96.0 mg/dL (.); LD, Body Fluid 91.0 IU/L (.)
== END 2024-12-31 17:00 | disposition home or self-care (01) ==
LOC: US 08:41
PROVIDERS: ATTEND Internal Medicine Gastroenterology
DX: J94.8 Other specified pleural conditions (principal)
CPT/HCPCS: 32555; 71045; 76942; 83986; 87070; 87205; 89051; C1729

== ENCOUNTER 2025-01-13 08:42 | Outpatient (CLI) | payer BC ==
--- NOTE | 2025-01-13 09:51 | DVH ---
INDICATION: POST THORACENTESIS TECHNIQUE: Frontal view of the chest. COMPARISON: XY CHEST PORTABLE on DOS: 12/31/24, XY CHEST PORTABLE on DOS: 12/17/24, XY CHEST PORTABLE on DOS: 12/02/24, XY CHEST XRAY 1 VIEW on DOS: 11/17/24, XY CHEST XRAY 1 VIEW on DOS: 11/16/24 FINDINGS: Decreased right pleural effusion. The heart and mediastinal contours are grossly unremarkable. There is no evidence of pleural disease. The lungs are clear. The bony structures of the chest are inta ct without fracture. IMPRESSION: 1. No evidence of acute disease.
[2025-01-14 14:07] LABS: Glucose, Body Fluid 108.0 mg/dL (.); LD, Body Fluid 78.0 IU/L (.)
== END 2025-01-13 17:00 | disposition home or self-care (01) ==
LOC: US 08:42
PROVIDERS: ATTEND Internal Medicine Gastroenterology
DX: J94.8 Other specified pleural conditions (principal); J90 Pleural effusion, not elsewhere classified; I50.9 Heart failure, unspecified; F41.8 Other specified anxiety disorders; Z90.710 Acquired absence of both cervix and uterus; Z82.61 Family history of arthritis; Z80.3 Family history of malignant neoplasm of breast; Z82.49 Family history of ischemic heart disease and other diseases of the circulatory system; Z83.79 Family history of other diseases of the digestive system; Z80.0 Family history of malignant neoplasm of digestive organs
CPT/HCPCS: 32555; 71045; 83986; 87070; 87205; 89051; C1729; 76604; 76942

== ENCOUNTER → 2025-01-30 | Outpatient (CLI) | payer BC ==
--- NOTE | 2025-01-30 12:08 | DVH ---
INDICATION: POST THORACENTESIS TECHNIQUE: Frontal view of the chest. COMPARISON: XY CHEST PORTABLE on DOS: 01/13/25, XY CHEST PORTABLE on DOS: 12/31/24, XY CHEST PORTABLE on DOS: 12/17/24, XY CHEST PORTABLE on DOS: 12/02/24, XY CHEST XRAY 1 VIEW on DOS: 11/17/24, XY CHEST TAD BLE on DOS: 01/13/25 FINDINGS: Decreased right pleural effusion. The heart and mediastinal contours are grossly unremarkable. There is no evidence of pleural disease. The lungs are clear. The bony structures of the chest are inta ct without fracture. IMPRESSION: 1. No evidence of acute disease.
--- NOTE | 2025-01-30 17:25 | DVH ---
PROCEDURE: Ultrasound-guided thoracentesis Procedural Personnel Attending physician(s): Liborio Estevez Fellow physician(s): None Resident physician(s): None A dvanced practice provider(s): None Pre-procedure diagnosis: Dyspnea Post-procedure diagnosis: Same Indication: Therapeutic Additional clinical history: None Complications: No immediate complications. IMPRESSION: Ultrasound-guided thoracentesis with drainage of 1100 mL of serous fluid. Plan: Resume care by clinical team. Fluid analysis pending. PROCEDURE SUMMARY: - Ultrasound-guided thoracentesis - additional procedure(s): None PROCEDURE DETAILS: Pre-procedure Consent: Informed consent for the procedure including risks, benefits and alternatives was obtained and time-out was performed prior to the procedure. Preparation: The site was prepared an d draped using maximal sterile barrier technique including cutaneous antisepsis. Anesthesia/sedation level of anesthesia/sedation: No sedation Anesthesia/sedation administered by: Not applicable Total intra-service sedation time (minutes): Not applicable Limited thoracic ultrasound Limited thoracic ultrasound was performed. Left hemithorax findings: Not investigated Right hemithorax findings: Large pleural effusion Thoracentesis Local anesthesia was administered. A safe window for thoracentesis was identified with ultrasound. Th e pleural space was accessed and fluid return confirmed position. The fluid was drained. The catheter was removed and a sterile dressing was applied. Catheter size (Fr):5 Catheter valve: Yes Fluid appearance: serous Volume drained (mL): 1100 Post-drainage ultrasound:No visible effusion Additional Details Additional description of procedure: None Registry event: V/3/f Device used: None Equipment details: None Specimens removed: Aspirated fluid was not sent for analysis. Estimated blood loss (mL): Less than 10 Standardized report: [id number] Attestation Signer name: Liborio Estevez I attest that I was present for the entire procedure. I reviewed the stored images and agree with the report as written.
[2025-01-31 13:07] LABS: Glucose, Body Fluid 111.0 mg/dL (.); LD, Body Fluid 89.0 IU/L (.)
== END | disposition home or self-care (01) ==
LOC: US 10:49
PROVIDERS: ATTEND Nurse Practitioner
DX: J94.8 Other specified pleural conditions (principal); J90 Pleural effusion, not elsewhere classified; I50.9 Heart failure, unspecified; F41.8 Other specified anxiety disorders; Z90.710 Acquired absence of both cervix and uterus; Z87.891 Personal history of nicotine dependence; Z82.61 Family history of arthritis; Z80.3 Family history of malignant neoplasm of breast; Z80.0 Family history of malignant neoplasm of digestive organs; Z83.79 Family history of other diseases of the digestive system; Z82.49 Family history of ischemic heart disease and other diseases of the circulatory system
CPT/HCPCS: 32555; 71045; 83986; 87071; 87205; 89051; C1729; 76942

== ENCOUNTER 2025-02-16 05:52 | Outpatient (CLI) | payer BC | END 2025-02-16 17:00 | disposition home or self-care (01) | LOC: LAB 05:52 | DX: N39.0 Urinary tract infection, site not specified (principal) | CPT/HCPCS: 87086; 87088; 87186 ==

== ENCOUNTER 2025-02-16 09:51 | Outpatient (CLI) | payer BC ==
[2025-02-16 10:46] LABS: Anion Gap 8 (5-15); BUN/Creatinine Ratio 17.5 (10.0-20.0); Blood Urea Nitrogen 11 mg/dL (9-23); Calcium 8.8 mg/dL (8.7-10.4); Carbon Dioxide 23 mmol/L (20-31); Chloride 103 mmol/L (98-107); Glucose 87 mg/dL (74-106); Hematocrit 38.5 % (36.0-46.0); Hemoglobin 13.5 g/dL (12.2-16.2); Mean Corpuscular Hemoglobin 33.8 pg (28.0-32.0); Mean Corpuscular Volume 96.6 fL (80.0-100.0); Nucleated Red Blood Cells % 0.2 %; Potassium 4.2 mmol/L (3.5-5.1); Total Protein 6.5 g/dL (5.7-8.2)
[2025-02-16 10:50] LABS: Alanine Aminotransferase 46 U/L (7-40); Albumin 3.1 g/dL (3.2-4.8); Alkaline Phosphatase 170 U/L (46-116); Bilirubin, Total 2.4 mg/dL (0.2-1.0); Sodium 134 mmol/L (136-145)
== END 2025-02-16 17:00 | disposition home or self-care (01) ==
LOC: LAB 09:51
DX: K74.69 Other cirrhosis of liver (principal); K76.9 Liver disease, unspecified; J91.8 Pleural effusion in other conditions classified elsewhere; R18.8 Other ascites
CPT/HCPCS: 36415; 80053; 85025; 85730

== ENCOUNTER 2025-02-18 12:38 | Outpatient (CLI) | payer BC ==
--- NOTE | 2025-02-18 14:06 | DVH ---
INDICATION: POST THORACENTESIS TECHNIQUE: Frontal view of the chest. COMPARISON: XY CHEST PORTABLE on DOS: 01/30/25, XY CHEST PORTABLE on DOS: 01/13/25, XY CHEST PORTABLE on DOS: 12/31/24, XY CHEST PORTABLE on DOS: 12/17/24, XY CHEST PORTABLE on DOS: 12/02/24 FINDINGS: . The heart and mediastinal contours are grossly unremarkable. There is no evidence of pleural disea se. The lungs are clear. The bony structures of the chest are intact without fracture. IMPRESSION: 1. No pneumothorax status post thoracentesis. No evidence of acute disease.
--- NOTE | 2025-02-18 14:33 | DVH ---
US THORACENTESIS, HISTORY: THORACENTESIS PROCEDURE: Informed consent was obtained. The patient was seated on the bed. A limited localization u ltrasound of the right thorax was obtained, and the optimal approach was marked on the skin. The area was prepped with chlorhexidine which was allowed to dry and draped in the usual sterile fashion. Rory e out was performed. The skin and the soft tissues were infiltrated with 1% lidocaine. A 5.5 [place]ian c entesis needle catheter was advanced into right pleural space. Following aspiration of fluid, the cat heter was advanced and the needle removed. About 1300 cc of fluid was drained. No immediate complica tion was identified. FINDINGS: Moderate right pleural effusion. Aspirated fluid is clear and serous. IMPRESSION: Successful right thoracentesis with 1.3L removed.
[2025-02-19 13:07] LABS: Glucose, Body Fluid 115.0 mg/dL (.); LD, Body Fluid 82.0 IU/L (.)
== END 2025-02-18 17:00 | disposition home or self-care (01) ==
LOC: US 12:38
PROVIDERS: ATTEND Internal Medicine Gastroenterology
DX: J94.8 Other specified pleural conditions (principal); J90 Pleural effusion, not elsewhere classified; I50.9 Heart failure, unspecified; F41.8 Other specified anxiety disorders; Z79.890 Hormone replacement therapy; Z79.899 Other long term (current) drug therapy; Z90.710 Acquired absence of both cervix and uterus; Z80.3 Family history of malignant neoplasm of breast; Z87.891 Personal history of nicotine dependence; Z80.0 Family history of malignant neoplasm of digestive organs; Z82.49 Family history of ischemic heart disease and other diseases of the circulatory system; Z83.79 Family history of other diseases of the digestive system; Z82.62 Family history of osteoporosis
CPT/HCPCS: 32555; 71045; 83986; 87070; 87205; 89051; C1729; 76604; 76942

== ENCOUNTER 2025-03-09 11:22 | Outpatient (CLI) | payer BC | END 2025-03-09 17:00 | disposition home or self-care (01) | LOC: LAB 11:22 | PROVIDERS: ATTEND Internal Medicine Endocrinology, Diabetes & Metabolism | DX: E03.9 Hypothyroidism, unspecified (principal) | CPT/HCPCS: 36415; 84439; 84443; 86376 ==

== ENCOUNTER 2025-03-11 12:32 | Outpatient (CLI) | payer BC ==
--- NOTE | 2025-03-11 13:37 | DVH ---
INDICATION: s/p thoracentesis TECHNIQUE: Frontal view of the chest. COMPARISON: XY CHEST PORTABLE on DOS: 02/18/25, XY CHEST PORTABLE on DOS: 01/30/25, XY CHEST PORTABLE on DOS: 01/13/25, XY CHEST PORTABLE on DOS: 12/31/24, XY CHEST PORTABLE on DOS: 12/17/24 FINDINGS: The heart and mediastinal contours are grossly unremarkable. There is no evidence of pleural disease . The lungs are clear. The bony structures of the chest are intact without fracture. IMPRESSION: 1. No pneumothorax status post thoracentesis.
--- NOTE | 2025-03-11 13:38 | DVH ---
PROCEDURE: ULTRASOUND GUIDED THORACENTESIS USING TEMPORARY CATHETER HISTORY: OTHER SPECIFIED PLEURAL DOCUMENTATION: Informed consent was obtained and a procedural time out was performed. FINDINGS: The risks and benefits of the procedure including bleeding, infection and pneumothorax were explained to the patient and written informed consent obtained. Optimal site for puncture long the right posterior chest wall was determined using real-time ultrasou nd and the region sterilized. Local anesthesia was instilled. A 5 [place]ian catheter was then advanced into the pleural space and 1.05 liters of straw colored fluid was removed. The patient tolerated the procedure well. IMPRESSION: 1. Ultrasound guided right thoracentesis.
[2025-03-12 14:07] LABS: Glucose, Body Fluid 114.0 mg/dL (.); LD, Body Fluid 68.0 IU/L (.)
== END 2025-03-12 17:00 | disposition home or self-care (01) ==
LOC: US 12:32
PROVIDERS: ATTEND Nurse Practitioner
DX: J94.8 Other specified pleural conditions (principal); J90 Pleural effusion, not elsewhere classified
CPT/HCPCS: 32555; 71045; 83986; 87070; 87205; 89051; C1729; 76942

== ENCOUNTER 2025-03-31 12:05 | Outpatient (CLI) | payer BC ==
[2025-03-31 12:50] LABS: Chloride 102 mmol/L (98-107); Potassium 4.1 mmol/L (3.5-5.1)
[2025-03-31 12:51] LABS: Anion Gap 9 (5-15); Calcium 8.8 mg/dL (8.7-10.4); Carbon Dioxide 24 mmol/L (20-31)
[2025-03-31 12:52] LABS: Sodium 135 mmol/L (136-145)
[2025-03-31 12:56] LABS: BUN/Creatinine Ratio 13.2 (10.0-20.0); Blood Urea Nitrogen 9 mg/dL (9-23); Glucose 120 mg/dL (74-106)
== END 2025-03-31 17:00 | disposition home or self-care (01) ==
LOC: LAB 12:05
PROVIDERS: ATTEND Nurse Practitioner
DX: Z01.812 Encounter for preprocedural laboratory examination (principal); K70.31 Alcoholic cirrhosis of liver with ascites
CPT/HCPCS: 36415; 80048

== ENCOUNTER 2025-04-03 12:46 | Outpatient (CLI) | payer BC ==
[2025-04-03 13:05] LABS: Chloride 102 mmol/L (98-107); Potassium 4.6 mmol/L (3.5-5.1)
[2025-04-03 13:06] LABS: Anion Gap 9 (5-15); Calcium 9.3 mg/dL (8.7-10.4); Carbon Dioxide 24 mmol/L (20-31)
[2025-04-03 13:09] LABS: Sodium 135 mmol/L (136-145)
[2025-04-03 13:11] LABS: BUN/Creatinine Ratio 18.5 (10.0-20.0); Blood Urea Nitrogen 12 mg/dL (9-23); Glucose 98 mg/dL (74-106)
[2025-04-03 13:14] LABS: INR 1.31 (0.9-1.15); Partial Thromboplastin Time 30.0 SEC (24.5-34.5); Prothrombin Time 13.5 sec (9.3-11.8)
--- NOTE | 2025-04-03 14:09 | DVH ---
US CHEST ULTRASOUND, HISTORY: OTHER SPECIFIED PLUERAL EFFUSION COMPARISON(S): XY CHEST PORTABLE on DOS: 03/11/25, XY CHEST PORTABLE on DOS: 02/18/25, XY CHEST PORTABLE on DOS: 01/30/25 TECHNICAL DATA: Transverse and longitudinal images are obtained of the chest. FINDING: IMPRESSION(S): Moderate right pleural effusion. However patient is asymptomatic. Recommend waiting until symptomatic before thoracentesis.
== END 2025-04-03 17:00 | disposition home or self-care (01) ==
LOC: US 12:46
PROVIDERS: ATTEND Nurse Practitioner
DX: J90 Pleural effusion, not elsewhere classified (principal)
CPT/HCPCS: 36415; 76604; 80048; 85610; 85730

== ENCOUNTER 2025-04-28 10:54 | Outpatient (CLI) | payer BC ==
[~2025-04-28 10:54] MED LIST changes: -FURO20TA4 PO; -HYDR-4902 PO; -NITR-52 PO
--- NOTE | 2025-04-28 12:21 | DVH ---
US CHEST ULTRASOUND, HISTORY: RECURRENT PLEURAL EFFUSION COMPARISON(S): US CHEST ULTRASOUND on DOS: 04/03/25, US THORACENTESIS on DOS: 03/11/25, US THORACENTESIS on DOS: 02/18/25 TECHNICAL DATA: Transverse and longitudinal images are obtained of the chest. FINDING: IMPRESSION(S): There is small right pleural effusion. No thoracentesis indicated.
[2025-04-29] MEDS: IODIXANOL 320MG/ML 100ML BTL IV ONE (07:34)
[2025-04-29 07:43] VITALS: BP 98/68
[2025-04-29] MEDS: VERAPAMIL 2.5MG/ML INJ 2ML VIAL IV ONE (07:43)
[2025-04-29] MEDS: ANGIOMAX 250 MG VIAL IV ONE (07:43)
[2025-04-29] MEDS: HEPARIN SODIUM (PORCINE) 5000 UNITS/ML 1ML VIAL ONE (07:43)
[2025-04-29] MEDS: fentaNYL CITRATE 100 MCG/2 ML VL ONE (07:43)
[2025-04-29] MEDS: LIDOCAINE 2%HCL (LOCAL ANESTH.) INJ 20ML MDV ONE (07:44)
[2025-04-29] MEDS: SODIUM CHL 0.9% 0 ML ONE (07:44)
[2025-04-29] MEDS: NITROGLYCERIN 50MG/250ML 250 ML IV ONE (07:44)
[2025-04-29] MEDS: MIDAZOLAM HCL 2MG/2ML 2ml VIAL (1mg/ml) ONE (07:44)
== END 2025-04-28 17:00 | disposition home or self-care (01) ==
LOC: US 10:54
PROVIDERS: ATTEND Nurse Practitioner
DX: J90 Pleural effusion, not elsewhere classified (principal)
CPT/HCPCS: 76604

== ENCOUNTER 2025-05-14 09:50 | Outpatient (CLI) | payer BC ==
--- NOTE | 2025-05-14 10:45 | DVH ---
EXAM: US CHEST ULTRASOUND CLINICAL HISTORY: RECURRENT PLEURAL EFFUSION COMPARISON: XY CHEST TWO VIEWS ROUTINE on DOS: 05/12/25, US CHEST ULTRASOUND on DOS: 04/28/25, US CHEST ULTRASOUND on DOS: 04/03/25, XY CHEST PORTABLE on DOS: 03/11/25, XY CHEST PORTABLE on DOS: 02/18/25 TECHNIQUE: Targeted sonographic evaluation of the soft tissues of the right chest was obtained utilizing grayscale and color Doppler imaging. Findings/Impression: Moderate right pleural effusion.
--- NOTE | 2025-05-14 10:55 | DVH ---
PROCEDURE: ULTRASOUND GUIDED THORACENTESIS USING TEMPORARY CATHETER HISTORY: RECURRENT PLEURAL EFFUSION DOCUMENTATION: Informed consent was obtained and a procedural time out was performed. FINDINGS: The risks and benefits of the procedure including bleeding, infection and pneumothorax were explained to the patient and written informed consent obtained. Optimal site for puncture long the right posterior chest wall was determined using real-time ultrasound and the region sterilized. Local anesthesia was instilled. A 5 [place] catheter was then advanced into the pleural space and 1.2 liters of clear fluid was removed. The patient tolerated the procedure well. IMPRESSION: 1. Successful right thoracentesis with removal of 1.2 L of clear fluid.
[2025-05-15 13:07] LABS: Glucose, Body Fluid 101.0 mg/dL (.); LD, Body Fluid 55.0 IU/L (.)
== END 2025-05-14 17:00 | disposition home or self-care (01) ==
LOC: US 09:50
PROVIDERS: ATTEND Nurse Practitioner
DX: J90 Pleural effusion, not elsewhere classified (principal); I50.9 Heart failure, unspecified; F41.8 Other specified anxiety disorders; Z79.890 Hormone replacement therapy; Z79.899 Other long term (current) drug therapy; Z90.710 Acquired absence of both cervix and uterus; Z98.890 Other specified postprocedural states; Z87.891 Personal history of nicotine dependence; Z82.61 Family history of arthritis; Z80.3 Family history of malignant neoplasm of breast; Z82.49 Family history of ischemic heart disease and other diseases of the circulatory system
CPT/HCPCS: 32555; 76604; 83986; 87070; 87205; 89051; C1729; 76942

== ENCOUNTER → 2025-05-15 | Outpatient (CLI) | payer BC | END | disposition home or self-care (01) | LOC: LAB 10:25 | PROVIDERS: ATTEND Internal Medicine Endocrinology, Diabetes & Metabolism | DX: E03.9 Hypothyroidism, unspecified (principal) | CPT/HCPCS: 36415; 84439; 84443; 86376 ==